=== PATIENT | female | born 1955 | race Caucasian/White ===

== ENCOUNTER → 2016-11-23 | Outpatient (CLI) | payer BC ==
[2016-11-23 11:47] LABS: EKG EKG PERFORMED
[2016-11-23 12:18] LABS: Basophils # (A) 0.1 k/uL (0-0.2); Basophils % (A) 1 %; CH 28.6; CHCM 30.8; Eosinophils # (A) 0.2 k/uL (0-0.7); Eosinophils % (A) 3 %; HCT 38.8 % (34.0-46.0); HDW 2.48; HGB 11.9 gm/dL (11.4-16.0); Hypochromasia Slight; Luc # (Auto) 0.11; Luc % (Auto) 1; Lymphocytes # (A) 1.6 k/uL (1.0-4.8); Lymphocytes % (A) 19 %; MCH 28.7 pg (25.0-35.0); MCHC 30.8 g/dL (31.0-37.0); MCV 93.4 fL (80.0-100.0); Mean Platelet Volume 6.9; Monocytes # (A) 0.3 k/uL (0-1.0); Monocytes % (A) 3 %; Neutrophils % (A) 72 %; RBC 4.15 m/uL (3.80-5.40); RDW 13.9 % (11.5-15.5); WBC 8.3 k/uL (3.8-10.6); WBC (Perox) 8.96
[2016-11-23 12:39] LABS: ALT 48 U/L (9-52); AST 38 U/L (14-36); Alkaline Phosphatase 156 U/L (38-126); Anion Gap 9 mmol/L; Blood Urea Nitrogen 10 mg/dL (7-17); Calcium 9.8 mg/dL (8.4-10.2); Carbon Dioxide 26 mmol/L (22-30); Chloride 110 mmol/L (98-107); Glucose 86 mg/dL (74-99); Non-African American GFR(MDRD) >60 (>60 ml/min/1.73 sqM); Potassium 4.1 mmol/L (3.5-5.1); Sodium 145 mmol/L (137-145); Total Bilirubin 0.4 mg/dL (0.2-1.3); Total Protein 6.4 g/dL (6.3-8.2)
[2016-11-23 13:02] LABS: Partial Thromboplastin Time 23.7 sec (22.0-30.0); Prothrombin Time 10.4 sec (9.0-12.0)
[2016-11-23 13:48] LABS: Appearance,Urine Clear (Clear); Bilirubin,Urine Negative (Negative); Glucose,Urine (UA) Negative (Negative); Ketones,Urine Negative (Negative); Leukocyte Esterase,Urine Large (Negative); Mucus,Urine Rare /hpf; Nitrite,Urine Negative (Negative); PH, Urine 5.5 (5.0-8.0); Particle Count 2846; Protein,Urine Negative (Negative); RBC,Urine 5 /hpf (0-5); Specific Gravity,Urine 1.018 (1.001-1.035); Squamous Epithelial Cell,Urine 3 /hpf (0-4); UA Billing (MACRO vs. MICRO) MICRO; Urobilinogen,Urine <2.0 mg/dL (<2.0); WBC,Urine 11 /hpf (0-5)
== END | disposition home or self-care (01) ==
LOC: LABPAT 11:38
PROVIDERS: ATTEND Orthopaedic Surgery
DX: Z01.810 Encounter for preprocedural cardiovascular examination (principal); Z01.812 Encounter for preprocedural laboratory examination
CPT/HCPCS: 80053; 81001; 85025; 85610; 85730; 87070; 93005

== ENCOUNTER 2016-12-06 12:09 | Inpatient (IN) | payer BC ==
[2016-11-25 14:54] VITALS: BMI 24.9
[~2016-12-06 12:09] MED LIST: ACETAMINOPHEN TAB 500 MG TAB PO ONE; DEXAMETHASONE SOD PHOSPHATE 10 MG/ML 1 ML VIAL IV ONE; HYDROmorphone 1 MG/ML 1 ML SYRINGE IVP PRN; LIDOCAINE 1% 20 ML VIAL (10MG/ML) FOR IV START INTRADERMA PRN; MELOXICAM 7.5 MG TAB PO ONE; MIDAZOLAM 2 MG/2 ML VIAL IV PRN; ONDANSETRON 4 MG/2 ML VIAL IVP ONE; SCOPOLAMINE 1.5MG/72HR PATCH TRANSDERM ONE; TRANEXAMIC ACID 1,000 MG in SODIUM CHLORIDE 0.9% 100 ML IVPB ONE; ceFAZolin 2 GM in SODIUM CHLORIDE 0.9% 100 ML IVPB ONE
[2016-12-06] MEDS: LACTATED RINGERS 1,000 ML IV SCH ×3 (13:05→23:39)
[2016-12-06] MEDS ORDERED: MIDAZOLAM 2 MG/2 ML VIAL IVP ONE (13:21)
[2016-12-06] MEDS ORDERED: fentaNYL (PF) 50 MCG/ML 2 ML AMP IV ONE (13:22)
[2016-12-06] MEDS ORDERED: ROPIVACAINE 1,100 MG, SODIUM CHLORIDE 0.9% 330 ML MISCELLANE PRN ×2 (14:01)
--- NOTE | 2016-12-06 14:03 | P.ONQ ---
Anesthesiology Proc Note - PNB - Peripheral Nerve Block Performed Right Adductor Canal Infusion Procedure Start Time: :30 Procedure Stop Time: :40 Indication: Acute Post-Operative Pain, Analgesia Sedation Type: Sedate with meaningful contact maintained Preparation: Sterile Prep Position: Supine Catheter: Indwelling Needle Types: On-Q Needle Size: 100mm (4") Needle Gauge: 18 Technique: Ultrasound Injectate: 0.5% Ropivacaine (see comment for volume) Blood Aspirated: No Pain Paresthesia on Injection Noted: No Resistance on Injection: Normal Events: Uneventful and Well Tolerated
[2016-12-06] MEDS ORDERED: GLYCOPYRROLATE 0.2 MG/ML 2 ML VIAL ONE (14:54)
[2016-12-06] MEDS ORDERED: PROPOFOL 10 MG/ML 20 ML VIAL IV ONE (14:54)
[2016-12-06] MEDS ORDERED: SODIUM CHLORIDE 0.9% 100 ML BAG ONE (14:54)
[2016-12-06] MEDS ORDERED: MIDAZOLAM 2 MG/2 ML VIAL ONE (14:54)
[2016-12-06] MEDS ORDERED: TRANEXAMIC ACID 1,000 MG/10 ML VIAL ONE (14:54)
[2016-12-06] MEDS ORDERED: fentaNYL (PF) 50 MCG/ML 2 ML AMP ONE (14:54)
[2016-12-06] MEDS: ROPIVACAINE 246.25 MG, EPINEPHrine 0.5 MG, KETOROLAC 30 MG, cloNIDine HCL/PF 80 MCG, WA... MISCELLANE ONE ×10 (15:26→15:56)
[2016-12-06] MEDS ORDERED: ceFAZolin 3,000 MG in SODIUM CHLORIDE 0.9% IRRIGATIO 3,000 ML IRRIGATION ONE (15:27)
[2016-12-06] MEDS ORDERED: LACTATED RINGERS 1,000 ML IV ONE (15:29)
--- NOTE | 2016-12-06 16:30 | P.OP ---
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 The articulation is ceramic on polyethylene. Anesthesia: spinal Surgeon: Miguel Rodriguez Food Service Aide #1: Karlene Reeder Estimated Blood Loss (ml): 50 Pathology: other (Bone and cartilage) Condition: stable Disposition: PACU Indications for Procedure: This is a 61-year-old female that had a right medial unicompartmental knee replacement for medial compartment osteoarthritis of her knee. After surgery she continued to have pain and swelling in her knee and subsequent x-rays demonstrated avascular necrosis of her lateral femoral condyle. Infection was ruled out as a cause. After lengthy discussion of the surgical and nonsurgical treatment options with her at length, she wishes to proceed with a revision of a unicompartmental knee replacement to a total knee replacement. 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 Description of Procedure: Patient was seen in the preoperative area consent was reviewed and operative site was marked with a skin marker. Patient was then brought to the operating room and given preoperative antibiotics intravenously. A spinal anesthetic was administered by the anesthesia department. A tourniquet was placed on the upper thigh and the lower extremity was prepped and draped in usual sterile fashion. A gram of transexamic acid was given. A universal timeout was then performed which confirmed the patient's name, surgical site, ALLERGIES, and consent. The lower extremity was then exsanguinated and tourniquet was inflated to 350 mmHg. A standard and anterior midline approach to the knee was performed. The skin and subcutaneous tissue was dissected down to the patellar tendon, with the prior scar being excised.. A medial parapatellar arthrotomy was then performed. The knee was then extended, the patellar was everted, and the knee was again flexed. The Anterior horn of the lateral menisus was excised, and a release was performed to the posterior medial aspect of the knee. On gross visual inspection, the prior unicompartmental medial knee replacement was in good position alignment, no evidence of any loosening. 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 The femoral canal was then opened with the appropriate drill, and the intramedullary femoral cutting guide was then placed and set for 4 of valgus. The distal femoral cutting block was then pinned in place, and the distal femur was then cut. A small saw was then used to disrupt the implant cement interface , and the distal femoral component was then removed. The cutting block was then removed and the cut was checked for flatness. Next, the sizing guide was then placed and set for 3 external rotation based off of the epicondylar axis and Whitesides line. After the femur was sized, the appropriate 4-in-1 cutting block was then pinned in place. The anterior condyles were cut without notching. The posterior and chamfer cuts were performed while protecting the collateral ligaments. The cutting block was then removed, and the femoral canal was plugged with autologous bone. Attention was then directed to the tibia. The remaining ACL was removed with a Ronguer, and the tibia was then gently subluxed forward with a large bent knee retractor. Any remaining menisci was excised. The posterior lateral corner was cauterized in order to cauterize the lateral geniculate artery. The extra medullary tibial cutting guide was then placed, set for the appropriate rotation , slope, and depth of resection. The proximal tibia cutting guide was then pinned in place. Proximal tibia was then cut. Next, also using a small saw, the proximal tibial component was removed after the implant and cement interface was disrupted. The tibia was then sized. Next trials were then placed with the appropriate-sized insert. The knee was able to fully extend and flex to 130 and was stable throughout all range of motion. The knee was then extended, patella everted. Patella was then measured, and then using an osteotomy guide, the patella was cut at the appropriate level. The patella was then measured and drilled and the patella trial was then placed. The knee was then taken through range of motion with the patella trial and the patella tracked normally. The knee was then extended patella trial was then removed and the patella was everted. Knee was then flexed and lug holes were drilled through the femoral trial and the femoral trial was then removed. The tibial was then exposed, and the tibial broach guide was then pinned in place after it was set for the appropriate rotation to allow for the most coverage without overhang. The tibia was then broached. The cut surfaces of bone were then irrigated with pulsatile lavage. The posterior structures were injected with the ropivacaine solution. The knee was also irrigated with Irrisept solution. The components were then opened, the cement was mixed, and the components were then cemented in place. The cement was allowed to harden with the knee in full extension. While the cement was hardening, the remaining soft tissues were injected with the ropivacaine solution. After the cemented hardened. The tourniquet was released, and hemostasis was obtained. A second gram of transexamic acid was given. The knee was again irrigated. The knee was again taken through range of motion and found to be stable throughout all range of motion of 0-130, and the patella tracked normally. The fascia was then closed with #2 strata fix suture. The subcutaneous tissue was closed with 3-0 Vicryl and 3-0 strata fix. Dermabond tape was used for the skin, and the patient was placed in a sterile dressing. Patient was then transferred to recovery room in stable condition. The research assistant member ALIA Shelton was required due the complexity surgery and the need for a skilled surgical coder. She assisted in positioning, draping , retraction, and closure of the wound.
[2016-12-06] MEDS ORDERED: ONDANSETRON 4 MG/2 ML VIAL IVP PRN (16:49)
[2016-12-06] MEDS ORDERED: hydrOXYzine PAMOATE 25 MG CAP PO PRN (16:49)
[2016-12-06] MEDS ORDERED: DIAZEPAM 5 MG TAB PO PRN ×2 (16:49)
[2016-12-06] MEDS ORDERED: NALOXONE 0.4 MG/ML 1 ML VIAL IV PRN (16:49)
[2016-12-06] MEDS ORDERED: HYDROcodone/APAP 7.5-325MG 1 EACH TAB PO PRN (16:49)
[2016-12-06] MEDS ORDERED: MAGNESIUM HYDROXIDE 2,400 MG/10 ML CUP PO PRN (16:49)
[2016-12-06] MEDS ORDERED: HYDROmorphone 1 MG/ML 1 ML SYRINGE IVP PRN ×3 (16:49)
[2016-12-06] MEDS ORDERED: BISACODYL 10 MG SUPP RECTAL PRN (16:49)
[2016-12-06 17:01] VITALS: RESP 16
--- NOTE | 2016-12-06 17:35 | XR ---
EXAMINATION TYPE: XR knee limited RT DATE OF EXAM: 12/06/2016 5:24 PM COMPARISON: 08/22/2016 HISTORY: Postop TECHNIQUE: 2 views FINDINGS: There is a right total knee prosthesis. Components appear in anatomic position. IMPRESSION: Revision of the knee prosthesis compared to old exam. No complicating process seen.
[2016-12-06] MEDS ORDERED: SENNOSIDES-DOCUSATE SODIUM 1 EACH TAB PO SCH (21:00)
[2016-12-06] MEDS: SODIUM CHLORIDE 0.9% 1,000 ML IV SCH ×2 (21:31→23:41)
[2016-12-06] MEDS: ASPIRIN 325 MG TAB PO SCH (21:31)
[2016-12-06] MEDS ORDERED: ZOLPIDEM 5 MG TAB PO PRN (21:38)
[2016-12-06] MEDS: ceFAZolin 2 GM in SODIUM CHLORIDE 0.9% 100 ML IVPB SCH (23:40)
[2016-12-07] MEDS: HYDROcodone/APAP 7.5-325MG 1 EACH TAB PO PRN ×2 (03:00→09:12)
[2016-12-07] MEDS: ASPIRIN 325 MG TAB PO SCH (07:26)
[2016-12-07] MEDS: ceFAZolin 2 GM in SODIUM CHLORIDE 0.9% 100 ML IVPB SCH (07:26)
[2016-12-07 07:30] LABS: Basophils % (A) 0 %; CH 29.2; CHCM 31.5; Eosinophils % (A) 0 %; HCT 36.6 % (34.0-46.0); HDW 2.38; HGB 11.2 gm/dL (11.4-16.0); Luc # (Auto) 0.07; Luc % (Auto) 0; Lymphocytes # (A) 1.1 k/uL (1.0-4.8); Lymphocytes % (A) 6 %; MCH 28.6 pg (25.0-35.0); MCHC 30.6 g/dL (31.0-37.0); MCV 93.2 fL (80.0-100.0); Mean Platelet Volume 7.7; Monocytes # (A) 0.7 k/uL (0-1.0); Monocytes % (A) 4 %; Neutrophils # (A) 15.1 k/uL (1.3-7.7); Neutrophils % (A) 89 %; RBC 3.93 m/uL (3.80-5.40); RDW 13.8 % (11.5-15.5); WBC (Perox) 17.93
[2016-12-07 07:34] VITALS: BP 111/63; PULSE 58; TEMP 97.5
[2016-12-07] MEDS ORDERED: FERROUS SULFATE 325 MG TAB PO SCH (09:00)
[2016-12-07] MEDS ORDERED: POTASSIUM CHLORIDE ER 20 MEQ TAB.ER PO SCH (09:00)
[2016-12-07] MEDS ORDERED: HYDROCHLOROTHIAZIDE 25 MG TAB PO SCH (09:00)
--- NOTE | 2016-12-07 09:32 | P.DS ---
Providers Date of admission: 12/06/16 12:09 Expected date of discharge: 12/07/16 Attending physician: Miguel Rodriguez Consults: 12/06/16 16:49 Consult Physician Routine Consulting Provider: Demond Swift Consult Reason/Comments: medical management Do you want consulting provider notified?: Yes 12/06/16 17:44 Consult Physician Routine Consulting Provider: Tone Thomas Consult Reason/Comments: medical managment Do you want consulting provider notified?: Already Contacted Primary care physician: Demond Swift - Discharge Diagnosis(es) (1) Primary osteoarthritis of right knee Current Visit: Yes Status: Acute (2) Status post revision of total replacement of right knee Current Visit: Yes Status: Acute Hospital Course: This is a 61-year-old female with history of right medial unicompartmental knee replacement for medial compartment osteoarthritis. Postoperatively the patient continued to have pain and swelling in her knee. 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 Infection was ruled out as a cause. After discussion and consideration the patient elected to proceed with revision of unicompartmental knee replacement to total knee replacement. Patient was seen preoperatively medically cleared for surgery by her primary care physician The patient was seen and evaluated at bedside this morning. She states her pain is controlled. She's been up with physical therapy. She has no other complaints this time. No lightheadedness or shortness of breath. She is alert and oriented 3. Vital signs are stable. Her dressing is clean dry and intact. Incision is fine with no erythema or active drainage. Calf is soft and nontender. She has good foot and ankle motion without difficulty. Sensation and circulatory status is intact. Patient wishes to be discharged home today. She is orthopedically stable for discharge if she does well with physical therapy this afternoon. Pertinent Studies: Laboratory Tests 12/07/16 07:00 WBC 17.0 H RBC 3.93 Hgb 11.2 L Hct 36.6 MCV 93.2 MCH 28.6 MCHC 30.6 L RDW 13.8 Plt Count 335 Neutrophils % 89 Lymphocytes % 6 Monocytes % 4 Eosinophils % 0 Basophils % 0 Neutrophils # 15.1 H Lymphocytes # 1.1 Monocytes # 0.7 Eosinophils # 0.0 Basophils # 0.0 Patient Condition at Discharge: Good Plan - Discharge Summary New Discharge Prescriptions: Aspirin 325 mg PO BID #60 tab HYDROcodone/APAP 10-325MG [Tippo 10] 1 - 2 each PO Q6H PRN #90 tab PRN Reason: Pain Sennosides-Docusate Sodium [Senokot-S] 2 tab PO DAILY #60 tablet hydrOXYzine PAMOATE [Vistaril] 25 mg PO QID PRN #40 cap PRN Reason: Pain Discharge Medication List Hydrochlorothiazide [Hydrodiuril] 25 mg PO DAILY 08/16/16 [History] Aspirin 325 mg PO DAILY 11/25/16 [History] Docusate [Colace] 100 mg PO DAILY 11/25/16 [History] Ferrous Sulfate [Feosol] 325 mg PO DAILY 11/25/16 [History] HYDROcodone/APAP 7.5-325MG [Tippo 7.5] 1 - 2 tab PO Q4H PRN 11/25/16 [History] Potassium Chloride [Klor-Con] 20 meq PO DAILY 11/25/16 [History] Aspirin 325 mg PO BID #60 tab 12/07/16 [Rx] HYDROcodone/APAP 10-325MG [Tippo 10] 1 - 2 each PO Q6H PRN #90 tab 12/07/16 [Rx] Sennosides-Docusate Sodium [Senokot-S] 2 tab PO DAILY #60 tablet 12/07/16 [Rx] hydrOXYzine PAMOATE [Vistaril] 25 mg PO QID PRN #40 cap 12/07/16 [Rx] Follow up Appointment(s)/Referral(s): Miguel Rodriguez DO [Doctor of Osteopathic Medicine] - 2 Weeks Ambulatory/Diagnostic Orders: Continuous Passive Motion (CPM) Machine [DME.AMB1] Location: Determined By Patient Activity/Diet/Wound Care/Special Instructions: Weightbearing as tolerated with a walker CPM daily Daily dressing changes, keep incision clean and dry [facility] with questions or concerns [phone] Discharge Disposition: HOME WITH HOME HEALTH SERVICES
--- NOTE | 2016-12-07 10:11 | P.PN ---
Progress Note - Text . Postoperative day # 2 status post total knee arthroplasty, under spinal anesthesia, and adductor canal catheter placed for postoperative analgesia, currently at ropivacaine 0.2% 8 mL per hour and continuous infusion, catheter site local. There is no erythema, and there is no tenderness, visual analogue scale is 4/10, patient using oral pain medication for breakthrough pain. Assessment and plan= Acute postoperative pain, adductor canal catheter for pain control, pain is well controlled we'll continue the same management.
--- NOTE | 2016-12-07 20:21 | CONS ---
DATE OF CONSULTATION: 12/06/2016. REASON FOR CONSULTATION: Medical management requested by Dr. Rodriguez. CONSULTATION: This is a pleasant 61 -year-old patient of Dr. Chan who has undergone revision of the right total knee arthroplasty. Post procedure sitting up, comfortable. No chest pain, shortness of breath, no nausea, vomiting, denies any cardiac history. The patient's chronic stable medical conditions include hypertension, varicose veins. REVIEW OF SYSTEMS: CONSTITUTIONAL: None. HEENT: None. RESPIRATORY: None. CARDIOVASCULAR: None. GASTROINTESTINAL: None. MUSCULOSKELETAL: Pain in the joints. Dermatological: None. HEMATOLOGIC: None. LYMPHATICS: None. PSYCHIATRY: None. NEUROLOGICAL: None. Past medical history of hypertension, osteoarthritis, varicose veins. PAST SURGICAL HISTORY: Back surgery, joint replacement, ( ) unicompartmental replacement, right knee and lower back surgery, right ankle hardware removal, right wrist fracture, right knee torn meniscus. SOCIAL HISTORY: The patient used to previously work at [employer]. Lives with her daughter. Alcohol rarely. Does not smoke. FAMILY HISTORY: Reviewed, noncontributory to the presentation. HOME MEDICATIONS: Reviewed, ( ) computer. ALLERGIES TO IBUPROFEN AND OXYCODONE. On examination, temperature 97.5, pulse 58, respirations 16, blood pressure 101/63, pulse ox 96% on room air. GENERAL APPEARANCE: Average build, sitting up in a chair, comfortable. EYES: Pupils equal. Conjunctivae normal. Oral cavity normal. NECK: JVD not raised. Mass not palpable. RESPIRATORY: Effort normal. Lungs are clear. CARDIOVASCULAR: First and second sounds normal. No edema. ABDOMEN: Soft, nontender. Liver and spleen not palpable. LYMPHATIC: No lymph nodes palpable in the neck and axilla. PSYCHIATRY: Alert and oriented times three. Mood and affect normal. NEUROLOGICAL: Pupils equal. Cranial nerves grossly intact. Power and sensation grossly intact. INVESTIGATIONS: White count 7, hemoglobin 11.2. ASSESSMENT: 1. Revision right total knee arthroplasty. 2. Leukocytosis with no evidence of infection, likely reactive. 3. Essential hypertension. 4. Varicose veins. PLAN: Home medications are resumed. Patient should follow with family doctor upon discharge. DVT prophylaxis per Dr. Rodriguez's team. Care was discussed with the patient. Daughter is at the bedside. Questions were answered.
== END 2016-12-07 13:19 | disposition home health service (06) | DRG 467 ==
LOC: 2ORMAIN 12:09 → 3SUR 16:48
PROVIDERS: ADMIT Orthopaedic Surgery; ATTEND Orthopaedic Surgery
PROC: 0SPC0JZ Removal of Synthetic Substitute from Right Knee Joint, Open Approach (ICD-10-PCS; principal; 2016-12-06 14:05)
PROC: 0SRC0J9 Replacement of Right Knee Joint with Synthetic Substitute, Cemented, Open Approach (ICD-10-PCS; principal; 2016-12-06 14:05)
DX: T84.89XA Other specified complication of internal orthopedic prosthetic devices, implants and grafts, initial encounter (principal); M87.351 Other secondary osteonecrosis, right femur; I10 Essential (primary) hypertension; D72.829 Elevated white blood cell count, unspecified; I83.90 Asymptomatic varicose veins of unspecified lower extremity; M17.11 Unilateral primary osteoarthritis, right knee; Z79.899 Other long term (current) drug therapy
CPT/HCPCS: 85025; 88305; 88311; 94760

== ENCOUNTER → 2017-03-21 | Outpatient (CLI) | payer BC ==
--- NOTE | 2017-03-21 14:26 | MM ---
Reason for exam: clinical finding. Baseline mammogram. History: Patient is postmenopausal. Family history of breast cancer in aunt. Indicated problem(s): pain in the left breast. Physical Findings: Nurse did not find any significant physical abnormalities on exam. MG Diagnostic Mammo w CAD ERNIE Bilateral CC and MLO view(s) were taken. Prior study comparison: November 27, 2006, CAD bilateral diagnostic mammogram. There are scattered fibroglandular densities. Finding: There are typically benign vascular calcifications in both breasts, greater in the left breast. There is no discrete abnormality. These results were verbally communicated with the patient and result sheet given to the patient on 03/21/17. ASSESSMENT: Benign, BI-RAD 2 RECOMMENDATION: Routine screening mammogram of both breasts in 1 year. Manage patient on a clinical basis for pain.
== END | disposition home or self-care (01) ==
LOC: RADMAMWWP 12:30
PROVIDERS: ATTEND Family Medicine
DX: N64.4 Mastodynia (principal); N63 Unspecified lump in breast

== ENCOUNTER → 2019-03-25 | Outpatient (CLI) | payer BC ==
--- NOTE | 2019-03-25 15:48 | US ---
EXAMINATION TYPE: US venous doppler duplex LE RT DATE OF EXAM: 03/25/2019 3:32 PM COMPARISON: CLINICAL HISTORY: I80.9 Phlebitis and thrombophlebitis of. Hx of right knee replacement x 2 years ago . Anterior lateral knee pain. No hx of blood thinners or blood clots. No redness. No swelling. SIDE PERFORMED: Right TECHNIQUE: The lower extremity deep venous system is examined utilizing real time linear array sonog deepika with graded compression, doppler sonography and color-flow sonography. VESSELS IMAGED: External Iliac Vein (EIV) Common Femoral Vein Deep Femoral Vein Greater Saphenous Vein * Femoral Vein Popliteal Vein Small Saphenous Vein * Proximal Calf Veins (* superficial vessels) Right Leg: Negative for DVT IMPRESSION: No evidence for DVT at this time.
== END | disposition home or self-care (01) ==
LOC: RADUSWWP 14:53
PROVIDERS: ATTEND Physical Medicine & Rehabilitation
DX: I80.9 Phlebitis and thrombophlebitis of unspecified site (principal)

== ENCOUNTER 2019-03-26 06:07 | Day surgery (SDC) | payer BC ==
[2019-03-22 12:27] VITALS: BMI 22.4
[~2019-03-26 06:07] MED LIST changes: -ACETAMINOPHEN TAB 500 MG TAB PO ONE; -DEXAMETHASONE SOD PHOSPHATE 10 MG/ML 1 ML VIAL IV ONE; -HYDROmorphone 1 MG/ML 1 ML SYRINGE IVP PRN; +LACTATED RINGERS 1,000 ML IV SCH; -LIDOCAINE 1% 20 ML VIAL (10MG/ML) FOR IV START INTRADERMA PRN; -MELOXICAM 7.5 MG TAB PO ONE; -MIDAZOLAM 2 MG/2 ML VIAL IV PRN; -ONDANSETRON 4 MG/2 ML VIAL IVP ONE; -SCOPOLAMINE 1.5MG/72HR PATCH TRANSDERM ONE; -TRANEXAMIC ACID 1,000 MG in SODIUM CHLORIDE 0.9% 100 ML IVPB ONE; -ceFAZolin 2 GM in SODIUM CHLORIDE 0.9% 100 ML IVPB ONE
[2019-03-26] MEDS ORDERED: LIDOCAINE 1% 20 ML VIAL (10MG/ML) FOR IV START INTRADERMA ONE (06:20)
[2019-03-26 06:40] VITALS: TEMP 98.3
[2019-03-26] MEDS ORDERED: PROPOFOL 10 MG/ML 20 ML VIAL IV ONE (07:07)
[2019-03-26 08:04] VITALS: BP 149/69; PULSE 58; RESP 16
[2019-03-26 08:49] LABS: Basophils % (A) 1 %; Eosinophils # (A) 0.2 k/uL (0-0.7); Eosinophils % (A) 2 %; HCT 36.1 % (34.0-46.0); HGB 11.5 gm/dL (11.4-16.0); Lymphocytes % (A) 31 %; MCH 29.9 pg (25.0-35.0); MCHC 31.8 g/dL (31.0-37.0); MCV 93.9 fL (80.0-100.0); Mean Platelet Volume 6.4; Monocytes # (A) 0.3 k/uL (0-1.0); Monocytes % (A) 4 %; Neutrophils # (A) 4.1 k/uL (1.3-7.7); Neutrophils % (A) 61 %; Platelet Count 394 k/uL (150-450); RBC 3.85 m/uL (3.80-5.40); RDW 15.6 % (11.5-15.5); WBC 6.7 k/uL (3.8-10.6)
--- NOTE | 2019-03-26 10:45 | PCN ---
PROCEDURE NOTE PROCEDURE: Bone marrow aspirate and biopsy. INDICATION: Unexplained anemia. After obtaining consent from the patient, the procedure was performed in the endoscopy suite under general anesthesia performed by Anesthesia Team. The patient was put in the left lateral decubitus position. The right posterior superior iliac crest was localized, skin was cleaned with ChloraPrep, all sterile procedures were followed. The 2 mL of 1% Xylocaine was used for local anesthetic. needle was inserted, about 5 mL aspirate and 1 cm core biopsy was obtained without any difficulties. Pressure applied afterwards. There was negligible blood loss. Patient tolerated the procedure very well without any immediate complications. MMODL / IJN: [id number] /
== END 2019-03-26 08:25 | disposition home or self-care (01) ==
LOC: OR 06:07
PROVIDERS: ATTEND Internal Medicine Hematology & Oncology
DX: D50.9 Iron deficiency anemia, unspecified (principal); I10 Essential (primary) hypertension; G90.50 Complex regional pain syndrome I, unspecified; J44.9 Chronic obstructive pulmonary disease, unspecified; Z88.6 Allergy status to analgesic agent; Z88.5 Allergy status to narcotic agent; Z79.891 Long term (current) use of opiate analgesic; Z79.899 Other long term (current) drug therapy; Z96.651 Presence of right artificial knee joint; Z80.8 Family history of malignant neoplasm of other organs or systems; Z90.710 Acquired absence of both cervix and uterus
CPT/HCPCS: 85025; 38222; J2704

== ENCOUNTER 2019-08-30 11:52 | Day surgery (SDC) | payer MEDICARE, BC ==
[~2019-08-30 11:52] MED LIST changes: +DEXAMETHASONE SOD PHOSPHATE 10 MG/ML 1 ML VIAL IV ONE; +HYDROmorphone 0.5 MG/0.5 ML SYRINGE IVP PRN; -LACTATED RINGERS 1,000 ML IV SCH; +LIDOCAINE 1% 20 ML VIAL (10MG/ML) FOR IV START INTRADERMA PRN; +MIDAZOLAM 2 MG/2 ML VIAL IV PRN; +ONDANSETRON 4 MG/2 ML VIAL IVP ONE; +SCOPOLAMINE 1.5MG/72HR PATCH TRANSDERM ONE
[2019-08-30] MEDS: LACTATED RINGERS 1,000 ML IV SCH (12:56)
[2019-08-30] MEDS ORDERED: POTASSIUM CHLORIDE 10 MEQ in WATER FOR INJECTION 1 100ML.BAG IVPB STA (13:53)
[2019-08-30] MEDS ORDERED: Potassium Replacement Protocol 1 EACH MISC MISCELLANE PRN (14:55)
[2019-08-30 15:08] VITALS: BMI 21.2
[2019-08-30] MEDS: POTASSIUM CHLORIDE 10 MEQ in WATER FOR INJECTION 1 100ML.BAG IVPB SCH ×6 (15:40→21:32)
[2019-08-30 18:01] LABS: Basophils % (A) 0 %; Eosinophils # (A) 0.1 k/uL (0-0.7); Eosinophils % (A) 1 %; HCT 34.7 % (34.0-46.0); HGB 11.1 gm/dL (11.4-16.0); Hypochromasia Slight; Lymphocytes # (A) 0.6 k/uL (1.0-4.8); Lymphocytes % (A) 9 %; MCH 27.3 pg (25.0-35.0); MCHC 32.1 g/dL (31.0-37.0); MCV 85.1 fL (80.0-100.0); Mean Platelet Volume 5.5; Monocytes % (A) 0 %; Neutrophils # (A) 5.8 k/uL (1.3-7.7); Neutrophils % (A) 88 %; Platelet Count 461 k/uL (150-450); RBC 4.07 m/uL (3.80-5.40); RDW 13.5 % (11.5-15.5); WBC 6.5 k/uL (3.8-10.6)
[2019-08-30 18:12] LABS: African American GFR (CKD) >90 (>60 ml/min/1.73 sqM); Anion Gap 9 mmol/L; Blood Urea Nitrogen 12 mg/dL (7-17); Calcium 9.1 mg/dL (8.4-10.2); Carbon Dioxide 24 mmol/L (22-30); Chloride 107 mmol/L (98-107); Glucose 166 mg/dL (74-99); Potassium 3.6 mmol/L (3.5-5.1); Sodium 140 mmol/L (137-145)
[2019-08-30] MEDS: POTASSIUM CHLORIDE ER 20 MEQ TAB.ER PO SCH (20:01)
[2019-08-30] MEDS ORDERED: ONDANSETRON 4 MG/2 ML VIAL IVP PRN (20:35)
[2019-08-30] MEDS ORDERED: SERTRALINE 25 MG TAB PO SCH (21:00)
[2019-08-30] MEDS: HYDROcodone/APAP 5-325MG 1 EACH TAB PO PRN (21:28)
[2019-08-30] MEDS: hydrOXYzine HCL 10 MG TAB PO PRN (21:31)
--- NOTE | 2019-08-30 22:57 | P.HPIM ---
History of Present Illness H&P Date: 08/30/19 Chief Complaint: Hypokalemia Patient is a 64-year-old female with a known history of COPD, hypertension, osteoarthritis and history of falls with recent right olecranon fracture was initially scheduled for outpatient surgery/ORIF by orthopedics. Preoperatively patient was found to have severely hypokalemic and patient was eventually admitted to the hospital for replacement and telemetry monitoring. Patient currently denied any complaints of chest pain or shortness of breath. No nausea vomiting or diarrhea. Patient is currently taking hydrochlorothiazide at home which she has stopped about a week back, by her primary care physician. Patient did take one dose yesterday due to her increased leg swelling. Patient's potassium was found to be 2.6 on admission. No complaints of palpitations. Patient is also on progression supplementation at home. Review of Systems Constitutional: Patient denies any fever or chills . No generalized weakness or weight loss. Abdomen: Patient denied nausea vomiting and diarrhea and abdominal pain. Cardiovascular: Patient denies any chest pain or short of breath no palpitations. Respiratory: patient denied any cough is from production. No shortness of breath Neurologic: Patient denied any numbness or tingling headache. Musculoskeletal: Patient denies any complaints of joint swelling or deformity. Skin: Negative Psychiatric: Negative Endocrine: No heat or cold intolerance. No recent weight gain. Genitourinary: No dysuria or hematuria. All other 14 point ROS negative except the above Past Medical History Past Medical History: Blood Disorder, COPD, Hypertension, Osteoarthritis (OA) Additional Past Medical History / Comment(s): HX HTN (NO CURRENT MEDS), IRON DEFICIENCY ANEMIA, OCCASIONAL SLOW HEART RATE.,VARICOSE VEINS., STATES HOSPITALIZED AT [facility] IN THE LAST MONTH FOR LOW POTASSIUM., STATES HX OF FALLS AND IS USING CANE., STATES FALL APPROX 2 WEEKS AGO AND INJURED HER RIGHT ELBOW WHICH IS IN A SPLINT. History of Any Multi-Drug Resistant Organisms: None Reported Past Surgical History: Back Surgery, Joint Replacement, Orthopedic Surgery Additional Past Surgical History / Comment(s): Right knee replacement, cervical neck x 3, lower back x 2, right ankle surgery, hardware later removed, right wrist fx with surgical repair, right knee torn meniscus repair., bone marrow bx. Past Anesthesia/Blood Transfusion Reactions: No Reported Reaction Past Psychological History: Anxiety, Depression Smoking Status: Never smoker Past Alcohol Use History: Occasional Past Drug Use History: None Reported - Past Family History Mother Additional Family Medical History / Comment(s): Mother 5 years after being struck by a vehicle of complications. Father Additional Family Medical History / Comment(s): Mother 5 yrs after being struck by a vehicle of complications. Medications and Allergies Home Medications Medication Instructions Recorded Confirmed Type Multivitamins, Thera [Multivitamin 1 tab PO DAILY 08/29/19 08/30/19 History (formulary)] Potassium Chloride [K-Tab ER] 20 meq PO BID 08/29/19 08/30/19 History Tramadol (Unknown Dose) 1 tab PO HS 08/29/19 08/30/19 History Hydrochlorothiazide 50 mg PO DAILY 08/30/19 08/30/19 History Sertraline [Zoloft] 25 mg PO HS 08/30/19 08/30/19 History hydrOXYzine HCL [Atarax] 10 mg PO Q8HR PRN 08/30/19 08/30/19 History traMADol HCl [Ultram] 50 mg PO Q6HR PRN 08/30/19 08/30/19 History Allergies Allergy/AdvReac Type Severity Reaction Status Date / Time ibuprofen [From Motrin] Allergy Rash/Hives Verified 08/29/19 09:29 oxycodone [From Percocet] Allergy Rash/Hives Verified 08/29/19 09:29 Physical Exam Vitals: Vital Signs Temp Pulse Resp BP Pulse Ox 08/30/19 15:58 70 18 08/30/19 15:02 98.1 F 70 18 144/71 97 08/30/19 12:41 98.7 F 72 16 150/73 100 Intake and Output 08/30/19 08/30/19 08/30/19 06:59 14:59 22:59 Intake Total 400 Balance 400 Intake: IV 400 Other: Voiding Method Toilet PHYSICAL EXAMINATION: Patient is lying in the bed comfortably, no acute distress, awake alert and oriented.. HEENT: Normocephalic. Neck is supple. Pupils reactive. Nostrils clear. Oral cavity is moist. Ears reveal no drainage. Neck reveals no JVD, carotid bruits, or thyromegaly. CHEST EXAMINATION: Trachea is central. Symmetrical expansion. Lung sampson clear to auscultation and percussion. CARDIAC: Normal S1, S2 with no gallops. No murmurs ABDOMEN: Soft. Bowel sounds normal. No organomegaly. No abdominal bruits. Extremities: reveal no edema. No clubbing or cyanosis Neurologically awake, alert, oriented x3 with well-coordinated movements. No focal deficits noted Skin: No rash or skin lesions. Psychiatric: Coperative. Nonsuicidal Musculoskeletal: No joint swelling or deformity. Right elbow cast and sling Results CBC & Chem 7: 08/30/19 17:36 08/30/19 17:36 Labs: Abnormal Lab Results - Last 24 Hours (Table) 08/30/19 Range/Units 12:50 Potassium 2.6 L* (3.5-5.1) mmol/L Thrombosis Risk Factor Assmnt - DVT/VTE Prophylaxis DVT/VTE Prophylaxis: Pharmacologic Prophylaxis ordered - Choose All That Apply Any of the Below Risk Factors Present?: Yes Each Factor Represents 1 point: Varicose veins Other Risk Factors: Yes Each Risk Factor Represents 2 Points: Age 61-74 years Other congenital or acquired thrombophilia - If yes, enter type in comment: No Thrombosis Risk Factor Assessment Total Risk Factor Score: 3 Thrombosis Risk Factor Assessment Level: Moderate Risk Assessment and Plan Assessment: Severe hypokalemia likely due to hydrochlorothiazide. Hypertension controlled COPD History of falls Recent right olecranon fracture. Scheduled for ORIF History of iron deficiency anemia Anxiety/depression History of multiple orthopedic surgeries DVT prophylaxis Plan: Patient be continued on potassium replacement and repeat potassium level. Hydrochlorothiazide is on hold. Continue with telemetry monitoring. Pain management and orthopedic surgery consulted. Further recommendations based on the clinical course. Time with Patient: Greater than 30
[2019-08-31] MEDS: HYDROmorphone 0.5 MG/0.5 ML SYRINGE IVP PRN ×2 (06:17→10:50)
[2019-08-31 06:37] LABS: African American GFR (CKD) >90 (>60 ml/min/1.73 sqM); Anion Gap 7 mmol/L; Blood Urea Nitrogen 12 mg/dL (7-17); Calcium 9.5 mg/dL (8.4-10.2); Carbon Dioxide 24 mmol/L (22-30); Chloride 110 mmol/L (98-107); Glucose 86 mg/dL (74-99); Potassium 4.1 mmol/L (3.5-5.1); Sodium 141 mmol/L (137-145)
[2019-08-31] MEDS: HYDROcodone/APAP 5-325MG 1 EACH TAB PO PRN (08:02)
[2019-08-31] MEDS ORDERED: MULTIVITAMINS, THERA 1 EACH TAB PO SCH (09:00)
[2019-08-31] MEDS: hydrOXYzine HCL 10 MG TAB PO PRN (10:40)
[2019-08-31] MEDS: POTASSIUM CHLORIDE ER 20 MEQ TAB.ER PO SCH (11:41)
[2019-08-31] MEDS: LACTATED RINGERS 1,000 ML IV SCH (11:44)
[2019-08-31 12:50] VITALS: BP 129/62; PULSE 72; RESP 18; TEMP 98.1
== END 2019-08-31 14:07 | disposition home or self-care (01) ==
LOC: OR 11:52 → 3SCARD 15:00 → OR 08-31 14:07
PROVIDERS: ATTEND Internal Medicine
DX: S52.031B Displaced fracture of olecranon process with intraarticular extension of right ulna, initial encounter for open fracture type I or II (principal); W17.89XA Other fall from one level to another, initial encounter; Z53.8 Procedure and treatment not carried out for other reasons; E87.6 Hypokalemia; I10 Essential (primary) hypertension; Z97.3 Presence of spectacles and contact lenses; Z96.651 Presence of right artificial knee joint; Z82.49 Family history of ischemic heart disease and other diseases of the circulatory system; Z79.891 Long term (current) use of opiate analgesic; Z79.899 Other long term (current) drug therapy; Z88.2 Allergy status to sulfonamides
CPT/HCPCS: 94760; 80048 ×2; 84132; 85025; J1100; J2405; J3480; J1170 ×2

== ENCOUNTER 2021-02-03 07:13 | Day surgery (SDC) | payer MEDICARE, BC ==
[2021-02-01 14:55] VITALS: BMI 21.7
[~2021-02-03 07:13] MED LIST changes: +ALPRAZolam 0.25 MG TAB PO PRN; +ASPIRIN 325 MG TAB PO PRN; -DEXAMETHASONE SOD PHOSPHATE 10 MG/ML 1 ML VIAL IV ONE; -HYDROmorphone 0.5 MG/0.5 ML SYRINGE IVP PRN; -LIDOCAINE 1% 20 ML VIAL (10MG/ML) FOR IV START INTRADERMA PRN; -MIDAZOLAM 2 MG/2 ML VIAL IV PRN; -ONDANSETRON 4 MG/2 ML VIAL IVP ONE; -SCOPOLAMINE 1.5MG/72HR PATCH TRANSDERM ONE; +SODIUM CHLORIDE 0.9% 1,000 ML in EMPTY BAG 1 BAG IV ONE
[2021-02-03 07:38] VITALS: RESP 18; TEMP 97.2
[2021-02-03] MEDS ORDERED: MIDAZOLAM 2 MG/2 ML VIAL IV ONE (09:26)
[2021-02-03] MEDS ORDERED: SODIUM CHLORIDE 0.9% 1,000 ML IV SCH ×2 (09:30→09:45)
[2021-02-03] MEDS ORDERED: IOPAMIDOL-250 100ML BTL INTRAARTER ONE (09:37)
[2021-02-03] MEDS ORDERED: fentaNYL (PF) 50 MCG/ML 2 ML AMP IV ONE (09:44)
--- NOTE | 2021-02-03 10:21 | IR ---
EXAMINATION TYPE: IR angio abdominal w runoff DATE OF EXAM: 02/03/2021 COMPARISON: NONE HISTORY: Fluoroscopy time. Fluoroscopy was provided to the referring clinician.
--- NOTE | 2021-02-03 10:44 | AN ---
ANGIOGRAPHY REPORT DATE OF SERVICE: 02/03/2021 PERFORMING PHYSICIAN: Ney Billy MD. PROCEDURE PERFORMED: 1. An abdominal aortogram. 2. Bilateral lower extremities runoff. INDICATION: This is a 65-year-old female patient who continues to have bilateral lower extremities intermittent claudication. On examination, she was found to have diminished pedal pulses. She would like a definitive diagnosis and because of that an aortogram with runoff was advised. APPROACH: Right common femoral artery. COMPLICATION: None. LEVEL OF SEDATION: Moderate with a sedation length of 10 minutes. PROCEDURE DESCRIPTION: After obtaining an informed consent, the patient was brought to the cardiac blood bank laboratory technician. The right common femoral artery was cannulated using micropuncture technique, the micropuncture wire passed easily then I placed a 5-Croatian sheath. After that I did an abdominal aortogram and bilateral lower extremities runoff using 5- Croatian pigtail catheter which was initially placed at the level of the renal arteries then it was pulled into above the bifurcation of the aorta to right and left common iliac arteries. The procedure was completed without any complication. SELECTIVE PERIPHERAL ANGIOGRAM: 1. The aorta appeared to be angiographically normal. 2. Common Iliac Arteries: Both are angiographically normal. 3. Internal Iliac Arteries: Both are angiographically normal. 4. External Iliac Arteries: Both are angiographically normal. 5. Common Femoral Arteries: Both are normal. 6. Profunda: Both are patent. 7. SFA: Both appear to have mild disease only. 8. Popliteal: Both are patent. 9. Below the knee: There are 3-vessel runoff below the knee bilaterally. CONCLUSION: 1. Normal aortogram. 2. Normal bilateral lower extremities runoff. POSTPROCEDURE MANAGEMENT: 1. Medical treatment. 2. Follow up with the patient. MMODL / IJN: [id number] /
[2021-02-03] MEDS ORDERED: LOSARTAN 25 MG TAB PO STA (10:47)
[2021-02-03] MEDS ORDERED: SPIRONOLACTONE 25 MG TAB PO STA (10:47)
[2021-02-03 16:14] VITALS: BP 118/72; PULSE 66
== END 2021-02-03 16:20 | disposition home or self-care (01) ==
LOC: CATHCVL 07:13
PROVIDERS: ATTEND Internal Medicine Interventional Cardiology
DX: I73.9 Peripheral vascular disease, unspecified (principal); I10 Essential (primary) hypertension; E78.5 Hyperlipidemia, unspecified; R07.89 Other chest pain; J44.9 Chronic obstructive pulmonary disease, unspecified; Z79.899 Other long term (current) drug therapy; Z82.49 Family history of ischemic heart disease and other diseases of the circulatory system
CPT/HCPCS: 36200; 75625; 75716; C1769 ×4; C1894; J2250; J3010; Q9966

== ENCOUNTER 2024-03-04 11:47 | Inpatient (IN) | payer MEDICARE, BC ==
[2024-03-04 12:10] LABS: Anisocytosis Slight; Basophils # (A) 0.1 k/uL (0-0.2); Basophils % (A) 0 %; Eosinophils # (A) 0.3 k/uL (0-0.7); Eosinophils % (A) 3 %; HCT 31.9 % (34.0-46.0); HGB 9.8 gm/dL (11.4-16.0); Hypochromasia Marked; Lymphocytes # (A) 1.2 k/uL (1.0-4.8); Lymphocytes % (A) 10 %; MCH 24.2 pg (25.0-35.0); MCHC 30.8 g/dL (31.0-37.0); MCV 78.8 fL (80.0-100.0); Mean Platelet Volume 8.5; Microcytosis Slight; Monocytes # (A) 0.6 k/uL (0-1.0); Monocytes % (A) 5 %; Neutrophils # (A) 9.9 k/uL (1.3-7.7); Neutrophils % (A) 81 %; Platelet Count 398 k/uL (150-450); RBC 4.05 m/uL (3.80-5.40); RDW 16.2 % (11.5-15.5); WBC 12.2 k/uL (3.8-10.6)
[2024-03-04 12:25] LABS: ALT 20 U/L (4-34); AST 32 U/L (14-36); African American GFR (CKD) 89 (>60 ml/min/1.73 sqM); Albumin 3.1 g/dL (3.5-5.0); Alkaline Phosphatase 155 U/L (38-126); Anion Gap 7 mmol/L; Blood Urea Nitrogen 15 mg/dL (7-17); Calcium 8.8 mg/dL (8.4-10.2); Carbon Dioxide 27 mmol/L (22-30); Chloride 102 mmol/L (98-107); Glucose 119 mg/dL (74-99); Non-African American GFR(CKD) 77 (>60 ml/min/1.73 sqM); Potassium 3.3 mmol/L (3.5-5.1); Sodium 136 mmol/L (137-145); Total Bilirubin 0.5 mg/dL (0.2-1.3); Total Protein 6.2 g/dL (6.3-8.2)
--- NOTE | 2024-03-04 13:26 | ED ---
General Adult HPI - General Chief complaint: Wound/Laceration Stated complaint: Infected Sores Time Seen by Provider: 03/04/24 12:00 Source: patient, family, RN notes reviewed, old records reviewed Mode of arrival: wheelchair Limitations: no limitations - History of Present Illness Initial comments: This is a 68-year-old female who presents to the emergency department because her bedsores been more malodorous and she supposed to see a infectious disease doctor but in the meantime the patient has gotten more drainage from the wound and has had episodes of altered mental status. She was told to come in by her primary to expedite her care. Patient states there is pain there but no worse than normal. Patient has not had any fever or chills. Patient has had MRSA in that area before as well as strep according to the daughter. - Related Data Home Medications Medication Instructions Recorded Confirmed traMADol HCl [Ultram] 100 mg PO TID PRN 08/30/19 03/04/24 Gabapentin 600 tab PO TID 06/29/20 03/04/24 Furosemide [Lasix] 20 mg PO BID PRN 02/01/21 03/04/24 Sertraline [Zoloft] 150 mg PO HS 02/01/21 03/04/24 Atorvastatin [Lipitor] 10 mg PO HS 02/03/21 03/04/24 amLODIPine [Norvasc] 2.5 mg PO DAILY 08/24/21 03/04/24 lamoTRIgine [LaMICtal] 25 mg PO DAILY 08/24/21 03/04/24 Cetirizine HCl [Zyrtec] 10 mg PO DAILY 03/04/24 03/04/24 Cyproheptadine HCl [Periactin] 4 mg PO TID 03/04/24 03/04/24 Ergocalciferol (Vitamin D2) 1,250 mcg PO FR 03/04/24 03/04/24 [Drisdol (50,000 Iu)] Meloxicam [Mobic] 15 mg PO DAILY 03/04/24 03/04/24 hydrOXYzine HCL [Atarax] 25 mg PO TID 03/04/24 03/04/24 Allergies Allergy/AdvReac Type Severity Reaction Status Date / Time ibuprofen [From Motrin] Allergy Rash/Hives Verified 03/04/24 14:04 oxycodone [From Percocet] Allergy Rash/Hives Verified 03/04/24 14:04 Penicillins Allergy Rash/Hives Verified 03/04/24 14:04 ferumoxytol [From Feraheme] AdvReac Intermediate Unknown Verified 03/04/24 14:04 Review of Systems ROS Statement: Those systems with pertinent positive or pertinent negative responses have been documented in the HPI. ROS Other: All systems not noted in ROS Statement are negative. Past Medical History Past Medical History: Blood Disorder, COPD, Hearing Disorder / Deafness, Hypertension, Osteoarthritis (OA) Additional Past Medical History / Comment(s): Hx HTN, Iron deficiency anemia, Occ slow heart rate, sl hearing loss Lt ear, hx low potassium, hx falls, Rt s houlder prob w/ upcoming surgery. Left foot turns dark purple, rt foot sl purple w/ occ edema. pressure sores, History of Any Multi-Drug Resistant Organisms: None Reported Past Surgical History: Back Surgery, Joint Replacement, Orthopedic Surgery Additional Past Surgical History / Comment(s): Right knee replacement, knee gave out after. Herniated discs cervical neck x 3, lower back x 2; right ankle surgery, hardware later removed; bilat wrist fx with surgical repair, removed hardware rt wrist; right knee torn meniscus repair. bone marrow bx. Total left shoulder - february 2021 Past Anesthesia/Blood Transfusion Reactions: No Reported Reaction Past Psychological History: Anxiety, Depression Smoking Status: Never smoker Past Alcohol Use History: Rare Past Drug Use History: None Reported - Past Family History Mother Additional Family Medical History / Comment(s): Mother 5 years after being struck by a vehicle of complications. Father Additional Family Medical History / Comment(s): Mother 5 yrs after being struck by a vehicle of complications. General Exam - General Exam Comments Initial Comments: GENERAL: Patient is well-developed and well-nourished. Patient is nontoxic and well- hydrated and is in mild distress. ENT: Neck is soft and supple. No significant lymphadenopathy is noted. Oropharynx is clear. Moist mucous membranes. Neck has full range of motion without eliciting any pain. EYES: The sclera were anicteric and conjunctiva were pink and moist. Extraocular movements were intact and pupils were equal round and reactive to light. Eyelids were unremarkable. PULMONARY: Unlabored respirations. Good breath sounds bilaterally. No audible rales rhonchi or wheezing was noted. CARDIOVASCULAR: There is a regular rate and rhythm without any murmurs gallops or rubs. ABDOMEN: Soft and nontender with normal bowel sounds. SKIN: Skin is clear with no lesions or rashes and otherwise unremarkable. NEUROLOGIC: Patient is alert and oriented x3. Cranial nerves II through XII are grossly intact. Motor and sensory are also intact. Normal speech, volume and content. Symmetrical smile. MUSCULOSKELETAL: Normal extremities with adequate strength and full range of motion. I examined the buttocks there is 2 wounds 1 in each buttocks. They are approximately a centimeter in size and currently are packed there is quite a bit of drainage on the bandage around the wound. LYMPHATICS: No significant lymphadenopathy is noted PSYCHIATRIC: Normal psychiatric evaluation. Limitations: no limitations Course Vital Signs 03/04/24 03/04/24 03/04/24 11:48 13:55 16:05 Temperature 98.2 F Pulse Rate 87 84 80 Respiratory 18 18 18 Rate Blood Pressure 139/80 113/74 115/63 O2 Sat by Pulse 96 96 95 Oximetry Medical Decision Making - Medical Decision Making Was pt. sent in by a medical professional or institution (, PA, RADIATION / CHEMISTRY TECHNICIAN, urgent care, hospital, or senior living...) When possible be specific @ -Patient was sent in by the primary medical care doctor Did you speak to anyone other than the patient for history (EMS, parent, family, police, friend...)? What history was obtained from this source @ -No Did you review nursing and triage notes (agree or disagree)? Why? @ -I reviewed and agree with nursing and triage notes Were old charts reviewed (outside hosp., previous admission, EMS record, old EKG, old radiological studies, urgent care reports/EKG's, senior living records)? Report findings @ -No old charts were reviewed Differential Diagnosis (chest pain, altered mental status, abdominal pain women, abdominal pain men, vaginal bleeding, weakness, fever, dyspnea, syncope, headache, dizziness, GI bleed, back pain, seizure, CVA, palpatations, mental health, musculoskeletal)? @ -Abscess, infected decubitus ulcer, cellulitis, this is not an all-inclusive list EKG interpreted by me (3pts min.). @ -As above X-rays interpreted by me (1pt min.). @ -None done CT interpreted by me (1pt min.). @ -None done U/S interpreted by me (1pt. min.). @ -None done What testing was considered but not performed or refused? (CT, X-rays, U/S, labs)? Why? @ -None What meds were considered but not given or refused? Why? @ -None Did you discuss the management of the patient with other professionals (professionals i.e. , PA, RADIATION / CHEMISTRY TECHNICIAN, lab, RT, psych nurse, school social worker, pastoral ministries professor, teacher, chief operations officer, disability case manager)? Give summary @ -I spoke with Dr. Sorenson he agreed admit the patient admit the patient wrote admitting orders Was smoking cessation discussed for >3mins.? @ -No Was critical care preformed (if so, how long)? @ -No Were there social determinants of health that impacted care today? How? (Homelessness, low income, unemployed, alcoholism, drug addiction, transportation, low edu. Level, literacy, decrease access to med. care, custodial, rehab)? @ -No Was there de-escalation of care discussed even if they declined (Discuss DNR or withdrawal of care, Hospice)? DNR status @ -No What co-morbidities impacted this encounter? (DM, HTN, Smoking, COPD, CAD, Cancer, CVA, ARF, Chemo, Hep., AIDS, mental health diagnosis, sleep apnea, morbid obesity)? @ -None Was patient admitted / discharged? Hospital course, mention meds given and route, prescriptions, significant lab abnormalities, going to OR and other pertinent info. @ -Patient received 2 g of Rocephin and was started on vancomycin. Patient will be admitted to Dr. Reyes I will consult infectious disease Undiagnosed new problem with uncertain prognosis? @ -No Drug Therapy requiring intensive monitoring for toxicity (Heparin, Nitro, Insulin, Cardizem)? @ -No Were any procedures done? @ -No Diagnosis/symptom? @ -Infected decubitus ulcer stage Acute, or Chronic, or Acute on Chronic? @ -Acute Uncomplicated (without systemic symptoms) or Complicated (systemic symptoms)? @ -Complicated Side effects of treatment? @ -No Exacerbation, Progression, or Severe Exacerbation? @ -No Poses a threat to life or bodily function? How? (Chest pain, [place], MA, pneumonia, PE, COPD, DKA, ARF, appy, cholecystitis, CVA, Diverticulitis, Homicidal, Suicidal, threat to staff... and all critical care pts) @ -Yes this can lead to sepsis and endorgan dysfunction - Lab Data Result diagrams: 03/04/24 12:04 03/04/24 12:04 Lab Results 03/04/24 03/04/24 03/04/24 Range/Units 12:04 12:04 12:04 WBC 12.2 H (3.8-10.6) k/uL RBC 4.05 (3.80-5.40) m/uL Hgb 9.8 L (11.4-16.0) gm/dL Hct 31.9 L (34.0-46.0) % MCV 78.8 L (80.0-100.0) fL MCH 24.2 L (25.0-35.0) pg MCHC 30.8 L (31.0-37.0) g/dL RDW 16.2 H (11.5-15.5) % Plt Count 398 (150-450) k/uL MPV 8.5 Neutrophils % 81 % Lymphocytes % 10 % Monocytes % 5 % Eosinophils % 3 % Basophils % 0 % Neutrophils # 9.9 H (1.3-7.7) k/uL Lymphocytes # 1.2 (1.0-4.8) k/uL Monocytes # 0.6 (0-1.0) k/uL Eosinophils # 0.3 (0-0.7) k/uL Basophils # 0.1 (0-0.2) k/uL Hypochromasia Marked Anisocytosis Slight Microcytosis Slight ESR (0-30) mm/Hr Sodium 136 L (137-145) mmol/L Potassium 3.3 L (3.5-5.1) mmol/L Chloride 102 (98-107) mmol/L Carbon Dioxide 27 (22-30) mmol/L Anion Gap 7 mmol/L BUN 15 (7-17) mg/dL Creatinine 0.79 (0.52-1.04) mg/dL Est GFR (CKD-EPI)AfAm 89 (>60 ml/min/1.73 sqM) Est GFR (CKD-EPI)NonAf 77 (>60 ml/min/1.73 sqM) Glucose 119 H (74-99) mg/dL Plasma Lactic Acid Bautista 1.2 (0.7-2.0) mmol/L Calcium 8.8 (8.4-10.2) mg/dL Total Bilirubin 0.5 (0.2-1.3) mg/dL AST 32 (14-36) U/L ALT 20 (4-34) U/L Alkaline Phosphatase 155 H (38-126) U/L C-Reactive Protein (<1.0) mg/dL Total Protein 6.2 L (6.3-8.2) g/dL Albumin 3.1 L (3.5-5.0) g/dL 03/04/24 03/04/24 Range/Units 12:04 12:04 WBC (3.8-10.6) k/uL RBC (3.80-5.40) m/uL Hgb (11.4-16.0) gm/dL Hct (34.0-46.0) % MCV (80.0-100.0) fL MCH (25.0-35.0) pg MCHC (31.0-37.0) g/dL RDW (11.5-15.5) % Plt Count (150-450) k/uL MPV Neutrophils % % Lymphocytes % % Monocytes % % Eosinophils % % Basophils % % Neutrophils # (1.3-7.7) k/uL Lymphocytes # (1.0-4.8) k/uL Monocytes # (0-1.0) k/uL Eosinophils # (0-0.7) k/uL Basophils # (0-0.2) k/uL Hypochromasia Anisocytosis Microcytosis ESR 100 H (0-30) mm/Hr Sodium (137-145) mmol/L Potassium (3.5-5.1) mmol/L Chloride (98-107) mmol/L Carbon Dioxide (22-30) mmol/L Anion Gap mmol/L BUN (7-17) mg/dL Creatinine (0.52-1.04) mg/dL Est GFR (CKD-EPI)AfAm (>60 ml/min/1.73 sqM) Est GFR (CKD-EPI)NonAf (>60 ml/min/1.73 sqM) Glucose (74-99) mg/dL Plasma Lactic Acid Bautista (0.7-2.0) mmol/L Calcium (8.4-10.2) mg/dL Total Bilirubin (0.2-1.3) mg/dL AST (14-36) U/L ALT (4-34) U/L Alkaline Phosphatase (38-126) U/L C-Reactive Protein 18.4 H (<1.0) mg/dL Total Protein (6.3-8.2) g/dL Albumin (3.5-5.0) g/dL Disposition Clinical Impression: Infected decubitus ulcer Disposition: ADMITTED IP TO THIS HOSP Referrals: Demond Swift DO [Primary Care Provider] - 1-2 days Time of Disposition: 16:54
[2024-03-04] MEDS ORDERED: VANCOMYCIN IV PER PHARMACY 1 EACH MISC MISCELLANE PRN (13:32)
[2024-03-04] MEDS: cefTRIAXone IN SWFI 1,000 MG/10 ML SYRINGE IVP STA ×2 (13:42)
[2024-03-04] MEDS: VANCOMYCIN 1,000 MG in SODIUM CHLORIDE 0.9% 250 ML IVPB ONE (14:05)
[2024-03-04] MEDS: SODIUM CHLORIDE 0.9% 1,000 ML IV ONE (17:31)
[2024-03-04 21:46] LABS: Appearance,Urine Clear (Clear); Bilirubin,Urine Negative (Negative); Blood,Urine Negative (Negative); Color,Urine Yellow; Glucose,Urine (UA) Negative (Negative); Ketones,Urine Negative (Negative); Leukocyte Esterase,Urine Trace (Negative); Mucus,Urine Rare /hpf; Nitrite,Urine Negative (Negative); PH, Urine 5.5 (5.0-8.0); Protein,Urine Trace (Negative); RBC,Urine 1 /hpf (0-5); Specific Gravity,Urine 1.024 (1.001-1.035); Squamous Epithelial Cell,Urine 4 /hpf (0-4); Urobilinogen,Urine <2.0 mg/dL (<2.0); WBC,Urine 6 /hpf (0-5)
[2024-03-05] MEDS: VANCOMYCIN 750 MG in SODIUM CHLORIDE 0.9% 250 ML IVPB SCH (05:11)
[2024-03-05 06:39] LABS: African American GFR (CKD) 89 (>60 ml/min/1.73 sqM); Non-African American GFR(CKD) 77 (>60 ml/min/1.73 sqM)
[2024-03-05] MEDS ORDERED: FUROSEMIDE 20 MG TAB PO PRN (09:23)
[2024-03-05] MEDS: amLODIPine 2.5 MG TAB PO SCH (10:28)
[2024-03-05] MEDS: MELOXICAM 7.5 MG TAB PO SCH (10:28)
[2024-03-05] MEDS: lamoTRIgine 25 MG TAB PO SCH (10:29)
[2024-03-05] MEDS: GABAPENTIN 300 MG CAP PO SCH (10:29)
[2024-03-05] MEDS: CYPROHEPTADINE 4 MG TABLET PO SCH (10:29)
[2024-03-05] MEDS: LORATADINE 10 MG TAB PO SCH (10:30)
[2024-03-05] MEDS: traMADol 50 MG TAB PO PRN (10:35)
[2024-03-05] MEDS ORDERED: IOPAMIDOL CONTRAST (ORAL USE) VIAL PO PRN (14:24)
[2024-03-05] MEDS: hydrOXYzine HCL 25 MG TAB PO SCH (15:06)
[2024-03-05] MEDS: THIAMINE 100 MG TAB PO SCH (17:11)
--- NOTE | 2024-03-05 19:07 | CT ---
EXAMINATION TYPE: CT pelvis w con DATE OF EXAM: 03/05/2024 COMPARISON: None HISTORY: Bilateral nonhealing gluteal wound rule out absces CT DLP: 784 mGycm Automated exposure control for dose reduction was used. Contrast: None Technique: Axial images 5 mm thick sections. Reconstructed images and sagittal planes. FINDINGS: Fecal debris is at the level of the rectum. There is an old left hip fracture. There is a fracture of the medial ischio ramus on the right is . This is age indeterminate and may be acute. Small pub ic ramus fracture on the right may also be present. There is a 3.8 cm hypodense collection with a thick wall in the left gluteal region at the level of t he sacroiliac joint. Findings are compatible with abscess. In the right gluteal region there is a 3.7 x 1.2 cm hypodense collection with thick wall. This contai ns a small amount of air which extends along the gluteal muscle region. Findings are compatible with abscess. Gas-forming organism should be considered. Correlate for prior instrumentation. Oral contrast within loops of bowel. Some fecal debris is within the colon. Uterus appears unremarkab le. Urinary bladder is unremarkable. IMPRESSION: 1. 3.8 CM LEFT GLUTEAL ABSCESS. 2. 3.8 X 1.2 CM RIGHT GLUTEAL ABSCESS CONTAINS AIR. 3. OLD LEFT HIP FRACTURE. 4. ACUTE RIGHT PELVIC FRACTURE NOT EXCLUDED
[2024-03-05] MEDS: ATORVASTATIN 10 MG TAB PO SCH (21:03)
[2024-03-05] MEDS: SERTRALINE 50 MG TAB PO SCH (21:04)
--- NOTE | 2024-03-05 23:19 | P.CONS ---
History of Present Illness - Reason for Consult Consult date: 03/05/24 - History of Present Illness Patient is a 68-year-old female with a past medical history significant for COPD hypertension osteoarthritis anxiety depression patient did have a history of bilateral gluteal area pressure ulcer the patient has for almost a year previously evaluated and treated at [facility] care [place] and was subsequently referred to Dr. Smiley will get some plastic surgery the patient daughter who provided most of the history mention patient seem to have persistent problems with infection and has been treated with multiple courses of oral antibiotic therapy patient now has been brought into the ER concerning for increasing foul-smelling drainage and increasing erythema to her bilateral gluteal wound area especially to the right side patient describing the pain into the wound area to be mostly dull aching and throbbing moderate intensity without any radiation swelling redness and documented and reported by the daughter and foul-smelling drainage no high-grade fever and no temperature was noticed on presentation to the hospital patient was not tachycardic hypotensive or hypoxic did have a white count of 12.2 creatinine 0.79 liver enzymes are normal CRP is elevated urine has been negative cultures obtained which are currently pending patient has been started on ceftriaxone and vancomycin infectious disease was consulted for further management of antibiotic therapy Past Medical History Past Medical History: Blood Disorder, COPD, Hearing Disorder / Deafness, Hypertension, Osteoarthritis (OA) Additional Past Medical History / Comment(s): Hx HTN, Iron deficiency anemia, Occ slow heart rate, sl hearing loss Lt ear, hx low potassium, hx falls, Rt shoulder prob w/ upcoming surgery. Left foot turns dark purple, rt foot sl purple w/ occ edema. pressure sores, History of Any Multi-Drug Resistant Organisms: None Reported Past Surgical History: Back Surgery, Joint Replacement, Orthopedic Surgery Additional Past Surgical History / Comment(s): Right knee replacement, knee gave out after. Herniated discs cervical neck x 3, lower back x 2; right ankle surgery, hardware later removed; bilat wrist fx with surgical repair, removed hardware rt wrist; right knee torn meniscus repair. bone marrow bx. Total left shoulder - february 2021 Past Anesthesia/Blood Transfusion Reactions: No Reported Reaction Past Psychological History: Anxiety, Depression Smoking Status: Never smoker Past Alcohol Use History: Rare Past Drug Use History: None Reported - Past Family History Mother Additional Family Medical History / Comment(s): Mother 5 years after being struck by a vehicle of complications. Father Additional Family Medical History / Comment(s): Mother 5 yrs after being struck by a vehicle of complications. Medications and Allergies Home Medications Medication Instructions Recorded Confirmed Type traMADol HCl [Ultram] 100 mg PO TID PRN 08/30/19 03/04/24 History Gabapentin 600 tab PO TID 06/29/20 03/04/24 History Furosemide [Lasix] 20 mg PO BID PRN 02/01/21 03/04/24 History Sertraline [Zoloft] 150 mg PO HS 02/01/21 03/04/24 History Atorvastatin [Lipitor] 10 mg PO HS 02/03/21 03/04/24 History amLODIPine [Norvasc] 2.5 mg PO DAILY 08/24/21 03/04/24 History lamoTRIgine [LaMICtal] 25 mg PO DAILY 08/24/21 03/04/24 History Cetirizine HCl [Zyrtec] 10 mg PO DAILY 03/04/24 03/04/24 History Cyproheptadine HCl [Periactin] 4 mg PO TID 03/04/24 03/04/24 History Ergocalciferol (Vitamin D2) 1,250 mcg PO FR 03/04/24 03/04/24 History [Drisdol (50,000 Iu)] Meloxicam [Mobic] 15 mg PO DAILY 03/04/24 03/04/24 History hydrOXYzine HCL [Atarax] 25 mg PO TID 03/04/24 03/04/24 History Allergies Allergy/AdvReac Type Severity Reaction Status Date / Time ibuprofen [From Motrin] Allergy Rash/Hives Verified 03/04/24 14:04 oxycodone [From Percocet] Allergy Rash/Hives Verified 03/04/24 14:04 Penicillins Allergy Rash/Hives Verified 03/04/24 14:04 ferumoxytol [From Feraheme] AdvReac Intermediate Unknown Verified 03/04/24 14:04 Physical Exam Vitals: Vital Signs Temp Pulse Resp BP Pulse Ox 03/05/24 08:21 70 18 137/75 96 03/05/24 05:38 74 16 101/78 96 03/05/24 04:15 79 16 122/86 96 03/05/24 00:16 98.4 F 81 16 107/56 96 03/04/24 19:44 88 16 108/64 97 03/04/24 17:31 83 16 112/88 97 03/04/24 16:05 80 18 115/63 95 03/04/24 13:55 84 18 113/74 96 03/04/24 11:48 98.2 F 87 18 139/80 96 Results CBC & Chem 7: 03/06/24 08:40 03/06/24 08:40 Labs: Abnormal Lab Results - Last 24 Hours (Table) 03/04/24 03/04/24 03/04/24 Range/Units 12:04 12:04 12:04 WBC 12.2 H (3.8-10.6) k/uL Hgb 9.8 L (11.4-16.0) gm/dL Hct 31.9 L (34.0-46.0) % MCV 78.8 L (80.0-100.0) fL MCH 24.2 L (25.0-35.0) pg MCHC 30.8 L (31.0-37.0) g/dL RDW 16.2 H (11.5-15.5) % Neutrophils # 9.9 H (1.3-7.7) k/uL ESR 100 H (0-30) mm/Hr Sodium 136 L (137-145) mmol/L Potassium 3.3 L (3.5-5.1) mmol/L Glucose 119 H (74-99) mg/dL Alkaline Phosphatase 155 H (38-126) U/L C-Reactive Protein (<1.0) mg/dL Total Protein 6.2 L (6.3-8.2) g/dL Albumin 3.1 L (3.5-5.0) g/dL Urine Protein (Negative) Ur Leukocyte Esterase (Negative) Urine WBC (0-5) /hpf Urine Mucus (None) /hpf 03/04/24 03/04/24 Range/Units 12:04 21:40 WBC (3.8-10.6) k/uL Hgb (11.4-16.0) gm/dL Hct (34.0-46.0) % MCV (80.0-100.0) fL MCH (25.0-35.0) pg MCHC (31.0-37.0) g/dL RDW (11.5-15.5) % Neutrophils # (1.3-7.7) k/uL ESR (0-30) mm/Hr Sodium (137-145) mmol/L Potassium (3.5-5.1) mmol/L Glucose (74-99) mg/dL Alkaline Phosphatase (38-126) U/L C-Reactive Protein 18.4 H (<1.0) mg/dL Total Protein (6.3-8.2) g/dL Albumin (3.5-5.0) g/dL Urine Protein Trace H (Negative) Ur Leukocyte Esterase Trace H (Negative) Urine WBC 6 H (0-5) /hpf Urine Mucus Rare H (None) /hpf Microbiology - Last 24 Hours (Table) 03/04/24 13:23 Gram Stain - Preliminary Buttock Assessment and Plan Plan: 1patient with chronic nonhealing wound to bilateral gluteal area pressure ulcer that has been treated with the local treatment as well as plastic surgery no present to the hospital with worsening redness and foul-smelling drainage concerning for wound infection and cellulitis likely from gram-positive skin ale however gram-negative rash not entirely excluded 2-patient with a penicillin allergy with elevated number of antibiotics safe to use 3-we will obtain CT of the pelvis area to make sure no evidence of any abscess that may need to be drained 4-continue the vancomycin pharmacy to dose however switch Rocephin to cefepime while waiting for the culture to finalize Daughter at the bedside multiple question concern answered We will follow on clinical condition and cultures to further adjust medication if needed Thank you for this consultation we will follow the patient along with you Dictation was produced using [employer] dictation software. please excuse any grammatical, word or spelling errors. Time with Patient: Greater than 30
[2024-03-06] MEDS: CEFEPIME 2 GM in SODIUM CHLORIDE 0.9% 100 ML IVPB SCH ×3 (00:16→21:20)
--- NOTE | 2024-03-06 00:21 | HP ---
HISTORY AND PHYSICAL CHIEF COMPLAINT: Infected decubitus. HISTORY OF PRESENT ILLNESS: This is a 68-year-old woman with a past medical history of multiple medical problems including COPD, history of back surgery, joint replacement, had a decubitus previously which was treated with reconstruction by Dr. Smiley. The patient followed by wound care, but now the family noticed some discharge and increased swelling of the back area, and the patient has some change in mental status and the patient was taken to [facility] and was admitted for further evaluation and treatment. The patient had previous MRSA history also. There is no history of any headache, loss of conscious, or seizures. PAST MEDICAL HISTORY: History of COPD, DJD, history of back surgery, and rest of the chart is also reviewed. HOME MEDICATIONS: Reviewed include Ultram. Doses and rest of medications noted. ALLERGIES: Motrin, rest of allergies noted. FAMILY HISTORY: No history of strokes or heart attack in the family. SOCIAL HISTORY: No history of smoking or alcohol. REVIEW OF SYSTEM: Fourteen-point review is negative except as mentioned earlier. PHYSICAL EXAMINATION: VITAL SIGNS: Pulse 71, blood pressure 126/90, and respirations 18. CHEST: Clear to auscultation. CARDIOVASCULAR: S1, S2 muffled. ABDOMEN: Soft. BACK: Significant swelling, tenderness, pain, and decubitus ulcer present. NERVOUS SYSTEM: Diffusely weak. SKIN: As mentioned earlier. JOINTS: No active deforming arthropathy. LABS: Wound culture showing gram-negative bacilli. ASSESSMENT: 1. Decubitus ulcer with failure of outpatient treatment. 2. Gram-negative bacilli from the wound culture. 3. Chronic obstructive pulmonary disease. 4. Hypertension. 5. History of degenerative joint disease. 6. History of iron-deficient anemia. 7. History of back surgery. 8. Anxiety, depression. RECOMMENDATIONS AND DISCUSSION: This 68-year-old woman, presented with multiple complex medical issues. We will monitor the patient closely. We will initiate broad-spectrum IV antibiotics. The patient was started on Rocephin and vancomycin. We will obtain Infectious Disease and Surgical evaluation. Guarded prognosis because of multiple complex medical issues. Resume home medications once they are confirmed. DVT prophylaxis and discussed at length with the daughter at the bedside and further recommendations to follow. MMODL / IJN: [id number] /
[2024-03-06] MEDS: PANTOPRAZOLE 40 MG TABLET PO SCH (11:02)
[2024-03-06] MEDS: NICOTINE 14MG/24HR PATCH TRANSDERM SCH (11:17)
[2024-03-06 11:21] LABS: Basophils # (A) 0.05 X 10*3/uL (0.00-0.10); Basophils % (A) 0.6 %; Eosinophils # (A) 0.52 X 10*3/uL (0.04-0.35); Eosinophils % (A) 5.9 %; HCT 31.5 % (37.2-46.3); HGB 9.3 g/dL (12.0-15.0); Lymphocytes % (A) 18.1 %; MCH 23.1 pg (27.0-32.0); MCHC 29.5 g/dL (32.0-37.0); MCV 78.2 FL (80.0-97.0); Mean Platelet Volume 9.1 FL (9.5-12.2); Monocytes # (A) 0.51 X 10*3/uL (0.20-1.00); Monocytes % (A) 5.8 %; NRBC Per 100 WBC 0 X 10*3/uL (0.00-0.01); Neutrophils # (A) 6.14 X 10*3/uL (1.80-7.70); Neutrophils % (A) 69.1 %; Platelet Count 422 X 10*3/uL (140-440); RBC 4.03 X 10*6/uL (4.10-5.20); RDW 17.7 % (11.5-14.5); WBC 8.86 X 10*3/uL (4.50-10.00)
[2024-03-06 11:44] LABS: BUN/Creat Ratio 12.25 Ratio (12.00-20.00); Blood Urea Nitrogen 9.8 mg/dL (9.0-27.0); Calcium 9.1 mg/dL (8.7-10.3); Carbon Dioxide 24.4 mmol/L (21.6-31.8); Chloride 105 mmol/L (96-109); Glucose 88 mg/dL (70-110); Potassium 3.9 mmol/L (3.5-5.5); Sodium 138 mmol/L (135-145)
--- NOTE | 2024-03-06 12:00 | P.GSCN ---
History of Present Illness Consult date: 03/06/24 History of present illness: CHIEF COMPLAINT: Buttock wounds HISTORY OF PRESENT ILLNESS: This is a 68-year-old female with wounds on both the right and left buttocks. History obtained from patient. She reports that she has had these wounds for 6 months. She follows at the wound care center. She reports 2 months ago she had a skin flap surgery on the right buttocks with Dr. Salcedo. Patient reports that she has been on multiple rounds of antibiotics. And every time she comes off the antibiotic she has increased in drainage and infection. Patient was noted by wound care service to have more drainage and odor from the wounds and came to the ER for further evaluation. Patient denies any history of diabetes. She does have a history of MRSA. Her pelvic CT scan reported a 3.8 cm left gluteal abscess and a 3.8 x 1.2 cm right gluteal abscess containing air. Patient does report mild pain. But mostly has numbness in the ulcer areas. Patient is mostly wheelchair bound. She reports she can stand minimally. PAST MEDICAL HISTORY: See below PAST SURGICAL HISTORY: See below MEDICATIONS: See below ALLERGIES: See below SOCIAL HISTORY: No illicit drug use. REVIEW OF SYSTEMS: CONSTITUTIONAL: Denies fever or chills. HEENT: Denies blurred vision, vision changes, or eye pain. Denies hemoptysis CARDIOVASCULAR: Denies chest pain or pressure. RESPIRATORY: No shortness of breath. GASTROINTESTINAL: See HPI for pertinent findings HEMATOLOGIC: Denies bleeding disorders. GENITOURINARY: Denies any blood in urine or increased urinary frequency. SKIN: Denies pruitis. Denies rash. PHYSICAL EXAM: VITAL SIGNS: Reviewed GENERAL: Well-developed in no acute distress. HEENT: No sclera icterus. Extraocular movements grossly intact. Moist buccal m ucosa. Head is atraumatic, normocephalic. No nasal drainage. ABDOMEN: Soft. Nondistended. Nontender NEUROLOGIC: Alert and oriented. Cranial nerves II through XII grossly intact. LABORATORY DATA: WBC 12.2 down to 8.86 Hgb 9.3 platelets 422 Sodium is 138 potassium 3.9 creatinine 0.8 IMAGING: CT scan pelvis reports 3.8 cm left gluteal abscess. 3.81 x 1.2 cm right gluteal abscess contains air. Old left hip fracture. Acute right pelvic fracture not excluded. ASSESSMENT: 1. Bilateral buttock abscesses PLAN: -Further recommendations forthcoming per surgeon regarding possible incision and drainage of bilateral buttock abscess -Continue antibiotics -Continue offloading -Continue supportive care Physician Food Service Tray Attendant note has been reviewed by physician. Signing provider agrees with the documented findings, assessment, and plan of care. Past Medical History Past Medical History: Blood Disorder, COPD, Hearing Disorder / Deafness, Hypertension, Osteoarthritis (OA) Additional Past Medical History / Comment(s): Hx HTN, Iron deficiency anemia, Occ slow heart rate, sl hearing loss Lt ear, hx low potassium, hx falls, Rt shoulder prob w/ upcoming surgery. Left foot turns dark purple, rt foot sl purple w/ occ edema. pressure sores, History of Any Multi-Drug Resistant Organisms: None Reported Past Surgical History: Back Surgery, Joint Replacement, Orthopedic Surgery Additional Past Surgical History / Comment(s): Right knee replacement, knee gave out after. Herniated discs cervical neck x 3, lower back x 2; right ankle surgery, hardware later removed; bilat wrist fx with surgical repair, removed hardware rt wrist; right knee torn meniscus repair. bone marrow bx. Total left shoulder - february 2021 Past Anesthesia/Blood Transfusion Reactions: No Reported Reaction Past Psychological History: Anxiety, Depression Smoking Status: Never smoker Past Alcohol Use History: Rare Past Drug Use History: None Reported - Past Family History Mother Additional Family Medical History / Comment(s): Mother 5 years after being struck by a vehicle of complications. Father Additional Family Medical History / Comment(s): Mother 5 yrs after being struck by a vehicle of complications. Medications and Allergies Home Medications Medication Instructions Recorded Confirmed Type traMADol HCl [Ultram] 100 mg PO TID PRN 08/30/19 03/04/24 History Gabapentin 600 tab PO TID 06/29/20 03/04/24 History Furosemide [Lasix] 20 mg PO BID PRN 02/01/21 03/04/24 History Sertraline [Zoloft] 150 mg PO HS 02/01/21 03/04/24 History Atorvastatin [Lipitor] 10 mg PO HS 02/03/21 03/04/24 History amLODIPine [Norvasc] 2.5 mg PO DAILY 08/24/21 03/04/24 History lamoTRIgine [LaMICtal] 25 mg PO DAILY 08/24/21 03/04/24 History Cetirizine HCl [Zyrtec] 10 mg PO DAILY 03/04/24 03/04/24 History Cyproheptadine HCl [Periactin] 4 mg PO TID 03/04/24 03/04/24 History Ergocalciferol (Vitamin D2) 1,250 mcg PO FR 03/04/24 03/04/24 History [Drisdol (50,000 Iu)] Meloxicam [Mobic] 15 mg PO DAILY 03/04/24 03/04/24 History hydrOXYzine HCL [Atarax] 25 mg PO TID 03/04/24 03/04/24 History Allergies Allergy/AdvReac Type Severity Reaction Status Date / Time ibuprofen [From Motrin] Allergy Rash/Hives Verified 03/04/24 14:04 oxycodone [From Percocet] Allergy Rash/Hives Verified 03/04/24 14:04 Penicillins Allergy Rash/Hives Verified 03/04/24 14:04 ferumoxytol [From Feraheme] AdvReac Intermediate Unknown Verified 03/04/24 14:04 Surgical - Exam Vital Signs Temp Pulse Resp BP Pulse Ox 98.2 F 87 18 139/80 96 03/04/24 11:48 03/04/24 11:48 03/04/24 11:48 03/04/24 11:48 03/04/24 11:48 Results - Labs 03/06/24 08:40 03/06/24 08:40 Microbiology - Last 24 Hours (Table) 03/04/24 13:05 Blood Culture - Preliminary Blood 03/04/24 13:23 Gram Stain - Preliminary Buttock Wound Culture - Preliminary Gram Neg Bacilli
[2024-03-06] MEDS: MULTIVITAMINS, THERA 1 EACH TAB PO SCH (12:47)
[2024-03-06] MEDS: FOLIC ACID 1 MG TAB PO SCH (12:47)
[2024-03-06 15:32] VITALS: BMI 19.8
--- NOTE | 2024-03-06 17:04 | P.PN ---
Subjective Progress Note Date: 03/06/24 Principal diagnosis: Bilateral gluteal abscess Patient is a 68-year-old female with a past medical history significant for COPD hypertension osteoarthritis anxiety depression patient did have a history of bilateral gluteal area pressure ulcer for the patient has been treated at [facility] and Dr. Smliey has been brought to the hospital concerning for worsening wound and drainage and possible wound infection. Patient did have a pelvic CT with evidence of bilateral gluteal abscess On today's visit that is 03/06/2024, Patient is afebrile patient is currently on room air and denies having any shortness of breath, the patient denies any chest pain or cough, the patient denies any nausea vomiting did not have any abdominal pain and denies any worsening pain to bilateral gluteal area or any worsening drainage. Patient white count is 8.86, creatinine 0.8 blood culture currently growing Serratia marcescens and presumptive Staph aureus Objective - Vital Signs Vital signs: Vital Signs Temp 98.0 F 03/06/24 12:45 Pulse 82 03/06/24 12:45 Resp 20 03/06/24 12:45 BP 120/71 03/06/24 12:45 Pulse Ox 97 03/06/24 12:45 FiO2 Intake & Output 03/05/24 03/06/24 03/06/24 18:59 06:59 18:59 Intake Total 590 0 Balance 590 0 Weight 47.627 kg 47.627 kg Intake: Oral 590 0 Other: Voiding Method Toilet Toilet # Voids 1 1 - Exam GENERAL DESCRIPTION: An elderly female lying in bed in no distress RESPIRATORY SYSTEM: Unlabored breathing , decreased breath sounds at bases HEART: S1 S2 regular rate and rhythm , ABDOMEN: Soft , no tenderness EXTREMITIES: No edema feet - Labs CBC & Chem 7: 03/06/24 08:40 03/06/24 08:40 Labs: Abnormal Lab Results - Last 24 Hours (Table) 03/06/24 Range/Units 08:40 RBC 4.03 L (4.10-5.20) X 10*6/uL Hgb 9.3 L (12.0-15.0) g/dL Hct 31.5 L (37.2-46.3) % MCV 78.2 L (80.0-97.0) FL MCH 23.1 L (27.0-32.0) pg MCHC 29.5 L (32.0-37.0) g/dL RDW 17.7 H (11.5-14.5) % MPV 9.1 L (9.5-12.2) FL Eosinophils # 0.52 H (0.04-0.35) X 10*3/uL Microbiology - Last 24 Hours (Table) 03/04/24 13:05 Blood Culture - Preliminary Blood 03/04/24 13:23 Gram Stain - Preliminary Buttock Wound Culture - Preliminary Serratia marcescens Presumptive Staph aureus Assessment and Plan (1) Abscess, gluteal, right Current Visit: Yes Status: Acute Code(s): L02.31 - CUTANEOUS ABSCESS OF BUTTOCK SNOMED Code(s): 00661518 (2) Abscess, gluteal, left Current Visit: Yes Status: Acute Code(s): L02.31 - CUTANEOUS ABSCESS OF BUTTOCK SNOMED Code(s): 83035870 (3) Penicillin allergy Current Visit: Yes Status: Acute Code(s): Z88.0 - ALLERGY STATUS TO PENICILLIN SNOMED Code(s): 73862124 (4) Infected decubitus ulcer Current Visit: Yes Status: Acute Code(s): L89.90 - PRESSURE ULCER OF UNSPECIFIED SITE, UNSPECIFIED STAGE; L08.9 - LOCAL INFECTION OF THE SKIN AND SUBCUTANEOUS TISSUE, UNSP SNOMED Code(s): 905294187 Plan: 1patient with chronic nonhealing wound to bilateral gluteal area pressure ulcer that has been treated with the local treatment as well as plastic surgery no present to the hospital with worsening redness and foul-smelling drainage concerning for wound infection and cellulitis likely from gram-positive skin ale however gram-negative rash not entirely excluded 2-patient with a penicillin allergy with elevated number of antibiotics safe to use 3-patient did have CT of the pelvis area which shows evidence of bilateral gluteal abscess General surgery is on the case await drainage and deep culture 4-patient is currently covered with the vancomycin cefepime does need to be adjusted to every 8 hours Dictation was produced using [employer] dictation software. please excuse any grammatical, word or spelling errors. Time with Patient: Less than 30
--- NOTE | 2024-03-07 05:31 | P.PN ---
Subjective Progress Note Date: 03/06/24 This is a 68-year-old female who was recently admitted infection of the decubitus ulcer and follows with the wound care center including Dr. Moe Boyer and was instructed to come here for further evaluation. Patient previously had reconstruction with Dr. Smiley out of [place]. Per family, daughter at the bedside she helps care for her and he has been taking her to appointments and following up with wound care although noted to have increased drainage and swelling with tenderness of the site gave here for further evaluation. General surgery consulted initially recommending transfer although it has been months and patient along with family did not really want to leave here although agre eable if necessary. Patient is scheduled for incision and drainage with general surgery here on 03/07/2024. Patient is continued on broad-spectrum antibiotics and will await cultures. Recommend wound care evaluation as well. Infectious diseases following. Patient is afebrile with no reports of chest pain or shortness of breath. Patient was n.p.o. in the event of the procedure and reports to feeling hungry. Will resume diet and patient will be n.p.o. at midnight. Review of systems: Constitutional: No reports of fatigue, fever, or chills Cardiovascular: No reports of chest pain or palpitations Respiratory: No reports of shortness of breath or cough GI: No reports of nausea, no reports of vomiting, no diarrhea : No reports of dysuria or retention Neurovascular: reports of generalized buttock discomfort All medications have been reviewed PHYSICAL EXAMINATION: GENERAL: The patient is alert and oriented x4, Well developed, well nourished. Elderly appearing, HEENT: Pupils are round and equally reacting to light. EOMI. no scleral icterus. No conjunctival pallor. Normocephalic, atraumatic. No pharyngeal erythema. No thyromegaly. CARDIOVASCULAR: S1 and S2 muffled PULMONARY: diminished breath sounds bilaterally with no wheezing or rhonchi noted. ABDOMEN: soft. Nontender on exam. obese. non-distended, normoactive bowel sounds. No palpable organomegaly. MUSCULOSKELETAL: No joint swelling or deformity. EXTREMITIES: No cyanosis, clubbing, or pedal edema. NEUROLOGICAL: Gross neurological examination did not reveal any focal deficits. Diffuse weakness SKIN: No rashes. Abscess noted with redness and inflammation with some drainage of the decubitus area Assessment: Infected decubitus ulcer with failure of outpatient treatment with preliminary culture showing gram-negative bacilli Chronic obstructive pulmonary disease, not in exacerbation Hypertension History of degenerative joint disease History of iron deficiency anemia History of back surgery Anxiety/depression history GI prophylaxis DVT prophylaxis Full code Plan: Recommend to continue with current medications and management with general surgery and infectious disease following. Patient is maintained on broad- spectrum antibiotics with preliminary culture showing gram-negative bacilli. General surgery consulted and initially discussing possible transfer to Dr. Smiley who has seen her in the past although has been months and family along with patient prefer to remain in this area. General surgery scheduling for incision and drainage on 03/07/2024 and patient will be n.p.o. at midnight Follow-up on repeat labs Await surgical report and finalized cultures to discuss appropriate antibiotics. Continue with wound care and offloading to the area The impression and plan of care has been dictated by April Cook, nurse practitioner as directed. Dr. Carmine MD I have performed a history and examination and MDM of this patient, discussed the same with the dictator, and agree with the dictator's assessment and plan as written ,documented as a scribe. Based on total visit time, I have performed more than 50% of the visit. Any additional findings or plans will be noted. Objective - Vital Signs Vital signs: Vital Signs Temp 98.0 F 03/06/24 12:45 Pulse 82 03/06/24 12:45 Resp 20 03/06/24 12:45 BP 120/71 03/06/24 12:45 Pulse Ox 97 03/06/24 12:45 FiO2 Intake & Output 03/05/24 03/06/24 03/06/24 18:59 06:59 18:59 Intake Total 590 0 Balance 590 0 Weight 47.627 kg 47.627 kg Intake: Oral 590 0 Other: Voiding Method Toilet Toilet # Voids 1 1 - Labs CBC & Chem 7: 03/06/24 08:40 03/06/24 08:40 Labs: Abnormal Lab Results - Last 24 Hours (Table) 03/06/24 Range/Units 08:40 RBC 4.03 L (4.10-5.20) X 10*6/uL Hgb 9.3 L (12.0-15.0) g/dL Hct 31.5 L (37.2-46.3) % MCV 78.2 L (80.0-97.0) FL MCH 23.1 L (27.0-32.0) pg MCHC 29.5 L (32.0-37.0) g/dL RDW 17.7 H (11.5-14.5) % MPV 9.1 L (9.5-12.2) FL Eosinophils # 0.52 H (0.04-0.35) X 10*3/uL Microbiology - Last 24 Hours (Table) 03/04/24 13:23 Gram Stain - Preliminary Buttock Wound Culture - Preliminary Serratia marcescens Presumptive Staph aureus 03/04/24 13:05 Blood Culture - Preliminary Blood
[2024-03-07] MEDS: VANCOMYCIN TROUGH DUE 1 EACH MISC MISCELLANE ONE (05:32)
[2024-03-07 06:03] LABS: African American GFR (CKD) >90 (>60 ml/min/1.73 sqM); Anion Gap 6 mmol/L; Blood Urea Nitrogen 12 mg/dL (7-17); Calcium 8.1 mg/dL (8.4-10.2); Carbon Dioxide 21 mmol/L (22-30); Chloride 114 mmol/L (98-107); Glucose 88 mg/dL (74-99); Non-African American GFR(CKD) 78 (>60 ml/min/1.73 sqM); Potassium 3.7 mmol/L (3.5-5.1); Sodium 141 mmol/L (137-145)
[2024-03-07] MEDS: IV FLUID CONTINUATION 1,000 ML IV ONE (12:51)
[2024-03-07] MEDS ORDERED: HYDROmorphone 0.5 MG/0.5 ML SYRINGE IVP PRN (12:52)
[2024-03-07] MEDS: ONDANSETRON 4 MG/2 ML VIAL IVP ONE (13:12)
[2024-03-07] MEDS: DEXAMETHASONE SOD PHOSPHATE 4 MG/ML 1 ML VIAL IV ONE (13:12)
--- NOTE | 2024-03-07 13:20 | P.PN ---
Subjective Progress Note Date: 03/07/24 Principal diagnosis: Bilateral gluteal abscess Patient is a 68-year-old female with a past medical history significant for COPD hypertension osteoarthritis anxiety depression patient did have a history of bilateral gluteal area pressure ulcer for the patient has been treated at [facility] wound care [place] and Dr. Smiley has been brought to the hospital concerning for worsening wound and drainage and possible wound infection. Patient did have a pelvic CT with evidence of bilateral gluteal abscess On today's visit that is 03/07/2024, patient has been afebrile, patient is breathing comfortably and is currently on room air, patient denies having any significant cough no chest pain shortness of breath, patient denies nausea vomiting or diarrhea and no abdominal pain however still complaining of pain to the gluteal area. No CBC was done today, creatinine 0.78 local culture with MSSA strep and Serratia Objective - Vital Signs Vital signs: Vital Signs Temp 98 F 03/07/24 12:50 Pulse 72 03/07/24 12:50 Resp 14 03/07/24 12:50 BP 128/66 03/07/24 12:50 Pulse Ox 98 03/07/24 12:50 FiO2 Intake & Output 03/06/24 03/07/24 03/07/24 18:59 06:59 18:59 Intake Total 440 Balance 440 Weight 47.627 kg Intake: Intake, IV Titration 200 Amount Cefepime 2 gm In Sodium 200 Chloride 0.9% 100 ml @ 25 mls/hr IVPB Q8H [facility] Rx#: [id number] Oral 240 Other: Voiding Method Toilet Toilet Toilet # Voids 3 3 1 # Bowel Movements 1 1 1 - Exam GENERAL DESCRIPTION: An elderly female lying in bed in no distress RESPIRATORY SYSTEM: Unlabored breathing , decreased breath sounds at bases HEART: S1 S2 regular rate and rhythm , ABDOMEN: Soft , no tenderness EXTREMITIES: No edema feet - Labs CBC & Chem 7: 03/06/24 08:40 03/07/24 05:20 Labs: Abnormal Lab Results - Last 24 Hours (Table) 03/07/24 Range/Units 05:20 Chloride 114 H (98-107) mmol/L Carbon Dioxide 21 L (22-30) mmol/L Calcium 8.1 L (8.4-10.2) mg/dL Microbiology - Last 24 Hours (Table) 03/04/24 13:23 Gram Stain - Final Buttock Wound Culture - Final Serratia marcescens Staphylococcus aureus Strep agalactiae - (group b) 03/04/24 13:05 Blood Culture - Preliminary Blood Assessment and Plan (1) Abscess, gluteal, right Current Visit: Yes Status: Acute Code(s): L02.31 - CUTANEOUS ABSCESS OF BUTTOCK SNOMED Code(s): 24044669 (2) Abscess, gluteal, left Current Visit: Yes Status: Acute Code(s): L02.31 - CUTANEOUS ABSCESS OF BUTTOCK SNOMED Code(s): 94344497 (3) Penicillin allergy Current Visit: Yes Status: Acute Code(s): Z88.0 - ALLERGY STATUS TO PENICILLIN SNOMED Code(s): 55476139 (4) Infected decubitus ulcer Current Visit: Yes Status: Acute Code(s): L89.90 - PRESSURE ULCER OF UNSPECIFIED SITE, UNSPECIFIED STAGE; L08.9 - LOCAL INFECTION OF THE SKIN AND SUBCUTANEOUS TISSUE, UNSP SNOMED Code(s): 784289271 Plan: 1patient with chronic nonhealing wound to bilateral gluteal area pressure ulcer that has been treated with the local treatment as well as plastic surgery no present to the hospital with worsening redness and foul-smelling drainage concerning for wound infection and cellulitis likely from gram-positive skin ale however gram-negative rash not entirely excluded 2-patient with a penicillin allergy with elevated number of antibiotics safe to use 3-patient did have CT of the pelvis area which shows evidence of bilateral gluteal abscess General surgery is on the case await drainage and deep culture 4-patient local culture now growing MSSA Serratia and strep patient to continue cefepime we will discontinue vancomycin Dictation was produced using [employer] dictation software. please excuse any gram matical, word or spelling errors. Time with Patient: Less than 30
[2024-03-07] MEDS ORDERED: PROPOFOL 10 MG/ML 20 ML VIAL IV ONE (13:54)
[2024-03-07] MEDS ORDERED: SUCCINYLCHOLINE CHLORIDE 200 MG/10 ML VIAL IV ONE (13:54)
[2024-03-07] MEDS ORDERED: fentaNYL (PF) 50 MCG/ML 2 ML AMP ONE (13:54)
[2024-03-07] MEDS ORDERED: GLYCOPYRROLATE 0.2 MG/ML 2 ML VIAL ONE (13:54)
[2024-03-07] MEDS ORDERED: PHENYLEPHRINE-0.9% NACL SYG 1,000 MCG/10 ML SYRINGE ONE (13:54)
[2024-03-07] MEDS ORDERED: LIDOCAINE 1% INJ 10MG/ML (20 ML MDV) ONE (13:54)
--- NOTE | 2024-03-07 14:59 | P.OP ---
Date of Procedure: 03/07/24 Procedure(s) Performed: PREOPERATIVE DIAGNOSIS: Left buttock decubitus ulcer, right buttock abscess POSTOPERATIVE DIAGNOSIS: Same PROCEDURE: Incision drainage and debridement decubitus ulcer and abscess SURGEON: Jenny EBL: 10 cc ANESTHESIA: General COMPLICATIONS: None OPERATIVE PROCEDURE: Patient placed in the prone jackknife position after anesthesia achieved. Left buttock first addressed. Patient had an area of necrotic skin that was excised using a circular incision with scalpel. Dissection subcutaneously took place using electrocautery until an abscess cavity was encountered. Dissection subcutaneously took place using electrocautery until an abscess cavity was encountered. Cultures were taken. Necrotic subcutaneous fat and muscle were noted and debrided in an excisional manner sharply with a curette and scalpel. Area of debridement 5 x 5 cm. No clinical osteomyelitis noted. Area was then irrigated with saline. This was later packed with saline moistened Christine roll. The right side was then addressed. The patient had a previous flap closure on the side. There were 2 open wounds medially and superiorly draining pus. This was coming from the actual previous scar site. The previous scar was opened between the 2 draining sites. I then removed a small piece of skin at that area. Entrance into a subcutaneous abscess cavity was performed. This measured 3 x 4 cm. Some necrotic subcutaneous fat was noted and debrided sharply using a curette. We then irrigated. Cultures were again taken. Wound was again packed with Christine roll. Sterile outer dressings applied. DISPOSITION: Stable to recovery room
[2024-03-07] MEDS: LACTATED RINGERS 1,000 ML IV SCH (16:28)
--- NOTE | 2024-03-08 03:41 | P.PN ---
Subjective Progress Note Date: 03/07/24 This is a 68-year-old female who was recently admitted infection of the decubitus ulcer and follows with the wound care center including Dr. Moe Boyer and was instructed to come here for further evaluation. Patient previously had reconstruction with Dr. Smiley out of [place]. Per family, daughter at the bedside she helps care for her and he has been taking her to appointments and following up with wound care although noted to have increased drainage and swelling with tenderness of the site gave here for further evaluation. General surgery consulted initially recommending transfer although it has been months and patient along with family did not really want to leave here although agre eable if necessary. Patient is scheduled for incision and drainage with general surgery here on 03/07/2024. Patient is continued on broad-spectrum antibiotics and will await cultures. Recommend wound care evaluation as well. Infectious diseases following. Patient is afebrile with no reports of chest pain or shortness of breath. Patient was n.p.o. in the event of the procedure and reports to feeling hungry. Will resume diet and patient will be n.p.o. at midnight. 03/07/2024 Patient is seen and evaluated in follow-up today continued on antibiotics with infectious disease and general surgery following. Patient is scheduled to undergo I&D with deep tissue wound cultures today with general surgery. Patient currently n.p.o. and will resume diet once cleared by surgery. Awaiting finalized cultures to determine discharge antibiotics. Will consult wound care as well as patient will need wound care and possibly IV versus oral antibiotics on discharge. Patient is currently afebrile with no reported chest pain or shortness of breath. White count within normal limits and will follow-up on repeat labs. No reported nausea or vomiting and patient has been tolerating diet. Review of systems: Constitutional: No reports of fatigue, fever, or chills Cardiovascular: No reports of chest pain or palpitations Respiratory: No reports of shortness of breath or cough GI: No reports of nausea, no reports of vomiting, no diarrhea : No reports of dysuria or retention Neurovascular: reports of generalized buttock discomfort All medications have been reviewed PHYSICAL EXAMINATION: GENERAL: The patient is alert and oriented x4, Well developed, well nourished. Elderly appearing, HEENT: Pupils are round and equally reacting to light. EOMI. no scleral icterus. No conjunctival pallor. Normocephalic, atraumatic. No pharyngeal erythema. No thyromegaly. CARDIOVASCULAR: S1 and S2 muffled PULMONARY: diminished breath sounds bilaterally with no wheezing or rhonchi noted. ABDOMEN: soft. Nontender on exam. obese. non-distended, normoactive bowel sounds. No palpable organomegaly. MUSCULOSKELETAL: No joint swelling or deformity. EXTREMITIES: No cyanosis, clubbing, or pedal edema. NEUROLOGICAL: Gross neurological examination did not reveal any focal deficits. Diffuse weakness SKIN: No rashes. Abscess noted with redness and inflammation with some drainage of the decubitus area, left buttock as well as right buttock abscess noted Assessment: Infected decubitus ulcers as well as left and right buttock abscesses with failure of outpatient treatment, present on admission with preliminary culture showing Serratia marcescens with Staph aureus and strep atelectatic group B status post incision and drainage on 03/07/2024 Chronic obstructive pulmonary disease, not in exacerbation Hypertension History of degenerative joint disease History of iron deficiency anemia History of back surgery Anxiety/depression history GI prophylaxis DVT prophylaxis Full code Plan: Recommend to continue with current medications and management with general surgery and infectious disease following. Patient is maintained on broad- spectrum antibiotics with preliminary Cultures also showing Serratia marcescens with Staph aureus and strep atelectatic group B General surgery following and is status post on 03/07/2024, deep tissue cultures obtained and pending at this time and will await finalized cultures and discussed with infectious disease regarding discharge planning Consult to wound care and continue with offloading and frequent position changes Follow-up on repeat labs The impression and plan of care has been dictated by April Cook, nurse practitioner as directed. Dr. Carmine MD I have performed a history and examination and MDM of this patient, discussed the same with the dictator, and agree with the dictator's assessment and plan as written ,documented as a scribe. Based on total visit time, I have performed more than 50% of the visit. Any additional findings or plans will be noted. Objective - Vital Signs Vital signs: Vital Signs Temp 98.4 F 03/08/24 02:00 Pulse 80 03/08/24 02:00 Resp 16 03/08/24 02:00 BP 120/69 03/08/24 02:00 Pulse Ox 92 L 03/08/24 02:00 FiO2 Intake & Output 03/07/24 03/07/24 03/08/24 06:59 18:59 06:59 Intake Total 400 Output Total 5 Balance 395 Weight 47.627 kg Intake: IV 400 Output: Estimated Blood Loss 5 Other: Voiding Method Toilet Toilet Toilet # Voids 3 2 # Bowel Movements 1 1 - Labs CBC & Chem 7: 03/06/24 08:40 03/07/24 05:20 Labs: Abnormal Lab Results - Last 24 Hours (Table) 03/07/24 Range/Units 05:20 Chloride 114 H (98-107) mmol/L Carbon Dioxide 21 L (22-30) mmol/L Calcium 8.1 L (8.4-10.2) mg/dL Microbiology - Last 24 Hours (Table) 03/04/24 13:05 Blood Culture - Preliminary Blood 03/04/24 13:23 Gram Stain - Final Buttock Wound Culture - Final Serratia marcescens Staphylococcus aureus Strep agalactiae - (group b)
[2024-03-08] MEDS: ERGOCALCIFEROL 1,250 MCG (50,000 IU) CAPSULE PO SCH (09:33)
[2024-03-08 12:14] LABS: Basophils # (A) 0.04 X 10*3/uL (0.00-0.10); Basophils % (A) 0.4 %; Eosinophils # (A) 0.46 X 10*3/uL (0.04-0.35); HCT 29.1 % (37.2-46.3); HGB 8.3 g/dL (12.0-15.0); Lymphocytes # (A) 1.65 X 10*3/uL (0.90-5.00); Lymphocytes % (A) 17.9 %; MCH 23.2 pg (27.0-32.0); MCHC 28.5 g/dL (32.0-37.0); MCV 81.3 FL (80.0-97.0); Mean Platelet Volume 9.4 FL (9.5-12.2); Monocytes # (A) 0.53 X 10*3/uL (0.20-1.00); Monocytes % (A) 5.7 %; NRBC Per 100 WBC 0 X 10*3/uL (0.00-0.01); Neutrophils # (A) 6.53 X 10*3/uL (1.80-7.70); Neutrophils % (A) 70.7 %; Platelet Count 402 X 10*3/uL (140-440); RBC 3.58 X 10*6/uL (4.10-5.20); WBC 9.24 X 10*3/uL (4.50-10.00)
[2024-03-08 12:25] LABS: BUN/Creat Ratio 15.12 Ratio (12.00-20.00); Blood Urea Nitrogen 12.1 mg/dL (9.0-27.0); Calcium 8.5 mg/dL (8.7-10.3); Carbon Dioxide 21.5 mmol/L (21.6-31.8); Chloride 114 mmol/L (96-109); Glucose 90 mg/dL (70-110); Magnesium 2.4 mg/dL (1.5-2.4); Potassium 4.2 mmol/L (3.5-5.5); Sodium 142 mmol/L (135-145)
[2024-03-08] MEDS: ACETAMINOPHEN TAB 500 MG TAB PO PRN (13:11)
--- NOTE | 2024-03-08 14:23 | P.PN ---
Subjective Progress Note Date: 03/08/24 CHIEF COMPLAINT:Left buttock decubitus ulcer, right buttock abscess HISTORY OF PRESENT ILLNESS: Postop day #1. Patient status post incision drainage and debridement of decubitus ulcer and abscess of the buttocks. Patient reports her pain is controlled. She is scheduled to have the wet-to-dry dressing changed today. Denies any nausea or vomiting. Afebrile. WBC 9.24 Hgb 8.3 platelets 402 PHYSICAL EXAM: VITAL SIGNS: Reviewed. GENERAL: Well-developed in no acute distress. ABDOMEN: Soft. Nondistended. Nontender. NEUROLOGIC: Alert and oriented. Cranial nerves II through XII grossly intact. ASSESSMENT: 1. Left buttock decubitus ulcer and right buttock abscess status post incision, drainage and debridement PLAN: -Continue local wound care. Plan to place wound VAC with bridge on 03/10/2024 -Patient can be discharged from surgical standpoint when medically cleared -Discharge antibiotics per infectious disease Physician [employer] note has been reviewed by physician. Signing provider agrees with the documented findings, assessment, and plan of care. Objective - Vital Signs Vital signs: Vital Signs Temp 97.9 F 03/08/24 12:35 Pulse 80 03/08/24 12:35 Resp 16 03/08/24 12:35 BP 118/75 03/08/24 12:35 Pulse Ox 95 03/08/24 12:35 FiO2 Intake & Output 03/07/24 03/08/24 03/08/24 18:59 06:59 18:59 Intake Total 400 540 Output Total 5 Balance 395 540 Weight 47.627 kg Intake: IV 400 Oral 540 Output: Estimated Blood Loss 5 Other: Voiding Method Toilet Toilet Toilet # Voids 2 # Bowel Movements 1 - Labs CBC & Chem 7: 03/08/24 06:41 03/08/24 06:41 Labs: Abnormal Lab Results - Last 24 Hours (Table) 03/08/24 03/08/24 Range/Units 06:41 06:41 RBC 3.58 L (4.10-5.20) X 10*6/uL Hgb 8.3 L (12.0-15.0) g/dL Hct 29.1 L (37.2-46.3) % MCH 23.2 L (27.0-32.0) pg MCHC 28.5 L (32.0-37.0) g/dL RDW 18.0 H (11.5-14.5) % MPV 9.4 L (9.5-12.2) FL Eosinophils # 0.46 H (0.04-0.35) X 10*3/uL Chloride 114 H (96-109) mmol/L Carbon Dioxide 21.5 L (21.6-31.8) mmol/L Calcium 8.5 L (8.7-10.3) mg/dL Microbiology - Last 24 Hours (Table) 03/04/24 13:05 Blood Culture - Preliminary Blood
--- NOTE | 2024-03-08 16:32 | P.PN ---
Subjective Progress Note Date: 03/08/24 Principal diagnosis: Bilateral gluteal abscess Patient is a 68-year-old female with a past medical history significant for COPD hypertension osteoarthritis anxiety depression patient did have a history of bilateral gluteal area pressure ulcer for the patient has been treated at [facility] care [place] and Dr. Smiley has been brought to the hospital concerning for worsening wound and drainage and possible wound infection. Patient did have a pelvic CT with evidence of bilateral gluteal abscess.Patient is status post drainage of bilateral gluteal pressure ulcer with an abscess operative report did not mention any involvement of the bones or osteomyelitis procedure completed on 03/07/2024 On today's evaluation that is 03/08/2024,the patient denies any fever or any chills, patient is breathing comfortably on room air, the patient denies chest pain shortness of breath and no significant cough, patient denies abdominal pain, no nausea vomiting or diarrhea. Pain to bilateral gluteal area has decreased in intensity Patient white count is down to 9.24, creatinine 0.8 OR cultures are currently pending Objective - Vital Signs Vital signs: Vital Signs Temp 98.5 F 03/08/24 07:01 Pulse 72 03/08/24 07:01 Resp 16 03/08/24 07:01 BP 157/60 03/08/24 07:01 Pulse Ox 91 L 03/08/24 07:01 FiO2 Intake & Output 03/07/24 03/08/24 03/08/24 18:59 06:59 18:59 Intake Total 400 540 Output Total 5 Balance 395 540 Weight 47.627 kg Intake: IV 400 Oral 540 Output: Estimated Blood Loss 5 Other: Voiding Method Toilet Toilet # Voids 2 # Bowel Movements 1 - Exam GENERAL DESCRIPTION: An elderly female lying in bed in no distress RESPIRATORY SYSTEM: Unlabored breathing , decreased breath sounds at bases HEART: S1 S2 regular rate and rhythm , ABDOMEN: Soft , no tenderness EXTREMITIES: No edema feet - Labs CBC & Chem 7: 03/08/24 06:41 03/08/24 06:41 Labs: Microbiology - Last 24 Hours (Table) 03/04/24 13:05 Blood Culture - Preliminary Blood 03/04/24 13:23 Gram Stain - Final Buttock Wound Culture - Final Serratia marcescens Staphylococcus aureus Strep agalactiae - (group b) Assessment and Plan (1) Abscess, gluteal, right Current Visit: Yes Status: Acute Code(s): L02.31 - CUTANEOUS ABSCESS OF BUTTOCK SNOMED Code(s): 21211709 (2) Abscess, gluteal, left Current Visit: Yes Status: Acute Code(s): L02.31 - CUTANEOUS ABSCESS OF BUTTOCK SNOMED Code(s): 67066863 (3) Penicillin allergy Current Visit: Yes Status: Acute Code(s): Z88.0 - ALLERGY STATUS TO PENICILLIN SNOMED Code(s): 45399798 (4) Infected decubitus ulcer Current Visit: Yes Status: Acute Code(s): L89.90 - PRESSURE ULCER OF UNS PECIFIED SITE, UNSPECIFIED STAGE; L08.9 - LOCAL INFECTION OF THE SKIN AND SUBCUTANEOUS TISSUE, UNSP SNOMED Code(s): 029892156 Plan: 1patient with chronic nonhealing wound to bilateral gluteal area pressure ulcer that has been treated with the local treatment as well as plastic surgery no present to the hospital with worsening redness and foul-smelling drainage concerning for wound infection and cellulitis likely from gram-positive skin f jaquan however gram-negative rash not entirely excluded 2-patient with a penicillin allergy with elevated number of antibiotics safe to use 3-patient did have CT of the pelvis area which shows evidence of bilateral gluteal abscess patient is s/p surgical drainage and deep culture operative report did not mention any extension of the wound or evidence of osteomyelitis 4-patient local culture now growing MSSA Serratia and strep patient to continue cefepime, we will wait for the OR culture to be finalized to determine discharge antibiotics more likely IV Daughter at the bedside questions answered Dictation was produced using silkfred dictation software. please excuse any grammatical, word or spelling errors. Time with Patient: Less than 30
--- NOTE | 2024-03-09 06:16 | P.PN ---
Subjective Progress Note Date: 03/08/24 This is a 68-year-old female who was recently admitted infection of the decubitus ulcer and follows with the wound care center including Dr. Moe Boyer and was instructed to come here for further evaluation. Patient previously had reconstruction with Dr. Smiley out of [place]. Per family, daughter at the bedside she helps care for her and he has been taking her to appointments and following up with wound care although noted to have increased drainage and swelling with tenderness of the site gave here for further evaluation. General surgery consulted initially recommending transfer although it has been months and patient along with family did not really want to leave here although agre eable if necessary. Patient is scheduled for incision and drainage with general surgery here on 03/07/2024. Patient is continued on broad-spectrum antibiotics and will await cultures. Recommend wound care evaluation as well. Infectious diseases following. Patient is afebrile with no reports of chest pain or shortness of breath. Patient was n.p.o. in the event of the procedure and reports to feeling hungry. Will resume diet and patient will be n.p.o. at midnight. 03/07/2024 Patient is seen and evaluated in follow-up today continued on antibiotics with infectious disease and general surgery following. Patient is scheduled to undergo I&D with deep tissue wound cultures today with general surgery. Patient currently n.p.o. and will resume diet once cleared by surgery. Awaiting finalized cultures to determine discharge antibiotics. Will consult wound care as well as patient will need wound care and possibly IV versus oral antibiotics on discharge. Patient is currently afebrile with no reported chest pain or shortness of breath. White count within normal limits and will follow-up on repeat labs. No reported nausea or vomiting and patient has been tolerating diet. 03/08/2024 Patient is seen and evaluated in follow-up today status post incision and drainage with general surgery. Patient with left buttocks decubitus ulcer as well as right buttock abscess with drainage and local wound care for now. Plan is for wound VAC with bridging and close outpatient follow-up. Patient continues on antibiotics while awaiting finalized cultures from deep tissue cultures from incision and drainage. Infectious disease following and will continue with current regimen until cultures are finalized to discuss discharge planning. Patient reports to feeling improved and would like to go home. Recommend to continue with frequent offloading of the area and will continue with wound care. Patient is afebrile denies chest pain or shortness of breath. Patient reports that tolerating diet with no reported nausea or vomiting. Replace electrolytes per protocol Review of systems: Constitutional: No reports of fatigue, fever, or chills Cardiovascular: No reports of chest pain or palpitations Respiratory: No reports of shortness of breath or cough GI: No reports of nausea, no reports of vomiting, no diarrhea : No reports of dysuria or retention Neurovascular: reports of generalized buttock discomfort but is improving All medications have been reviewed PHYSICAL EXAMINATION: GENERAL: The patient is alert and oriented x4, anxious, hard of hearing well developed, well nourished. Elderly appearing, HEENT: Pupils are round and equally reacting to light. EOMI. no scleral icterus. No conjunctival pallor. Normocephalic, atraumatic. No pharyngeal erythema. No thyromegaly. CARDIOVASCULAR: S1 and S2 muffled PULMONARY: diminished breath sounds bilaterally with no wheezing or rhonchi noted. ABDOMEN: soft. Nontender on exam. obese. non-distended, normoactive bowel sounds. No palpable organomegaly. MUSCULOSKELETAL: No joint swelling or deformity. EXTREMITIES: No cyanosis, clubbing, or pedal edema. NEUROLOGICAL: Gross neurological examination did not reveal any focal deficits. Diffuse weakness SKIN: No rashes. Abscess noted with redness and inflammation with some drainage of the decubitus area, left buttock decubitus as well as right buttock abscess noted Assessment: Infected decubitus ulcers as well as left and right buttock abscesses with failure of outpatient treatment, present on admission with preliminary culture showing Serratia marcescens with Staph aureus and strep atelectatic group B status post incision and drainage on 03/07/2024 Chronic obstructive pulmonary disease, not in exacerbation Hypertension History of degenerative joint disease History of iron deficiency anemia History of back surgery Anxiety/depression history GI prophylaxis DVT prophylaxis Full code Plan: Recommend to continue with current medications and management with general surgery and infectious disease following. Patient is maintained on broad- spectrum antibiotics with preliminary Cultures also showing Serratia marcescens with Staph aureus and strep atelectatic group B. Awaiting deep tissue cultures from incision and drainage to determine discharge antibiotics General surgery following and is status post on 03/07/2024, deep tissue cultures obtained and pending at this time and will await finalized cultures and discussed with infectious disease regarding discharge planning Continue wound care and continue with offloading and frequent position changes. Per surgery patient did receive a wound VAC with bridging prior to discharge Follow-up on repeat labs and replace electrolytes per protocol Due to multiple complex medical issues, prognosis is guarded The impression and plan of care has been dictated by April Cook, nurse practitioner as directed. Dr. Carmine MD I have performed a history and examination and MDM of this patient, discussed the same with the dictator, and agree with the dictator's assessment and plan as written ,documented as a scribe. Based on total visit time, I have performed more than 50% of the visit. Any additional findings or plans will be noted. Objective - Vital Signs Vital signs: Vital Signs Temp 97.5 F L 03/09/24 01:46 Pulse 86 03/09/24 01:46 Resp 17 03/09/24 01:46 BP 124/86 03/09/24 01:46 Pulse Ox 94 L 03/09/24 01:46 FiO2 Intake & Output 03/08/24 03/08/24 03/09/24 06:59 18:59 06:59 Intake Total 540 Balance 540 Intake: Oral 540 Other: Voiding Method Toilet Toilet Toilet - Labs CBC & Chem 7: 03/08/24 06:41 03/08/24 06:41 Labs: Abnormal Lab Results - Last 24 Hours (Table) 03/08/24 03/08/24 Range/Units 06:41 06:41 RBC 3.58 L (4.10-5.20) X 10*6/uL Hgb 8.3 L (12.0-15.0) g/dL Hct 29.1 L (37.2-46.3) % MCH 23.2 L (27.0-32.0) pg MCHC 28.5 L (32.0-37.0) g/dL RDW 18.0 H (11.5-14.5) % MPV 9.4 L (9.5-12.2) FL Eosinophils # 0.46 H (0.04-0.35) X 10*3/uL Chloride 114 H (96-109) mmol/L Carbon Dioxide 21.5 L (21.6-31.8) mmol/L Calcium 8.5 L (8.7-10.3) mg/dL Microbiology - Last 24 Hours (Table) 03/07/24 14:35 Gram Stain - Preliminary Buttock 03/07/24 14:28 Gram Stain - Preliminary Buttock
--- NOTE | 2024-03-09 07:28 | XR ---
EXAMINATION TYPE: XR chest 1V portable DATE OF EXAM: 03/09/2024 Comparison: 03/27/2023 Clinical History: 68-year-old female sob Findings: Bilateral patchy and confluent airspace opacities with low lung volumes. Vertebroplasty change lower thoracic and upper lumbar spine. ACDF hardware. Partially visualized reverse right shoulder tuberosit y. Large surgical staple at the left glenoid. Impression: Hypoventilatory changes along with the interval development of extensive bilateral patchy and conflue nt airspace disease.
[2024-03-09 09:39] LABS: Basophils # (A) 0.05 X 10*3/uL (0.00-0.10); Basophils % (A) 0.6 %; Eosinophils # (A) 0.55 X 10*3/uL (0.04-0.35); Eosinophils % (A) 6.2 %; HCT 29.3 % (37.2-46.3); HGB 8.5 g/dL (12.0-15.0); Lymphocytes # (A) 1.84 X 10*3/uL (0.90-5.00); Lymphocytes % (A) 20.6 %; MCH 23.6 pg (27.0-32.0); MCV 81.4 FL (80.0-97.0); Mean Platelet Volume 9.1 FL (9.5-12.2); Monocytes # (A) 0.57 X 10*3/uL (0.20-1.00); Monocytes % (A) 6.4 %; NRBC Per 100 WBC 0 X 10*3/uL (0.00-0.01); Neutrophils # (A) 5.89 X 10*3/uL (1.80-7.70); Neutrophils % (A) 65.8 %; Platelet Count 401 X 10*3/uL (140-440); RDW 18.2 % (11.5-14.5); WBC 8.94 X 10*3/uL (4.50-10.00)
[2024-03-09 10:46] LABS: BUN/Creat Ratio 19.56 Ratio (12.00-20.00); Blood Urea Nitrogen 17.6 mg/dL (9.0-27.0); Calcium 8.8 mg/dL (8.7-10.3); Carbon Dioxide 22.2 mmol/L (21.6-31.8); Chloride 114 mmol/L (96-109); Glucose 89 mg/dL (70-110); Sodium 144 mmol/L (135-145)
--- NOTE | 2024-03-09 21:42 | P.PN ---
Subjective Progress Note Date: 03/09/24 CHIEF COMPLAINT:Left buttock decubitus ulcer, right buttock abscess HISTORY OF PRESENT ILLNESS: Postop day #2 Patient status post incision drainage and debridement of decubitus ulcer and abscess of the buttocks. PHYSICAL EXAM: VITAL SIGNS: Reviewed. GENERAL: Well-developed in no acute distress. ABDOMEN: Soft. Nondistended. Nontender. NEUROLOGIC: Alert and oriented. Cranial nerves II through XII grossly intact. ASSESSMENT: 1. Left buttock decubitus ulcer and right buttock abscess status post incision, drainage and debridement PLAN: -Continue local wound care. Plan to place wound VAC with bridge on 03/10/2024 -Patient can be discharged from surgical standpoint when medically cleared -Discharge antibiotics per infectious disease Objective - Vital Signs Vital signs: Vital Signs Temp 98.3 F 03/09/24 19:04 Pulse 89 03/09/24 19:04 Resp 17 03/09/24 19:04 BP 144/81 03/09/24 19:04 Pulse Ox 93 L 03/09/24 19:04 FiO2 Intake & Output 03/09/24 03/09/24 03/10/24 06:59 18:59 06:59 Intake Total 340 Balance 340 Intake: Intake, IV Titration 340 Amount Cefepime 2 gm In Sodium 100 Chloride 0.9% 100 ml @ 25 mls/hr IVPB Q8H [facility] Rx#: [id number] IV Fluid Continuation 1, 240 000 ml @ 0 mls/hr IV .STK -[facility] Rx#:[id number] Other: Voiding Method Toilet # Voids 1 1 1 - Labs CBC & Chem 7: 03/09/24 05:04 03/09/24 05:04 Labs: Abnormal Lab Results - Last 24 Hours (Table) 03/09/24 03/09/24 Range/Units 05:04 05:04 RBC 3.60 L (4.10-5.20) X 10*6/uL Hgb 8.5 L (12.0-15.0) g/dL Hct 29.3 L (37.2-46.3) % MCH 23.6 L (27.0-32.0) pg MCHC 29.0 L (32.0-37.0) g/dL RDW 18.2 H (11.5-14.5) % MPV 9.1 L (9.5-12.2) FL Eosinophils # 0.55 H (0.04-0.35) X 10*3/uL Chloride 114 H (96-109) mmol/L Microbiology - Last 24 Hours (Table) 03/04/24 13:05 Blood Culture - Final Blood 03/07/24 14:28 Gram Stain - Preliminary Buttock Wound Culture - Preliminary Gram Neg Bacilli 03/07/24 14:35 Gram Stain - Preliminary Buttock Wound Culture - Preliminary Corynebacterium species
--- NOTE | 2024-03-09 23:10 | P.PN ---
Subjective Progress Note Date: 03/09/24 Principal diagnosis: Bilateral gluteal abscess Patient is a 68-year-old female with a past medical history significant for COPD hypertension osteoarthritis anxiety depression patient did have a history of bilateral gluteal area pressure ulcer for the patient has been treated at [facility] care [place] and Dr. Smiley has been brought to the hospital concerning for worsening wound and drainage and possible wound infection. Patient did have a pelvic CT with evidence of bilateral gluteal abscess.Patient is status post drainage of bilateral gluteal pressure ulcer with an abscess operative report did not mention any involvement of the bones or osteomyelitis procedure completed on 03/07/2024 On today's evaluation that is 03/09/2024,the patient remains to be afebrile, patient is on room air not requiring supplemental oxygen and denies any shortness of breath no chest pain or cough.Patient denies having any nausea or vomiting, no abdominal pain and no diarrhea has been reported pain to gluteal area has decreased in intensity. Patient white count is 8.94, creatinine 0.9 blood culture with gram-negative bacilli and Corynebacterium Objective - Vital Signs Vital signs: Vital Signs Temp 97.9 F 03/09/24 06:58 Pulse 97 03/09/24 06:58 Resp 16 03/09/24 06:58 BP 160/87 03/09/24 06:58 Pulse Ox 91 L 03/09/24 06:58 FiO2 Intake & Output 03/08/24 03/09/24 03/09/24 18:59 06:59 18:59 Intake Total 340 Balance 340 Intake: Intake, IV Titration 340 Amount Cefepime 2 gm In Sodium 100 Chloride 0.9% 100 ml @ 25 mls/hr IVPB Q8H [facility] Rx#: [id number] IV Fluid Continuation 1, 240 000 ml @ 0 mls/hr IV .STK -MED ONE Rx#:[id number] Other: Voiding Method Toilet Toilet # Voids 1 1 - Exam GENERAL DESCRIPTION: An elderly female lying in bed in no distress RESPIRATORY SYSTEM: Unlabored breathing , decreased breath sounds at bases HEART: S1 S2 regular rate and rhythm , ABDOMEN: Soft , no tenderness EXTREMITIES: No edema feet Exam completed with the help of [employer]ING [employer]ESS OPERATOR - Labs CBC & Chem 7: 03/09/24 05:04 03/09/24 05:04 Labs: Abnormal Lab Results - Last 24 Hours (Table) 03/08/24 03/09/24 03/09/24 Range/Units 06:41 05:04 05:04 RBC 3.60 L (4.10-5.20) X 10*6/uL Hgb 8.5 L (12.0-15.0) g/dL Hct 29.3 L (37.2-46.3) % MCH 23.6 L (27.0-32.0) pg MCHC 29.0 L (32.0-37.0) g/dL RDW 18.2 H (11.5-14.5) % MPV 9.1 L (9.5-12.2) FL Eosinophils # 0.55 H (0.04-0.35) X 10*3/uL Chloride 114 H 114 H (96-109) mmol/L Carbon Dioxide 21.5 L (21.6-31.8) mmol/L Calcium 8.5 L (8.7-10.3) mg/dL Microbiology - Last 24 Hours (Table) 03/07/24 14:28 Gram Stain - Preliminary Buttock Wound Culture - Preliminary Gram Neg Bacilli 03/07/24 14:35 Gram Stain - Preliminary Buttock Wound Culture - Preliminary Corynebacterium species Assessment and Plan (1) Abscess, gluteal, right Current Visit: Yes Status: Acute Code(s): L02.31 - CUTANEOUS ABSCESS OF BUTTOCK SNOMED Code(s): 54918424 (2) Abscess, gluteal, left Current Visit: Yes Status: Acute Code(s): L02.31 - CUTANEOUS ABSCESS OF BUTTOCK SNOMED Code(s): 26236630 (3) Penicillin allergy Current Visit: Yes Status: Acute Code(s): Z88.0 - ALLERGY STATUS TO PENICILLIN SNOMED Code(s): 95029045 (4) Infected decubitus ulcer Current Visit: Yes Status: Acute Code(s): L89.90 - PRESSURE ULCER OF UNSPECIFIED SITE, UNSPECIFIED STAGE; L08.9 - LOCAL INFECTION OF THE SKIN AND SUBCUTANEOUS TISSUE, UNSP SNOMED Code(s): 391030937 Plan: 1patient with chronic nonhealing wound to bilateral gluteal area pressure ulcer that has been treated with the local treatment as well as plastic surgery no present to the hospital with worsening redness and foul-smelling drainage concerning for wound infection and cellulitis likely from gram-positive skin ale however gram-negative rash not entirely excluded 2-patient with a penicillin allergy with elevated number of antibiotics safe to use 3-patient did have CT of the pelvis area which shows evidence of bilateral gluteal abscess patient is s/p surgical drainage and deep culture operative report did not mention any extension of the wound or evidence of osteomyelitis 4-patient local culture now growing MSSA Serratia and strep patient to continue cefepime, or cultures currently growing corynebacterium and gram-negative with ID sensitivities pending, discharge antibiotics on the basis of final culture Discussed with the patient Dictation was produced using [employer] dictation software. please excuse any grammatical, word or spelling errors. Time with Patient: Less than 30
--- NOTE | 2024-03-10 03:09 | P.PN ---
Subjective Progress Note Date: 03/09/24 This is a 68-year-old female who was recently admitted infection of the decubitus ulcer and follows with the wound care center including Dr. Moe Boyer and was instructed to come here for further evaluation. Patient previously had reconstruction with Dr. Smiley out of [place]. Per family, daughter at the bedside she helps care for her and he has been taking her to appointments and following up with wound care although noted to have increased drainage and swelling with tenderness of the site gave here for further evaluation. General surgery consulted initially recommending transfer although it has been months and patient along with family did not really want to leave here although agre eable if necessary. Patient is scheduled for incision and drainage with general surgery here on 03/07/2024. Patient is continued on broad-spectrum antibiotics and will await cultures. Recommend wound care evaluation as well. Infectious diseases following. Patient is afebrile with no reports of chest pain or shortness of breath. Patient was n.p.o. in the event of the procedure and reports to feeling hungry. Will resume diet and patient will be n.p.o. at midnight. 03/07/2024 Patient is seen and evaluated in follow-up today continued on antibiotics with infectious disease and general surgery following. Patient is scheduled to undergo I&D with deep tissue wound cultures today with general surgery. Patient currently n.p.o. and will resume diet once cleared by surgery. Awaiting finalized cultures to determine discharge antibiotics. Will consult wound care as well as patient will need wound care and possibly IV versus oral antibiotics on discharge. Patient is currently afebrile with no reported chest pain or shortness of breath. White count within normal limits and will follow-up on repeat labs. No reported nausea or vomiting and patient has been tolerating diet. 03/08/2024 Patient is seen and evaluated in follow-up today status post incision and drainage with general surgery. Patient with left buttocks decubitus ulcer as well as right buttock abscess with drainage and local wound care for now. Plan is for wound VAC with bridging and close outpatient follow-up. Patient continues on antibiotics while awaiting finalized cultures from deep tissue cultures from incision and drainage. Infectious disease following and will continue with current regimen until cultures are finalized to discuss discharge planning. Patient reports to feeling improved and would like to go home. Recommend to continue with frequent offloading of the area and will continue with wound care. Patient is afebrile denies chest pain or shortness of breath. Patient reports that tolerating diet with no reported nausea or vomiting. Replace electrolytes per protocol 03/09/2024 Patient is seen in follow-up today with general surgery and infectious disease following. Patient is status post incision and drainage of buttock abscess with ulcers and will be receiving a wound VAC and arranging for IV antibiotics outpatient. Patiently currently maintained on cefepime and awaiting cultures to finalize. Patient is afebrile with no reported chest pain or shortness of breath. Patient is extremely anxious to go home. Will discuss further with case management regarding discharge planning to arrange for wound VAC as well as IV antibiotic coverage. Review of systems: Constitutional: No reports of fatigue, fever, or chills Cardiovascular: No reports of chest pain or palpitations Respiratory: No reports of shortness of breath or cough GI: No reports of nausea, no reports of vomiting, no diarrhea : No reports of dysuria or retention Neurovascular: reports of generalized buttock discomfort but is improving All medications have been reviewed PHYSICAL EXAMINATION: GENERAL: The patient is alert and oriented x3, anxious, hard of hearing well developed, well nourished. Elderly appearing, HEENT: Pupils are round and equally reacting to light. EOMI. no scleral icterus. No conjunctival pallor. Normocephalic, atraumatic. No pharyngeal erythema. No thyromegaly. CARDIOVASCULAR: S1 and S2 muffled PULMONARY: diminished breath sounds bilaterally with no wheezing or rhonchi noted. ABDOMEN: soft. Nontender on exam. obese. non-distended, normoactive bowel sounds. No palpable organomegaly. MUSCULOSKELETAL: No joint swelling or deformity. EXTREMITIES: No cyanosis, clubbing, or pedal edema. NEUROLOGICAL: Gross neurological examination did not reveal any focal deficits. Diffuse weakness SKIN: No rashes. Status post incision and drainage of the right and left buttoc k ulcers with abscess, surgical dressing applied and currently intact Assessment: Infected decubitus ulcers as well as left and right buttock abscesses with failure of outpatient treatment, present on admission with preliminary culture showing Serratia marcescens with Staph aureus and strep atelectatic group B status post incision and drainage on 03/07/2024 Chronic obstructive pulmonary disease, not in exacerbation Hypertension History of degenerative joint disease History of iron deficiency anemia History of back surgery Anxiety/depression history GI prophylaxis DVT prophylaxis Full code Plan: Recommend to continue with current medications and management with general surgery and infectious disease following. Patient is maintained on cefepime with preliminary Cultures also showing Serratia marcescens with Staph aureus and strep atelectatic group B. Awaiting deep tissue cultures from incision and drainage to determine discharge antibiotics. Patient will likely require IV antibiotics in the form of a midline as well as wound VAC and arrangements for outpatient follow-up as well as home care. Social work following and will discuss further regarding discharge planning General surgery following and is status post on 03/07/2024, deep tissue cultures obtained and pending at this time and will await finalized cultures and discussed with infectious disease regarding discharge planning Continue wound care and continue with offloading and frequent position changes. Per surgery patient to receive a wound VAC with bridging prior to discharge Follow-up on repeat labs and replace electrolytes per protocol. Potassium mildly elevated at 5 recommend low potassium diet and will follow-up with repeat labs. Due to multiple complex medical issues, prognosis is guarded The impression and plan of care has been dictated by April Cook, nurse practitioner as directed. Dr. Carmine MD I have performed a history and examination and MDM of this patient, discussed the same with the dictator, and agree with the dictator's assessment and plan as written ,documented as a scribe. Based on total visit time, I have performed more than 50% of the visit. Any additional findings or plans will be noted. Objective - Vital Signs Vital signs: Vital Signs Temp 98.1 F 03/10/24 01:55 Pulse 94 03/10/24 01:55 Resp 18 03/10/24 01:55 BP 114/63 03/10/24 01:55 Pulse Ox 93 L 03/10/24 01:55 FiO2 Intake & Output 03/09/24 03/09/24 03/10/24 06:59 18:59 06:59 Intake Total 340 Balance 340 Intake: Intake, IV Titration 340 Amount Cefepime 2 gm In Sodium 100 Chloride 0.9% 100 ml @ 25 mls/hr IVPB Q8H [facility] Rx#: [id number] IV Fluid Continuation 1, 240 000 ml @ 0 mls/hr IV .STK -MED ONE Rx#:[id number] Other: Voiding Method Toilet Toilet # Voids 1 1 1 - Labs CBC & Chem 7: 03/09/24 05:04 03/09/24 05:04 Labs: Abnormal Lab Results - Last 24 Hours (Table) 03/09/24 03/09/24 Range/Units 05:04 05:04 RBC 3.60 L (4.10-5.20) X 10*6/uL Hgb 8.5 L (12.0-15.0) g/dL Hct 29.3 L (37.2-46.3) % MCH 23.6 L (27.0-32.0) pg MCHC 29.0 L (32.0-37.0) g/dL RDW 18.2 H (11.5-14.5) % MPV 9.1 L (9.5-12.2) FL Eosinophils # 0.55 H (0.04-0.35) X 10*3/uL Chloride 114 H (96-109) mmol/L Microbiology - Last 24 Hours (Table) 03/04/24 13:05 Blood Culture - Final Blood 03/07/24 14:28 Gram Stain - Preliminary Buttock Wound Culture - Preliminary Gram Neg Bacilli 03/07/24 14:35 Gram Stain - Preliminary Buttock Wound Culture - Preliminary Corynebacterium species
--- NOTE | 2024-03-10 09:40 | P.PN ---
Subjective Progress Note Date: 03/10/24 Patient remains stable. She is due for her wound VAC change today. Patient thought that this may be done in the operating room. Patient has some anxiety related to pain. I discussed patient that she'll be given some IV pain medication prior to her wound VAC dressing change. Objective - Vital Signs Vital signs: Vital Signs Temp 98.2 F 03/10/24 07:39 Pulse 88 03/10/24 07:39 Resp 18 03/10/24 07:39 BP 127/71 03/10/24 07:39 Pulse Ox 92 L 03/10/24 07:39 FiO2 Intake & Output 03/09/24 03/10/24 03/10/24 18:59 06:59 18:59 Intake Total 320 Balance 320 Intake: Intake, IV Titration 320 Amount Cefepime 2 gm In Sodium 100 Chloride 0.9% 100 ml @ 25 mls/hr IVPB Q8H [facility] Rx#: [id number] IV Fluid Continuation 1, 220 000 ml @ 0 mls/hr IV .STK -MED ONE Rx#:[id number] Other: Voiding Method Toilet # Voids 1 1 1 - Labs CBC & Chem 7: 03/09/24 05:04 03/09/24 05:04 Labs: Abnormal Lab Results - Last 24 Hours (Table) 03/09/24 03/09/24 Range/Units 05:04 05:04 RBC 3.60 L (4.10-5.20) X 10*6/uL Hgb 8.5 L (12.0-15.0) g/dL Hct 29.3 L (37.2-46.3) % MCH 23.6 L (27.0-32.0) pg MCHC 29.0 L (32.0-37.0) g/dL RDW 18.2 H (11.5-14.5) % MPV 9.1 L (9.5-12.2) FL Eosinophils # 0.55 H (0.04-0.35) X 10*3/uL Chloride 114 H (96-109) mmol/L Microbiology - Last 24 Hours (Table) 03/04/24 13:05 Blood Culture - Final Blood 03/07/24 14:28 Gram Stain - Preliminary Buttock Wound Culture - Preliminary Gram Neg Bacilli 03/07/24 14:35 Gram Stain - Preliminary Buttock Wound Culture - Preliminary Corynebacterium species
[2024-03-10 10:10] LABS: BUN/Creat Ratio 17.89 Ratio (12.00-20.00); Blood Urea Nitrogen 16.1 mg/dL (9.0-27.0); Carbon Dioxide 18.3 mmol/L (21.6-31.8); Chloride 111 mmol/L (96-109); Glucose 92 mg/dL (70-110); Potassium 4.3 mmol/L (3.5-5.5); Sodium 139 mmol/L (135-145)
--- NOTE | 2024-03-10 15:09 | P.PN ---
Subjective Progress Note Date: 03/10/24 This is a 68-year-old female who was recently admitted infection of the decubitus ulcer and follows with the wound care center including Dr. Moe Boyer and was instructed to come here for further evaluation. Patient previously had reconstruction with Dr. Smiley out of [place]. Per family, daughter at the bedside she helps care for her and he has been taking her to appointments and following up with wound care although noted to have increased drainage and swelling with tenderness of the site gave here for further evaluation. General surgery consulted initially recommending transfer although it has been months and patient along with family did not really want to leave here although agre eable if necessary. Patient is scheduled for incision and drainage with general surgery here on 03/07/2024. Patient is continued on broad-spectrum antibiotics and will await cultures. Recommend wound care evaluation as well. Infectious diseases following. Patient is afebrile with no reports of chest pain or shortness of breath. Patient was n.p.o. in the event of the procedure and reports to feeling hungry. Will resume diet and patient will be n.p.o. at midnight. 03/07/2024 Patient is seen and evaluated in follow-up today continued on antibiotics with infectious disease and general surgery following. Patient is scheduled to undergo I&D with deep tissue wound cultures today with general surgery. Patient currently n.p.o. and will resume diet once cleared by surgery. Awaiting finalized cultures to determine discharge antibiotics. Will consult wound care as well as patient will need wound care and possibly IV versus oral antibiotics on discharge. Patient is currently afebrile with no reported chest pain or shortness of breath. White count within normal limits and will follow-up on repeat labs. No reported nausea or vomiting and patient has been tolerating diet. 03/08/2024 Patient is seen and evaluated in follow-up today status post incision and drainage with general surgery. Patient with left buttocks decubitus ulcer as well as right buttock abscess with drainage and local wound care for now. Plan is for wound VAC with bridging and close outpatient follow-up. Patient continues on antibiotics while awaiting finalized cultures from deep tissue cultures from incision and drainage. Infectious disease following and will continue with current regimen until cultures are finalized to discuss discharge planning. Patient reports to feeling improved and would like to go home. Recommend to continue with frequent offloading of the area and will continue with wound care. Patient is afebrile denies chest pain or shortness of breath. Patient reports that tolerating diet with no reported nausea or vomiting. Replace electrolytes per protocol 03/09/2024 Patient is seen in follow-up today with general surgery and infectious disease following. Patient is status post incision and drainage of buttock abscess with ulcers and will be receiving a wound VAC and arranging for IV antibiotics outpatient. Patiently currently maintained on cefepime and awaiting cultures to finalize. Patient is afebrile with no reported chest pain or shortness of breath. Patient is extremely anxious to go home. Will discuss further with case management regarding discharge planning to arrange for wound VAC as well as IV antibiotic coverage. 03/10/2024 Patient is seen in follow-up today and being followed by general surgery is scheduled to undergo wound VAC placement today. Patient is quite anxious about this procedure as she has difficulty laying and is mostly wheelchair-bound. Patient will be given pain medications at bedside as needed. Patient will need a midline in the outpatient setting and IV antibiotics and will discuss further with social work regarding discharge planning. Family reports they will be taking her home and having home care and will be caring for her. Patient is afebrile with no reported chest pain or shortness of breath. Patient tolerating diet with no reported nausea or vomiting. Recommend to continue with low potassium diet. Potassium improved at 4 today. Review of systems: Constitutional: No reports of fatigue, fever, or chills Cardiovascular: No reports of chest pain or palpitations Respiratory: No reports of shortness of breath or cough GI: No reports of nausea, no reports of vomiting, no diarrhea : No reports of dysuria or retention Neurovascular: reports of generalized buttock discomfort but is improving All medications have been reviewed PHYSICAL EXAMINATION: GENERAL: The patient is alert and oriented x3, anxious, hard of hearing well developed, well nourished. Elderly appearing, HEENT: Pupils are round and equally reacting to light. EOMI. no scleral icterus. No conjunctival pallor. Normocephalic, atraumatic. No pharyngeal erythema. No thyromegaly. CARDIOVASCULAR: S1 and S2 muffled PULMONARY: diminished breath sounds bilaterally with no wheezing or rhonchi noted. ABDOMEN: soft. Nontender on exam. obese. non-distended, normoactive bowel sounds. No palpable organomegaly. MUSCULOSKELETAL: No joint swelling or deformity. EXTREMITIES: No cyanosis, clubbing, or pedal edema. NEUROLOGICAL: Gross neurological examination did not reveal any focal deficits. Diffuse weakness SKIN: No rashes. Status post incision and drainage of the right and left buttock ulcers with abscess, surgical dressing applied and currently intact Assessment: Infected decubitus ulcers as well as left and right buttock abscesses with failure of outpatient treatment, present on admission with preliminary culture showing Serratia marcescens with Staph aureus and strep atelectatic group B status post incision and drainage on 03/07/2024 Chronic obstructive pulmonary disease, not in exacerbation Hypertension History of degenerative joint disease History of iron deficiency anemia History of back surgery Anxiety/depression history GI prophylaxis DVT prophylaxis Full code Plan: Recommend to continue with current medications and management with general surgery and infectious disease following. Patient is maintained on cefepime with Cultures also showing Serratia marcescens with Staph aureus and strep atelectatic group B. MSSA, awaiting deep tissue cultures from incision and drainage to determine discharge antibiotics. Patient will likely require IV antibiotics in the form of a midline as well as wound VAC and arrangements for outpatient follow-up as well as home care. Discussed with daughter at bedside today and plans are to return home with home care. Social work following and will discuss further regarding discharge planning General surgery following and is status post on 03/07/2024, deep tissue cultures obtained and pending at this time and will await finalized cultures and discussed with infectious disease regarding discharge planning Continue wound care and continue with offloading and frequent position changes. Per surgery patient to receive a wound VAC with bridging today. Patient was anxious and nervous about inability to lay flat to have the wound VAC placed recommending going to the OR although will be done at bedside and will give pain medications as needed. Possible discharge planning in the next 24 to 48 hours. Patient is extremely anxious and wants to go home on Monday. Due to multiple complex medical issues, prognosis is guarded The impression and plan of care has been dictated by April Cook, nurse practitioner as directed. Dr. Carmine MD I have performed a history and examination and MDM of this patient, discussed the same with the dictator, and agree with the dictator's assessment and plan as written ,documented as a scribe. Based on total visit time, I have performed more than 50% of the visit. Any additional findings or plans will be noted. Objective - Vital Signs Vital signs: Vital Signs Temp 99.1 F 03/10/24 13:18 Pulse 84 03/10/24 13:18 Resp 17 03/10/24 13:18 BP 153/75 03/10/24 13:18 Pulse Ox 94 L 03/10/24 13:18 FiO2 Intake & Output 03/09/24 03/10/24 03/10/24 18:59 06:59 18:59 Intake Total 320 Balance 320 Intake: Intake, IV Titration 320 Amount Cefepime 2 gm In Sodium 100 Chloride 0.9% 100 ml @ 25 mls/hr IVPB Q8H [facility] Rx#: [id number] IV Fluid Continuation 1, 220 000 ml @ 0 mls/hr IV .STK -MED ONE Rx#:[id number] Other: Voiding Method Toilet Toilet # Voids 1 1 1 # Bowel Movements 1 - Labs CBC & Chem 7: 03/09/24 05:04 03/10/24 05:55 Labs: Abnormal Lab Results - Last 24 Hours (Table) 03/10/24 Range/Units 05:55 Chloride 111 H (96-109) mmol/L Carbon Dioxide 18.3 L (21.6-31.8) mmol/L Microbiology - Last 24 Hours (Table) 03/07/24 14:28 Gram Stain - Final Buttock Wound Culture - Final Serratia marcescens 03/07/24 14:35 Gram Stain - Final Buttock Wound Culture - Final Corynebacterium species 03/04/24 13:05 Blood Culture - Final Blood
[2024-03-10] MEDS: HYDROmorphone 1 MG/ML 1 ML SYRINGE IVP STA (16:12)
--- NOTE | 2024-03-11 12:26 | P.PN ---
Subjective Progress Note Date: 03/11/24 Principal diagnosis: Decubitus ulcers Patient doing well today. Wound VAC was placed yesterday. Patient had no significant pain with that. Cultures showing a variety of bacteria. Plan currently is for patient to be discharged home with home care today. Patient is excited about leaving. Objective - Vital Signs Vital signs: Vital Signs Temp 98.1 F 03/11/24 07:21 Pulse 88 03/11/24 07:21 Resp 17 03/11/24 07:21 BP 137/81 03/11/24 07:21 Pulse Ox 93 L 03/11/24 07:21 FiO2 Intake & Output 03/10/24 03/11/24 03/11/24 18:59 06:59 18:59 Other: Voiding Method Toilet Toilet Toilet # Voids 1 1 1 # Bowel Movements 1 1 - Exam Bilateral ischial decubitus ulcers with wound VAC dressing in place - Labs CBC & Chem 7: 03/09/24 05:04 03/10/24 05:55 Labs: Microbiology - Last 24 Hours (Table) 03/07/24 14:35 Anaerobic Culture - Preliminary Buttock 03/07/24 14:28 Gram Stain - Final Buttock Wound Culture - Final Serratia marcescens 03/07/24 14:35 Gram Stain - Final Buttock Wound Culture - Final Corynebacterium species Assessment and Plan (1) Infected decubitus ulcer Narrative/Plan: 68-year-old female doing well after recent incision and drainage and debridement bilateral ischial decubitus ulcer. Continue local wound care. Follow-up with the wound care center. Antibiotics per infectious disease. Continue offloading and optimization of nutrition. This was discussed with the family again today. Current Visit: Yes Status: Acute Code(s): L89.90 - PRESSURE ULCER OF UNSPECIFIED SITE, UNSPECIFIED STAGE; L08.9 - LOCAL INFECTION OF THE SKIN AND SUBCUTANEOUS TISSUE, UNSP SNOMED Code(s): 318692891
--- NOTE | 2024-03-11 13:01 | P.PN ---
Subjective Progress Note Date: 03/10/24 Principal diagnosis: Bilateral gluteal abscess Patient is a 68-year-old female with a past medical history significant for COPD hypertension osteoarthritis anxiety depression patient did have a history of bilateral gluteal area pressure ulcer for the patient has been treated at [facility] and Dr. Smiley has been brought to the hospital concerning for worsening wound and drainage and possible wound infection. Patient did have a pelvic CT with evidence of bilateral gluteal abscess.Patient is status post drainage of bilateral gluteal pressure ulcer with an abscess operative report did not mention any involvement of the bones or osteomyelitis procedure completed on 03/07/2024 On today's evaluation that is 03/10/2024, the patient continues to be afebrile, the patient is on room air and breathing comfortably, the Pt denies having any chest pain or cough, the patient denies having any abdominal pain no vomiting or any diarrhea has been reported by the nursing staff pain to bilateral gluteal area is currently controlled No CBC was done today creatinine 0.9 Objective - Vital Signs Vital signs: Vital Signs Temp 98.2 F 03/10/24 07:39 Pulse 88 03/10/24 07:39 Resp 18 03/10/24 07:39 BP 127/71 03/10/24 07:39 Pulse Ox 92 L 03/10/24 07:39 FiO2 Intake & Output 03/09/24 03/10/24 03/10/24 18:59 06:59 18:59 Intake Total 320 Balance 320 Intake: Intake, IV Titration 320 Amount Cefepime 2 gm In Sodium 100 Chloride 0.9% 100 ml @ 25 mls/hr IVPB Q8H [facility] Rx#: [id number] IV Fluid Continuation 1, 220 000 ml @ 0 mls/hr IV .STK -[facility] ONE Rx#:[id number] Other: Voiding Method Toilet # Voids 1 1 1 - Exam GENERAL DESCRIPTION: An elderly female lying in bed in no distress RESPIRATORY SYSTEM: Unlabored breathing , decreased breath sounds at bases HEART: S1 S2 regular rate and rhythm , ABDOMEN: Soft , no tenderness EXTREMITIES: No edema feet Exam completed with the help of REGULATORY AFFAIRS ASSISTANT - Labs CBC & Chem 7: 03/09/24 05:04 03/10/24 05:55 Labs: Abnormal Lab Results - Last 24 Hours (Table) 03/09/24 03/09/24 Range/Units 05:04 05:04 RBC 3.60 L (4.10-5.20) X 10*6/uL Hgb 8.5 L (12.0-15.0) g/dL Hct 29.3 L (37.2-46.3) % MCH 23.6 L (27.0-32.0) pg MCHC 29.0 L (32.0-37.0) g/dL RDW 18.2 H (11.5-14.5) % MPV 9.1 L (9.5-12.2) FL Eosinophils # 0.55 H (0.04-0.35) X 10*3/uL Chloride 114 H (96-109) mmol/L Microbiology - Last 24 Hours (Table) 03/04/24 13:05 Blood Culture - Final Blood 03/07/24 14:28 Gram Stain - Preliminary Buttock Wound Culture - Preliminary Gram Neg Bacilli 03/07/24 14:35 Gram Stain - Preliminary Buttock Wound Culture - Preliminary Corynebacterium species Assessment and Plan (1) Abscess, gluteal, right Current Visit: Yes Status: Acute Code(s): L02.31 - CUTANEOUS ABSCESS OF BUTTOCK SNOMED Code(s): 66758683 (2) Abscess, gluteal, left Current Visit: Yes Status: Acute Code(s): L02.31 - CUTANEOUS ABSCESS OF BUTTOCK SNOMED Code(s): 32120172 (3) Penicillin allergy Current Visit: Yes Status: Acute Code(s): Z88.0 - ALLERGY STATUS TO PENICILLIN SNOMED Code(s): 89657778 (4) Infected decubitus ulcer Current Visit: Yes Status: Acute Code(s): L89.90 - PRESSURE ULCER OF UNSPECIFIED SITE, UNSPECIFIED STAGE; L08.9 - LOCAL INFECTION OF THE SKIN AND SUBCUTANEOUS TISSUE, UNSP SNOMED Code(s): 710363598 Plan: 1patient with chronic nonhealing wound to bilateral gluteal area pressure ulcer that has been treated with the local treatment as well as plastic surgery no present to the hospital with worsening redness and foul-smelling drainage concerning for wound infection and cellulitis likely from gram-positive skin ale however gram-negative rash not entirely excluded 2-patient with a penicillin allergy with elevated number of antibiotics safe to use 3-patient did have CT of the pelvis area which shows evidence of bilateral gluteal abscess patient is s/p surgical drainage and deep culture operative report did not mention any extension of the wound or evidence of osteomyelitis 4-patient local culture grew MSSA Serratia and strep, OR cultures currently growing corynebacterium and gram-negative with ID sensitivities pending, patient is currently being treated with cefepime to continue and monitor clinical course closely Dictation was produced using [employer] dictation software. please excuse any grammatical, word or spelling errors. Time with Patient: Less than 30
--- NOTE | 2024-03-11 13:02 | P.PN ---
Subjective Progress Note Date: 03/11/24 Principal diagnosis: Bilateral gluteal abscess Patient is a 68-year-old female with a past medical history significant for COPD hypertension osteoarthritis anxiety depression patient did have a history of bilateral gluteal area pressure ulcer for the patient has been treated at [facility] and Dr. Smiley has been brought to the hospital concerning for worsening wound and drainage and possible wound infection. Patient did have a pelvic CT with evidence of bilateral gluteal abscess.Patient is status post drainage of bilateral gluteal pressure ulcer with an abscess operative report did not mention any involvement of the bones or osteomyelitis procedure completed on 03/07/2024 On today's evaluation that is 03/11/2024, Patient is afebrile patient is currently on room air and denies having any shortness of breath, the patient denies any chest pain or cough, the patient denies any nausea vomiting did not have any abdominal pain and no diarrhea, patient seen with tolerating her wound VAC and pain to bilateral gluteal wound has decreased in intensity. No lab draw today or culture finalized with Serratia and corynebacterium Objective - Vital Signs Vital signs: Vital Signs Temp 98.1 F 03/11/24 07:21 Pulse 88 03/11/24 07:21 Resp 17 03/11/24 07:21 BP 137/81 03/11/24 07:21 Pulse Ox 93 L 03/11/24 07:21 FiO2 Intake & Output 03/10/24 03/11/24 03/11/24 18:59 06:59 18:59 Other: Voiding Method Toilet Toilet Toilet # Voids 1 1 1 # Bowel Movements 1 1 - Exam GENERAL DESCRIPTION: An elderly female lying in bed in no distress RESPIRATORY SYSTEM: Unlabored breathing , decreased breath sounds at bases HEART: S1 S2 regular rate and rhythm , ABDOMEN: Soft , no tenderness Bilateral gluteal wounds currently covered with a wound VAC - Labs CBC & Chem 7: 03/09/24 05:04 03/10/24 05:55 Labs: Microbiology - Last 24 Hours (Table) 03/07/24 14:35 Anaerobic Culture - Preliminary Buttock 03/07/24 14:28 Gram Stain - Final Buttock Wound Culture - Final Serratia marcescens 03/07/24 14:35 Gram Stain - Final Buttock Wound Culture - Final Corynebacterium species Assessment and Plan (1) Abscess, gluteal, right Current Visit: Yes Status: Acute Code(s): L02.31 - CUTANEOUS ABSCESS OF BUTTOCK SNOMED Code(s): 19977518 (2) Abscess, gluteal, left Current Visit: Yes Status: Acute Code(s): L02.31 - CUTANEOUS ABSCESS OF BUTTOCK SNOMED Code(s): 82155623 (3) Penicillin allergy Current Visit: Yes Status: Acute Code(s): Z88.0 - ALLERGY STATUS TO PENICILL IN SNOMED Code(s): 47683556 (4) Infected decubitus ulcer Current Visit: Yes Status: Acute Code(s): L89.90 - PRESSURE ULCER OF UNSPECIFIED SITE, UNSPECIFIED STAGE; L08.9 - LOCAL INFECTION OF THE SKIN AND SUBCUTANEOUS TISSUE, UNSP SNOMED Code(s): 420718638 Plan: 1patient with chronic nonhealing wound to bilateral gluteal area pressure ulcer that has been treated with the local treatment as well as plastic surgery no present to the hospital with worsening redness and foul-smelling drainage concerning for wound infection and cellulitis likely from gram-positive skin ale however gram-negative rash not entirely excluded 2-patient with a penicillin allergy with elevated number of antibiotics safe to use 3-patient did have CT of the pelvis area which shows evidence of bilateral gluteal abscess patient is s/p surgical drainage and deep culture operative report did not mention any extension of the wound or evidence of osteomyelitis 4-patient local culture grew MSSA Serratia and strep, OR cultures currently gr owing corynebacterium and Serratia marcescens 5we will order PICC line for outpatient IV cefepime 2 to 3 weeks depends upon clinical response Daughter has multiple questions concerns were answered in layman terms Dictation was produced using [employer]ation software. please excuse any grammatical, word or spelling errors. Time with Patient: Less than 30
--- NOTE | 2024-03-11 20:45 | P.PN ---
Progress Note - Text Progress Note Date: 03/11/24 This is a 68-year-old female who was recently admitted infection of the decubitus ulcer and follows with the wound care center including Dr. Moe Boyer and was instructed to come here for further evaluation. Patient previously had reconstruction with Dr. Smiley out of [place]. Per family, daughter at the bedside she helps care for her and he has been taking her to appointments and following up with wound care although noted to have increased drainage and swelling with tenderness of the site gave here for further evaluation. General surgery consulted initially recommending transfer although it has been months and patient along with family did not really want to leave here although agreeable if necessary. Patient is scheduled for incision and drainage with general surgery here on 03/07/2024. Patient is continued on broad-spectrum antibiotics and will await cultures. Recommend wound care evaluation as well. Infectious diseases following. Patient is afebrile with no reports of chest pain or shortness of breath. Patient was n.p.o. in the event of the procedure and reports to feeling hungry. Will resume diet and patient will be n.p.o. at midnight. 03/07/2024 Patient is seen and evaluated in follow-up today continued on antibiotics with infectious disease and general surgery following. Patient is scheduled to undergo I&D with deep tissue wound cultures today with general surgery. Patient currently n.p.o. and will resume diet once cleared by surgery. Awaiting finalized cultures to determine discharge antibiotics. Will consult wound care as well as patient will need wound care and possibly IV versus oral antibiotics on discharge. Patient is currently afebrile with no reported chest pain or shortness of breath. White count within normal limits and will follow-up on repeat labs. No reported nausea or vomiting and patient has been tolerating diet. 03/08/2024 Patient is seen and evaluated in follow-up today status post incision and drainage with general surgery. Patient with left buttocks decubitus ulcer as well as right buttock abscess with drainage and local wound care for now. Plan is for wound VAC with bridging and close outpatient follow-up. Patient continues on antibiotics while awaiting finalized cultures from deep tissue cultures from incision and drainage. Infectious disease following and will continue with current regimen until cultures are finalized to discuss discharge planning. Patient reports to feeling improved and would like to go home. Recommend to continue with frequent offloading of the area and will continue with wound care. Patient is afebrile denies chest pain or shortness of breath. Patient reports that tolerating diet with no reported nausea or vomiting. Replace electrolytes per protocol 03/09/2024 Patient is seen in follow-up today with general surgery and infectious disease following. Patient is status post incision and drainage of buttock abscess with ulcers and will be receiving a wound VAC and arranging for IV antibiotics outpatient. Patiently currently maintained on cefepime and awaiting cultures to finalize. Patient is afebrile with no reported chest pain or shortness of breath. Patient is extremely anxious to go home. Will discuss further with case management regarding discharge planning to arrange for wound VAC as well as IV antibiotic coverage. 03/10/2024 Patient is seen in follow-up today and being followed by general surgery is scheduled to undergo wound VAC placement today. Patient is quite anxious about this procedure as she has difficulty laying and is mostly wheelchair-bound. Patient will be given pain medications at bedside as needed. Patient will need a midline in the outpatient setting and IV antibiotics and will discuss further with social work regarding discharge planning. Family reports they will be taking her home and having home care and will be caring for her. Patient is afebrile with no reported chest pain or shortness of breath. Patient tolerating diet with no reported nausea or vomiting. Recommend to continue with low potassium diet. Potassium improved at 4 today. March 11, 2024: I assumed care of the patient today. Up in a chair. Daughter at the bedside. Wound VAC in place. Pain controlled. Eating fair. Lengthy discussion with daughter at the bedside. PICC line cannot be placed until Monday. Hence patient cannot be discharged. Had a BM Active Medications Acetaminophen (Acetaminophen Tab 500 Mg Tab) 500 mg PO Q6HR PRN PRN Reason: Fever and/ or Pain Last Admin: 03/08/24 13:11 Dose: 500 mg Amlodipine Besylate (Amlodipine 2.5 Mg Tab) 2.5 mg PO DAILY [facility] Last Admin: 03/11/24 08:18 Dose: 2.5 mg Atorvastatin Calcium (Atorvastatin 10 Mg Tab) 10 mg PO HS [facility] Last Admin: 03/10/24 21:25 Dose: 10 mg Cyproheptadine HCl (Cyproheptadine 4 Mg Tablet) 4 mg PO TID [facility] Last Admin: 03/11/24 16:39 Dose: 4 mg Ergocalciferol (Ergocalciferol 1,250 Mcg (50,000 Iu) Capsule) 1,250 mcg PO FR [facility] Last Admin: 03/08/24 09:33 Dose: 1,250 mcg Folic Acid (Folic Acid 1 Mg Tab) 1 mg PO DAILY@1200 [facility] Last Admin: 03/11/24 12:44 Dose: 1 mg Furosemide (Furosemide 20 Mg Tab) 20 mg PO BID PRN PRN Reason: Edema Gabapentin (Gabapentin 300 Mg Cap) 600 mg PO TID [facility] Last Admin: 03/11/24 16:39 Dose: 600 mg Hydroxyzine HCl (Hydroxyzine Hcl 25 Mg Tab) 25 mg PO TID [facility] Last Admin: 03/11/24 16:39 Dose: 25 mg Cefepime HCl 2 gm/ Sodium (Chloride) 100 mls @ 25 mls/hr IVPB Q8H [facility]; Protocol Last Admin: 03/11/24 12:44 Dose: 25 mls/hr Lamotrigine (Lamotrigine 25 Mg Tab) 25 mg PO DAILY [facility] Last Admin: 03/11/24 08:17 Dose: 25 mg Loratadine (Loratadine 10 Mg Tab) 10 mg PO DAILY [facility] Last Admin: 03/11/24 08:17 Dose: 10 mg Meloxicam (Meloxicam 7.5 Mg Tab) 15 mg PO DAILY [facility] Last Admin: 03/11/24 08:17 Dose: 15 mg Multivitamins (Multivitamins, Thera 1 Each Tab) 1 each PO DAILY@1200 [facility] Last Admin: 03/11/24 12:44 Dose: 1 each Pantoprazole Sodium (Pantoprazole 40 Mg Tablet) 40 mg PO AC-[id number] [facility] Last Admin: 03/11/24 08:17 Dose: 40 mg Psyllium Hydrophilic Mucilloid (Psyllium Husk 100% 6 Gm Packet) 6 gm PO BID [facility] Sertraline HCl (Sertraline 50 Mg Tab) 150 mg PO HS [facility] Last Admin: 03/10/24 21:24 Dose: 150 mg Thiamine HCl (Thiamine 100 Mg Tab) 100 mg PO BID-W/MEALS [facility] Last Admin: 03/11/24 16:39 Dose: 100 mg Tramadol HCl (Tramadol 50 Mg Tab) 100 mg PO TID PRN PRN Reason: Pain Last Admin: 03/11/24 03:44 Dose: 100 mg On examination: VITAL SIGNS: [98.1, 79, 18, 130 x 77, 96% room air] GENERAL APPEARANCE: BMI 19.8, in a recliner. HEENT: Normal external appearance of nose and ear. Oral cavity normal EYES: Pupils equal. Conjunctiva normal. NECK: JVD not raised. Mass not palpable. RESPIRATORY: Respiratory effort normal. Lungs creased breath sounds n. CARDIOVASCULAR: First and second sounds normal. No edema. ABDOMEN: Soft. Liver and spleen not palpable. No tenderness. No mass palpable. PSYCHIATRY: Alert and oriented x3. Mood and affect normal. MUSCULOSKELETAL: OA. Wound VAC in the lower back. INVESTIGATIONS, reviewed in the clinical context: March 10: Sodium 139 potassium 4.3 creatinine 0.9 March 17: White count 8.9 hemoglobin 8.5 platelets 401 Assessment and plan: -Acute infected decubitus ulcers as well as left and right buttock abscesses with failure of outpatient treatment, present on admission with preliminary culture showing Serratia marcescens with Staph aureus and strep atelectatic group B status post incision and drainage on 03/07/2024 IV cefepime. -Chronic obstructive pulmonary disease, not in exacerbation -Essential hypertension Amlodipine 2.5 mg a day -Primary osteoarthritis, prior history of back surgery Pain medication as needed. Meloxicam -Hyperlipidemia Lipitor 10 mg -Anxiety/depression history Zoloft -Constipation Metamucil Discussed at length with the daughter and nurse at the bedside. And the patient. PICC line cannot be placed until Monday. Continue current treatment plan.
[2024-03-11] MEDS: PSYLLIUM HUSK 100% 6 GM PACKET PO SCH (20:57)
--- NOTE | 2024-03-12 13:01 | P.PN ---
Subjective Progress Note Date: 03/12/24 Principal diagnosis: Decubitus ulcers Patient doing well today. Wound VAC remains in place. She was post to be discharged yesterday however discharge was held as they wanted a PICC line placed. Denies pain. Objective - Vital Signs Vital signs: Vital Signs Temp 97.9 F 03/12/24 12:00 Pulse 67 03/12/24 12:00 Resp 16 03/12/24 12:00 BP 133/72 03/12/24 12:00 Pulse Ox 97 03/12/24 12:00 FiO2 Intake & Output 03/11/24 03/12/24 03/12/24 18:59 06:59 18:59 Intake Total 222 Balance 222 Weight 47.627 kg Intake: Oral 222 Other: Voiding Method Toilet Toilet # Voids 1 1 1 # Bowel Movements 1 1 - Exam Bilateral ischial decubitus ulcers with wound VAC dressing in place - Labs CBC & Chem 7: 03/09/24 05:04 03/10/24 05:55 Labs: Microbiology - Last 24 Hours (Table) 03/07/24 14:35 Anaerobic Culture - Final Buttock Assessment and Plan (1) Infected decubitus ulcer Narrative/Plan: Patient continues to do well from our point of view. Continue wound VAC until discharged tomorrow. Remove dressing at time of discharge. Wound VAC will be replaced by home care at that time. Current Visit: Yes Status: Acute Code(s): L89.90 - PRESSURE ULCER OF UNSPECIFIED SITE, UNSPECIFIED STAGE; L08.9 - LOCAL INFECTION OF THE SKIN AND SUBCUTANEOUS TISSUE, UNSP SNOMED Code(s): 564430170
--- NOTE | 2024-03-12 14:31 | XR ---
EXAMINATION TYPE: XR chest 2V DATE OF EXAM: 03/12/2024 2:19 PM CLINICAL INDICATION:Female, 68 years old with history of chest congestion, cough; [facility] COMPARISON: Chest radiographs from 03/09/2024. TECHNIQUE: XR chest 2V Frontal and lateral views of the chest. FINDINGS: Lungs/Pleura: Low lung volumes. Platelike atelectasis left midlung. Faint opacity right upper lobe Pulmonary vascularity: Unremarkable. Heart/mediastinum: Cardiomediastinal silhouette is unremarkable. Musculoskeletal: No acute osseous pathology. Total reverse right shoulder arthroplasty Other findings: None Lines/Tubes: None. IMPRESSION: Improving situation involving bilateral patchy and confluent airspace disease compared to March 09 024.
--- NOTE | 2024-03-12 19:22 | P.PN ---
Progress Note - Text Progress Note Date: 03/12/24 This is a 68-year-old female who was recently admitted infection of the decubitus ulcer and follows with the wound care center including Dr. Moe Boyer and was instructed to come here for further evaluation. Patient previously had reconstruction with Dr. Smiley out of [facility]. Per family, daughter at the bedside she helps care for her and he has been taking her to appointments and following up with wound care although noted to have increased drainage and swelling with tenderness of the site gave here for further evaluation. General surgery consulted initially recommending transfer although it has been months and patient along with family did not really want to leave here although agreeable if necessary. Patient is scheduled for incision and drainage with general surgery here on 03/07/2024. Patient is continued on broad-spectrum antibiotics and will await cultures. Recommend wound care evaluation as well. Infectious diseases following. Patient is afebrile with no reports of chest pain or shortness of breath. Patient was n.p.o. in the event of the procedure and reports to feeling hungry. Will resume diet and patient will be n.p.o. at midnight. 03/07/2024 Patient is seen and evaluated in follow-up today continued on antibiotics with infectious disease and general surgery following. Patient is scheduled to undergo I&D with deep tissue wound cultures today with general surgery. Patient currently n.p.o. and will resume diet once cleared by surgery. Awaiting finalized cultures to determine discharge antibiotics. Will consult wound care as well as patient will need wound care and possibly IV versus oral antibiotics on discharge. Patient is currently afebrile with no reported chest pain or shortness of breath. White count within normal limits and will follow-up on repeat labs. No reported nausea or vomiting and patient has been tolerating diet. 03/08/2024 Patient is seen and evaluated in follow-up today status post incision and drainage with general surgery. Patient with left buttocks decubitus ulcer as well as right buttock abscess with drainage and local wound care for now. Plan is for wound VAC with bridging and close outpatient follow-up. Patient continues on antibiotics while awaiting finalized cultures from deep tissue cultures from incision and drainage. Infectious disease following and will continue with current regimen until cultures are finalized to discuss discharge planning. Patient reports to feeling improved and would like to go home. Recommend to continue with frequent offloading of the area and will continue with wound care. Patient is afebrile denies chest pain or shortness of breath. Patient reports that tolerating diet with no reported nausea or vomiting. Replace electrolytes per protocol 03/09/2024 Patient is seen in follow-up today with general surgery and infectious disease following. Patient is status post incision and drainage of buttock abscess with ulcers and will be receiving a wound VAC and arranging for IV antibiotics outpatient. Patiently currently maintained on cefepime and awaiting cultures to finalize. Patient is afebrile with no reported chest pain or shortness of breath. Patient is extremely anxious to go home. Will discuss further with case management regarding discharge planning to arrange for wound VAC as well as IV antibiotic coverage. 03/10/2024 Patient is seen in follow-up today and being followed by general surgery is scheduled to undergo wound VAC placement today. Patient is quite anxious about this procedure as she has difficulty laying and is mostly wheelchair-bound. Patient will be given pain medications at bedside as needed. Patient will need a midline in the outpatient setting and IV antibiotics and will discuss further with social work regarding discharge planning. Family reports they will be taking her home and having home care and will be caring for her. Patient is afebrile with no reported chest pain or shortness of breath. Patient tolerating diet with no reported nausea or vomiting. Recommend to continue with low potassium diet. Potassium improved at 4 today. March 11, 2024: I assumed care of the patient today. Up in a chair. Daughter at the bedside. Wound VAC in place. Pain controlled. Eating fair. Lengthy discussion with daughter at the bedside. PICC line cannot be placed until Monday. Hence patient cannot be discharged. Had a BM March 12: Up in a chair. Tolerating diet. No pain. Pending PICC line placemen t. On IV cefepime. Tolerating diet. Active Medications Acetaminophen (Acetaminophen Tab 500 Mg Tab) 500 mg PO Q6HR PRN PRN Reason: Fever and/ or Pain Last Admin: 03/08/24 13:11 Dose: 500 mg Amlodipine Besylate (Amlodipine 2.5 Mg Tab) 2.5 mg PO DAILY [facility] Last Admin: 03/12/24 09:06 Dose: 2.5 mg Atorvastatin Calcium (Atorvastatin 10 Mg Tab) 10 mg PO HS [facility] Last Admin: 03/11/24 20:58 Dose: 10 mg Cyproheptadine HCl (Cyproheptadine 4 Mg Tablet) 4 mg PO TID [facility] Last Admin: 03/12/24 16:20 Dose: 4 mg Ergocalciferol (Ergocalciferol 1,250 Mcg (50,000 Iu) Capsule) 1,250 mcg PO FR [facility] Last Admin: 03/08/24 09:33 Dose: 1,250 mcg Folic Acid (Folic Acid 1 Mg Tab) 1 mg PO DAILY@1200 [facility] Last Admin: 03/12/24 12:50 Dose: 1 mg Furosemide (Furosemide 20 Mg Tab) 20 mg PO BID PRN PRN Reason: Edema Gabapentin (Gabapentin 300 Mg Cap) 600 mg PO TID [facility] Last Admin: 03/12/24 16:20 Dose: 600 mg Hydroxyzine HCl (Hydroxyzine Hcl 25 Mg Tab) 25 mg PO TID [facility] Last Admin: 03/12/24 16:20 Dose: 25 mg Cefepime HCl 2 gm/ Sodium (Chloride) 100 mls @ 25 mls/hr IVPB Q8H [facility]; Protocol Last Admin: 03/12/24 12:50 Dose: 25 mls/hr Lamotrigine (Lamotrigine 25 Mg Tab) 25 mg PO DAILY [facility] Last Admin: 03/12/24 09:06 Dose: 25 mg Loratadine (Loratadine 10 Mg Tab) 10 mg PO DAILY [facility] Last Admin: 03/12/24 09:06 Dose: 10 mg Meloxicam (Meloxicam 7.5 Mg Tab) 15 mg PO DAILY [facility] Last Admin: 03/12/24 09:05 Dose: 15 mg Multivitamins (Multivitamins, Thera 1 Each Tab) 1 each PO DAILY@1200 [facility] Last Admin: 03/12/24 12:50 Dose: 1 each Pantoprazole Sodium (Pantoprazole 40 Mg Tablet) 40 mg PO AC-BRKFST [facility] Last Admin: 03/12/24 09:05 Dose: 40 mg Psyllium Hydrophilic Mucilloid (Psyllium Husk 100% 6 Gm Packet) 6 gm PO BID [facility] Last Admin: 03/12/24 09:07 Dose: 6 gm Sertraline HCl (Sertraline 50 Mg Tab) 150 mg PO HS [facility] Last Admin: 03/11/24 20:58 Dose: 150 mg Thiamine HCl (Thiamine 100 Mg Tab) 100 mg PO BID-W/MEALS GEM Last Admin: 03/12/24 17:54 Dose: 100 mg Tramadol HCl (Tramadol 50 Mg Tab) 100 mg PO TID PRN PRN Reason: Pain Last Admin: 03/11/24 20:58 Dose: 100 mg On examination: VITAL SIGNS: 97.9, 67, 16, 133 x 72, 97% room air GENERAL APPEARANCE: BMI 19.8, in a recliner. HEENT: Normal external appearance of nose and ear. Oral cavity normal EYES: Pupils equal. Conjunctiva normal. NECK: JVD not raised. Mass not palpable. RESPIRATORY: Respiratory effort normal. Lungs creased breath sounds n. CARDIOVASCULAR: First and second sounds normal. No edema. ABDOMEN: Soft. Liver and spleen not palpable. No tenderness. No mass palpable. PSYCHIATRY: Alert and oriented x3. Mood and affect normal. MUSCULOSKELETAL: OA. Wound VAC in the lower back. INVESTIGATIONS, reviewed in the clinical context: March 10: Sodium 139 potassium 4.3 creatinine 0.9 March 17: White count 8.9 hemoglobin 8.5 platelets 401 Assessment and plan: -Acute infected decubitus ulcers as well as left and right buttock abscesses wi th failure of outpatient treatment, present on admission with preliminary culture showing Serratia marcescens with Staph aureus and strep atelectatic group B status post incision and drainage on 03/07/2024 IV cefepime. -Chronic obstructive pulmonary disease, not in exacerbation -Essential hypertension Amlodipine 2.5 mg a day -Primary osteoarthritis, prior history of back surgery Pain medication as needed. Meloxicam -Hyperlipidemia Lipitor 10 mg -Anxiety/depression history Zoloft -Constipation Metamucil Pending PICC line. Medications to continue. n.
[2024-03-12] MEDS: FUROSEMIDE 10 MG/ML 2 ML VIAL IV ONE (22:28)
[2024-03-12] MEDS: guaiFENesin 600 MG TABLET.ER PO SCH (22:28)
[2024-03-13 02:06] VITALS: RESP 17
[2024-03-13] MEDS: LIDOCAINE 1% INJ 10MG/ML (20 ML MDV) SQ ONE (07:56)
[2024-03-13 07:59] LABS: African American GFR (CKD) >90 (>60 ml/min/1.73 sqM); Anion Gap 9 mmol/L; Blood Urea Nitrogen 13 mg/dL (7-17); Calcium 9.2 mg/dL (8.4-10.2); Carbon Dioxide 19 mmol/L (22-30); Chloride 113 mmol/L (98-107); Glucose 85 mg/dL (74-99); Non-African American GFR(CKD) 89 (>60 ml/min/1.73 sqM); Potassium 3.7 mmol/L (3.5-5.1); Sodium 141 mmol/L (137-145)
--- NOTE | 2024-03-13 09:31 | P.OP ---
Date of Procedure: 03/13/24 Description of Procedure: Date of Procedure: Preoperative Diagnosis: Need for long-term IV antibiotic access. Postoperative Diagnosis: Same. Procedure(s) Performed: Ultrasound-guided cannulation left basilic vein. Insertion of peripherally inserted central catheter under fluoroscopic guidance. Anesthesia: local (1% Xylocaine.) Surgeon: Madiha Estimated Blood Loss (ml): 5 IV fluids (ml): 0 Urine output (ml): 0 Pathology: none sent Condition: stable Disposition: no change Indications for Procedure: Patient is a patient will require long-term IV antibiotics as an outpatient patient is offered a PICC line to allow for intravenous administration of antibiotics. Description of Procedure: Patient was brought to the special procedure suite. The left upper extremity sterilely prepped and draped in usual manner. Ultrasound was utilized to identify the basilic vein which was normally compressible free of visible thrombus. Permenant image was stored. 1% Xylocaine was utilized for local anesthesia tissues overlying the vein. Through this anesthetized area and with the aid of ultrasound a micropuncture needle was utilized to cannulate the vein. Once cannulated, Softip guidewire was advanced into the vein. The needle was withdrawn and a micropuncture sheath and dilator advanced over the guidewire. The guidewire was withdrawn and exchanged for the PICC guidewire and measured to the cavoatrial junction. The catheter was cut to size and advanced into the cavoatrial junction without resistance. The sheath was peeled away. Blood was easily withdrawn through the catheter and the catheter was then flushed with heparinized saline solution and secured to the skin. Patient tolerated procedure well and was returned to their room in satisfactory and stable condition.
--- NOTE | 2024-03-13 13:27 | IR ---
EXAMINATION TYPE: IR cvc insert >=5 years DATE OF EXAM: 03/13/2024 FLUOROSCOPY Abx, 0.5m/0.4524 Gycm2 DAP, 4F 38cm lt basilic PICC line. No images saved.
[2024-03-13 13:57] VITALS: BP 110/63; PULSE 66; TEMP 97.2
--- NOTE | 2024-03-13 14:01 | P.EN ---
Patient has sacral decubitus wound with a wound VAC which requires positioning of the body in ways not feasible with an ordinary bed. The head of the bed must be elevated at more than 30 degrees most of the time to alleviate pain and pressure.
--- NOTE | 2024-03-13 19:13 | P.DS ---
Providers Date of admission: 03/04/24 16:57 Expected date of discharge: 03/13/24 Attending physician: Tone Thomas Consults: 03/04/24 16:54 Consult Physician Urgent Consulting Provider: Jeffrey Rainey Consult Reason/Comments: Infected decubitus ulcer Do you want consulting provider notified?: Yes 03/05/24 15:28 Consult Physician Urgent Consulting Provider: Philippe Alvarado Consult Reason/Comments: infected decub ulcer, needs I and D Do you want consulting provider notified?: Yes Primary care physician: Demond Swift [facility] Course: This is a 68-year-old female who was recently admitted infection of the decubitus ulcer and follows with the wound care center including Dr. Moe Boyer and was instructed to come here for further evaluation. Patient previously had reconstruction with Dr. Smiley out of [facility]. Per family, daughter at the bedside she helps care for her and he has been taking her to appointments and following up with wound care although noted to have increased drainage and swelling with tenderness of the site gave here for further evaluation. General surgery consulted initially recommending transfer although it has been months and patient along with family did not really want to leave here although agreeable if necessary. Patient is scheduled for incision and drainage with general surgery here on 03/07/2024. Patient is continued on broad-spectrum antibiotics and will await cultures. Recommend wound care evaluation as well. Infectious diseases following. Patient is afebrile with no reports of chest pain or shortness of breath. Patient was n.p.o. in the event of the procedure and reports to feeling hungry. Will resume diet and patient will be n.p.o. at midnight. 03/07/2024 Patient is seen and evaluated in follow-up today continued on antibiotics with infectious disease and general surgery following. Patient is scheduled to undergo I&D with deep tissue wound cultures today with general surgery. Patient currently n.p.o. and will resume diet once cleared by surgery. Awaiting finalized cultures to determine discharge antibiotics. Will consult wound care as well as patient will need wound care and possibly IV versus oral antibiotics on discharge. Patient is currently afebrile with no reported chest pain or shortness of breath. White count within normal limits and will follow-up on repeat labs. No reported nausea or vomiting and patient has been tolerating diet. 03/08/2024 Patient is seen and evaluated in follow-up today status post incision and drainage with general surgery. Patient with left buttocks decubitus ulcer as well as right buttock abscess with drainage and local wound care for now. Plan is for wound VAC with bridging and close outpatient follow-up. Patient continues on antibiotics while awaiting finalized cultures from deep tissue cultures from incision and drainage. Infectious disease following and will continue with current regimen until cultures are finalized to discuss discharge planning. Patient reports to feeling improved and would like to go home. Recommend to continue with frequent offloading of the area and will continue with wound care. Patient is afebrile denies chest pain or shortness of breath. Patient reports that tolerating diet with no reported nausea or vomiting. Replace electrolytes per protocol 03/09/2024 Patient is seen in follow-up today with general surgery and infectious disease following. Patient is status post incision and drainage of buttock abscess with ulcers and will be receiving a wound VAC and arranging for IV antibiotics outpatient. Patiently currently maintained on cefepime and awaiting cultures to finalize. Patient is afebrile with no reported chest pain or shortness of breath. Patient is extremely anxious to go home. Will discuss further with case management regarding discharge planning to arrange for wound VAC as well as IV antibiotic coverage. 03/10/2024 Patient is seen in follow-up today and being followed by general surgery is scheduled to undergo wound VAC placement today. Patient is quite anxious about this procedure as she has difficulty laying and is mostly wheelchair-bound. Patient will be given pain medications at bedside as needed. Patient will need a midline in the outpatient setting and IV antibiotics and will discuss further with social work regarding discharge planning. Family reports they will be taking her home and having home care and will be caring for her. Patient is afebrile with no reported chest pain or shortness of breath. Patient tolerating diet with no reported nausea or vomiting. Recommend to continue with low potassium diet. Potassium improved at 4 today. March 11, 2024: I assumed care of the patient today. Up in a chair. Daughter at the bedside. Wound VAC in place. Pain controlled. Eating fair. Lengthy discussion with daughter at the bedside. PICC line cannot be placed until Monday. Hence patient cannot be discharged. Had a BM March 12: Up in a chair. Tolerating diet. No pain. Pending PICC line placement. On IV cefepime. Tolerating diet. March 13: Comfortable. Intermittent dry cough. Discussed with the patient and the daughter at the bedside. Questions answered. PICC line was placed by Dr. Cleary today. Outpatient IV cefepime for 2-3 weeks being arranged by Dr. Dodson from [facility]. Questions answered. Patient will follow-up with [facility] [place], Dr. Alvarado. Wound care orders. Discussion and discharge planning more than 35 minutes On examination: VITAL SIGNS: 97.2, 66, 17, 110 x 63, 98% room air GENERAL APPEARANCE: BMI 19.8, in a recliner. HEENT: Normal external appearance of nose and ear. Oral cavity normal EYES: Pupils equal. Conjunctiva normal. NECK: JVD not raised. Mass not palpable. RESPIRATORY: Respiratory effort normal. Lungs creased breath sounds n. CARDIOVASCULAR: First and second sounds normal. No edema. ABDOMEN: Soft. Liver and spleen not palpable. No tenderness. No mass palpable. PSYCHIATRY: Alert and oriented x3. Mood and affect normal. MUSCULOSKELETAL: OA. Wound VAC in the lower back. INVESTIGATIONS, reviewed in the clinical context: March 13: Potassium 3.7 creatinine 0.7 March 10: Sodium 139 potassium 4.3 creatinine 0.9 March 17: White count 8.9 hemoglobin 8.5 platelets 401 Assessment and plan: -Acute infected decubitus ulcers as well as left and right buttock abscesses with failure of outpatient treatment, present on admission with preliminary culture showing Serratia marcescens with Staph aureus and strep atelectatic group B status post incision and drainage on 03/07/2024 IV cefepime via PICC line outpatient for 2 to 3 weeks per [facility]. -Chronic obstructive pulmonary disease, not in exacerbation -Essential hypertension Amlodipine 2.5 mg a day -Primary osteoarthritis, prior history of back surgery Pain medication as needed. Meloxicam -Hyperlipidemia Lipitor 10 mg -Anxiety/depression history Zoloft -Constipation Metamucil Disposition: Home with daughter Plan - Discharge Summary Discharge Rx Participant: No New Discharge Prescriptions: New Folic Acid 1 mg PO DAILY@1200 #30 tab Pantoprazole [Protonix] 40 mg PO AC-BRKFST #30 tab Psyllium Husk 100% [Metamucil Packet] 6 gm PO BID #60 packet Multivitamins, Thera [Multivitamin (formulary)] 1 each PO DAILY@1200 #30 tab Acetaminophen Tab [Tylenol] 500 mg PO Q6HR PRN tab PRN Reason: Fever And/ Or Pain Thiamine [Vitamin B-1] 100 mg PO BID-W/MEALS #30 tab guaiFENesin [Mucinex] 600 mg PO BID #60 tab Continue traMADol HCl [Ultram] 100 mg PO TID PRN PRN Reason: Pain Gabapentin 600 tab PO TID Furosemide [Lasix] 20 mg PO BID PRN PRN Reason: Edema Sertraline [Zoloft] 150 mg PO HS Atorvastatin [Lipitor] 10 mg PO HS lamoTRIgine [LaMICtal] 25 mg PO DAILY hydrOXYzine HCL [Atarax] 25 mg PO TID Ergocalciferol (Vitamin D2) [Drisdol (50,000 Iu)] 1,250 mcg PO FR amLODIPine [Norvasc] 2.5 mg PO DAILY Cyproheptadine HCl [Periactin] 4 mg PO TID Meloxicam [Mobic] 15 mg PO DAILY Cetirizine HCl [Zyrtec] 10 mg PO DAILY Discharge Medication List traMADol HCl [Ultram] 100 mg PO TID PRN 08/30/19 [History] Gabapentin 600 tab PO TID 06/29/20 [History] Furosemide [Lasix] 20 mg PO BID PRN 02/01/21 [History] Sertraline [Zoloft] 150 mg PO HS 02/01/21 [History] Atorvastatin [Lipitor] 10 mg PO HS 02/03/21 [History] amLODIPine [Norvasc] 2.5 mg PO DAILY 08/24/21 [History] lamoTRIgine [LaMICtal] 25 mg PO DAILY 08/24/21 [History] Cetirizine HCl [Zyrtec] 10 mg PO DAILY 03/04/24 [History] Cyproheptadine HCl [Periactin] 4 mg PO TID 03/04/24 [History] Ergocalciferol (Vitamin D2) [Drisdol (50,000 Iu)] 1,250 mcg PO FR 03/04/24 [History] Meloxicam [Mobic] 15 mg PO DAILY 03/04/24 [History] hydrOXYzine HCL [Atarax] 25 mg PO TID 04/15/24 [History] Acetaminophen Tab [Tylenol] 500 mg PO Q6HR PRN tab 03/11/24 [Rx] Folic Acid 1 mg PO DAILY@1200 #30 tab 03/11/24 [Rx] Multivitamins, Thera [Multivitamin (formulary)] 1 each PO DAILY@1200 #30 tab 03/11/24 [Rx] Pantoprazole [Protonix] 40 mg PO AC-BRKFST #30 tab 03/11/24 [Rx] Thiamine [Vitamin B-1] 100 mg PO BID-W/MEALS #30 tab 03/11/24 [Rx] Psyllium Husk 100% [Metamucil Packet] 6 gm PO BID #60 packet 03/13/24 [Rx] guaiFENesin [Mucinex] 600 mg PO BID #60 tab 03/13/24 [Rx] Follow up Appointment(s)/Referral(s): Philippe Alvarado MD [Medical Doctor] - 03/27/24 1:40 pm [facility] [NON-STAFF] - As Needed Demond Swift DO [Primary Care Provider] - 03/18/24 2:15 pm [facility], [REFERRING] - 03/13/24 6:[address] [facility] [NON-STAFF] - As Needed (HOSPITAL BED) Jeffrey Rainey MD [STAFF PHYSICIAN] - 03/25/24 3:00 pm Ambulatory/Diagnostic Orders: Basic Metabolic Panel [LAB.AMB] Location: None Selected C Reactive Protein [LAB.AMB] Location: None Selected Complete Blood Count w/diff [LAB.AMB] Location: None Selected Erythrocyte Sedimentation Rate [LAB.AMB] Location: None Selected Activity/Diet/Wound Care/Special Instructions: PREFERRED CHOICE - P: [phone] [place] [id number] [facility] [address] [place] [id number] rainey Discharge Disposition: HOME SELF-CARE
--- NOTE | 2024-03-15 16:19 | P.PN ---
Subjective Progress Note Date: 03/12/24 Principal diagnosis: Bilateral gluteal abscess Patient is a 68-year-old female with a past medical history significant for COPD hypertension osteoarthritis anxiety depression patient did have a history of bilateral gluteal area pressure ulcer for the patient has been treated at [facility] care [place] and Dr. Smiley has been brought to the hospital concerning for worsening wound and drainage and possible wound infection. Patient did have a pelvic CT with evidence of bilateral gluteal abscess.Patient is status post drainage of bilateral gluteal pressure ulcer with an abscess operative report did not mention any involvement of the bones or osteomyelitis procedure completed on 03/07/2024 On today's evaluation that is 03/12/2024, patient has been afebrile, patient is breathing comfortably and is currently on room air, patient denies having any significant cough no chest pain shortness of breath, patient denies nausea vomiting or diarrhea and no abdominal pain, pain to bilateral gluteal area wound has decreased in intensity. No lab draw today Objective - Vital Signs Vital signs: Vital Signs Temp 97.9 F 03/12/24 12:00 Pulse 67 03/12/24 12:00 Resp 16 03/12/24 12:00 BP 133/72 03/12/24 12:00 Pulse Ox 97 03/12/24 12:00 FiO2 Intake & Output 03/11/24 03/12/24 03/12/24 18:59 06:59 18:59 Intake Total 222 Balance 222 Weight 47.627 kg Intake: Oral 222 Other: Voiding Method Toilet Toilet # Voids 1 1 1 # Bowel Movements 1 1 - Exam GENERAL DESCRIPTION: An elderly female lying in bed in no distress RESPIRATORY SYSTEM: Unlabored breathing , decreased breath sounds at bases HEART: S1 S2 regular rate and rhythm , ABDOMEN: Soft , no tenderness Bilateral gluteal wounds currently covered with a wound VAC - Labs CBC & Chem 7: 03/09/24 05:04 03/13/24 07:18 Labs: Microbiology - Last 24 Hours (Table) 03/07/24 14:28 Anaerobic Culture - Final Buttock Anaerobic Gram Positive Cocci 03/07/24 14:35 Anaerobic Culture - Final Buttock Assessment and Plan (1) Abscess, gluteal, right Status: Acute Code(s): L02.31 - CUTANEOUS ABSCESS OF BUTTOCK SNOMED Code(s): 55153356 (2) Abscess, gluteal, left Status: Acute Code(s): L02.31 - CUTANEOUS ABSCESS OF BUTTOCK SNOMED Code(s): 59093576 (3) Penicillin allergy Status: Acute Code(s): Z88.0 - ALLERGY STATUS TO PENICILLIN SNOMED Code(s): 28249068 (4) Infected decubitus ulcer Status: Acute Code(s): L89.90 - PRESSURE ULCER OF UNSPECIFIED SITE, UNSPECIFIED STAGE; L08.9 - LOCAL INFECTION OF THE SKIN AND SUBCUTANEOUS TISSUE, UNSP SNOMED Code(s): 207303849 Plan: 1patient with chronic nonhealing wound to bilateral gluteal area pressure ulcer that has been treated with the local treatment as well as plastic surgery no present to the hospital with worsening redness and foul-smelling drainage concerning for wound infection and cellulitis likely from gram-positive skin ale however gram-negative rash not entirely excluded 2-patient with a penicillin allergy with elevated number of antibiotics safe to use 3-patient did have CT of the pelvis area which shows evidence of bilateral gluteal abscess patient is s/p surgical drainage and deep culture operative report did not mention any extension of the wound or evidence of osteomyelitis 4-patient local culture grew MSSA Serratia and strep, OR cultures currently growing corynebacterium and Serratia marcescens 5patient is currently waiting for PICC line placement plan is for cefepime x 2- 3 weeks on discharge Dictation was produced using gumi dictation software. please excuse any grammatical, word or spelling errors. Time with Patient: Less than 30
--- NOTE | 2024-03-15 16:20 | P.PN ---
Subjective Progress Note Date: 03/13/24 Principal diagnosis: Bilateral gluteal abscess Patient is a 68-year-old female with a past medical history significant for COPD hypertension osteoarthritis anxiety depression patient did have a history of bilateral gluteal area pressure ulcer for the patient has been treated at [facility] care [place] and Dr. Smiley has been brought to the hospital concerning for worsening wound and drainage and possible wound infection. Patient did have a pelvic CT with evidence of bilateral gluteal abscess.Patient is status post drainage of bilateral gluteal pressure ulcer with an abscess operative report did not mention any involvement of the bones or osteomyelitis procedure completed on 03/07/2024 On today's evaluation that is 03/13/2024,the patient denies any fever or any chills, patient is breathing comfortably on room air, the patient denies chest pain shortness of breath and no significant cough, patient denies abdominal pain, no nausea vomiting or diarrhea. Patient has been tolerating her wound VAC and denies pain to bilateral gluteal wound area. Patient did have a creatinine 0.70 electrolytes were normal no CBC was done today cultures with Serratia Objective - Vital Signs Vital signs: Vital Signs Temp 97.9 F 03/13/24 07:05 Pulse 73 03/13/24 07:05 Resp 17 03/13/24 07:05 BP 142/67 03/13/24 07:05 Pulse Ox 93 L 03/13/24 07:05 FiO2 Intake & Output 03/12/24 03/13/24 03/13/24 18:59 06:59 18:59 Intake Total 340 Balance 340 Intake: Intake, IV Titration 340 Amount Cefepime 2 gm In Sodium 100 Chloride 0.9% 100 ml @ 25 mls/hr IVPB Q8H [facility] Rx#: [id number] IV Fluid Continuation 1, 240 000 ml @ 0 mls/hr IV .STK -MED ONE Rx#:[id number] Other: # Voids 0 1 1 # Bowel Movements 1 1 1 - Exam GENERAL DESCRIPTION: An elderly female lying in bed in no distress RESPIRATORY SYSTEM: Unlabored breathing , decreased breath sounds at bases HEART: S1 S2 regular rate and rhythm , ABDOMEN: Soft , no tenderness Bilateral gluteal wounds currently covered with a wound VAC - Labs CBC & Chem 7: 03/09/24 05:04 03/13/24 07:18 Labs: Abnormal Lab Results - Last 24 Hours (Table) 03/13/24 Range/Units 07:18 Chloride 113 H (98-107) mmol/L Carbon Dioxide 19 L (22-30) mmol/L Microbiology - Last 24 Hours (Table) 03/07/24 14:28 Anaerobic Culture - Final Buttock Anaerobic Gram Positive Cocci 03/07/24 14:35 Anaerobic Culture - Final Buttock Assessment and Plan (1) Abscess, gluteal, right Status: Acute Code(s): L02.31 - CUTANEOUS ABSCESS OF BUTTOCK SNOMED Code(s): 95242501 (2) Abscess, gluteal, left Status: Acute Code(s): L02.31 - CUTANEOUS ABSCESS OF BUTTOCK SNOMED Code(s): 54028061 (3) Penicillin allergy Status: Acute Code(s): Z88.0 - ALLERGY STATUS TO PENICILLIN SNOMED Code(s): 99289308 (4) Infected decubitus ulcer Status: Acute Code(s): L89.90 - PRESSURE ULCER OF UNSPECIFIED SITE, UNSPECIFIED STAGE; L08.9 - LOCAL INFECTION OF THE SKIN AND SUBCUTANEOUS TISSUE, UNSP SNOMED Code(s): 886975161 Plan: 1patient with chronic nonhealing wound to bilateral gluteal area pressure ulcer that has been treated with the local treatment as well as plastic surgery no present to the hospital with worsening redness and foul-smelling drainage concerning for wound infection and cellulitis likely from gram-positive skin ale however gram-negative rash not entirely excluded 2-patient with a penicillin allergy with elevated number of antibiotics safe to use 3-patient did have CT of the pelvis area which shows evidence of bilateral gluteal abscess patient is s/p surgical drainage and deep culture operative report did not mention any extension of the wound or evidence of osteomyelitis 4-patient local culture grew MSSA Serratia and strep, OR cultures currently growing corynebacterium and Serratia marcescens 5patient did have PICC line placement this morning plan is for cefepime x 2- 3 weeks on discharge, depending upon the clinical response Daughter was at the bedside multiple question concern answered Dictation was produced using [employer] software. please excuse any grammatical, word or spelling errors. Time with Patient: Less than 30
== END 2024-03-13 18:41 | disposition home or self-care (01) | DRG 570 ==
LOC: EC 11:47 → 5NMEDONC 16:57
PROVIDERS: ADMIT Hospitalist; ATTEND Hospitalist
PROC: 0KBP0ZZ Excision of Left Hip Muscle, Open Approach (ICD-10-PCS; 2024-03-07)
PROC: 0J990ZZ Drainage of Buttock Subcutaneous Tissue and Fascia, Open Approach (ICD-10-PCS; 2024-03-07)
PROC: 0J990ZZ Drainage of Buttock Subcutaneous Tissue and Fascia, Open Approach (ICD-10-PCS; 2024-03-07)
PROC: 0JBL0ZZ Excision of Right Upper Leg Subcutaneous Tissue and Fascia, Open Approach (ICD-10-PCS; principal; 2024-03-07 15:15)
PROC: 02HV33Z Insertion of Infusion Device into Superior Vena Cava, Percutaneous Approach (ICD-10-PCS; 2024-03-13)
DX: L02.31 Cutaneous abscess of buttock (principal); L89.313 Pressure ulcer of right buttock, stage 3; L89.324 Pressure ulcer of left buttock, stage 4; I96 Gangrene, not elsewhere classified; M50.20 Other cervical disc displacement, unspecified cervical region; J44.9 Chronic obstructive pulmonary disease, unspecified; I10 Essential (primary) hypertension; F32.A Depression, unspecified; D50.8 Other iron deficiency anemias; M19.90 Unspecified osteoarthritis, unspecified site; F41.9 Anxiety disorder, unspecified; B95.61 Methicillin susceptible Staphylococcus aureus infection as the cause of diseases classified elsewhere; B95.1 Streptococcus, group B, as the cause of diseases classified elsewhere; B96.89 Other specified bacterial agents as the cause of diseases classified elsewhere; M51.26 Other intervertebral disc displacement, lumbar region; M47.892 Other spondylosis, cervical region; E78.5 Hyperlipidemia, unspecified; K59.00 Constipation, unspecified; H91.92 Unspecified hearing loss, left ear; Z96.651 Presence of right artificial knee joint; Z96.612 Presence of left artificial shoulder joint; Z86.14 Personal history of Methicillin resistant Staphylococcus aureus infection; Z79.1 Long term (current) use of non-steroidal anti-inflammatories (NSAID); Z88.0 Allergy status to penicillin; Z79.899 Other long term (current) drug therapy; Z98.890 Other specified postprocedural states; Z88.5 Allergy status to narcotic agent; Z88.6 Allergy status to analgesic agent; Z99.3 Dependence on wheelchair
CPT/HCPCS: 36415; 36573; 71045; 71046; 72193; 80048; 80053; 80202; 81001; 82565; 83605; 83735; 85025; 85652; 86140; 87040; 87070; 87075; 87077; 87186; 87205; 88304; 96361; 96365; 96366; 96367; 96375; 99285

== ENCOUNTER 2024-04-02 14:22 | Inpatient (IN) | payer MEDICARE, BC ==
--- NOTE | 2024-04-02 14:44 | ED ---
Altered Mental Status HPI - General Source: patient, family, RN notes reviewed Mode of arrival: wheelchair Limitations: no limitations <Katheryn Hernandez - Last Filed: 04/02/24 14:41> - General Source: old records reviewed <Fuentes Pagan - Last Filed: 04/02/24 19:43> - General Chief Complaint: Altered Mental Status Stated Complaint: AMS, post op complications Time Seen by Provider: 04/02/24 14:41 - History of Present Illness Initial Comments: Quick Note: This is a 68-year-old female who presents to the emergency department for confusion. She has a longstanding history of sacral wounds and is currently being treated with IV cefepime via PICC line and oral Flagyl. Her daughter states that she had been improving, however this weekend she started to become very confused and forgetting who family members were. Also states that it seemed like both of her arms were not working right and she was dropping things. She followed up with wound care today, and was advised to come to the emergency department due to change in mentation. (Katheryn Hernandez) This is a 68-year-old female who presents to the emergency department with her daughter. Daughter gives most of the history since the patient is confused. Daughter states since Monday night she has become more more confused and weaker and weaker. Patient has a longstanding history of a sacral wound that is being treated outpatient with cefepime and Flagyl. Patient has become so weak she cannot even hold the phone sometimes. Daughter states it is both arms and legs it is not any focal weakness. Patient has not had any fevers or chills patient denies any new pain other than the pain in the sacrum. Patient has had a history of some TIAs according to the daughter. Patient was at the wound center today and wound cultures were done and Dr. Boyer recommended patient come to the emergency department to be admitted (Fuentes aPgan) - Related Data Home Medications Medication Instructions Recorded Confirmed Gabapentin 600 tab PO TID 06/29/20 04/02/24 Furosemide [Lasix] 20 mg PO BID PRN 02/01/21 04/02/24 Sertraline [Zoloft] 150 mg PO HS 02/01/21 04/02/24 Atorvastatin [Lipitor] 10 mg PO HS 02/03/21 04/02/24 amLODIPine [Norvasc] 2.5 mg PO DAILY 08/24/21 04/02/24 lamoTRIgine [LaMICtal] 25 mg PO DAILY 08/24/21 04/02/24 Cetirizine HCl [Zyrtec] 10 mg PO DAILY 03/04/24 04/02/24 Cyproheptadine HCl [Periactin] 4 mg PO TID 03/04/24 04/02/24 Ergocalciferol (Vitamin D2) 1,250 mcg PO FR 03/04/24 04/02/24 [Drisdol (50,000 Iu)] Meloxicam [Mobic] 15 mg PO DAILY 03/04/24 04/02/24 hydrOXYzine HCL [Atarax] 25 mg PO TID 03/04/24 04/02/24 Cefepime [Maxipime] 2 gm IV Q8H 04/02/24 04/02/24 HYDROcodone/APAP 5-325MG [[place] 1 tab PO Q6H PRN 04/02/24 04/02/24 5-325] Multivitamins, Thera [Multivitamin 1 tab PO DAILY@1200 04/02/24 04/02/24 (formulary)] Nystatin 100,000 Unit/gm Powd 1 applic TOPICAL QID 04/02/24 04/02/24 [Mycostatin Powder] Previous Rx's Medication Instructions Recorded Acetaminophen Tab [Tylenol] 500 mg PO Q6HR PRN tab 03/11/24 Folic Acid 1 mg PO DAILY@1200 #30 tab 03/11/24 Pantoprazole [Protonix] 40 mg PO AC-BRKFST #30 tab 03/11/24 Thiamine [Vitamin B-1] 100 mg PO BID-W/MEALS #30 tab 03/11/24 Psyllium Husk 100% [Metamucil 6 gm PO BID #60 packet 03/13/24 Packet] guaiFENesin [Mucinex] 600 mg PO BID #60 tab 03/13/24 metroNIDAZOLE [Flagyl] 500 mg PO TID #63 tab 03/15/24 Allergies Allergy/AdvReac Type Severity Reaction Status Date / Time ibuprofen [From Motrin] Allergy Rash/Hives Verified 04/02/24 17:03 oxycodone [From Percocet] Allergy Rash/Hives Verified 04/02/24 17:03 Penicillins Allergy Rash/Hives Verified 04/02/24 17:03 ferumoxytol [From Feraheme] AdvReac Intermediate Unknown Verified 04/02/24 17:03 Review of Systems ROS Other: All systems not noted in ROS Statement are negative. <Katheryn Hernandez - Last Filed: 04/02/24 14:41> ROS Other: All systems not noted in ROS Statement are negative. <Fuentes Pagan - Last Filed: 04/02/24 19:43> ROS Statement: Those systems with pertinent positive or pertinent negative responses have been documented in the HPI. Past Medical History Past Medical History: Blood Disorder, COPD, Hearing Disorder / Deafness, Hypertension, Osteoarthritis (OA) Additional Past Medical History / Comment(s): Hx HTN, Iron deficiency anemia, Occ slow heart rate, sl hearing loss Lt ear, hx low potassium, hx falls, Rt shoulder prob w/ upcoming surgery. Left foot turns dark purple, rt foot sl purple w/ occ edema. pressure sores, History of Any Multi-Drug Resistant Organisms: None Reported Past Surgical History: Back Surgery, Joint Replacement, Orthopedic Surgery Additional Past Surgical History / Comment(s): Right knee replacement, knee gave out after. Herniated discs cervical neck x 3, lower back x 2; right ankle surgery, hardware later removed; bilat wrist fx with surgical repair, removed hardware rt wrist; right knee torn meniscus repair. bone marrow bx. Total left shoulder - february 2021 Past Anesthesia/Blood Transfusion Reactions: No Reported Reaction Past Psychological History: Anxiety, Depression Smoking Status: Never smoker Past Alcohol Use History: Rare Past Drug Use History: None Reported - Past Family History Mother Additional Family Medical History / Comment(s): Mother 5 years after being struck by a vehicle of complications. Father Additional Family Medical History / Comment(s): Mother 5 yrs after being struck by a vehicle of complications. <Katheryn Hernandez - Last Filed: 04/02/24 14:41> General Exam Limitations: no limitations <Katheryn Hernandez - Last Filed: 04/02/24 14:41> <Fuentes Pagan - Last Filed: 04/02/24 19:43> - General Exam Comments Initial Comments: Visual Physical Exam Vital signs reviewed General: Well-appearing, nontoxic, no acute distress. Head: Normocephalic, atraumatic Eyes: PERRLA, EOMI ENT: Airway patent Chest: Nonlabored breathing Skin: No visual rash, normal skin tone Neuro: Alert and oriented 3 Musculoskeletal: No gross abnormalities (Katheryn Hernandez) GENERAL: Patient is well-developed and well-nourished. Patient is nontoxic and well- hydrated and is in no acute distress. ENT: Neck is soft and supple. No significant lymphadenopathy is noted. Oropharynx is clear. Moist mucous membranes. Neck has full range of motion without eliciting any pain. EYES: The sclera were anicteric and conjunctiva were pink and moist. Extraocular movements were intact and pupils were equal round and reactive to light. Eyelids were unremarkable. PULMONARY: Unlabored respirations. Good breath sounds bilaterally. No audible rales rhonchi or wheezing was noted. CARDIOVASCULAR: There is a regular rate and rhythm without any murmurs gallops or rubs. ABDOMEN: Soft and nontender with normal bowel sounds. SKIN: Skin is clear with no lesions or rashes and otherwise unremarkable. NEUROLOGIC: Patient is alert and oriented x 2. Cranial nerves II through XII are grossly intact. Motor and sensory are also intact. Normal speech, volume and content. Symmetrical smile. MUSCULOSKELETAL: Normal extremities with adequate strength and full range of motion. No lower extremity swelling or edema. No calf tenderness. LYMPHATICS: No significant lymphadenopathy is noted PSYCHIATRIC: Normal psychiatric evaluation. (Fuentes Pagan) Course Vital Signs 04/02/24 14:30 Temperature 98 F Pulse Rate 75 Respiratory 16 Rate Blood Pressure 157/82 O2 Sat by Pulse 98 Oximetry Medical Decision Making <Katheryn Hernandez - Last Filed: 04/02/24 14:41> - Lab Data Result diagrams: 04/02/24 14:35 04/02/24 14:35 <Fuentes Pagan - Last Filed: 04/02/24 19:43> - Medical Decision Making I performed the QuickNote portion of this chart. Signed Katheryn Hernandez PA-C. (Katheryn Hernandez) Was pt. sent in by a medical professional or institution ([facility], CIRCUIT TESTER, urgent care, hospital, or residential...) When possible be specific @ -No Did you speak to anyone other than the patient for history (EMS, parent, family, police, friend...)? What history was obtained from this source @ -Daughter gives most of the history since the patient is having altered mental status Did you review nursing and triage notes (agree or disagree)? Why? @ -I reviewed and agree with nursing and triage notes Were old charts reviewed (outside hosp., previous admission, EMS record, old EKG, old radiological studies, urgent care reports/EKG's, residential records)? Report findings @ -I reviewed patient's prior admission to the hospital. Patient was being treated for an infection and had a PICC line when she went home and continued antibiotics at home. Patient's lab work was also reviewed today's creatinine was much more elevated and patient's potassium was lower today than prior. Differential Diagnosis (chest pain, altered mental status, abdominal pain women, abdominal pain men, vaginal bleeding, weakness, fever, dyspnea, syncope, headache, dizziness, GI bleed, back pain, seizure, CVA, palpatations, mental health, musculoskeletal)? @ -Differential Altered Mental Status: Hypoglycemia, DKA, hypercapnia, ETOH, overdose, CO poisoning, trauma, myxedema coma, HTN encephalopathy, infection, encephalitis, psychosis, intercranial hemorrhage, hepatic encephalopathy, meningitis, CVA, this is not meant to be an all-inclusive list Differential Weakness: Hypoglycemia, shock, sepsis, hyponatremia, anemia, infection, ME, ETOH, adverse medicine reaction, overdose, stroke, this is not meant to be an all-inclusive list. EKG interpreted by me (3pts min.). @ -As above X-rays interpreted by me (1pt min.). @ -Chest x-ray shows no acute abnormality CT interpreted by me (1pt min.). @ -CT of the brain shows no acute abnormality U/S interpreted by me (1pt. min.). @ -None done What testing was considered but not performed or refused? (CT, X-rays, U/S, labs)? Why? @ -None What meds were considered but not given or refused? Why? @ -None Did you discuss the management of the patient with other professionals (professionals i.e. , PA, CIRCUIT TESTER, lab, RT, psych nurse, social worker masters, x ray equipment mechanic, teacher, staff nuclear weapons officer, case briefer)? Give summary @ -I spoke with Dr. Thomas agreed to admit the patient Was smoking cessation discussed for >3mins.? @ -No Was critical care preformed (if so, how long)? @ -No Were there social determinants of health that impacted care today? How? (Homelessness, low income, unemployed, alcoholism, drug addiction, transportation, low edu. Level, literacy, decrease access to med. care, assisted, rehab)? @ -No Was there de-escalation of care discussed even if they declined (Discuss DNR or withdrawal of care, Hospice)? DNR status @ -No What co-morbidities impacted this encounter? (DM, HTN, Smoking, COPD, CAD, Cancer, CVA, ARF, Chemo, Hep., AIDS, mental health diagnosis, sleep apnea, morbid obesity)? @ -None Was patient admitted / discharged? Hospital course, mention meds given and route, prescriptions, significant lab abnormalities, going to OR and other pertinent info. @ -Patient was given some IV fluids for hydration also given K-Dur for increasing her potassium. Patient will be admitted to Dr. Thomas I will consult Dr. Thomas for infectious disease Undiagnosed new problem with uncertain prognosis? @ -No Drug Therapy requiring intensive monitoring for toxicity (Heparin, Nitro, Insulin, Cardizem)? @ -No Were any procedures done? @ -No Diagnosis/symptom? @ -Sacral wound Acute, or Chronic, or Acute on Chronic? @ -Chronic Uncomplicated (without systemic symptoms) or Complicated (systemic symptoms)? @ -Default Side effects of treatment? @ -No Exacerbation, Progression, or Severe Exacerbation? @ -No Poses a threat to life or bodily function? How? (Chest pain, USA, ME, pneumonia, PE, COPD, DKA, ARF, appy, cholecystitis, CVA, Diverticulitis, Homicidal, Suicidal, threat to staff... and all critical care pts) @ -Yes this can lead to sepsis and endorgan dysfunction Diagnosis/symptom? @ -Hypokalemia Acute, or Chronic, or Acute on Chronic? @ -Acute Uncomplicated (without systemic symptoms) or Complicated (systemic symptoms)? @ -Uncomplicated Side effects of treatment? @ -None Exacerbation, Progression, or Severe Exacerbation] @ -No Poses a threat to life or bodily function? @ -No Diagnosis/symptom? @ -Acute renal failure Acute, or Chronic, or Acute on Chronic? @ -Acute Uncomplicated (without systemic symptoms) or Complicated (systemic symptoms)? @ -Complicated Side effects of treatment? @ -None Exacerbation, Progression, or Severe Exacerbation] @ -No Poses a threat to life or bodily function? @ -No Diagnosis/symptom? @ -Dehydration Acute, or Chronic, or Acute on Chronic? @ -Acute Uncomplicated (without systemic symptoms) or Complicated (systemic symptoms)? @ -Complicated Side effects of treatment? @ -None Exacerbation, Progression, or Severe Exacerbation] @ -No Poses a threat to life or bodily function? @ -No Diagnosis/symptom? @ -Generalized weakness Acute, or Chronic, or Acute on Chronic? @ -Acute Uncomplicated (without systemic symptoms) or Complicated (systemic symptoms)? @ -Uncomplicated Side effects of treatment? @ -None Exacerbation, Progression, or Severe Exacerbation] @ -No Poses a threat to life or bodily function? @ -No (Fuentes Pagan) - Lab Data Lab Results 04/02/24 04/02/24 04/02/24 Range/Units 14:35 14:35 14:35 WBC 9.2 (3.8-10.6) k/uL RBC 4.42 (3.80-5.40) m/uL Hgb 10.5 L (11.4-16.0) gm/dL Hct 35.2 (34.0-46.0) % MCV 79.7 L (80.0-100.0) fL MCH 23.8 L (25.0-35.0) pg MCHC 29.9 L (31.0-37.0) g/dL RDW 21.2 H (11.5-15.5) % Plt Count 302 (150-450) k/uL MPV 7.8 Neutrophils % 71 % Lymphocytes % 18 % Monocytes % 5 % Eosinophils % 5 % Basophils % 1 % Neutrophils # 6.5 (1.3-7.7) k/uL Lymphocytes # 1.6 (1.0-4.8) k/uL Monocytes # 0.4 (0-1.0) k/uL Eosinophils # 0.4 (0-0.7) k/uL Basophils # 0.1 (0-0.2) k/uL Hypochromasia Marked Poikilocytosis Slight Anisocytosis Moderate Microcytosis Moderate PT 12.8 H (10.0-12.5) sec INR 1.2 H (<1.2) APTT 27.2 (22.0-30.0) sec Sodium 143 (137-145) mmol/L Potassium 3.2 L (3.5-5.1) mmol/L Chloride 120 H (98-107) mmol/L Carbon Dioxide 15 L (22-30) mmol/L Anion Gap 8 mmol/L BUN 33 H (7-17) mg/dL Creatinine 1.51 H (0.52-1.04) mg/dL Est GFR (CKD-EPI)AfAm 41 (>60 ml/min/1.73 sqM) Est GFR (CKD-EPI)NonAf 35 (>60 ml/min/1.73 sqM) Glucose 102 H (74-99) mg/dL Plasma Lactic Acid Bautista (0.7-2.0) mmol/L Calcium 9.7 (8.4-10.2) mg/dL Total Bilirubin 0.5 (0.2-1.3) mg/dL AST 23 (14-36) U/L ALT 10 (4-34) U/L Alkaline Phosphatase 218 H (38-126) U/L Troponin I (0.000-0.034) ng/mL C-Reactive Protein <0.5 (<1.0) mg/dL Total Protein 6.3 (6.3-8.2) g/dL Albumin 3.3 L (3.5-5.0) g/dL 04/02/24 04/02/24 Range/Units 14:35 15:34 WBC (3.8-10.6) k/uL RBC (3.80-5.40) m/uL Hgb (11.4-16.0) gm/dL Hct (34.0-46.0) % MCV (80.0-100.0) fL MCH (25.0-35.0) pg MCHC (31.0-37.0) g/dL RDW (11.5-15.5) % Plt Count (150-450) k/uL MPV Neutrophils % % Lymphocytes % % Monocytes % % Eosinophils % % Basophils % % Neutrophils # (1.3-7.7) k/uL Lymphocytes # (1.0-4.8) k/uL Monocytes # (0-1.0) k/uL Eosinophils # (0-0.7) k/uL Basophils # (0-0.2) k/uL Hypochromasia Poikilocytosis Anisocytosis Microcytosis PT (10.0-12.5) sec INR (<1.2) APTT (22.0-30.0) sec Sodium (137-145) mmol/L Potassium (3.5-5.1) mmol/L Chloride (98-107) mmol/L Carbon Dioxide (22-30) mmol/L Anion Gap mmol/L BUN (7-17) mg/dL Creatinine (0.52-1.04) mg/dL Est GFR (CKD-EPI)AfAm (>60 ml/min/1.73 sqM) Est GFR (CKD-EPI)NonAf (>60 ml/min/1.73 sqM) Glucose (74-99) mg/dL Plasma Lactic Acid Bautista 0.6 L (0.7-2.0) mmol/L Calcium (8.4-10.2) mg/dL Total Bilirubin (0.2-1.3) mg/dL AST (14-36) U/L ALT (4-34) U/L Alkaline Phosphatase (38-126) U/L Troponin I <0.012 (0.000-0.034) ng/mL C-Reactive Protein (<1.0) mg/dL Total Protein (6.3-8.2) g/dL Albumin (3.5-5.0) g/dL Disposition <Katheryn Hernandez - Last Filed: 04/02/24 14:41> Time of Disposition: 19:38 <Fuentes Pagan - Last Filed: 04/02/24 19:43> Clinical Impression: Renal insufficiency, Hypokalemia, Generalized weakness, Dehydration, Decubitus ulcer, Altered mental status Disposition: ADMITTED IP TO THIS HOSP Referrals: Demond Swift DO [Primary Care Provider] - 1-2 days
[2024-04-02 16:20] LABS: Anisocytosis Moderate; Basophils # (A) 0.1 k/uL (0-0.2); Basophils % (A) 1 %; Eosinophils # (A) 0.4 k/uL (0-0.7); Eosinophils % (A) 5 %; HCT 35.2 % (34.0-46.0); HGB 10.5 gm/dL (11.4-16.0); Hypochromasia Marked; Lymphocytes # (A) 1.6 k/uL (1.0-4.8); Lymphocytes % (A) 18 %; MCH 23.8 pg (25.0-35.0); MCHC 29.9 g/dL (31.0-37.0); MCV 79.7 fL (80.0-100.0); Mean Platelet Volume 7.8; Microcytosis Moderate; Monocytes # (A) 0.4 k/uL (0-1.0); Monocytes % (A) 5 %; Neutrophils # (A) 6.5 k/uL (1.3-7.7); Neutrophils % (A) 71 %; Platelet Count 302 k/uL (150-450); Poikilocytosis Slight; RBC 4.42 m/uL (3.80-5.40); RDW 21.2 % (11.5-15.5); WBC 9.2 k/uL (3.8-10.6)
[2024-04-02 16:26] LABS: INR 1.2 (<1.2); Partial Thromboplastin Time 27.2 sec (22.0-30.0); Prothrombin Time 12.8 sec (10.0-12.5)
[2024-04-02 16:31] LABS: ALT 10 U/L (4-34); AST 23 U/L (14-36); African American GFR (CKD) 41 (>60 ml/min/1.73 sqM); Albumin 3.3 g/dL (3.5-5.0); Alkaline Phosphatase 218 U/L (38-126); Anion Gap 8 mmol/L; Blood Urea Nitrogen 33 mg/dL (7-17); Calcium 9.7 mg/dL (8.4-10.2); Carbon Dioxide 15 mmol/L (22-30); Chloride 120 mmol/L (98-107); Glucose 102 mg/dL (74-99); Non-African American GFR(CKD) 35 (>60 ml/min/1.73 sqM); Potassium 3.2 mmol/L (3.5-5.1); Sodium 143 mmol/L (137-145); Total Bilirubin 0.5 mg/dL (0.2-1.3); Total Protein 6.3 g/dL (6.3-8.2)
--- NOTE | 2024-04-02 17:05 | XR ---
EXAMINATION TYPE: XR chest 2V DATE OF EXAM: 04/02/2024 COMPARISON: 03/12/2024 HISTORY: 68-year-old female confusion, altered mental status TECHNIQUE: AP and lateral views FINDINGS: Reverse right shoulder arthroplasty. Surgical staple left glenoid with advanced degenerative change l eft humeral joint. ACDF hardware. Low lung volumes and crowded vascular markings. Interstitial and va scular prominence. Heart borderline enlarged. Old healed right-sided rib fracture deformities. Multip le vertebroplasty changes lower thoracic and upper lumbar spine. Left PICC tip cavoatrial junction. N o graham consolidation or pleural effusion. IMPRESSION: Hypoventilatory changes with possible mild pulmonary vascular congestion.
[2024-04-02 17:12] LABS: C Reactive Protein <0.5 mg/dL (<1.0)
--- NOTE | 2024-04-02 17:45 | CT ---
EXAMINATION TYPE: CT brain wo con DATE OF EXAM: 04/02/2024 COMPARISON: None HISTORY: 68-year-old female weakness, confusion, altered mental status TECHNIQUE: Examination was done in axial plane without intravenous contrast. Coronal and sagittal r econstructions performed. CT DLP: 1050.4 mGycm Automated exposure control for dose reduction was used. FINDINGS: There is no evidence of acute intracranial hemorrhage, acute ischemic changes, mass, mass-effect, or extra-axial fluid collection. There is no effacement of cerebral sulci or basal subarachnoid cister ns. There is no hydrocephalus. There is no midline shift. Sutton-white matter distinction is preserv ed. Slight leftward nasal septal deviation. Trace mucosal thickening ethmoid air cells. Mastoid air cells are well pneumatized. Orbits and globes appear intact. IMPRESSION: No acute intracranial abnormality seen.
[2024-04-02] MEDS: POTASSIUM CHLORIDE ER 20 MEQ TAB.ER PO STA (20:01)
[2024-04-02] MEDS: SODIUM CHLORIDE 0.9% 1,000 ML IV ONE (20:04)
[2024-04-02] MEDS: SERTRALINE 50 MG TAB PO SCH (21:24)
[2024-04-02] MEDS: ATORVASTATIN 10 MG TAB PO SCH (21:24)
[2024-04-02] MEDS: GABAPENTIN 300 MG CAP PO SCH (21:25)
[2024-04-02] MEDS: ACETAMINOPHEN TAB 500 MG TAB PO PRN (21:45)
[2024-04-02] MEDS ORDERED: VANCOMYCIN IV PER PHARMACY 1 EACH MISC MISCELLANE PRN (21:53)
--- NOTE | 2024-04-02 22:23 | P.CONS ---
History of Present Illness - Reason for Consult Consult date: 04/02/24 Sacral decubitus ulcer Requesting physician: Fuentes Pagan - Chief Complaint Mental status changes and worsening wound drainage x 1 day - History of Present Illness Patient is a 68-year-old female with a past medical history significant for hypertension COPD patient did have bilateral gluteal pressure ulcer with the patient was recently admitted at this facility patient did have a surgical debridement and culture positive for Serratia marcescens and MSSA S taphylococcus agalactiae along with anaerobes patient did get a PICC line and was advised 3-week course of IV cefepime and oral Flagyl with the patient was currently seen in the outpatient setting as scheduled to complete as of tomorrow that is 04/03/2024, patient was evaluated at the wound care center today and apparently noticed to have worsening of her wound with more drainage especially to the right gluteal wound and the daughter has been complaining the patient did have significant mental status changes over the last few days for the patient was brought into the hospital patient denies having any fever or any chills denies any headache no chest pain shortness of breath or cough some nausea no vomiting or intake has been poor no abdominal pain no diarrhea denies any worsening pain to bilateral gluteal wound however one of the wound is draining more as reported by the daughter. Patient on presentation the hospital was afebrile patient was not tachycardic hypotensive or hypoxic patient did have a white count of 9.2 creatinine is 1.51 liver isms are normal patient has been admitted to the hospital panel with a wound culture obtained at the wound care center as reported by the daughter infectious disease was consulted for further management of antibiotic therapy Review of Systems Positive point and negatives has been mentioned in the HPI, complete review of systems was performed and all other systems are negative Past Medical History Past Medical History: Blood Disorder, COPD, Hearing Disorder / Deafness, Hypertension, Osteoarthritis (OA) Additional Past Medical History / Comment(s): Hx HTN, Iron deficiency anemia, Occ slow heart rate, sl hearing loss Lt ear, hx low potassium, hx falls, Rt shoulder prob w/ upcoming surgery. Left foot turns dark purple, rt foot sl purple w/ occ edema. pressure sores, History of Any Multi-Drug Resistant Organisms: None Reported Past Surgical History: Back Surgery, Joint Replacement, Orthopedic Surgery Additional Past Surgical History / Comment(s): Right knee replacement, knee gave out after. Herniated discs cervical neck x 3, lower back x 2; right ankle surgery, hardware later removed; bilat wrist fx with surgical repair, removed hardware rt wrist; right knee torn meniscus repair. bone marrow bx. Total left shoulder - february 2021 Past Anesthesia/Blood Transfusion Reactions: No Reported Reaction Past Psychological History: Anxiety, Depression Smoking Status: Never smoker Past Alcohol Use History: Rare Past Drug Use History: None Reported - Past Family History Mother Additional Family Medical History / Comment(s): Mother 5 years after being struck by a vehicle of complications. Father Additional Family Medical History / Comment(s): Mother 5 yrs after being struck by a vehicle of complications. Medications and Allergies Home Medications Medication Instructions Recorded Confirmed Type Furosemide [Lasix] 20 mg PO BID PRN 02/01/21 04/02/24 History Sertraline [Zoloft] 150 mg PO HS 02/01/21 04/02/24 History amLODIPine [Norvasc] 2.5 mg PO DAILY 08/24/21 04/02/24 History lamoTRIgine [LaMICtal] 25 mg PO DAILY 08/24/21 04/02/24 History Cetirizine HCl [Zyrtec] 10 mg PO DAILY 03/04/24 04/02/24 History Cyproheptadine HCl [Periactin] 4 mg PO TID 03/04/24 04/02/24 History Ergocalciferol (Vitamin D2) 1,250 mcg PO FR 03/04/24 04/02/24 History [Drisdol (50,000 Iu)] Meloxicam [Mobic] 15 mg PO DAILY 03/04/24 04/02/24 History hydrOXYzine HCL [Atarax] 25 mg PO TID 03/04/24 04/02/24 History Acetaminophen Tab [Tylenol] 500 mg PO Q6HR PRN tab 03/11/24 04/02/24 Rx Folic Acid 1 mg PO DAILY@1200 #30 tab 03/11/24 04/02/24 Rx Pantoprazole [Protonix] 40 mg PO AC-BRKFST #30 tab 03/11/24 04/02/24 Rx Thiamine [Vitamin B-1] 100 mg PO BID-W/MEALS #30 tab 03/11/24 04/02/24 Rx Psyllium Husk 100% [Metamucil 6 gm PO BID #60 packet 03/13/24 04/02/24 Rx Packet] guaiFENesin [Mucinex] 600 mg PO BID #60 tab 03/13/24 04/02/24 Rx HYDROcodone/APAP 5-325MG [[place] 1 tab PO Q6H PRN 04/02/24 04/02/24 History 5-325] Multivitamins, Thera [Multivitamin 1 tab PO DAILY@1200 04/02/24 04/02/24 History (formulary)] Nystatin 100,000 Unit/gm Powd 1 applic TOPICAL QID 04/02/24 04/02/24 History [Mycostatin Powder] Atorvastatin [Lipitor] 10 mg PO HS #30 tab 04/09/24 Rx Ferrous Sulfate [Feosol] 325 mg PO DAILY #30 tab 04/09/24 Rx Fluconazole [Diflucan] 100 mg PO DAILY 10 Days #10 tab 04/09/24 Rx Gabapentin [Neurontin] 200 mg PO TID #6 cap 04/09/24 Rx Allergies Allergy/AdvReac Type Severity Reaction Status Date / Time ibuprofen [From Motrin] Allergy Rash/Hives Verified 04/02/24 17:03 oxycodone [From Percocet] Allergy Rash/Hives Verified 04/02/24 17:03 Penicillins Allergy Rash/Hives Verified 04/02/24 17:03 ferumoxytol [From Feraheme] AdvReac Intermediate Unknown Verified 04/02/24 17:03 Physical Exam Vitals: Vital Signs Temp Pulse Resp BP Pulse Ox 04/02/24 20:13 81 14 122/75 98 04/02/24 14:30 98 F 75 16 157/82 98 Intake and Output 04/02/24 04/02/24 04/02/24 06:59 14:59 22:59 Other: Weight 47.627 kg GENERAL DESCRIPTION: Elderly female lying in bed, no distress. No tachypnea or accessory muscle of respiration use. HEENT: Shows Pallor , no scleral icterus. Oral mucous membrane is dry. No pharyngeal erythema or thrush NECK: Trachea central, no thyromegaly. LUNGS: Unlabored breathing. Clear to auscultation anteriorly. No wheeze or crackle. HEART: S1, S2, regular rate and rhythm. No loud murmur ABDOMEN: Soft, no tenderness , guarding or rigidity, no organomegaly EXTREMITIES: No edema of feet. SKIN: Bilateral gluteal stage III pressure ulcer with some slough tissue no surrounding redness or foul-smelling drainage NEUROLOGICAL: The patient is awake, alert, oriented x3, mood and affect normal. Results CBC & Chem 7: 04/07/24 03:45 04/07/24 03:45 Labs: Abnormal Lab Results - Last 24 Hours (Table) 04/02/24 04/02/24 04/02/24 Range/Units 14:35 14:35 14:35 Hgb 10.5 L (11.4-16.0) gm/dL MCV 79.7 L (80.0-100.0) fL MCH 23.8 L (25.0-35.0) pg MCHC 29.9 L (31.0-37.0) g/dL RDW 21.2 H (11.5-15.5) % PT 12.8 H (10.0-12.5) sec INR 1.2 H (<1.2) Potassium 3.2 L (3.5-5.1) mmol/L Chloride 120 H (98-107) mmol/L Carbon Dioxide 15 L (22-30) mmol/L BUN 33 H (7-17) mg/dL Creatinine 1.51 H (0.52-1.04) mg/dL Glucose 102 H (74-99) mg/dL Plasma Lactic Acid Bautista (0.7-2.0) mmol/L Alkaline Phosphatase 218 H (38-126) U/L Albumin 3.3 L (3.5-5.0) g/dL 04/02/24 Range/Units 15:34 Hgb (11.4-16.0) gm/dL MCV (80.0-100.0) fL MCH (25.0-35.0) pg MCHC (31.0-37.0) g/dL RDW (11.5-15.5) % PT (10.0-12.5) sec INR (<1.2) Potassium (3.5-5.1) mmol/L Chloride (98-107) mmol/L Carbon Dioxide (22-30) mmol/L BUN (7-17) mg/dL Creatinine (0.52-1.04) mg/dL Glucose (74-99) mg/dL Plasma Lactic Acid Bautista 0.6 L (0.7-2.0) mmol/L Alkaline Phosphatase (38-126) U/L Albumin (3.5-5.0) g/dL Assessment and Plan (1) Altered mental status Current Visit: Yes Status: Acute Code(s): R41.82 - ALTERED MENTAL STATUS, UNSPECIFIED SNOMED Code(s): 014793224 (2) Decubitus ulcer Current Visit: Yes Status: Acute Code(s): L89.90 - PRESSURE ULCER OF UNSPECIFIED SITE, UNSPECIFIED STAGE SNOMED Code(s): 1168569956 Plan: 1patient with a chronic nonhealing wound to bilateral gluteal area stage III pressure ulcer in this patient who did have debridement last month and did not mention any extension down to the wound culture positive for strep and MSSA and Serratia along with anaerobes and the patient was getting cefepime and Flagyl not admitted to the hospital mental status changes which could be related to cefepime however worsening drainage is slightly concerning 2-we will wait for the culture those has been obtained and the wound care center today to finalize 3-will empirically cover the patient with a Fortaz vancomycin and Flagyl We will follow on clinical condition and cultures to further adjust medication if needed Thank you for this consultation we will follow the patient along with you Dictation was produced using [employer] dictation software. please excuse any grammatical, word or spelling errors. Time with Patient: Greater than 30
[2024-04-02] MEDS: VANCOMYCIN 750 MG in SODIUM CHLORIDE 0.9% 250 ML IVPB ONE (22:59)
[2024-04-03] MEDS: metroNIDAZOLE 500 MG TAB PO SCH (00:32)
[2024-04-03] MEDS: amLODIPine 2.5 MG TAB PO SCH (08:17)
[2024-04-03] MEDS: LORATADINE 10 MG TAB PO SCH (08:17)
[2024-04-03] MEDS: PANTOPRAZOLE 40 MG TABLET PO SCH (08:17)
[2024-04-03] MEDS: lamoTRIgine 25 MG TAB PO SCH (08:18)
[2024-04-03 09:54] LABS: African American GFR (CKD) 35 (>60 ml/min/1.73 sqM); Non-African American GFR(CKD) 30 (>60 ml/min/1.73 sqM)
[2024-04-03] MEDS: CYPROHEPTADINE 4 MG TABLET PO SCH (10:44)
[2024-04-03] MEDS: THIAMINE 100 MG TAB PO SCH (10:44)
[2024-04-03] MEDS: PSYLLIUM HUSK 100% 6 GM PACKET PO SCH (10:51)
[2024-04-03] MEDS: FOLIC ACID 1 MG TAB PO SCH (10:54)
[2024-04-03] MEDS: MULTIVITAMINS, THERA 1 EACH TAB PO SCH (10:54)
[2024-04-03] MEDS: SODIUM CHLORIDE 0.9% 1,000 ML IV SCH (12:54)
[2024-04-03] MEDS: NYSTATIN 100,000 UNIT/GM POWD 15 GM TOPICAL SCH (12:55)
[2024-04-03 13:26] LABS: Appearance,Urine Cloudy (Clear); Bacteria,Urine Rare /hpf; Bilirubin,Urine Negative (Negative); Blood,Urine Moderate (Negative); Budding Yeast,Urine Rare /hpf; Color,Urine Yellow; Glucose,Urine (UA) Negative (Negative); Ketones,Urine Negative (Negative); Leukocyte Esterase,Urine Large (Negative); Mucus,Urine Rare /hpf; Nitrite,Urine Positive (Negative); Protein,Urine 2+ (Negative); RBC,Urine 67 /hpf (0-5); Specific Gravity,Urine 1.021 (1.001-1.035); Squamous Epithelial Cell,Urine 40 /hpf (0-4); Urobilinogen,Urine <2.0 mg/dL (<2.0); WBC,Urine 25 /hpf (0-5)
[2024-04-03] MEDS: DAPTOmycin 200 MG in SODIUM CHLORIDE 0.9% 50 ML IVPB SCH (13:35)
[2024-04-03 13:51] LABS: Amphetamine Screen,Urine Not Detected (NotDetected); Barbiturate Screen,Urine Not Detected (NotDetected); Benzodiazepines Screen,Urine Not Detected (NotDetected); Cocaine Screen,Urine Not Detected (NotDetected); Methadone Screen, Urine Not Detected (NotDetected); Opiate Screen,Urine Detected (NotDetected); Oxycodone Screen, Urine Not Detected (NotDetected); Phencyclidine Screen,Urine Not Detected (NotDetected); Tricyclic Antidepressant,Urine Not Detected (NotDetected); Urn Cannabinoid Scrn Not Detected (NotDetected)
--- NOTE | 2024-04-03 14:14 | P.HPIM ---
History of Present Illness H&P Date: 04/03/24 Chief Complaint: Increased confusion This is a 68-year-old female, followed by Dr. Demond Chan. He recently in the hospital from March 04 through March 13.Acute infected decu bitus ulcers as well as left and right buttock abscesses with failure of outpatient treatment, present on admission with preliminary culture showing Serratia marcescens with Staph aureus and strep atelectatic group B status post incision and drainage on 03/07/2024. follows with the wound care center including Dr. Moe Boyer. With wound VAC. But because of increased drainage this was discontinued. Patient is been having increased drainage to the wounds. Rather significant. Was seen at the wound care center by Dr. Boyer yesterday. Sent down for further inpatient workup. Daughter also noticed that patient's become more lethargic. Weak in the limbs. Patient discovered to have increased creatinine. Last admission wound was debrided by Dr. Alvarado from general surgery. Patient's appetite has gone down. No obvious fever and chills reported. Patient is being seen by physical therapy. Needs assistance to go from the bed to the chair. Review of systems: GEN.: Tired decreased appetite EYES: None HEENT: None NECK: None RESPIRATORY: None CARDIOVASCULAR: None GASTROINTESTINAL: None GENITOURINARY: None MUSCULOSKELETAL: Joint pains LYMPHATICS: None HEMATOLOGICAL: None PSYCHIATRY: Some altered mentation as above NEUROLOGICAL: None Social history: Non-smoker. Alcohol rarely. Lives at home with daughter the latter which takes care of her. On examination: VITAL SIGNS: 97.9, 68, 18, 140/87, 96% room air GENERAL APPEARANCE: BMI 18.6, reclining in bed. HEENT: Normal external appearance of nose and ear. Oral cavity normal EYES: Pupils equal. Conjunctiva normal. NECK: JVD not raised. Mass not palpable. RESPIRATORY: Respiratory effort normal. Lungs creased breath sounds n. CARDIOVASCULAR: First and second sounds normal. No edema. ABDOMEN: Soft. Liver and spleen not palpable. No tenderness. No mass palpable. PSYCHIATRY: Patient able to answer simple questions. MUSCULOSKELETAL: OA. Bilateral gluteal pressure ulcers INVESTIGATIONS, reviewed in the clinical context: April 02, 2024: White count 9.2 hemoglobin 10.5 platelets 302 sodium 143 potassium 3.2 BUN 33 creatinine 1.51 EKG tracing personally reviewed by me-normal sinus rhythm. Nonspecific T wave changes. Poor R wave progression. Chest x-ray film personally reviewed by me-elevated right diaphragm. Expiratory film. CT scan brain without contrast: Nothing acute Previous labs March 13: Potassium 3.7 creatinine 0.7 Assessment and plan: -Acute on chronic left and right buttock abscesses with failure of outpatient treatment, cultures from last admission showing Serratia marcescens with Staph aureus and strep atelectatic group B status post incision and drainage on 03/07/2024. Normally follows at the wound care center with Dr. Moe Boyer.: Worsening Consult ID, Dr. Alvarado from general surgery -Acute kidney injury likely ATN, could be drug-induced Vancomycin IV fluids. Follow labs -Acute metabolic encephalopathy from renal failure and possibly worsening infection Also patient is on gabapentin. In view of acute kidney injury will cut back on the dose -Chronic obstructive pulmonary disease, not in exacerbation -Normocytic anemia of chronic disease -Metabolic acidosis from 6 acute kidney injury Add sodium bicarbonate -Essential hypertension Amlodipine 2.5 mg a day -Primary osteoarthritis, prior history of back surgery Pain medication as needed. Meloxicam -Hyperlipidemia Lipitor 10 mg -Anxiety/depression history Zoloft -Constipation Metamucil -Full code Care was discussed at length with daughter at bedside. Questions answered. Consult to ID, surgery. Follow labs closely. Past Medical History Past Medical History: Blood Disorder, COPD, Hearing Disorder / Deafness, Hypertension, Osteoarthritis (OA) Additional Past Medical History / Comment(s): Hx HTN, Iron deficiency anemia, Occ slow heart rate, sl hearing loss Lt ear, hx low potassium, hx falls, Rt shoulder prob w/ upcoming surgery. Left foot turns dark purple, rt foot sl purple w/ occ edema. pressure sores, History of Any Multi-Drug Resistant Organisms: None Reported Past Surgical History: Back Surgery, Joint Replacement, Orthopedic Surgery Additional Past Surgical History / Comment(s): Right knee replacement, knee gave out after. Herniated discs cervical neck x 3, lower back x 2; right ankle surgery, hardware later removed; bilat wrist fx with surgical repair, removed hardware rt wrist; right knee torn meniscus repair. bone marrow bx. Total left shoulder - february 2021 Past Anesthesia/Blood Transfusion Reactions: No Reported Reaction Past Psychological History: Anxiety, Depression Smoking Status: Never smoker Past Alcohol Use History: Rare Past Drug Use History: None Reported - Past Family History Mother Additional Family Medical History / Comment(s): Mother 5 years after being struck by a vehicle of complications. Father Additional Family Medical History / Comment(s): Mother 5 yrs after being struck by a vehicle of complications. Medications and Allergies Home Medications Medication Instructions Recorded Confirmed Type Gabapentin 600 tab PO TID 06/29/20 04/02/24 History Furosemide [Lasix] 20 mg PO BID PRN 02/01/21 04/02/24 History Sertraline [Zoloft] 150 mg PO HS 02/01/21 04/02/24 History Atorvastatin [Lipitor] 10 mg PO HS 02/03/21 04/02/24 History amLODIPine [Norvasc] 2.5 mg PO DAILY 08/24/21 04/02/24 History lamoTRIgine [LaMICtal] 25 mg PO DAILY 08/24/21 04/02/24 History Cetirizine HCl [Zyrtec] 10 mg PO DAILY 03/04/24 04/02/24 History Cyproheptadine HCl [Periactin] 4 mg PO TID 03/04/24 04/02/24 History Ergocalciferol (Vitamin D2) 1,250 mcg PO FR 03/04/24 04/02/24 History [Drisdol (50,000 Iu)] Meloxicam [Mobic] 15 mg PO DAILY 03/04/24 04/02/24 History hydrOXYzine HCL [Atarax] 25 mg PO TID 03/04/24 04/02/24 History Acetaminophen Tab [Tylenol] 500 mg PO Q6HR PRN tab 03/11/24 04/02/24 Rx Folic Acid 1 mg PO DAILY@1200 #30 tab 03/11/24 04/02/24 Rx Pantoprazole [Protonix] 40 mg PO AC-BRKFST #30 tab 03/11/24 04/02/24 Rx Thiamine [Vitamin B-1] 100 mg PO BID-W/MEALS #30 tab 03/11/24 04/02/24 Rx Psyllium Husk 100% [Metamucil 6 gm PO BID #60 packet 03/13/24 04/02/24 Rx Packet] guaiFENesin [Mucinex] 600 mg PO BID #60 tab 03/13/24 04/02/24 Rx metroNIDAZOLE [Flagyl] 500 mg PO TID #63 tab 03/15/24 04/02/24 Rx Cefepime [Maxipime] 2 gm IV Q8H 04/02/24 04/02/24 History HYDROcodone/APAP 5-325MG [[place] 1 tab PO Q6H PRN 04/02/24 04/02/24 History 5-325] Multivitamins, Thera [Multivitamin 1 tab PO DAILY@1200 04/02/24 04/02/24 History (formulary)] Nystatin 100,000 Unit/gm Powd 1 applic TOPICAL QID 04/02/24 04/02/24 History [Mycostatin Powder] Allergies Allergy/AdvReac Type Severity Reaction Status Date / Time ibuprofen [From Motrin] Allergy Rash/Hives Verified 04/02/24 17:03 oxycodone [From Percocet] Allergy Rash/Hives Verified 04/02/24 17:03 Penicillins Allergy Rash/Hives Verified 04/02/24 17:03 ferumoxytol [From Feraheme] AdvReac Intermediate Unknown Verified 04/02/24 17:03 Physical Exam Vitals: Vital Signs Temp Pulse Resp BP Pulse Ox 04/03/24 08:00 64 16 146/85 98 04/03/24 04:24 62 18 130/78 97 04/02/24 23:04 75 18 138/70 97 04/02/24 20:13 81 14 122/75 98 04/02/24 14:30 98 F 75 16 157/82 98 Results CBC & Chem 7: 04/02/24 14:35 04/03/24 08:59 Labs: Abnormal Lab Results - Last 24 Hours (Table) 04/02/24 04/02/24 04/02/24 Range/Units 14:35 14:35 14:35 Hgb 10.5 L (11.4-16.0) gm/dL MCV 79.7 L (80.0-100.0) fL MCH 23.8 L (25.0-35.0) pg MCHC 29.9 L (31.0-37.0) g/dL RDW 21.2 H (11.5-15.5) % PT 12.8 H (10.0-12.5) sec INR 1.2 H (<1.2) Potassium 3.2 L (3.5-5.1) mmol/L Chloride 120 H (98-107) mmol/L Carbon Dioxide 15 L (22-30) mmol/L BUN 33 H (7-17) mg/dL Creatinine 1.51 H (0.52-1.04) mg/dL Glucose 102 H (74-99) mg/dL Plasma Lactic Acid Bautista (0.7-2.0) mmol/L Alkaline Phosphatase 218 H (38-126) U/L Albumin 3.3 L (3.5-5.0) g/dL 04/02/24 04/03/24 Range/Units 15:34 08:59 Hgb (11.4-16.0) gm/dL MCV (80.0-100.0) fL MCH (25.0-35.0) pg MCHC (31.0-37.0) g/dL RDW (11.5-15.5) % PT (10.0-12.5) sec INR (<1.2) Potassium (3.5-5.1) mmol/L Chloride (98-107) mmol/L Carbon Dioxide (22-30) mmol/L BUN (7-17) mg/dL Creatinine 1.71 H (0.52-1.04) mg/dL Glucose (74-99) mg/dL Plasma Lactic Acid Bautista 0.6 L (0.7-2.0) mmol/L Alkaline Phosphatase (38-126) U/L Albumin (3.5-5.0) g/dL
[2024-04-03] MEDS ORDERED: ENOXAPARIN 40 MG/0.4 ML SYRINGE SQ SCH (14:15)
[2024-04-03] MEDS: ENOXAPARIN 30 MG/0.3 ML SYRINGE SQ SCH (14:28)
[2024-04-03 14:30] VITALS: BMI 18.6
[2024-04-03] MEDS ORDERED: VANCOMYCIN 750 MG in SODIUM CHLORIDE 0.9% 250 ML IVPB ONE (15:00)
[2024-04-03] MEDS: SODIUM BICARBONATE TAB 650 MG TAB PO SCH (16:20)
[2024-04-03] MEDS: GABAPENTIN 100 MG CAP PO SCH (16:20)
--- NOTE | 2024-04-03 16:40 | P.GSCN ---
History of Present Illness Consult date: 04/03/24 History of present illness: CHIEF COMPLAINT: Altered mental status HISTORY OF PRESENT ILLNESS: This is a 68-year-old female presented to the hospital with complaints of confusion, altered mental status and weakness. Patient has a wound on both her right and left buttocks. She follows at the wound care center. She just completed IV antibiotics from her recent admission in February. At that time she had a left buttock decubitus ulcer and a right buttock abscess she underwent incision and drainage and debridement of the decubitus ulcer and abscess. Patient had reported increased drainage from the wounds. However, wounds do appear to have healthy tissue. She is afebrile. White count normal at 9.2. Patient is also being seen by infectious disease. Patient denies any history of diabetes. PAST MEDICAL HISTORY: See below PAST SURGICAL HISTORY: See below MEDICATIONS: See below ALLERGIES: See below SOCIAL HISTORY: No illicit drug use. REVIEW OF SYSTEMS: CONSTITUTIONAL: Denies fever or chills. HEENT: Denies blurred vision, vision changes, or eye pain. Denies hemoptysis CARDIOVASCULAR: Denies chest pain or pressure. RESPIRATORY: No shortness of breath. GASTROINTESTINAL: See HPI for pertinent findings HEMATOLOGIC: Denies bleeding disorders. GENITOURINARY: Denies any blood in urine or increased urinary frequency. SKIN: Denies pruitis. Denies rash. PHYSICAL EXAM: VITAL SIGNS: Reviewed GENERAL: Well-developed in no acute distress. ABDOMEN: Soft. Nondistended. Nondistended NEUROLOGIC: Alert and oriented. Cranial nerves II through XII grossly intact. SKIN: Patient has wounds on both the right and left buttocks. There is some areas of sloughing. Otherwise the wounds are healthy and pink looking. Yellow drainage noted on dressing LABORATORY DATA: WBC 9.2 Hgb 10.5 platelets 302 INR 1.2 sodium 143 potassium 3.2 Creatinine 1.71 IMAGING: CT scan brain no acute intracranial abnormality seen ASSESSMENT: 1. Chronic nonhealing wounds to bilateral gluteal area status post incision, drainage and debridement in February PLAN: -No surgical intervention planned -Continue local wound care -Continue offloading -Antibiotic management per infectious disease -As noted per infectious disease the cefepime can contribute to mentation changes -Continue to monitor Physician Metal Furnace Operator note has been reviewed by physician. Signing provider agrees with the documented findings, assessment, and plan of care. Past Medical History Past Medical History: Blood Disorder, COPD, Hearing Disorder / Deafness, Hypertension, Osteoarthritis (OA) Additional Past Medical History / Comment(s): Hx HTN, Iron deficiency anemia, Occ slow heart rate, sl hearing loss Lt ear, hx low potassium, hx falls, Rt shoulder prob w/ upcoming surgery. Left foot turns dark purple, rt foot sl p urple w/ occ edema. pressure sores, History of Any Multi-Drug Resistant Organisms: None Reported Past Surgical History: Back Surgery, Joint Replacement, Orthopedic Surgery Additional Past Surgical History / Comment(s): Right knee replacement, knee gave out after. Herniated discs cervical neck x 3, lower back x 2; right ankle surgery, hardware later removed; bilat wrist fx with surgical repair, removed hardware rt wrist; right knee torn meniscus repair. bone marrow bx. Total left shoulder - february 2021 Past Anesthesia/Blood Transfusion Reactions: No Reported Reaction Past Psychological History: Anxiety, Depression Smoking Status: Never smoker Past Alcohol Use History: Rare Past Drug Use History: None Reported - Past Family History Mother Additional Family Medical History / Comment(s): Mother 5 years after being struck by a vehicle of complications. Father Additional Family Medical History / Comment(s): Mother 5 yrs after being struck by a vehicle of complications. Medications and Allergies Home Medications Medication Instructions Recorded Confirmed Type Gabapentin 600 tab PO TID 06/29/20 04/02/24 History Furosemide [Lasix] 20 mg PO BID PRN 02/01/21 04/02/24 History Sertraline [Zoloft] 150 mg PO HS 02/01/21 04/02/24 History Atorvastatin [Lipitor] 10 mg PO HS 02/03/21 04/02/24 History amLODIPine [Norvasc] 2.5 mg PO DAILY 08/24/21 04/02/24 History lamoTRIgine [LaMICtal] 25 mg PO DAILY 08/24/21 04/02/24 History Cetirizine HCl [Zyrtec] 10 mg PO DAILY 03/04/24 04/02/24 History Cyproheptadine HCl [Periactin] 4 mg PO TID 03/04/24 04/02/24 History Ergocalciferol (Vitamin D2) 1,250 mcg PO FR 03/04/24 04/02/24 History [Drisdol (50,000 Iu)] Meloxicam [Mobic] 15 mg PO DAILY 03/04/24 04/02/24 History hydrOXYzine HCL [Atarax] 25 mg PO TID 03/04/24 04/02/24 History Acetaminophen Tab [Tylenol] 500 mg PO Q6HR PRN tab 03/11/24 04/02/24 Rx Folic Acid 1 mg PO DAILY@1200 #30 tab 03/11/24 04/02/24 Rx Pantoprazole [Protonix] 40 mg PO AC-BRKFST #30 tab 03/11/24 04/02/24 Rx Thiamine [Vitamin B-1] 100 mg PO BID-W/MEALS #30 tab 03/11/24 04/02/24 Rx Psyllium Husk 100% [Metamucil 6 gm PO BID #60 packet 03/13/24 04/02/24 Rx Packet] guaiFENesin [Mucinex] 600 mg PO BID #60 tab 03/13/24 04/02/24 Rx metroNIDAZOLE [Flagyl] 500 mg PO TID #63 tab 03/15/24 04/02/24 Rx Cefepime [Maxipime] 2 gm IV Q8H 04/02/24 04/02/24 History HYDROcodone/APAP 5-325MG [[place] 1 tab PO Q6H PRN 04/02/24 04/02/24 History 5-325] Multivitamins, Thera [Multivitamin 1 tab PO DAILY@1200 04/02/24 04/02/24 History (formulary)] Nystatin 100,000 Unit/gm Powd 1 applic TOPICAL QID 04/02/24 04/02/24 History [Mycostatin Powder] Allergies Allergy/AdvReac Type Severity Reaction Status Date / Time ibuprofen [From Motrin] Allergy Rash/Hives Verified 04/02/24 17:03 oxycodone [From Percocet] Allergy Rash/Hives Verified 04/02/24 17:03 Penicillins Allergy Rash/Hives Verified 04/02/24 17:03 ferumoxytol [From Feraheme] AdvReac Intermediate Unknown Verified 04/02/24 17:03 Surgical - Exam Vital Signs Temp Pulse Resp BP Pulse Ox 98 F 75 16 157/82 98 04/02/24 14:30 04/02/24 14:30 04/02/24 14:30 04/02/24 14:30 04/02/24 14:30 Results - Labs 04/02/24 14:35 04/03/24 08:59 Abnormal Lab Results - Last 24 Hours (Table) 04/02/24 04/02/24 04/03/24 Range/Units 14:35 14:35 08:59 Potassium 3.2 L (3.5-5.1) mmol/L Chloride 120 H (98-107) mmol/L Carbon Dioxide 15 L (22-30) mmol/L BUN 33 H (7-17) mg/dL Creatinine 1.51 H 1.71 H (0.52-1.04) mg/dL Glucose 102 H (74-99) mg/dL Alkaline Phosphatase 218 H (38-126) U/L Albumin 3.3 L (3.5-5.0) g/dL Urine Appearance Cloudy H (Clear) Urine Protein 2+ H (Negative) Urine Blood Moderate H (Negative) Urine Nitrite Positive H (Negative) Ur Leukocyte Esterase Large H (Negative) Urine RBC 67 H (0-5) /hpf Urine WBC 25 H (0-5) /hpf Ur Squamous Epith Cells 40 H (0-4) /hpf Urine Bacteria Rare H (None) /hpf Urine Mucus Rare H (None) /hpf Urine Yeast (Budding) Rare H (None) /hpf Urine Opiates Screen Detected H (NotDetected) Diabetes panel 04/02/24 04/03/24 Range/Units 14:35 08:59 Sodium 143 (137-145) mmol/L Potassium 3.2 L (3.5-5.1) mmol/L Chloride 120 H (98-107) mmol/L Carbon Dioxide 15 L (22-30) mmol/L BUN 33 H (7-17) mg/dL Creatinine 1.51 H 1.71 H (0.52-1.04) mg/dL Glucose 102 H (74-99) mg/dL Calcium 9.7 (8.4-10.2) mg/dL AST 23 (14-36) U/L ALT 10 (4-34) U/L Alkaline Phosphatase 218 H (38-126) U/L Total Protein 6.3 (6.3-8.2) g/dL Albumin 3.3 L (3.5-5.0) g/dL Calcium panel 04/02/24 Range/Units 14:35 Calcium 9.7 (8.4-10.2) mg/dL Albumin 3.3 L (3.5-5.0) g/dL Pituitary panel 04/02/24 04/03/24 Range/Units 14:35 08:59 Sodium 143 (137-145) mmol/L Potassium 3.2 L (3.5-5.1) mmol/L Chloride 120 H (98-107) mmol/L Carbon Dioxide 15 L (22-30) mmol/L BUN 33 H (7-17) mg/dL Creatinine 1.51 H 1.71 H (0.52-1.04) mg/dL Glucose 102 H (74-99) mg/dL Calcium 9.7 (8.4-10.2) mg/dL Adrenal panel 04/02/24 04/03/24 Range/Units 14:35 08:59 Sodium 143 (137-145) mmol/L Potassium 3.2 L (3.5-5.1) mmol/L Chloride 120 H (98-107) mmol/L Carbon Dioxide 15 L (22-30) mmol/L BUN 33 H (7-17) mg/dL Creatinine 1.51 H 1.71 H (0.52-1.04) mg/dL Glucose 102 H (74-99) mg/dL Calcium 9.7 (8.4-10.2) mg/dL Total Bilirubin 0.5 (0.2-1.3) mg/dL AST 23 (14-36) U/L ALT 10 (4-34) U/L Alkaline Phosphatase 218 H (38-126) U/L Total Protein 6.3 (6.3-8.2) g/dL Albumin 3.3 L (3.5-5.0) g/dL
[2024-04-04 08:21] LABS: African American GFR (CKD) 43 (>60 ml/min/1.73 sqM); Anion Gap 9 mmol/L; Blood Urea Nitrogen 29 mg/dL (7-17); C Reactive Protein <0.5 mg/dL (<1.0); Calcium 9.1 mg/dL (8.4-10.2); Carbon Dioxide 12 mmol/L (22-30); Chloride 125 mmol/L (98-107); Glucose 80 mg/dL (74-99); Non-African American GFR(CKD) 37 (>60 ml/min/1.73 sqM); Potassium 3.2 mmol/L (3.5-5.1); Sodium 146 mmol/L (137-145)
[2024-04-04 10:14] LABS: HCT 30.4 % (37.2-46.3); HGB 9.2 g/dL (12.0-15.0); MCH 23.5 pg (27.0-32.0); MCHC 30.3 g/dL (32.0-37.0); MCV 77.7 FL (80.0-97.0); Mean Platelet Volume 9.9 FL (9.5-12.2); NRBC Per 100 WBC 0 X 10*3/uL (0.00-0.01); Platelet Count 285 X 10*3/uL (140-440); RBC 3.91 X 10*6/uL (4.10-5.20); RDW 24.5 % (11.5-14.5); WBC 8.71 X 10*3/uL (4.50-10.00)
[2024-04-04 11:09] LABS: Basophils % (A) 1.1 %; Eosinophils # (A) 0.51 X 10*3/uL (0.04-0.35); Eosinophils % (A) 5.9 %; Lymphocytes # (A) 1.83 X 10*3/uL (0.90-5.00); Monocytes # (A) 0.53 X 10*3/uL (0.20-1.00); Monocytes % (A) 6.1 %; Neutrophils # (A) 5.69 X 10*3/uL (1.80-7.70); Neutrophils % (A) 65.3 %
[2024-04-04] MEDS: POTASSIUM CHLORIDE ER 20 MEQ TAB.ER PO STA (11:55)
[2024-04-04] MEDS: LACTATED RINGERS 1,000 ML IV SCH (12:52)
--- NOTE | 2024-04-04 12:53 | P.PN ---
Subjective Progress Note Date: 04/03/24 Principal diagnosis: Reason for follow-up is bilateral gluteal infected pressure ulcer Patient is a 68-year-old female with a past medical history significant for hypertension COPD patient did have bilateral gluteal pressure ulcer with the patient was recently admitted at this facility patient did have a surgical debridement and culture positive for Serratia marcescens and MSSA Staphylococcus agalactiae along with anaerobes patient did get a PICC line and was advised 3-week course of IV cefepime and oral Flagyl, presenting back to the hospital with mental status changes worsening drainage. On today's evaluation that is 04/03/2024,the patient remains to be afebrile, patient is on room air not requiring supplemental oxygen and denies any shortness of breath no chest pain or cough.Patient denies having any nausea or vomiting, no abdominal pain and no diarrhea or any worsening pain to the bilateral gluteal wound area. Patient did have a sed rate of 28 creatinine is up to 1.71 Objective - Vital Signs Vital signs: Vital Signs Temp 97.9 F 04/03/24 10:29 Pulse 61 04/03/24 13:35 Resp 18 04/03/24 13:35 BP 151/109 04/03/24 13:35 Pulse Ox 100 04/03/24 13:35 FiO2 Intake & Output 04/02/24 04/03/24 04/03/24 18:59 06:59 18:59 Weight 47.627 kg 47.627 kg - Exam GENERAL DESCRIPTION: An elderly female lying in bed in no distress RESPIRATORY SYSTEM: Unlabored breathing , decreased breath sounds at bases HEART: S1 S2 regular rate and rhythm , ABDOMEN: Soft , no tenderness EXTREMITIES: No edema feet - Labs CBC & Chem 7: 04/04/24 07:15 04/04/24 07:15 Labs: Abnormal Lab Results - Last 24 Hours (Table) 04/02/24 04/03/24 Range/Units 14:35 08:59 Creatinine 1.71 H (0.52-1.04) mg/dL Urine Appearance Cloudy H (Clear) Urine Protein 2+ H (Negative) Urine Blood Moderate H (Negative) Urine Nitrite Positive H (Negative) Ur Leukocyte Esterase Large H (Negative) Urine RBC 67 H (0-5) /hpf Urine WBC 25 H (0-5) /hpf Ur Squamous Epith Cells 40 H (0-4) /hpf Urine Bacteria Rare H (None) /hpf Urine Mucus Rare H (None) /hpf Urine Yeast (Budding) Rare H (None) /hpf Urine Opiates Screen Detected H (NotDetected) Assessment and Plan (1) Decubitus ulcer Current Visit: Yes Status: Acute Code(s): L89.90 - PRESSURE ULCER OF UNSPECIFIED SITE, UNSPECIFIED STAGE SNOMED Code(s): 0127773023 (2) Infected decubitus ulcer Current Visit: No Status: Acute Code(s): L89.90 - PRESSURE ULCER OF UNSPECIFIED SITE, UNSPECIFIED STAGE; L08.9 - LOCAL INFECTION OF THE SKIN AND SUBCUTANEOUS TISSUE, UNSP SNOMED Code(s): 144906113 (3) Penicillin allergy Current Visit: No Status: Acute Code(s): Z88.0 - ALLERGY STATUS TO PENICILLIN SNOMED Code(s): 95029448 Plan: 1patient with a chronic nonhealing wound to bilateral gluteal area stage III pressure ulcer in this patient who did have debridement last month and did not mention any extension down to the wound culture positive for strep and MSSA and Serratia along with anaerobes and the patient was getting cefepime and Flagyl not admitted to the hospital mental status changes which could be related to cefepime however worsening drainage was consulted which has been cultured at the wound care center on 04/02/2024 and results are currently pending 2-patient noted to have slight worsening of her kidney function we will d iscontinue vancomycin and daptomycin for gram-positive coverage continue with the Fortaz and Flagyl Daughter at the bedside he has multiple questions were answered in layman terms Dictation was produced using [employer] dictation software. please excuse any grammatical, word or spelling errors. Time with Patient: Less than 30
--- NOTE | 2024-04-04 12:55 | P.PN ---
Subjective Progress Note Date: 04/04/24 Principal diagnosis: Reason for follow-up is bilateral gluteal infected pressure ulcer Patient is a 68-year-old female with a past medical history significant for hypertension COPD patient did have bilateral gluteal pressure ulcer with the patient was recently admitted at this facility patient did have a surgical debridement and culture positive for Serratia marcescens and MSSA Staphylococcus agalactiae along with anaerobes patient did get a PICC line and was advised 3-week course of IV cefepime and oral Flagyl, presenting back to the hospital with mental status changes worsening drainage. On today's evaluation that is 04/04/2024, the patient continues to be afebrile, the patient is on room air and breathing comfortably, the Pt denies having any chest pain or cough, the patient denies having any abdominal pain no vomiting or any diarrhea, the patient denies pain to bilateral gluteal wound area daughter still concerned about the mental status changes the patient mention she is feeling fine. Patient creatinine is down to 1.43 CRP is less than 0.5 cultures done in the wound care on 514 is growing Hanh albicans Objective - Vital Signs Vital signs: Vital Signs Temp 98.3 F 04/04/24 07:35 Pulse 73 04/04/24 07:35 Resp 16 04/04/24 07:35 BP 157/83 04/04/24 07:35 Pulse Ox 97 04/04/24 07:35 FiO2 Intake & Output 04/03/24 04/04/24 04/04/24 18:59 06:59 18:59 Intake Total 370 590 Balance 370 590 Weight 47.627 kg Intake: Intake, IV Titration 130 Amount Sodium Chloride 0.9% 1, 130 000 ml @ 130 mls/hr IV . Q7H42M [facility] Rx#:[id number] Oral 240 590 Other: Voiding Method Toilet Toilet # Voids 1 1 - Exam GENERAL DESCRIPTION: An elderly female lying in bed in no distress RESPIRATORY SYSTEM: Unlabored breathing , decreased breath sounds at bases HEART: S1 S2 regular rate and rhythm , ABDOMEN: Soft , no tenderness Bilateral gluteal stage III pressure ulcer wound is nonpalpable minimal slough tissue no surrounding redness or any foul-smelling drainage - Labs CBC & Chem 7: 04/04/24 07:15 04/04/24 07:15 Labs: Abnormal Lab Results - Last 24 Hours (Table) 04/02/24 04/04/24 04/04/24 Range/Units 14:35 07:15 07:15 RBC 3.91 L (4.10-5.20) X 10*6/uL Hgb 9.2 L (12.0-15.0) g/dL Hct 30.4 L (37.2-46.3) % MCV 77.7 L (80.0-97.0) FL MCH 23.5 L (27.0-32.0) pg MCHC 30.3 L (32.0-37.0) g/dL RDW 24.5 H (11.5-14.5) % Immature Gran # 0.05 H (0.00-0.04) X 10*3/uL Eosinophils # 0.51 H (0.04-0.35) X 10*3/uL Sodium 146 H (137-145) mmol/L Potassium 3.2 L (3.5-5.1) mmol/L Chloride 125 H (98-107) mmol/L Carbon Dioxide 12 L (22-30) mmol/L BUN 29 H (7-17) mg/dL Creatinine 1.43 H (0.52-1.04) mg/dL Urine Appearance Cloudy H (Clear) Urine Protein 2+ H (Negative) Urine Blood Moderate H (Negative) Urine Nitrite Positive H (Negative) Ur Leukocyte Esterase Large H (Negative) Urine RBC 67 H (0-5) /hpf Urine WBC 25 H (0-5) /hpf Ur Squamous Epith Cells 40 H (0-4) /hpf Urine Bacteria Rare H (None) /hpf Urine Mucus Rare H (None) /hpf Urine Yeast (Budding) Rare H (None) /hpf Urine Opiates Screen Detected H (NotDetected) Microbiology - Last 24 Hours (Table) 04/02/24 20:50 Blood Culture - Preliminary Blood 04/02/24 20:35 Blood Culture - Preliminary Blood Assessment and Plan (1) Decubitus ulcer Current Visit: Yes Status: Acute Code(s): L89.90 - PRESSURE ULCER OF UNSPECIFIED SITE, UNSPECIFIED STAGE SNOMED Code(s): 5045803782 (2) Infected decubitus ulcer Current Visit: No Status: Acute Code(s): L89.90 - PRESSURE ULCER OF UNSPECIFIED SITE, UNSPECIFIED STAGE; L08.9 - LOCAL INFECTION OF THE SKIN AND SUBCUTANEOUS TISSUE, UNSP SNOMED Code(s): 340333979 (3) Penicillin allergy Current Visit: No Status: Acute Code(s): Z88.0 - ALLERGY STATUS TO PENICILLIN SNOMED Code(s): 54278638 Plan: 1patient with a chronic nonhealing wound to bilateral gluteal area stage III pressure ulcer in this patient who did have debridement last month and did not mention any extension down to the wound culture positive for strep and MSSA and Serratia along with anaerobes and the patient was getting cefepime and Flagyl not admitted to the hospital mental status changes which could be related to cefepime however worsening drainage was consulted which has been cultured at the wound care center on 04/02/2024 and results are currently growing Hanh albicans 2-patient remains to be afebrile white count has been normal with a culture negative for any resistant pathogen we will discontinue daptomycin Fortaz and Flagyl, add Diflucan that will help with the bilateral groin area cutaneous candidiasis as well Daughter at the bedside multiple question concern has been answered in layman term Dictation was produced using [employer] dictation software. please excuse any grammatical, word or spelling errors. Time with Patient: Less than 30
[2024-04-04] MEDS: DEXTROSE 5% IN WATER 1,000 ML with SODIUM BICARB (1 MEQ/ML) 100 ML IV SCH (13:25)
[2024-04-04] MEDS: HYDROcodone/APAP 5-325MG 1 EACH TAB PO PRN (14:40)
[2024-04-04] MEDS: FLUCONAZOLE 100 MG TAB PO SCH (15:42)
--- NOTE | 2024-04-04 16:48 | P.PN ---
Subjective Progress Note Date: 04/04/24 Principal diagnosis: Bilateral decubitus ulcers Since patient did fairly well overnight. Still intermittently confused. Mild discomfort. No change from baseline she says. She is afebrile. Workup regarding the patient's confusion still pending. Patient is afebrile. White b lood cell count remains normal. Objective - Vital Signs Vital signs: Vital Signs Temp 98.3 F 04/04/24 12:13 Pulse 69 04/04/24 12:13 Resp 16 04/04/24 12:13 BP 147/82 04/04/24 12:13 Pulse Ox 98 04/04/24 12:13 FiO2 Intake & Output 04/03/24 04/04/24 04/04/24 18:59 06:59 18:59 Intake Total 370 590 Balance 370 590 Weight 47.627 kg Intake: Intake, IV Titration 130 Amount Sodium Chloride 0.9% 1, 130 000 ml @ 130 mls/hr IV . Q7H42M [facility] Rx#:[id number] Oral 240 590 Other: Voiding Method Toilet Toilet # Voids 1 1 - Exam Bilateral ischial decubitus ulcers smaller in size even from our recent office visit., No erythema, minimal tenderness, minimal serous drainage, no fluctuance or purulence - Labs CBC & Chem 7: 04/04/24 07:15 04/04/24 07:15 Labs: Abnormal Lab Results - Last 24 Hours (Table) 04/04/24 04/04/24 Range/Units 07:15 07:15 RBC 3.91 L (4.10-5.20) X 10*6/uL Hgb 9.2 L (12.0-15.0) g/dL Hct 30.4 L (37.2-46.3) % MCV 77.7 L (80.0-97.0) FL MCH 23.5 L (27.0-32.0) pg MCHC 30.3 L (32.0-37.0) g/dL RDW 24.5 H (11.5-14.5) % Immature Gran # 0.05 H (0.00-0.04) X 10*3/uL Eosinophils # 0.51 H (0.04-0.35) X 10*3/uL Sodium 146 H (137-145) mmol/L Potassium 3.2 L (3.5-5.1) mmol/L Chloride 125 H (98-107) mmol/L Carbon Dioxide 12 L (22-30) mmol/L BUN 29 H (7-17) mg/dL Creatinine 1.43 H (0.52-1.04) mg/dL Microbiology - Last 24 Hours (Table) 04/02/24 20:50 Blood Culture - Preliminary Blood 04/02/24 20:35 Blood Culture - Preliminary Blood Assessment and Plan (1) Decubitus ulcer Narrative/Plan: 68-year-old female with bilateral ischial decubitus ulcers. Continue local wound care. Do not believe the decubitus ulcers themselves are contributing to the patient's confusion. Continue offloading and nutritional optimization. W ill sign off. Please reconsult if debridement required. Follow-up with wound care center. Current Visit: Yes Status: Acute Code(s): L89.90 - PRESSURE ULCER OF UNSPECIFIED SITE, UNSPECIFIED STAGE SNOMED Code(s): 2952964537
--- NOTE | 2024-04-04 16:49 | P.PN ---
Progress Note - Text Progress Note Date: 04/04/24 Chief Complaint: Increased confusion This is a 68-year-old female, followed by Dr. Demond Chan. He recently in the hospital from March 04 through March 13.Acute infected decubitus ulcers as well as left and right buttock abscesses with failure of outpatient treatment, present on admission with preliminary culture showing Serratia marcescens with Staph aureus and strep atelectatic group B status post incision and drainage on 03/07/2024. follows with the wound care center including Dr. Moe Boyer. With wound VAC. But because of increased drainage this was discontinued. Patient is been having increased drainage to the wounds. Rather significant. Was seen at the wound care center by Dr. Boyer yesterday. Sent down for further inpatient workup. Daughter also noticed that patient's become more lethargic. Weak in the limbs. Patient discovered to have increased creatinine. Last admission wound was debrided by Dr. Alvarado from general surgery. Patient's appetite has gone down. No obvious fever and chills reported. Patient is being seen by physical the rapy. Needs assistance to go from the bed to the chair. April 04, 2024: Patient more perky today. Delirium improved. Decrease in creatinine point 1.7 down to 1.43. Had about 50% of her lunch. Seen by surgery. Not for any surgical intervention. Being started on bicarbonate drip for acidosis. Given that patient has no white count no fever. ID has discontinued patient's Fortaz daptomycin and Flagyl. Diflucan was added. Denies any pain Active Medications Acetaminophen (Acetaminophen Tab 500 Mg Tab) 500 mg PO Q6HR PRN PRN Reason: Fever and/ or Pain Last Admin: 04/02/24 21:45 Dose: 500 mg Hydrocodone Bitart/Acetaminophen (Hydrocodone/Apap 5-325mg 1 Each Tab) 1 each PO Q6H PRN PRN Reason: Pain Last Admin: 04/04/24 14:40 Dose: 1 each Amlodipine Besylate (Amlodipine 2.5 Mg Tab) 2.5 mg PO DAILY [facility] Last Admin: 04/04/24 09:16 Dose: 2.5 mg Cyproheptadine HCl (Cyproheptadine 4 Mg Tablet) 4 mg PO TID [facility] Last Admin: 04/04/24 09:15 Dose: 4 mg Enoxaparin Sodium (Enoxaparin 30 Mg/0.3 Ml Syringe) 30 mg SQ DAILY [facility] Last Admin: 04/04/24 09:14 Dose: 30 mg Ergocalciferol (Ergocalciferol 1,250 Mcg (50,000 Iu) Capsule) 1,250 mcg PO FR [facility] Fluconazole (Fluconazole 100 Mg Tab) 100 mg PO DAILY [facility]; Protocol Last Admin: 04/04/24 15:42 Dose: 100 mg Folic Acid (Folic Acid 1 Mg Tab) 1 mg PO DAILY@1200 [facility] Last Admin: 04/04/24 11:55 Dose: 1 mg Gabapentin (Gabapentin 100 Mg Cap) 200 mg PO TID [facility] Last Admin: 04/04/24 09:15 Dose: 200 mg Sodium Bicarbonate 100 ml/ (Dextrose/Water) 1,100 mls @ 100 mls/hr IV .Q11H [facility] Last Admin: 04/04/24 13:25 Dose: 100 mls/hr Lamotrigine (Lamotrigine 25 Mg Tab) 25 mg PO DAILY [facility] Last Admin: 04/04/24 09:17 Dose: 25 mg Multivitamins (Multivitamins, Thera 1 Each Tab) 1 each PO DAILY@1200 [facility] Last Admin: 04/04/24 11:55 Dose: 1 each Nystatin (Nystatin 100,000 Unit/Gm Powd 15 Gm) 1 applic TOPICAL QID [facility]; Protocol Last Admin: 04/04/24 11:56 Dose: 1 applic Pantoprazole Sodium (Pantoprazole 40 Mg Tablet) 40 mg PO AC-BRKFST [facility] Last Admin: 04/04/24 09:16 Dose: 40 mg Psyllium Hydrophilic Mucilloid (Psyllium Husk 100% 6 Gm Packet) 6 gm PO BID [facility] Last Admin: 04/04/24 09:15 Dose: Not Given Sertraline HCl (Sertraline 50 Mg Tab) 150 mg PO HS [facility] Last Admin: 04/03/24 21:11 Dose: 150 mg Sodium Bicarbonate (Sodium Bicarbonate Tab 650 Mg Tab) 650 mg PO TID [facility] Last Admin: 04/04/24 09:16 Dose: 650 mg Thiamine HCl (Thiamine 100 Mg Tab) 100 mg PO BID-W/MEALS [facility] Last Admin: 04/04/24 09:17 Dose: 100 mg Social history: Non-smoker. Alcohol rarely. Lives at home with daughter the latter which takes care of her. On examination: VITAL SIGNS: 147/82, 98% room air GENERAL APPEARANCE: Talking better today. Comfortable. HEENT: Normal external appearance of nose and ear. Oral cavity normal EYES: Pupils equal. Conjunctiva normal. NECK: JVD not raised. Mass not palpable. RESPIRATORY: Respiratory effort normal. Lungs creased breath sounds n. CARDIOVASCULAR: First and second sounds normal. No edema. ABDOMEN: Soft. Liver and spleen not palpable. No tenderness. No mass palpable. PSYCHIATRY: Questions better. MUSCULOSKELETAL: OA. Bilateral gluteal pressure ulcers INVESTIGATIONS, reviewed in the clinical context: April 02, 2024: White count 9.2 hemoglobin 10.5 platelets 302 sodium 143 potassium 3.2 BUN 33 creatinine 1.51 EKG tracing personally reviewed by me-normal sinus rhythm. Nonspecific T wave changes. Poor R wave progression. Chest x-ray film personally reviewed by me-elevated right diaphragm. Expiratory film. CT scan brain without contrast: Nothing acute Previous labs March 13: Potassium 3.7 creatinine 0.7 Assessment and plan: -Acute on chronic left and right buttock abscesses with failure of outpatient treatment, cultures from last admission showing Serratia marcescens with Staph aureus and strep atelectatic group B status post incision and drainage on 03/07/2024. Normally follows at the wound care center with Dr. Moe Boyer.: Patient seen by ID. Since no fever no white count. Antibiotics discontinued. Seen by, Dr. Alvarado from general surgery-not for any surgical intervention -Acute kidney injury likely ATN, could be drug-induced: Slow improvement Vancomycin IV fluids. Follow labs -Acute metabolic encephalopathy from renal failure and possibly worsening infection: Better Also patient is on gabapentin. In view of acute kidney injury will cut back on the dose -Chronic obstructive pulmonary disease, not in exacerbation -Normocytic anemia of chronic disease -Metabolic acidosis from 6 acute kidney injury Add sodium bicarbonate -Essential hypertension Amlodipine 2.5 mg a day -Primary osteoarthritis, prior history of back surgery Pain medication as needed. Meloxicam -Hyperlipidemia Lipitor 10 mg -Anxiety/depression history Zoloft -Constipation Metamucil -Full code Continue with IV fluids. Antibiotics per ID. Not for any surgical intervention per Dr. Alvarado. Repeat labs. Past Medical History Past Medical History: Blood Disorder, COPD, Hearing Disorder / Deafness, Hypertension, Osteoarthritis (OA) Additional Past Medical History / Comment(s): Hx HTN, Iron deficiency anemia, Occ slow heart rate, sl hearing loss Lt ear, hx low potassium, hx falls, Rt shoulder prob w/ upcoming surgery. Left foot turns dark purple, rt foot sl purple w/ occ edema. pressure sores, History of Any Multi-Drug Resistant Organisms: None Reported Past Surgical History: Back Surgery, Joint Replacement, Orthopedic Surgery Additional Past Surgical History / Comment(s): Right knee replacement, knee gave out after. Herniated discs cervical neck x 3, lower back x 2; right ankle surgery, hardware later removed; bilat wrist fx with surgical repair, removed hardware rt wrist; right knee torn meniscus repair. bone marrow bx. Total left shoulder - february 2021 Past Anesthesia/Blood Transfusion Reactions: No Reported Reaction Past Psychological History: Anxiety, Depression Smoking Status: Never smoker Past Alcohol Use History: Rare Past Drug Use History: None Reported
[2024-04-05 05:24] LABS: African American GFR (CKD) 54 (>60 ml/min/1.73 sqM); Anion Gap 6 mmol/L; Blood Urea Nitrogen 30 mg/dL (7-17); Carbon Dioxide 20 mmol/L (22-30); Chloride 117 mmol/L (98-107); Glucose 112 mg/dL (74-99); Non-African American GFR(CKD) 47 (>60 ml/min/1.73 sqM); Potassium 2.8 mmol/L (3.5-5.1); Sodium 143 mmol/L (137-145)
[2024-04-05] MEDS: ERGOCALCIFEROL 1,250 MCG (50,000 IU) CAPSULE PO SCH (08:34)
[2024-04-05] MEDS: POTASSIUM CHLORIDE ER 20 MEQ TAB.ER PO SCH (10:38)
--- NOTE | 2024-04-05 14:34 | XR ---
EXAMINATION TYPE: XR chest 2V DATE OF EXAM: 04/05/2024 2:14 PM CLINICAL INDICATION:Female, 68 years old with history of congested cough; COMPARISON: Chest radiographs from 04/02/2024 TECHNIQUE: XR chest 2V Frontal and lateral views of the chest. FINDINGS: Lungs/Pleura: There is flattening of the diaphragm with increased lucency of the lungs. No evidence o f pneumothorax, pleural effusion or focal consolidation. Pulmonary vascularity: Unremarkable. Heart/mediastinum: Cardiomediastinal silhouette is enlarged and stable. Musculoskeletal: No acute osseous pathology. Right shoulder arthroplasty changes. Post surgical byrnes es of the cervical spine with hardware in place. Surgical changes left shoulder. Kyphoplasty cement n oted. Left PICC in appropriate position with tip terminating at the superior vena cava. IMPRESSION: 1. Cardiomegaly without evidence of heart failure. 2. COPD changes. 3. Left PICC in appropriate position.
[2024-04-05] MEDS: FUROSEMIDE 10 MG/ML 2 ML VIAL IV ONE (15:25)
--- NOTE | 2024-04-05 16:35 | P.PN ---
Subjective Progress Note Date: 04/05/24 Principal diagnosis: Reason for follow-up is bilateral gluteal infected pressure ulcer Patient is a 68-year-old female with a past medical history significant for hypertension COPD patient did have bilateral gluteal pressure ulcer with the patient was recently admitted at this facility patient did have a surgical debridement and culture positive for Serratia marcescens and MSSA Staphylococcus agalactiae along with anaerobes patient did get a PICC line and was advised 3-week course of IV cefepime and oral Flagyl, presenting back to the hospital with mental status changes worsening drainage. On today's evaluation that is 04/05/2024, Patient is afebrile patient is currently on room air and denies having any shortness of breath, the patient denies any chest pain or cough, the patient denies any nausea vomiting did not have any abdominal pain and no diarrhea, daughter still complaining of patient weakness and confusion. Patient creatinine is down to 1.19 blood culture has been negative wound culture with Hanh Objective - Vital Signs Vital signs: Vital Signs Temp 98.4 F 04/05/24 07:12 Pulse 66 04/05/24 07:12 Resp 18 04/05/24 07:12 BP 138/81 04/05/24 07:12 Pulse Ox 94 L 04/05/24 07:12 FiO2 Intake & Output 04/04/24 04/05/24 04/05/24 18:59 06:59 18:59 Intake Total 590 Balance 590 Intake: Oral 590 Other: Voiding Method Toilet Toilet Toilet Bedside Commode # Voids 2 # Bowel Movements 1 - Exam GENERAL DESCRIPTION: An elderly female lying in bed in no distress RESPIRATORY SYSTEM: Unlabored breathing , decreased breath sounds at bases HEART: S1 S2 regular rate and rhythm , ABDOMEN: Soft , no tenderness Bilateral gluteal stage III pressure ulcer wound is nonpalpable minimal slough tissue no surrounding redness or any foul-smelling drainage - Labs CBC & Chem 7: 04/04/24 07:15 04/05/24 04:39 Labs: Abnormal Lab Results - Last 24 Hours (Table) 04/05/24 Range/Units 04:39 Potassium 2.8 L (3.5-5.1) mmol/L Chloride 117 H (98-107) mmol/L Carbon Dioxide 20 L (22-30) mmol/L BUN 30 H (7-17) mg/dL Creatinine 1.19 H (0.52-1.04) mg/dL Glucose 112 H (74-99) mg/dL Microbiology - Last 24 Hours (Table) 04/02/24 20:50 Blood Culture - Preliminary Blood 04/02/24 20:35 Blood Culture - Preliminary Blood Assessment and Plan (1) Decubitus ulcer Current Visit: Yes Status: Acute Code(s): L89.90 - PRESSURE ULCER OF UNSP ECIFIED SITE, UNSPECIFIED STAGE SNOMED Code(s): 0744939125 (2) Infected decubitus ulcer Current Visit: No Status: Acute Code(s): L89.90 - PRESSURE ULCER OF UNSPECIFIED SITE, UNSPECIFIED STAGE; L08.9 - LOCAL INFECTION OF THE SKIN AND SUBCUTANEOUS TISSUE, UNSP SNOMED Code(s): 409623799 (3) Penicillin allergy Current Visit: No Status: Acute Code(s): Z88.0 - ALLERGY STATUS TO PENICILLIN SNOMED Code(s): 84501228 Plan: 1patient with a chronic nonhealing wound to bilateral gluteal area stage III pressure ulcer in this patient who did have debridement last month and did not mention any extension down to the wound culture positive for strep and MSSA and Serratia along with anaerobes and the patient was getting cefepime and Flagyl not admitted to the hospital mental status changes which could be related to cefepime however worsening drainage was consulted which has been cultured at the wound care center on 04/02/2024 and results are currently growing Hanh tropicalis 2-patient remains to be afebrile white count has been normal with a culture negative for any resistant pathogen patient to continue with the Diflucan no need for IV antibiotics on discharge Daughter has multiple question concern has been answered Dictation was produced using [employer] software. please excuse any grammatical, word or spelling errors. Time with Patient: Less than 30
--- NOTE | 2024-04-05 22:26 | P.PN ---
Progress Note - Text Progress Note Date: 04/05/24 Chief Complaint: Increased confusion This is a 68-year-old female, followed by Dr. Demond Chan. He recently in the hospital from March 04 through March 13.Acute infected decubitus ulcers as well as left and right buttock abscesses with failure of outpatient treatment, present on admission with preliminary culture showing Serratia marcescens with Staph aureus and strep atelectatic group B status post incision and drainage on 03/07/2024. follows with the wound care center including Dr. Moe Boyer. With wound VAC. But because of increased drainage this was discontinued. Patient is been having increased drainage to the wounds. Rather significant. Was seen at the wound care center by Dr. Boyer yesterday. Sent down for further inpatient workup. Daughter also noticed that patient's become more lethargic. Weak in the limbs. Patient discovered to have increased creatinine. Last admission wound was debrided by Dr. Alvarado from general surgery. Patient's appetite has gone down. No obvious fever and chills reported. Patient is being seen by physical the rapy. Needs assistance to go from the bed to the chair. April 04, 2024: Patient more perky today. Delirium improved. Decrease in creatinine point 1.7 down to 1.43. Had about 50% of her lunch. Seen by surgery. Not for any surgical intervention. Being started on bicarbonate drip for acidosis. Given that patient has no white count no fever. ID has discontinued patient's Fortaz daptomycin and Flagyl. Diflucan was added. Denies any pain April 05, 2024: Sitting up in the recliner. Per family delirium not much improved they want to have a neurology opinion. Patient been on a bicarbonate drip. Cut back the rate to 50 cc an hour. Chest x-ray showed some cardiomegaly. No fluid. Patient does have a slight congestion. Probably viral bronchitis. Active Medications Acetaminophen (Acetaminophen Tab 500 Mg Tab) 500 mg PO Q6HR PRN PRN Reason: Fever and/ or Pain Last Admin: 04/02/24 21:45 Dose: 500 mg Hydrocodone Bitart/Acetaminophen (Hydrocodone/Apap 5-325mg 1 Each Tab) 1 each PO Q6H PRN PRN Reason: Pain Last Admin: 04/05/24 08:30 Dose: 1 each Amlodipine Besylate (Amlodipine 2.5 Mg Tab) 2.5 mg PO DAILY [facility] Last Admin: 04/05/24 08:34 Dose: 2.5 mg Cyproheptadine HCl (Cyproheptadine 4 Mg Tablet) 4 mg PO TID [facility] Last Admin: 04/05/24 21:28 Dose: 4 mg Enoxaparin Sodium (Enoxaparin 30 Mg/0.3 Ml Syringe) 30 mg SQ DAILY [facility] Last Admin: 04/05/24 08:31 Dose: 30 mg Ergocalciferol (Ergocalciferol 1,250 Mcg (50,000 Iu) Capsule) 1,250 mcg PO FR [facility] Last Admin: 04/05/24 08:34 Dose: 1,250 mcg Fluconazole (Fluconazole 100 Mg Tab) 100 mg PO DAILY [facility]; Protocol Last Admin: 04/05/24 08:34 Dose: 100 mg Folic Acid (Folic Acid 1 Mg Tab) 1 mg PO DAILY@1200 [facility] Last Admin: 04/05/24 08:31 Dose: 1 mg Gabapentin (Gabapentin 100 Mg Cap) 200 mg PO TID [facility] Last Admin: 04/05/24 21:28 Dose: 200 mg Sodium Bicarbonate 100 ml/ (Dextrose/Water) 1,100 mls @ 50 mls/hr IV .Q22H [facility] Last Admin: 04/05/24 12:04 Dose: 100 mls/hr Lamotrigine (Lamotrigine 25 Mg Tab) 25 mg PO DAILY [facility] Last Admin: 04/05/24 08:30 Dose: 25 mg Multivitamins (Multivitamins, Thera 1 Each Tab) 1 each PO DAILY@1200 [facility] Last Admin: 04/05/24 08:31 Dose: 1 each Nystatin (Nystatin 100,000 Unit/Gm Powd 15 Gm) 1 applic TOPICAL QID [facility]; Protocol Last Admin: 04/05/24 21:28 Dose: 1 applic Pantoprazole Sodium (Pantoprazole 40 Mg Tablet) 40 mg PO AC-BRKFST [facility] Last Admin: 04/05/24 08:30 Dose: 40 mg Psyllium Hydrophilic Mucilloid (Psyllium Husk 100% 6 Gm Packet) 6 gm PO BID [facility] Last Admin: 04/05/24 21:28 Dose: 6 gm Sertraline HCl (Sertraline 50 Mg Tab) 150 mg PO HS [facility] Last Admin: 04/05/24 21:28 Dose: 150 mg Sodium Bicarbonate (Sodium Bicarbonate Tab 650 Mg Tab) 650 mg PO TID [facility] Last Admin: 04/05/24 21:35 Dose: 650 mg Thiamine HCl (Thiamine 100 Mg Tab) 100 mg PO BID-W/MEALS [facility] Last Admin: 04/05/24 17:05 Dose: 100 mg Social history: Non-smoker. Alcohol rarely. Lives at home with daughter the latter which takes care of her. On examination: VITAL SIGNS: 98.2, 61, 17, 123 x 79, 96% room air GENERAL APPEARANCE: Up in a recliner, HEENT: Normal external appearance of nose and ear. Oral cavity normal EYES: Pupils equal. Conjunctiva normal. NECK: JVD not raised. Mass not palpable. RESPIRATORY: Respiratory effort normal. Lungs occasional crackles n. CARDIOVASCULAR: First and second sounds normal. No edema. ABDOMEN: Soft. Liver and spleen not palpable. No tenderness. No mass palpable. PSYCHIATRY: Answering simple questions MUSCULOSKELETAL: OA. Bilateral gluteal pressure ulcers INVESTIGATIONS, reviewed in the clinical context: April 05, 2024: Sodium 143 potassium 2.8 bicarb 20 BUN 30 creatinine 1.19 April 02, 2024: White count 9.2 hemoglobin 10.5 platelets 302 sodium 143 potassium 3.2 BUN 33 creatinine 1.51 EKG tracing personally reviewed by me-normal sinus rhythm. Nonspecific T wave changes. Poor R wave progression. Chest x-ray film personally reviewed by me-elevated right diaphragm. Expiratory film. CT scan brain without contrast: Nothing acute Previous labs March 13: Potassium 3.7 creatinine 0.7 Assessment and plan: -Acute on chronic left and right buttock abscesses with failure of outpatient treatment, cultures from last admission showing Serratia marcescens with Staph aureus and strep atelectatic group B status post incision and drainage on 03/07/2024. Normally follows at the wound care center with Dr. Moe Boyer.: Patient seen by ID. Since no fever no white count. Antibiotics discontinued. Seen by, Dr. Alvarado from general surgery-not for any surgical intervention -Acute kidney injury likely ATN, could be drug-induced: Some improvement Creatinine had peaked to 1.71. Now down to 1.19 IV fluids. Follow labs -Acute metabolic encephalopathy from renal failure and possibly worsening infection: Some improvement Also patient is on gabapentin. In view of acute kidney injury will cut back on the dose -Chronic obstructive pulmonary disease, not in exacerbation -Normocytic anemia of chronic disease -Moderate metabolic acidosis from 6 acute kidney injury Sodium bicarbonate drip -Essential hypertension Amlodipine 2.5 mg a day -Primary osteoarthritis, prior history of back surgery Pain medication as needed. Meloxicam -Hyperlipidemia Lipitor 10 mg -Anxiety/depression history Zoloft -Constipation Metamucil -Full code Cut back IV fluids. 1 dose of IV Lasix. Family would like a neurology consultation. Neurology consulted. Past Medical History Past Medical History: Blood Disorder, COPD, Hearing Disorder / Deafness, Hypertension, Osteoarthritis (OA) Additional Past Medical History / Comment(s): Hx HTN, Iron deficiency anemia, Occ slow heart rate, sl hearing loss Lt ear, hx low potassium, hx falls, Rt shoulder prob w/ upcoming surgery. Left foot turns dark purple, rt foot sl purple w/ occ edema. pressure sores, History of Any Multi-Drug Resistant Organisms: None Reported Past Surgical History: Back Surgery, Joint Replacement, Orthopedic Surgery Additional Past Surgical History / Comment(s): Right knee replacement, knee gave out after. Herniated discs cervical neck x 3, lower back x 2; right ankle surgery, hardware later removed; bilat wrist fx with surgical repair, removed hardware rt wrist; right knee torn meniscus repair. bone marrow bx. Total left shoulder - february 2021 Past Anesthesia/Blood Transfusion Reactions: No Reported Reaction Past Psychological History: Anxiety, Depression Smoking Status: Never smoker Past Alcohol Use History: Rare Past Drug Use History: None Reported
[2024-04-06 07:22] LABS: African American GFR (CKD) 66 (>60 ml/min/1.73 sqM); Anion Gap 3 mmol/L; Blood Urea Nitrogen 25 mg/dL (7-17); Calcium 8.6 mg/dL (8.4-10.2); Carbon Dioxide 28 mmol/L (22-30); Chloride 111 mmol/L (98-107); Glucose 87 mg/dL (74-99); Non-African American GFR(CKD) 57 (>60 ml/min/1.73 sqM); Potassium 3.3 mmol/L (3.5-5.1); Sodium 142 mmol/L (137-145)
[2024-04-06] MEDS: POTASSIUM CHLORIDE ER 20 MEQ TAB.ER PO SCH (11:08)
[2024-04-06] MEDS: SODIUM CHLORIDE 0.45% 1,000 ML IV SCH (11:12)
--- NOTE | 2024-04-06 21:10 | US ---
EXAMINATION TYPE: US carotid duplex BILAT DATE OF EXAM: 04/06/2024 COMPARISON: NONE CLINICAL INDICATION: Female, 68 years old with history of Speech difficulty, r/o TIA; Unable to recog nize immediate family, and weakness 1 week ago. TECHNIQUE: Carotid duplex ultrasound examination. Indirect Doppler criteria was utilized. FINDINGS: EXAM MEASUREMENTS: RIGHT: Peak Systolic Velocity (PSV) cm/sec ----- Right CCA: 75 ----- Right ICA: 80 ----- Right ECA: 138 ICA/CCA ratio: 1.1 RIGHT: End Diastole cm/sec ----- Right CCA: 26 ----- Right ICA: 22 ----- Right ECA: 18 LEFT: Peak Systolic Velocity (PSV) cm/sec ----- Left CCA: 82 ----- Left ICA: 82 ----- Left ECA: 125 ICA/CCA ratio: 1.0 LEFT: End Diastole cm/sec ----- Left CCA: 18 ----- Left ICA: 23 ----- Left ECA: 10 VERTEBRALS (direction of flow): Right Vertebral: Antegrade Left Vertebral: Antegrade Rhythm: Normal [employer] NOTES: Calcified plaque seen bilateral CCA bulbs extending into right ECA and Left ICA. N o intimal thickening noted. Slightly elevated velocities within the right ECA. IMPRESSION: Less than 50% stenosis of the bilateral carotid bifurcations. Criteria for Assigning % of Stenosis / Diameter reduction (Estimation based on the indirect measurements of the internal carotid artery velocities (ICA PSV). 1. Normal (no stenosis)=ICA PSV < 125 cm/s: ratio < 2.0: ICA EDV<40 cm/s. 2. Less than 50% stenosis=ICA PSV < 125 cm/s: ratio < 2.0: ICA EDV<40 cm/s. 3. 50 to 69% stenosis=ICA PSV of 125 to 230 cm/s: ration 2.0 ? 4.0: ICA EDV 40-100 cm/s. 4. Greater than 70% stenosis to near occlusion= ICA PSV > 230 cm/s: ratio > 4.0: ICA EDV > 100 cm/s. 5. Near occlusion= ICA PSV velocities may be low or undetectable: variable ratio and ICA EDV. 6. Total occlusion=unable to detect flow.
[2024-04-07] MEDS: ENOXAPARIN 40 MG/0.4 ML SYRINGE SQ SCH (08:05)
[2024-04-07 09:27] LABS: Basophils # (A) 0.08 X 10*3/uL (0.00-0.10); Basophils % (A) 1.1 %; Eosinophils % (A) 6.9 %; HCT 28.3 % (37.2-46.3); HGB 8.5 g/dL (12.0-15.0); Lymphocytes # (A) 2.74 X 10*3/uL (0.90-5.00); Lymphocytes % (A) 37.7 %; MCH 23.4 pg (27.0-32.0); Mean Platelet Volume 10.1 FL (9.5-12.2); Monocytes % (A) 8.3 %; NRBC Per 100 WBC 0 X 10*3/uL (0.00-0.01); Neutrophils # (A) 3.33 X 10*3/uL (1.80-7.70); Neutrophils % (A) 45.7 %; Platelet Count 254 X 10*3/uL (140-440); RBC 3.63 X 10*6/uL (4.10-5.20); RDW 23.9 % (11.5-14.5); WBC 7.27 X 10*3/uL (4.50-10.00)
[2024-04-07 09:57] LABS: % Iron Saturation 31.45 (12.00-45.00); Blood Urea Nitrogen 20.9 mg/dL (9.0-27.0); Calcium 8.7 mg/dL (8.7-10.3); Carbon Dioxide 25.4 mmol/L (21.6-31.8); Chloride 112 mmol/L (96-109); Chol/HDL Ratio 3.51 Ratio; Glucose 87 mg/dL (70-110); Iron 39 UG/DL (50-170); LDL Cholesterol,Calculated 59.5 mg/dL (0.0-131.0); Potassium 4.1 mmol/L (3.5-5.5); Sodium 146 mmol/L (135-145); Total Iron Binding Capacity 124 UG/DL (228-460); VLDL Calculation 15.62 mg/dL (5.00-40.00)
--- NOTE | 2024-04-07 10:27 | P.CNNES ---
History of Present Illness Consult date: 04/06/24 Requesting physician: Tone Thomas Reason for Consult: Altered mental status History of Present Illness: Patient is a 68-year-old female who is wheelchair-bound for 2 years due to "20 back surgeries", came to the hospital on 04/02/2024 at 2:22 PM for altered mental status. Patient was found to have renal insufficiency, hypokalemia, generalized weakness, dehydration, decubitus ulcer along with altered mental status. Patient's daughter was also present, who provided with a history. Patient has history of about 20 back surgeries, also has history of hip issues, knees. Therefore she is wheelchair-bound for last 2 years. In November 2023 she had undergone skin graft for decubitus ulcer outpatient. In February 2024 she was admitted to the hospital with cellulitis over the pressure sores with bacterial infection for which she was hospitalized for 9 days. She was discharged home for about 21 days on IV antibiotics. Patient's daughter admits that she was slightly confused when she was discharged, but was able to help transfer out of bed to the wheelchair and bathroom was not a problem. She was undergoing physical therapy with home health care and using a walker. However on 03/30/2024 she has acute changes in the mental status, became extremely weak, mental awareness decreased, she was dropping things with her hands. She was very confused, could not remember who lives upstairs. When standing, the legs were giving out and the arms were giving out. She could not sweet pickled fruit maker a cup wi thout shaking. He did not bring her to the hospital because the next day was the Mother's Day and they wanted to celebrate at home. They took patient to her primary physician on Monday, who recommended to follow-up with Dr. Boyer (wound care) on Monday, who recommended for the patient to go to ER for further evaluation. They arrived to the hospital on 04/02/2024. CT head showed no acute intracranial process. I personally reviewed CT head, agree with the findings. Chest x-ray showed cardiomegaly without evidence of heart failure. COPD changes. Blood test shows normal WBC hemoglobin 9.2, platelets 285. Sodium 142 potassium 3.3. Renal functions have much improved. BUN 25 creatinine 1.01. Patient's UA on admission showed large amount of leukocyte esterase, positive nitrite and 25 WBCs. Patient's home medications include gabapentin 600 mg 3 times daily, Lasix 20 mg twice daily as needed, sertraline 150 mg, Lipitor, Lamictal 25 mg daily, amlodipine, hydroxyzine, cyproheptadine 4 mg 3 times daily, meloxicam, Zyrtec, folic acid, Protonix, thiamine, metronidazole 500 mg 3 times daily, Bartley, cefepime. Patient does not take any antiplatelet medication at home. Patient has history of hypertension but no diabetes. She has osteoporosis. Patient has never smoked, drinks alcohol socially, never a heavy drinker. Patient has history of both hip fracture, has bilateral knee replacements. Review of Systems Constitutional: Denies chills, Denies fever Eyes: bilateral blurred vision (When sick before coming and now cleareed up), denies diplopia, denies pain Ears: bilateral: decreased hearing, deny: ear discharge Ears, nose, mouth and throat: Denies headache (Once in a while), Denies sore throat Cardiovascular: Reports lightheadedness, Reports shortness of breath (occasionally), Denies chest pain Respiratory: Reports cough, Denies excessive sputum Gastrointestinal: Denies abdominal pain, Denies diarrhea, Denies nausea, Denies vomiting Genitourinary: Denies urge incontinence, Denies urgency Musculoskeletal: Reports low back pain, Reports neck pain Integumentary: Denies pruritus, Denies rash Neurological: Reports as per HPI Psychiatric: Reports anxiety, Reports depression Past Medical History Past Medical History: Blood Disorder, COPD, Hearing Disorder / Deafness, Hypertension, Osteoarthritis (OA) Additional Past Medical History / Comment(s): Hx HTN, Iron deficiency anemia, Occ slow heart rate, sl hearing loss Lt ear, hx low potassium, hx falls, Rt shoulder prob w/ upcoming surgery. Left foot turns dark purple, rt foot sl p urple w/ occ edema. pressure sores, History of Any Multi-Drug Resistant Organisms: None Reported Past Surgical History: Back Surgery, Joint Replacement, Orthopedic Surgery Additional Past Surgical History / Comment(s): Right knee replacement, knee gave out after. Herniated discs cervical neck x 3, lower back x 2; right ankle surgery, hardware later removed; bilat wrist fx with surgical repair, removed hardware rt wrist; right knee torn meniscus repair. bone marrow bx. Total left shoulder - february 2021 Past Anesthesia/Blood Transfusion Reactions: No Reported Reaction Past Psychological History: Anxiety, Depression Smoking Status: Never smoker Past Alcohol Use History: Rare Past Drug Use History: None Reported - Past Family History Mother Additional Family Medical History / Comment(s): Mother 5 years after being struck by a vehicle of complications. Father Additional Family Medical History / Comment(s): Mother 5 yrs after being struck by a vehicle of complications. Medications and Allergies Home Medications Medication Instructions Recorded Confirmed Type Gabapentin 600 tab PO TID 06/29/20 04/02/24 History Furosemide [Lasix] 20 mg PO BID PRN 02/01/21 04/02/24 History Sertraline [Zoloft] 150 mg PO HS 02/01/21 04/02/24 History Atorvastatin [Lipitor] 10 mg PO HS 02/03/21 04/02/24 History amLODIPine [Norvasc] 2.5 mg PO DAILY 08/24/21 04/02/24 History lamoTRIgine [LaMICtal] 25 mg PO DAILY 08/24/21 04/02/24 History Cetirizine HCl [Zyrtec] 10 mg PO DAILY 03/04/24 04/02/24 History Cyproheptadine HCl [Periactin] 4 mg PO TID 03/04/24 04/02/24 History Ergocalciferol (Vitamin D2) 1,250 mcg PO FR 03/04/24 04/02/24 History [Drisdol (50,000 Iu)] Meloxicam [Mobic] 15 mg PO DAILY 03/04/24 04/02/24 History hydrOXYzine HCL [Atarax] 25 mg PO TID 03/04/24 04/02/24 History Acetaminophen Tab [Tylenol] 500 mg PO Q6HR PRN tab 03/11/24 04/02/24 Rx Folic Acid 1 mg PO DAILY@1200 #30 tab 03/11/24 04/02/24 Rx Pantoprazole [Protonix] 40 mg PO AC-BRKFST #30 tab 03/11/24 04/02/24 Rx Thiamine [Vitamin B-1] 100 mg PO BID-W/MEALS #30 tab 03/11/24 04/02/24 Rx Psyllium Husk 100% [Metamucil 6 gm PO BID #60 packet 03/13/24 04/02/24 Rx Packet] guaiFENesin [Mucinex] 600 mg PO BID #60 tab 03/13/24 04/02/24 Rx metroNIDAZOLE [Flagyl] 500 mg PO TID #63 tab 03/15/24 04/02/24 Rx Cefepime [Maxipime] 2 gm IV Q8H 04/02/24 04/02/24 History HYDROcodone/APAP 5-325MG [Bartley 1 tab PO Q6H PRN 04/02/24 04/02/24 History 5-325] Multivitamins, Thera [Multivitamin 1 tab PO DAILY@1200 04/02/24 04/02/24 History (formulary)] Nystatin 100,000 Unit/gm Powd 1 applic TOPICAL QID 04/02/24 04/02/24 History [Mycostatin Powder] Allergies Allergy/AdvReac Type Severity Reaction Status Date / Time ibuprofen [From Motrin] Allergy Rash/Hives Verified 04/02/24 17:03 oxycodone [From Percocet] Allergy Rash/Hives Verified 04/02/24 17:03 Penicillins Allergy Rash/Hives Verified 04/02/24 17:03 ferumoxytol [From Feraheme] AdvReac Intermediate Unknown Verified 04/02/24 17:03 Physical Examination - Vital Signs Vital Signs: Vital Signs Temp Pulse Resp BP Pulse Ox 04/06/24 16:58 74 16 135/79 97 04/06/24 12:37 98.3 F 65 16 141/83 97 04/06/24 08:16 97.5 F L 70 16 144/78 95 04/06/24 02:00 98.0 F 80 16 124/82 94 L 04/05/24 20:00 98.2 F 80 16 125/79 97 Intake and Output 04/06/24 04/06/24 04/06/24 06:59 14:59 22:59 Intake Total 590 Balance 590 Intake: Oral 590 Other: Voiding Method Toilet Bedside Commode # Voids 1 1 # Bowel Movements 1 Patient is an elderly female, very pleasant, in no acute distress. Patient is sitting in the recliner, with legs propped up on another chair. Patient is alert awake fairly well oriented to time place and person. Patient believes it is April (actually March) and knows the year is 2023 and that she has not put [facility] in [place] and knows name of the current president. She knows it is the season between spring and summer. Speech and language functions are normal. Patient can name and repeat very well. Her voice is slightly hoarse. No aphasia or dysarthria. Attention, concentration and fund of knowledge is adequate. Detailed cognitive function testing deferred. On cranial nerve examination, pupils are equal, round and reacting to light, visual sampson are full on confrontation, with no neglect on double simultaneous stimulation. Extraocular muscles are intact with no nystagmus. Face is symmetric, tongue protrudes to the midline. Palatal elevation and sensation normal, hearing and shoulder shrug normal, facial sensation normal. On muscle strength testing, there is no pronator drift and the strength is normal in arms and legs distally and proximally. Hip flexion did not give effort because of previous hip issues. Deep tendon reflexes are symmetric 1 at the biceps, 1 brachioradialis, 1 at the knees and plantars downgoing bilaterally. Sensory to touch is equal with no neglect on double simultaneous stimulation. Cerebellar function showed no ataxia for [id number] testing. No dysdiadoc hokinesia. No ataxia for [id number] testing on either side. Tone and bulk of muscles normal. No obvious myoclonic jerks noted. Gait deferred.. On general examination, there is no carotid bruit or murmur, S1-S2 audible. Chest is clear on consultation. Abdomen is soft nontender. No organomegaly, bowel sounds present. Peripheral pulses are present. Mild to moderate peripheral edema. Results - Laboratory Findings CBC and BMP: 04/07/24 03:45 04/07/24 03:45 Abnormal Lab Findings: Abnormal Labs 04/02/24 04/02/24 04/02/24 14:35 14:35 14:35 RBC Hgb 10.5 L Hct MCV 79.7 L MCH 23.8 L MCHC 29.9 L RDW 21.2 H Immature Gran # Eosinophils # PT 12.8 H INR 1.2 H Sodium Potassium Chloride Carbon Dioxide BUN Creatinine Glucose Plasma Lactic Acid Bautista Alkaline Phosphatase Albumin Urine Appearance Cloudy H Urine Protein 2+ H Urine Blood Moderate H Urine Nitrite Positive H Ur Leukocyte Esterase Large H Urine RBC 67 H Urine WBC 25 H Ur Squamous Epith Cells 40 H Urine Bacteria Rare H Urine Mucus Rare H Urine Yeast (Budding) Rare H Urine Opiates Screen Detected H 04/02/24 04/02/24 04/03/24 14:35 15:34 08:59 RBC Hgb Hct MCV MCH MCHC RDW Immature Gran # Eosinophils # PT INR Sodium Potassium 3.2 L Chloride 120 H Carbon Dioxide 15 L BUN 33 H Creatinine 1.51 H 1.71 H Glucose 102 H Plasma Lactic Acid Bautista 0.6 L Alkaline Phosphatase 218 H Albumin 3.3 L Urine Appearance Urine Protein Urine Blood Urine Nitrite Ur Leukocyte Esterase Urine RBC Urine WBC Ur Squamous Epith Cells Urine Bacteria Urine Mucus Urine Yeast (Budding) Urine Opiates Screen 04/04/24 04/04/24 04/05/24 07:15 07:15 04:39 RBC 3.91 L Hgb 9.2 L Hct 30.4 L MCV 77.7 L MCH 23.5 L MCHC 30.3 L RDW 24.5 H Immature Gran # 0.05 H Eosinophils # 0.51 H PT INR Sodium 146 H Potassium 3.2 L 2.8 L Chloride 125 H 117 H Carbon Dioxide 12 L 20 L BUN 29 H 30 H Creatinine 1.43 H 1.19 H Glucose 112 H Plasma Lactic Acid Bautista Alkaline Phosphatase Albumin Urine Appearance Urine Protein Urine Blood Urine Nitrite Ur Leukocyte Esterase Urine RBC Urine WBC Ur Squamous Epith Cells Urine Bacteria Urine Mucus Urine Yeast (Budding) Urine Opiates Screen 04/06/24 06:33 RBC Hgb Hct MCV MCH MCHC RDW Immature Gran # Eosinophils # PT INR Sodium Potassium 3.3 L Chloride 111 H Carbon Dioxide BUN 25 H Creatinine Glucose Plasma Lactic Acid Bautista Alkaline Phosphatase Albumin Urine Appearance Urine Protein Urine Blood Urine Nitrite Ur Leukocyte Esterase Urine RBC Urine WBC Ur Squamous Epith Cells Urine Bacteria Urine Mucus Urine Yeast (Budding) Urine Opiates Screen Assessment and Plan Assessment: * Altered mental status, likely due to metabolic encephalopathy. Reasons multifactorial as mentioned below. * Dehydration, with acute kidney injury. Patient was on high-dose gabapentin 600 mg 3 times daily, which probably produce neurotoxicity with worsening renal functions and myoclonic jerks. * Chronic nonhealing wound to bilateral gluteal area, stage III pressure ulcer. * COPD * Hypertension * Osteoarthritis * History of multiple neck and lower back surgeries * Mostly wheelchair-bound * Anxiety, depression Plan: * Patient probably has presented with metabolic encephalopathy. Patient's dose of gabapentin has been decreased to 200 mg 3 times daily, and her myoclonic jerks have resolved. Her renal functions also has normalized. * Patient's family concerned about multiple neurological symptoms, with some confusion, weakness, slurred speech. We will perform TIA workup. CT head revealed no acute process. Current NIH stroke scale is 0. * Carotid Doppler * 2D echo, rule out embolic source * Fasting lipid panel * Hemoglobin A1c * B12, folate, TSH * Discussed about starting aspirin 81 mg, but patient and her daughter wanted to hold off until above testing completed. * Dr. Stu Christie to resume neurology service from Monday morning. * Thank you for the consultation. Addendum: Carotid Doppler: Revealed less than 50% stenosis of bilateral carotid bifurcation. Antegrade flow in both vertebral arteries. B12 472 Folate 28.9 TSH 2.38 Hemoglobin A1c 5.3 lipid panel with cholesterol 105, LDL 59, HDL 29, triglycerides 78 2D echo pending. Time with Patient: Greater than 30
--- NOTE | 2024-04-07 17:06 | P.PN ---
Subjective Progress Note Date: 04/06/24 Principal diagnosis: Reason for follow-up is bilateral gluteal infected pressure ulcer Patient is a 68-year-old female with a past medical history significant for hypertension COPD patient did have bilateral gluteal pressure ulcer with the patient was recently admitted at this facility patient did have a surgical debridement and culture positive for Serratia marcescens and MSSA Staphylococcus agalactiae along with anaerobes patient did get a PICC line and was advised 3-week course of IV cefepime and oral Flagyl, presenting back to the hospital with mental status changes worsening drainage. On today's evaluation that is 04/06/2024, patient has been afebrile, patient is breathing comfortably and is currently on room air, patient denies having any significant cough no chest pain shortness of breath, patient denies nausea vomiting or diarrhea and no abdominal pain, patient is feeling better wants to go home. No CBC was done today creatinine normalized to 1.01 Objective - Vital Signs Vital signs: Vital Signs Temp 98.3 F 04/06/24 12:37 Pulse 65 04/06/24 12:37 Resp 16 04/06/24 12:37 BP 141/83 04/06/24 12:37 Pulse Ox 97 04/06/24 12:37 FiO2 Intake & Output 04/05/24 04/06/24 04/06/24 18:59 06:59 18:59 Intake Total 590 Balance 590 Weight 47.627 kg Intake: Oral 590 Other: Voiding Method Toilet Toilet Toilet Bedside Commode Bedside Commode Bedside Commode # Voids 1 1 1 # Bowel Movements 1 1 - Exam GENERAL DESCRIPTION: An elderly female lying in bed in no distress RESPIRATORY SYSTEM: Unlabored breathing , decreased breath sounds at bases HEART: S1 S2 regular rate and rhythm , ABDOMEN: Soft , no tenderness Bilateral gluteal stage III pressure ulcer wound is nonpalpable minimal slough tissue no surrounding redness or any foul-smelling drainage - Labs CBC & Chem 7: 04/07/24 03:45 04/07/24 03:45 Labs: Abnormal Lab Results - Last 24 Hours (Table) 04/06/24 Range/Units 06:33 Potassium 3.3 L (3.5-5.1) mmol/L Chloride 111 H (98-107) mmol/L BUN 25 H (7-17) mg/dL Microbiology - Last 24 Hours (Table) 04/02/24 20:50 Blood Culture - Preliminary Blood 04/02/24 20:35 Blood Culture - Preliminary Blood Assessment and Plan (1) Decubitus ulcer Current Visit: Yes Status: Acute Code(s): L89.90 - PRESSURE ULCER OF UNSPECIFIED SITE, UNSPECIFIED STAGE SNOMED Code(s): 5929860455 (2) Infected decubitus ulcer Current Visit: No Status: Acute Code(s): L89.90 - PRESSURE ULCER OF UNSPECIFIED SITE, UNSPECIFIED STAGE; L08.9 - LOCAL INFECTION OF THE SKIN AND SUBCUTANEOUS TISSUE, UNSP SNOMED Code(s): 673177883 (3) Penicillin allergy Current Visit: No Status: Acute Code(s): Z88.0 - ALLERGY STATUS TO PENICILLIN SNOMED Code(s): 50653596 Plan: 1patient with a chronic nonhealing wound to bilateral gluteal area stage III pressure ulcer in this patient who did have debridement last month and did not mention any extension down to the wound culture positive for strep and MSSA and Serratia along with anaerobes and the patient was getting cefepime and Flagyl not admitted to the hospital mental status changes which could be related to cefepime however worsening drainage was consulted which has been cultured at the wound care center on 04/02/2024 and results are currently growing Hanh tropicalis 2-patient remains to be afebrile white count has been normal with a culture negative for any resistant pathogen patient currently covered with oral Diflucan to continue Daughter has multiple question concerns and asking for neurology consultation which has been ordered by admitting team Dictation was produced using [employer] dictation software. please excuse any grammatical, word or spelling errors. Time with Patient: Less than 30
--- NOTE | 2024-04-07 17:07 | P.PN ---
Subjective Progress Note Date: 04/07/24 Principal diagnosis: Reason for follow-up is bilateral gluteal infected pressure ulcer Patient is a 68-year-old female with a past medical history significant for hypertension COPD patient did have bilateral gluteal pressure ulcer with the patient was recently admitted at this facility patient did have a surgical debridement and culture positive for Serratia marcescens and MSSA Staphylococcus agalactiae along with anaerobes patient did get a PICC line and was advised 3-week course of IV cefepime and oral Flagyl, presenting back to the hospital with mental status changes worsening drainage. On today's evaluation that is 04/07/2024,the patient denies any fever or any chills, patient is breathing comfortably on room air, the patient denies chest pain shortness of breath and no significant cough, patient denies abdominal pain, no nausea vomiting or diarrhea. Patient reported feeling better has been insistent on going home denies pain to bilateral gluteal wound area. Patient white count is 7.27, creatinine 1.0 Objective - Vital Signs Vital signs: Vital Signs Temp 98.5 F 04/07/24 12:15 Pulse 71 04/07/24 12:15 Resp 16 04/07/24 12:15 BP 130/65 04/07/24 12:15 Pulse Ox 97 04/07/24 12:15 FiO2 Intake & Output 04/06/24 04/07/24 04/07/24 18:59 06:59 18:59 Intake Total 590 590 Balance 590 590 Intake: Oral 590 590 Other: Voiding Method Toilet Toilet Toilet Bedside Commode Bedside Commode Bedside Commode # Voids 1 1 1 # Bowel Movements 1 1 - Exam GENERAL DESCRIPTION: An elderly female lying in bed in no distress RESPIRATORY SYSTEM: Unlabored breathing , decreased breath sounds at bases HEART: S1 S2 regular rate and rhythm , ABDOMEN: Soft , no tenderness Bilateral gluteal stage III pressure ulcer wound is nonpalpable minimal slough tissue no surrounding redness or any foul-smelling drainage - Labs CBC & Chem 7: 04/07/24 03:45 04/07/24 03:45 Labs: Abnormal Lab Results - Last 24 Hours (Table) 04/07/24 04/07/24 Range/Units 03:45 03:45 RBC 3.63 L (4.10-5.20) X 10*6/uL Hgb 8.5 L (12.0-15.0) g/dL Hct 28.3 L (37.2-46.3) % MCV 78.0 L (80.0-97.0) FL MCH 23.4 L (27.0-32.0) pg MCHC 30.0 L (32.0-37.0) g/dL RDW 23.9 H (11.5-14.5) % Eosinophils # 0.50 H (0.04-0.35) X 10*3/uL Sodium 146 H (135-145) mmol/L Chloride 112 H (96-109) mmol/L BUN/Creatinine Ratio 20.90 H (12.00-20.00) Ratio Iron 39 L (50-170) UG/DL TIBC 124 L (228-460) UG/DL Transferrin 88.3 L (204.0-354.0) mg/dL HDL Cholesterol 29.90 L (40.00-60.00) mg/dL Assessment and Plan (1) Decubitus ulcer Current Visit: Yes Status: Acute Code(s): L89.90 - PRESSURE ULCER OF UNSPECIFIED SITE, UNSPECIFIED STAGE SNOMED Code(s): 7099899981 (2) Infected decubitus ulcer Current Visit: No Status: Acute Code(s): L89.90 - PRESSURE ULCER OF UNSPECIFIED SITE, UNSPECIFIED STAGE; L08.9 - LOCAL INFECTION OF THE SKIN AND SUBCUTANEOUS TISSUE, UNSP SNOMED Code(s): 992522134 (3) Penicillin allergy Current Visit: No Status: Acute Code(s): Z88.0 - ALLERGY STATUS TO PENICILLIN SNOMED Code(s): 16760941 Plan: 1patient with a chronic nonhealing wound to bilateral gluteal area stage III pressure ulcer in this patient who did have debridement last month and did not mention any extension down to the wound culture positive for strep and MSSA and Serratia along with anaerobes and the patient was getting cefepime and Flagyl not admitted to the hospital mental status changes which could be related to cefepime however worsening drainage was consulted which has been cultured at the wound care center on 04/02/2024 and results are currently growing Hanh tropicalis 2-patient remains to be afebrile white count has been normal with a culture negative for any resistant pathogen patient currently covered with oral Diflucan, plan is for 7 to 10 days on discharge and midline should be discontinued on discharge Family the bedside multiple question concern regarding her condition has been answered in layman terms Dictation was produced using [employer] dictation software. please excuse any grammatical, word or spelling errors. Time with Patient: Less than 30
--- NOTE | 2024-04-08 13:30 | CA ---
Transthoracic Echo Report Name: Inez Gong Age: 68 Gender: F : 1955 Exam Date: 04/08/2024 11:30 Exam Location: [facility] Ht (in): 63 Wt (lb): 105 Ordering Physician: Alfonzo Mulligan MD Attending/Referring Phys: Dopeman Niurka Crooks RDCS Procedure CPT: Indications: Speech difficulty, r/o TIA Cardiac Hx: Technical Quality: Fair Contrast 1: Total Dose (mL): Contrast 2: Total Dose (mL): MEASUREMENTS (Male / Female) Normal Values 2D ECHO LV Diastolic Diameter PLAX 4.4 cm 4.2 - 5.9 / 3.9 - 5.3 cm LV Systolic Diameter PLAX 2.8 cm IVS Diastolic Thickness 1.2 cm 0.6 - 1.0 / 0.6 - 0.9 cm LVPW Diastolic Thickness 1.1 cm 0.6 - 1.0 / 0.6 - 0.9 cm LV Relative Wall Thickness 0.5 RV Internal Dim ED PLAX 3.0 cm LA Systolic Diameter LX 4.1 cm 3.0 - 4.0 / 2.7 - 3.8 cm LA Volume 55.6 cm??? 18 - 58 / 22 - 52 cm??? LA Volume Index 38.4 cm???/m??? 16 - 28 cm???/m??? M-MODE Aortic Root Diameter MM 2.4 cm LA Systolic Diameter MM 3.9 cm LA Ao Ratio MM 1.6 AV Cusp Separation MM 1.9 cm DOPPLER AV Peak Velocity 113.2 cm/s AV Peak Gradient 5.1 mmHg AV Mean Velocity 67.7 cm/s AV Mean Gradient 2.1 mmHg AV Velocity Time Integral 19.1 cm LVOT Peak Velocity 69.4 cm/s LVOT Peak Gradient 1.9 mmHg LVOT Velocity Time Integral 15.1 cm MV Area PHT 3.2 cm??? Mitral E Point Velocity 91.8 cm/s Mitral A Point Velocity 102.1 cm/s Mitral E to A Ratio 0.9 MV Deceleration Time 236.0 ms MV E' Velocity 5.2 cm/s Mitral E to MV E' Ratio 17.7 FINDINGS Left Ventricle Mildly increased left ventricular wall thickness. Left ventricular cavity size normal. Normal left ventricular systolic function with no obvious regional wall motion abnormalities. Left ventricular ejection fraction is estimated at 55-60 %. Grade 1 diastolic dysfunction. Right Ventricle Right ventricular dilatation. Right ventricular systolic pressure within normal limits. Right Atrium Normal right atrial size. Left Atrium Mildly increased left atrial diameter. Mildly increased left atrial volume. Mitral Valve Structurally normal mitral valve. Mild mitral regurgitation. Posteriorly directed mitral regurgitation jet. Aortic Valve Trileaflet aortic valve. No aortic valve stenosis or regurgitation. Tricuspid Valve Structurally normal tricuspid valve. Mild tricuspid regurgitation. Pulmonic Valve Structurally normal pulmonic valve. Pericardium No pericardial effusion. Aorta Normal size aortic root and proximal ascending aorta. CONCLUSIONS Left ventricular ejection fraction 55-60% Mild increased left ventricular wall thickness Mildly dilated left atrium Mild mitral regurgitation Mild tricuspid regurgitation No pericardial effusion Previewed by: Dr. Vipul Jackman DO (Electronically Signed) Final Date: 08 Apr 2024 13:29
--- NOTE | 2024-04-08 23:34 | P.PN ---
Subjective Progress Note Date: 04/06/24 This is a 68-year-old female, followed by Dr. Demond Chan. He recently in the hospital from March 04 through March 13.Acute infected decubitus ulcers as well as left and right buttock abscesses with failure of outpatient treatment, present on admission with preliminary culture showing Serratia marcescens with Staph aureus and strep atelectatic group B status post incision and drainage on 03/07/2024. follows with the wound care center including Dr. Moe Boyer. With wound VAC. But because of increased drainage this was discontinued. Patient is been having increased drainage to the wounds. Rather significant. Was seen at the wound care center by Dr. Boyer yesterday. Sent down for further inpatient workup. Daughter also noticed that patient's become more lethargic. Weak in the limbs. Patient discovered to have increased creatinine. Last admission wound was debrided by Dr. Alvarado from general surgery. Patient's appetite has gone down. No obvious fever and chills reported. Patient is being seen by physical therapy. Needs assistance to go from the bed to the chair. April 04, 2024: Patient more perky today. Delirium improved. Decrease in creatinine point 1.7 down to 1.43. Had about 50% of her lunch. Seen by surgery. Not for any surgical intervention. Being started on bicarbonate drip for acidosis. Given that patient has no white count no fever. ID has discontinued patient's Fortaz daptomycin and Flagyl. Diflucan was added. Denies any pain April 05, 2024: Sitting up in the recliner. Per family delirium not much improved they want to have a neurology opinion. Patient been on a bicarbonate drip. Cut back the rate to 50 cc an hour. Chest x-ray showed some cardiomegaly. No fluid. Patient does have a slight congestion. Probably viral bronchitis. Respiratory lungs are visible on "limits 04/06/2024 Patient is sitting in the chair. Awake alert and oriented x 3. No complaints of chest pain or shortness of breath. No complaints of back pain. No nausea vomiting or abdominal pain. Patient is on Diflucan for wound infection. Laboratory data showed sodium 142 potassium 3.3 chloride 111 bicarb is 28 BUN 25 and creatinine 1.[address] head and created duplex was done. 2D echocardiogram is pending. Neurology and ID is on board. Current medications reviewed.. Social history: Non-smoker. Alcohol rarely. Lives at home with daughter the latter which takes care of her. On examination: VITAL SIGNS: 98.2, 61, 17, 123 x 79, 96% room air GENERAL APPEARANCE: Up in a recliner, HEENT: Normal external appearance of nose and ear. Oral cavity normal EYES: Pupils equal. Conjunctiva normal. NECK: JVD not raised. Mass not palpable. RESPIRATORY: Respiratory effort normal. Lungs occasional crackles n. CARDIOVASCULAR: First and second sounds normal. No edema. ABDOMEN: Soft. Liver and spleen not palpable. No tenderness. No mass palpable. PSYCHIATRY: Answering simple questions MUSCULOSKELETAL: OA. Bilateral gluteal pressure ulcers INVESTIGATIONS, reviewed in the clinical context: April 05, 2024: Sodium 143 potassium 2.8 bicarb 20 BUN 30 creatinine 1.19 April 02, 2024: White count 9.2 hemoglobin 10.5 platelets 302 sodium 143 potassium 3.2 BUN 33 creatinine 1.51 EKG tracing personally reviewed by me-normal sinus rhythm. Nonspecific T wave changes. Poor R wave progression. Chest x-ray film personally reviewed by me-elevated right diaphragm. Expiratory film. CT scan brain without contrast: Nothing acute Previous labs March 13: Potassium 3.7 creatinine 0.7 Mild metabolic disease with chronic hemoglobin 7 Either lower Hematochezia Assessment and plan: -Acute on chronic left and right buttock abscesses with failure of outpatient treatment, cultures from last admission showing Serratia marcescens with Staph aureus and strep atelectatic group B status post incision and drainage on 03/07/2024. Patient follows at the wound care center with Dr. Moe Boyer.: Patient seen by ID. Since no fever no white count. Antibiotics discontinued. Seen by, Dr. Alvarado from general surgery-not for any surgical intervention Patient is being continued on Diflucan as per ID, with recent wound culture wound care center showed Hanh. -Acute kidney injury likely ATN, could be drug-induced: Some improvement Creatinine had peaked to 1.71. Now down to 1.19 IV fluids. Encourage oral intake. -Acute metabolic and toxic encephalopathy from renal failure and possibly worsening infection: Also patient is on gabapentin. In view of acute kidney injury will cut back on the dose Gabapentin dose decreased. Neurologic workup including CT head and carotid duplex was done. 2D echocardiogram is pending. TSH and B12 within normal limits. Myoclonic jerks improved after reducing gabapentin dose. -Chronic obstructive pulmonary disease, not in exacerbation -Normocytic anemia of chronic disease -Moderate metabolic acidosis from acute kidney injury. Improved now. Sodium bicarbonate drip has been discontinued. -Essential hypertension Amlodipine 2.5 mg a day -Primary osteoarthritis, prior history of back surgery Pain medication as needed. Meloxicam -Hyperlipidemia Lipitor 10 mg -Anxiety/depression history Zoloft -Constipation Metamucil -Full code Objective - Vital Signs Vital signs: Vital Signs Temp 97.5 F L 04/06/24 08:16 Pulse 70 04/06/24 08:16 Resp 16 04/06/24 08:16 BP 144/78 04/06/24 08:16 Pulse Ox 95 04/06/24 08:16 FiO2 Intake & Output 04/05/24 04/06/24 04/06/24 18:59 06:59 18:59 Intake Total 590 Balance 590 Weight 47.627 kg Intake: Oral 590 Other: Voiding Method Toilet Toilet Toilet Bedside Commode Bedside Commode Bedside Commode # Voids 1 1 1 # Bowel Movements 1 1 - Labs CBC & Chem 7: 04/07/24 03:45 04/07/24 03:45 Labs: Abnormal Lab Results - Last 24 Hours (Table) 04/06/24 Range/Units 06:33 Potassium 3.3 L (3.5-5.1) mmol/L Chloride 111 H (98-107) mmol/L BUN 25 H (7-17) mg/dL Microbiology - Last 24 Hours (Table) 04/02/24 20:50 Blood Culture - Preliminary Blood 04/02/24 20:35 Blood Culture - Preliminary Blood Assessment and Plan Time with Patient: Greater than 30
--- NOTE | 2024-04-08 23:36 | P.PN ---
Subjective Progress Note Date: 04/07/24 This is a 68-year-old female, followed by Dr. Demond Chan. He recently in the hospital from March 04 through March 13.Acute infected decubitus ulcers as well as left and right buttock abscesses with failure of outpatient treatment, present on admission with preliminary culture showing Serratia marcescens with Staph aureus and strep atelectatic group B status post incision and drainage on 03/07/2024. follows with the wound care center including Dr. Moe Boyer. With wound VAC. But because of increased drainage this was discontinued. Patient is been having increased drainage to the wounds. Rather significant. Was seen at the wound care center by Dr. Boyer yesterday. Sent down for further inpatient workup. Daughter also noticed that patient's become more lethargic. Weak in the limbs. Patient discovered to have increased creatinine. Last admission wound was debrided by Dr. Alvarado from general surgery. Patient's appetite has gone down. No obvious fever and chills reported. Patient is being seen by physical therapy. Needs assistance to go from the bed to the chair. April 04, 2024: Patient more perky today. Delirium improved. Decrease in creatinine point 1.7 down to 1.43. Had about 50% of her lunch. Seen by surgery. Not for any surgical intervention. Being started on bicarbonate drip for acidosis. Given that patient has no white count no fever. ID has discontinued patient's Fortaz daptomycin and Flagyl. Diflucan was added. Denies any pain April 05, 2024: Sitting up in the recliner. Per family delirium not much improved they want to have a neurology opinion. Patient been on a bicarbonate drip. Cut back the rate to 50 cc an hour. Chest x-ray showed some cardiomegaly. No fluid. Patient does have a slight congestion. Probably viral bronchitis. Respiratory lungs are visible on "limits 04/06/2024 Patient is sitting in the chair. Awake alert and oriented x 3. No complaints of chest pain or shortness of breath. No complaints of back pain. No nausea vomiting or abdominal pain. Patient is on Diflucan for wound infection. Laboratory data showed sodium 142 potassium 3.3 chloride 111 bicarb is 28 BUN 25 and creatinine 1.[address] head and created duplex was done. 2D echocardiogram is pending. Neurology and ID is on board. 04/07/2024 Patient is sitting in the chair. Awake alert and oriented. Mentation is much improved. No complaints of chest pain or shortness of breath. No nausea vomiting abdominal pain or diarrhea. Tolerating oral diet. Patient is also on IV hydration with half-normal saline at 75 cc/h. Laboratory data showed sodium 146 potassium 4.1 chloride 112 bicarb is 25.4 BUN 20.9 and creatinine 1.0 WBC 7.2 hemoglobin 8.5 and platelets 254. Patient is on Diflucan for decub ulcers infection of the bilateral buttocks. Current medications reviewed.. Social history: Non-smoker. Alcohol rarely. Lives at home with daughter the latter which takes care of her. On examination: VITAL SIGNS: 98.2, 61, 17, 123 x 79, 96% room air GENERAL APPEARANCE: Up in a recliner, HEENT: Normal external appearance of nose and ear. Oral cavity normal EYES: Pupils equal. Conjunctiva normal. NECK: JVD not raised. Mass not palpable. RESPIRATORY: Respiratory effort normal. Lungs occasional crackles n. CARDIOVASCULAR: First and second sounds normal. No edema. ABDOMEN: Soft. Liver and spleen not palpable. No tenderness. No mass palpable. PSYCHIATRY: Answering simple questions MUSCULOSKELETAL: OA. Bilateral gluteal pressure ulcers INVESTIGATIONS, reviewed in the clinical context: April 05, 2024: Sodium 143 potassium 2.8 bicarb 20 BUN 30 creatinine 1.19 April 02, 2024: White count 9.2 hemoglobin 10.5 platelets 302 sodium 143 potassium 3.2 BUN 33 creatinine 1.51 EKG tracing personally reviewed by me-normal sinus rhythm. Nonspecific T wave changes. Poor R wave progression. Chest x-ray film personally reviewed by me-elevated right diaphragm. Expiratory film. CT scan brain without contrast: Nothing acute Previous labs March 13: Potassium 3.7 creatinine 0.7 Mild metabolic disease with chronic hemoglobin 7 Either lower Hematochezia Assessment and plan: -Acute on chronic left and right buttock abscesses with failure of outpatient treatment, cultures from last admission showing Serratia marcescens with Staph aureus and strep atelectatic group B status post incision and drainage on 03/07/2024. Patient follows at the wound care center with Dr. Moe Boyer.: Patient seen by ID. Since no fever no white count. Antibiotics discontinued. Seen by, Dr. Alvarado from general surgery-not for any surgical intervention Patient is being continued on Diflucan as per ID, with recent wound culture wound care center showed Hanh. -Acute kidney injury likely ATN, could be drug-induced: Some improvement Creatinine had peaked to 1.71. Now down to 1.19 IV fluids. Encourage oral intake. -Acute metabolic and toxic encephalopathy from renal failure and possibly worsening infection: Also patient is on gabapentin. In view of acute kidney injury will cut back on the dose Gabapentin dose decreased. Neurologic workup including CT head and carotid duplex was done. 2D echocardiogram is pending. TSH and B12 within normal limits. Myoclonic jerks improved after reducing gabapentin dose. -Chronic obstructive pulmonary disease, not in exacerbation -Normocytic anemia of chronic disease -Moderate metabolic acidosis from acute kidney injury. Improved now. Sodium bicarbonate drip has been discontinued. -Essential hypertension Amlodipine 2.5 mg a day -Primary osteoarthritis, prior history of back surgery Pain medication as needed. Meloxicam -Hyperlipidemia Lipitor 10 mg -Anxiety/depression history Zoloft -Constipation Metamucil -Full code Objective - Vital Signs Vital signs: Vital Signs Temp 97.8 F 04/07/24 18:32 Pulse 77 04/07/24 18:32 Resp 16 04/07/24 18:32 BP 141/91 04/07/24 18:32 Pulse Ox 95 04/07/24 18:32 FiO2 Intake & Output 04/07/24 04/07/24 04/08/24 06:59 18:59 06:59 Intake Total 590 900 Balance 590 900 Intake: Intake, IV Titration 900 Amount Sodium Chloride 0.45% 1, 900 000 ml @ 75 mls/hr IV . [id number] [facility] Rx#:[id number] Oral 590 Other: Voiding Method Toilet Toilet Bedside Commode Bedside Commode # Voids 1 1 # Bowel Movements 1 - Labs CBC & Chem 7: 04/07/24 03:45 04/07/24 03:45 Labs: Abnormal Lab Results - Last 24 Hours (Table) 04/07/24 04/07/24 Range/Units 03:45 03:45 RBC 3.63 L (4.10-5.20) X 10*6/uL Hgb 8.5 L (12.0-15.0) g/dL Hct 28.3 L (37.2-46.3) % MCV 78.0 L (80.0-97.0) FL MCH 23.4 L (27.0-32.0) pg MCHC 30.0 L (32.0-37.0) g/dL RDW 23.9 H (11.5-14.5) % Eosinophils # 0.50 H (0.04-0.35) X 10*3/uL Sodium 146 H (135-145) mmol/L Chloride 112 H (96-109) mmol/L BUN/Creatinine Ratio 20.90 H (12.00-20.00) Ratio Iron 39 L (50-170) UG/DL TIBC 124 L (228-460) UG/DL Transferrin 88.3 L (204.0-354.0) mg/dL HDL Cholesterol 29.90 L (40.00-60.00) mg/dL
--- NOTE | 2024-04-08 23:43 | P.PN ---
Subjective Progress Note Date: 04/08/24 This is a 68-year-old female, followed by Dr. Demond Chan. He recently in the hospital from March 04 through March 13.Acute infected decubitus ulcers as well as left and right buttock abscesses with failure of outpatient treatment, present on admission with preliminary culture showing Serratia marcescens with Staph aureus and strep atelectatic group B status post incision and drainage on 03/07/2024. follows with the wound care center including Dr. Moe Boyer. With wound VAC. But because of increased drainage this was discontinued. Patient is been having increased drainage to the wounds. Rather significant. Was seen at the wound care center by Dr. Boyer yesterday. Sent down for further inpatient workup. Daughter also noticed that patient's become more lethargic. Weak in the limbs. Patient discovered to have increased creatinine. Last admission wound was debrided by Dr. Alvarado from general surgery. Patient's appetite has gone down. No obvious fever and chills reported. Patient is being seen by physical therapy. Needs assistance to go from the bed to the chair. April 04, 2024: Patient more perky today. Delirium improved. Decrease in creatinine point 1.7 down to 1.43. Had about 50% of her lunch. Seen by surgery. Not for any surgical intervention. Being started on bicarbonate drip for acidosis. Given that patient has no white count no fever. ID has discontinued patient's Fortaz daptomycin and Flagyl. Diflucan was added. Denies any pain April 05, 2024: Sitting up in the recliner. Per family delirium not much improved they want to have a neurology opinion. Patient been on a bicarbonate drip. Cut back the rate to 50 cc an hour. Chest x-ray showed some cardiomegaly. No fluid. Patient does have a slight congestion. Probably viral bronchitis. Respiratory lungs are visible on "limits 04/06/2024 Patient is sitting in the chair. Awake alert and oriented x 3. No complaints of chest pain or shortness of breath. No complaints of back pain. No nausea vomiting or abdominal pain. Patient is on Diflucan for wound infection. Laboratory data showed sodium 142 potassium 3.3 chloride 111 bicarb is 28 BUN 25 and creatinine 1.[address] including CT head and created duplex was done. 2D echocardiogram is pending. Neurology and ID is on board. 04/07/2024 Patient is sitting in the chair. Awake alert and oriented. Mentation is much improved. No complaints of chest pain or shortness of breath. No nausea vomiting abdominal pain or diarrhea. Tolerating oral diet. Patient is also on IV hydration with half-normal saline at 75 cc/h. Laboratory data showed sodium 146 potassium 4.1 chloride 112 bicarb is 25.4 BUN 20.9 and creatinine 1.0 WBC 7.2 hemoglobin 8.5 and platelets 254. Patient is on Diflucan for decub ulcers infection of the bilateral buttocks. 04/08/2024 Patient is resting in bed. Awake alert and oriented x 3. No complaints of víctor st pain or shortness of breath. No nausea vomiting. Patient will be continued on Diflucan for a total of 5 to 7 days as per ID recommendations. Continued on wound care. Laboratory data is not available at this time. 2D echocardiogram showed normal ejection fraction. No significant valvular abno rmalities noted. Other neurologic workup is negative. Anticipate discharge in the next 24 hours. Current medications reviewed.. Social history: Non-smoker. Alcohol rarely. Lives at home with daughter the latter which takes care of her. On examination: VITAL SIGNS: 98.2, 61, 17, 123 x 79, 96% room air GENERAL APPEARANCE: Up in a recliner, HEENT: Normal external appearance of nose and ear. Oral cavity normal EYES: Pupils equal. Conjunctiva normal. NECK: JVD not raised. Mass not palpable. RESPIRATORY: Respiratory effort normal. Lungs occasional crackles n. CARDIOVASCULAR: First and second sounds normal. No edema. ABDOMEN: Soft. Liver and spleen not palpable. No tenderness. No mass palpable. PSYCHIATRY: Answering simple questions MUSCULOSKELETAL: OA. Bilateral gluteal pressure ulcers INVESTIGATIONS, reviewed in the clinical context: April 05, 2024: Sodium 143 potassium 2.8 bicarb 20 BUN 30 creatinine 1.19 April 02, 2024: White count 9.2 hemoglobin 10.5 platelets 302 sodium 143 potassium 3.2 BUN 33 creatinine 1.51 EKG tracing personally reviewed by me-normal sinus rhythm. Nonspecific T wave changes. Poor R wave progression. Chest x-ray film personally reviewed by me-elevated right diaphragm. Expiratory film. CT scan brain without contrast: Nothing acute Previous labs March 13: Potassium 3.7 creatinine 0.7 Mild metabolic disease with chronic hemoglobin 7 Either lower Hematochezia Assessment and plan: -Acute on chronic left and right buttock abscesses with failure of outpatient treatment, cultures from last admission showing Serratia marcescens with Staph aureus and strep atelectatic group B status post incision and drainage on 03/07/2024. Patient follows at the wound care center with Dr. Moe Boyer.: Patient seen by ID. Since no fever no white count. Antibiotics discontinued. Seen by, Dr. Alvarado from general surgery-not for any surgical intervention Patient is being continued on Diflucan as per ID, with recent wound culture wound care center showed Hanh. -Acute kidney injury likely ATN, could be drug-induced: Some improvement Creatinine had peaked to 1.71. Now down to 1.19 IV fluids. Encourage oral intake. -Acute metabolic and toxic encephalopathy from renal failure and possibly worsening infection: Also patient is on gabapentin. In view of acute kidney injury will cut back on the dose Gabapentin dose decreased. Neurologic workup including CT head and carotid duplex was done. 2D echocardiogram is pending. TSH and B12 within normal limits. Myoclonic jerks improved after reducing gabapentin dose. -Chronic obstructive pulmonary disease, not in exacerbation -Normocytic anemia of chronic disease -Moderate metabolic acidosis from acute kidney injury. Improved now. Sodium bicarbonate drip has been discontinued. -Essential hypertension Amlodipine 2.5 mg a day -Primary osteoarthritis, prior history of back surgery Pain medication as needed. Meloxicam -Hyperlipidemia Lipitor 10 mg -Anxiety/depression history Zoloft -Constipation Metamucil -Full code Objective - Vital Signs Vital signs: Vital Signs Temp 97.9 F 04/08/24 19:04 Pulse 65 04/08/24 19:04 Resp 16 04/08/24 19:04 BP 143/72 04/08/24 19:04 Pulse Ox 98 04/08/24 19:04 FiO2 Intake & Output 04/08/24 04/08/24 04/09/24 06:59 18:59 06:59 Intake Total 1500 Balance 1500 Intake: Intake, IV Titration 900 Amount Sodium Chloride 0.45% 1, 900 000 ml @ 75 mls/hr IV . [id number] [facility] Rx#:[id number] Oral 600 Other: Voiding Method Toilet Toilet Bedside Commode Bedside Commode # Voids 3 1 - Labs CBC & Chem 7: 04/07/24 03:45 04/07/24 03:45 Labs: Microbiology - Last 24 Hours (Table) 04/02/24 20:50 Blood Culture - Final Blood 04/02/24 20:35 Blood Culture - Final Blood
--- NOTE | 2024-04-09 15:15 | P.PN ---
Subjective Progress Note Date: 04/08/24 Principal diagnosis: Reason for follow-up is bilateral gluteal infected pressure ulcer Patient is a 68-year-old female with a past medical history significant for hypertension COPD patient did have bilateral gluteal pressure ulcer with the patient was recently admitted at this facility patient did have a surgical debridement and culture positive for Serratia marcescens and MSSA Staphylococcus agalactiae along with anaerobes patient did get a PICC line and was advised 3-week course of IV cefepime and oral Flagyl, presenting back to the hospital with mental status changes worsening drainage. On today's evaluation that is 04/08/2024,the patient remains to be afebrile, patient is on room air not requiring supplemental oxygen and denies any shortness of breath no chest pain or cough.Patient denies having any nausea or vomiting, no abdominal pain and no diarrhea has been reported denies any worsening pain to bilateral gluteal wound area No new labs has been repeated today Objective - Vital Signs Vital signs: Vital Signs Temp 98.0 F 04/08/24 07:02 Pulse 69 04/08/24 07:02 Resp 17 04/08/24 07:02 BP 153/82 04/08/24 07:02 Pulse Ox 96 04/08/24 07:02 FiO2 Intake & Output 04/07/24 04/08/24 04/08/24 18:59 06:59 18:59 Intake Total 900 1500 Balance 900 1500 Intake: Intake, IV Titration 900 900 Amount Sodium Chloride 0.45% 1, 900 900 000 ml @ 75 mls/hr IV . [id number] [facility] Rx#:[id number] Oral 600 Other: Voiding Method Toilet Toilet Toilet Bedside Commode Bedside Commode Bedside Commode # Voids 1 3 1 # Bowel Movements 1 - Exam GENERAL DESCRIPTION: An elderly female lying in bed in no distress RESPIRATORY SYSTEM: Unlabored breathing , decreased breath sounds at bases HEART: S1 S2 regular rate and rhythm , ABDOMEN: Soft , no tenderness Bilateral gluteal stage III pressure ulcer wound is nonpalpable minimal slough tissue no surrounding redness or any foul-smelling drainage - Labs CBC & Chem 7: 04/07/24 03:45 04/07/24 03:45 Labs: Microbiology - Last 24 Hours (Table) 04/02/24 20:50 Blood Culture - Final Blood 04/02/24 20:35 Blood Culture - Final Blood Assessment and Plan (1) Decubitus ulcer Current Visit: Yes Status: Acute Code(s): L89.90 - PRESSURE ULCER OF UNSPECIFIED SITE, UNSPECIFIED STAGE SNOMED Code(s): 9300380901 (2) Infected decubitus ulcer Current Visit: No Status: Acute Code(s): L89.90 - PRESSURE ULCER OF UNSPECI FIED SITE, UNSPECIFIED STAGE; L08.9 - LOCAL INFECTION OF THE SKIN AND SUBCUTANEOUS TISSUE, UNSP SNOMED Code(s): 056758007 (3) Penicillin allergy Current Visit: No Status: Acute Code(s): Z88.0 - ALLERGY STATUS TO PENICILLIN SNOMED Code(s): 92837429 Plan: 1patient with a chronic nonhealing wound to bilateral gluteal area stage III pressure ulcer in this patient who did have debridement last month and did not mention any extension down to the wound culture positive for strep and MSSA and Serratia along with anaerobes and the patient was getting cefepime and Flagyl not admitted to the hospital mental status changes which could be related to cefepime however worsening drainage was consulted which has been cultured at the wound care center on 04/02/2024 and results are currently growing Hanh tropicalis 2-patient remains to be afebrile white count has been normal with a culture negative for any resistant pathogen patient currently covered with oral Diflucan to continue local wound care with [facility] followed by moist dressing change daily Family the bedside multiple question concern regarding her condition has been answered in layman terms Dictation was produced using [employer] dictation software. please excuse any grammatical, word or spelling errors. Time with Patient: Less than 30
--- NOTE | 2024-04-09 15:16 | P.PN ---
Subjective Progress Note Date: 04/09/24 Principal diagnosis: Reason for follow-up is bilateral gluteal infected pressure ulcer Patient is a 68-year-old female with a past medical history significant for hypertension COPD patient did have bilateral gluteal pressure ulcer with the patient was recently admitted at this facility patient did have a surgical debridement and culture positive for Serratia marcescens and MSSA Staphylococcus agalactiae along with anaerobes patient did get a PICC line and was advised 3-week course of IV cefepime and oral Flagyl, presenting back to the hospital with mental status changes worsening drainage. On today's evaluation that is 04/09/2024, the patient continues to be afebrile, the patient is on room air and breathing comfortably, the Pt denies having any chest pain or cough, the patient denies having any abdominal pain no vomiting or any diarrhea has been reported by the nursing staff and the patient denies having any worsening pain to bilateral gluteal area feeling better wants to go home No new labs has been repeated today blood culture negative local culture done at the wound care did grew Hanh Objective - Vital Signs Vital signs: Vital Signs Temp 98.1 F 04/09/24 12:50 Pulse 79 04/09/24 12:50 Resp 16 04/09/24 12:50 BP 134/97 04/09/24 12:50 Pulse Ox 98 04/09/24 12:50 FiO2 Intake & Output 04/08/24 04/09/24 04/09/24 18:59 06:59 18:59 Intake Total 1100 Balance 1100 Intake: Intake, IV Titration 500 Amount Sodium Chloride 0.45% 1, 500 000 ml @ 75 mls/hr IV . [id number] [facility] Rx#:[id number] Oral 600 Other: Voiding Method Toilet Toilet Toilet Bedside Commode Bedside Commode Bedside Commode # Voids 1 3 - Exam GENERAL DESCRIPTION: An elderly female lying in bed in no distress RESPIRATORY SYSTEM: Unlabored breathing , decreased breath sounds at bases HEART: S1 S2 regular rate and rhythm , ABDOMEN: Soft , no tenderness Bilateral gluteal stage III pressure ulcer wound with no surrounding swelling redness minimal drainage on the dressing - Labs CBC & Chem 7: 04/07/24 03:45 04/07/24 03:45 Assessment and Plan (1) Decubitus ulcer Current Visit: Yes Status: Acute Code(s): L89.90 - PRESSURE ULCER OF UNSPECIFIED SITE, UNSPECIFIED STAGE SNOMED Code(s): 6905312612 (2) Infected decubitus ulcer Current Visit: No Status: Acute Code(s): L89.90 - PRESSURE ULCER OF UNSPECIFIED SITE, UNSPECIFIED STAGE; L08.9 - LOCAL INFECTION OF THE SKIN AND SUBCUTANEOUS TISSUE, UNSP SNOMED Code(s): 998694123 (3) Penicillin allergy Current Visit: No Status: Acute Code(s): Z88.0 - ALLERGY STATUS TO PENICILLIN SNOMED Code(s): 20150124 Plan: 1patient with a chronic nonhealing wound to bilateral gluteal area stage III pressure ulcer in this patient who did have debridement last month and did not mention any extension down to the wound culture positive for strep and MSSA and Serratia along with anaerobes and the patient was getting cefepime and Flagyl not admitted to the hospital mental status changes which could be related to cefepime however worsening drainage was consulted which has been cultured at the wound care center on 04/02/2024 and results are currently growing Hanh tropicalis 2-patient remains to be afebrile white count has been normal with a culture negative for any resistant pathogen patient currently covered with oral Diflucan x 10 days on discharge to continue local wound care with Medihoney followed by moist dressing change daily and advised to follow-up with the wound care center for good local wound care if any worsening drainage redness fever or concern for infection patient can follow-up in the office Daughter at the bedside multiple question concern regarding her condition has been answered in layman terms Dictation was produced using [employer] dictation software. please excuse any grammatical, word or spelling errors. Time with Patient: Less than 30
[2024-04-09 15:22] LABS: Anisocytosis Slight; Basophils # (A) 0.1 k/uL (0-0.2); Basophils % (A) 1 %; Eosinophils # (A) 0.4 k/uL (0-0.7); Eosinophils % (A) 5 %; HCT 32.8 % (34.0-46.0); HGB 9.8 gm/dL (11.4-16.0); Hypochromasia Marked; Lymphocytes # (A) 1.4 k/uL (1.0-4.8); Lymphocytes % (A) 16 %; MCH 23.8 pg (25.0-35.0); MCHC 29.8 g/dL (31.0-37.0); MCV 79.9 fL (80.0-100.0); Microcytosis Slight; Monocytes # (A) 0.4 k/uL (0-1.0); Monocytes % (A) 5 %; Neutrophils # (A) 6.4 k/uL (1.3-7.7); Neutrophils % (A) 73 %; Platelet Count 331 k/uL (150-450); RBC 4.11 m/uL (3.80-5.40); WBC 8.8 k/uL (3.8-10.6)
--- NOTE | 2024-04-09 15:23 | P.PN ---
Subjective Progress Note Date: 04/09/24 I am seeing the patient for the first time during this admission. Please refer to Dr. Mulligan's note for further details. It seems the patient had altered mental status and was felt she has metabolic encephalopathy. It seems that the family is concerned about multiple neurological symptoms with some confusion weakness slurred speech and she had a stroke workup. Her NIH stroke scale was 0. Patient feels she is doing well and she denies of any slurred speech and overall doing great. Objective - Vital Signs Vital signs: Vital Signs Temp 98.1 F 04/09/24 12:50 Pulse 79 04/09/24 12:50 Resp 16 04/09/24 12:50 BP 134/97 04/09/24 12:50 Pulse Ox 98 04/09/24 12:50 FiO2 Intake & Output 04/08/24 04/09/24 04/09/24 18:59 06:59 18:59 Intake Total 1100 Output Total 500 Balance 1100 -500 Weight 47.627 kg Intake: Intake, IV Titration 500 Amount Sodium Chloride 0.45% 1, 500 000 ml @ 75 mls/hr IV . [id number] [facility] Rx#:[id number] Oral 600 Output: Urine 500 Other: Voiding Method Toilet Toilet Toilet Bedside Commode Bedside Commode Bedside Commode # Voids 1 3 - Exam General: Sitting up in a chair and is not in acute distress. Neuro: Patient is awake alert oriented to self place and time. Following simple commands. No aphasia. The pupils are round equal reactive to light. Visual sampson are full to confrontation. Extraocular movement is intact no nystagmus. The pupils are round equal reactive to light. Visual sampson are full to confrontation. Extraocular movement is intact no nystagmus. No facial weakness. No dysarthria Motor is just lifting upper extremity above gravity without any difficulty and wiggling her bilateral ankles - Labs CBC & Chem 7: 04/07/24 03:45 04/07/24 03:45 Assessment and Plan Assessment: * Altered mental status, likely due to metabolic encephalopathy. Reasons mu ltifactorial as mentioned below. * Patient's family concerned about multiple neurological symptoms, with some confusion, weakness, slurred speech. CT head revealed no acute process. Current NIH stroke scale is 0. Possible metabolic encephalopathy. Per daughter they think patient has prior TIA's in past. * Dehydration, with acute kidney injury. Patient was on high-dose gabapentin 600 mg 3 times daily, which probably produce neurotoxicity with worsening renal functions and myoclonic jerks. * Chronic nonhealing wound to bilateral gluteal area, stage III pressure ulcer. * COPD * Hypertension * Osteoarthritis * History of multiple neck and lower back surgeries * Mostly wheelchair-bound * Anxiety, depression Plan: Carotid Doppler: Revealed less than 50% stenosis of bilateral carotid bifurcation. Antegrade flow in both vertebral arteries. 2D echo is reported as left ventricular ejection fraction of 55 to 60%. Mild increased left ventricular wall thickness. Mild dilated left atrium. B12 472 Folate 28.9 TSH 2.38 Hemoglobin A1c 5.3 lipid pane: cholesterol 105, LDL 59, HDL 29, triglycerides 78 With the patient and her daughter via phone The daughter states patient has probably TIAs in the past. Therefore, I notified them about starting consideration of aspirin 81 mg daily but the daughter wants to hold off and they will address this as an outpatient with her PCP. We feel the patient has few episodes of severe anemia more than baseline in the past and that is why they want addressed as an outpatient with their PCP. Recommend the patient to follow-up with a neurologist as an outpatient for further evaluation. Consider neuropsych evaluation as well an MRI of the brain. Will defer the rest of the medical management to primary and other specialist Plan discussed with the patient and her daughter via phone. No further neurological workup. Sign off. Please reconsult if needed Time with Patient: Less than 30
[2024-04-09 15:24] LABS: African American GFR (CKD) >90 (>60 ml/min/1.73 sqM); Anion Gap 5 mmol/L; Blood Urea Nitrogen 11 mg/dL (7-17); Calcium 8.5 mg/dL (8.4-10.2); Carbon Dioxide 28 mmol/L (22-30); Chloride 110 mmol/L (98-107); Glucose 108 mg/dL (74-99); Non-African American GFR(CKD) 82 (>60 ml/min/1.73 sqM); Potassium 3.3 mmol/L (3.5-5.1); Sodium 143 mmol/L (137-145)
[2024-04-09 15:37] LABS: Basophils # (A) 0.08 X 10*3/uL (0.00-0.10); Basophils % (A) 0.9 %; Eosinophils # (A) 0.38 X 10*3/uL (0.04-0.35); Eosinophils % (A) 4.2 %; HCT 31.3 % (37.2-46.3); HGB 9.6 g/dL (12.0-15.0); Lymphocytes # (A) 1.76 X 10*3/uL (0.90-5.00); Lymphocytes % (A) 19.6 %; MCH 24.2 pg (27.0-32.0); MCHC 30.7 g/dL (32.0-37.0); MCV 78.8 FL (80.0-97.0); Mean Platelet Volume 10.3 FL (9.5-12.2); Monocytes # (A) 0.58 X 10*3/uL (0.20-1.00); Monocytes % (A) 6.4 %; NRBC Per 100 WBC 0 X 10*3/uL (0.00-0.01); Neutrophils # (A) 6.17 X 10*3/uL (1.80-7.70); Neutrophils % (A) 68.6 %; Platelet Count 344 X 10*3/uL (140-440); RBC 3.97 X 10*6/uL (4.10-5.20); RDW 22.8 % (11.5-14.5)
[2024-04-09 16:05] LABS: BUN/Creat Ratio 11.56 Ratio (12.00-20.00); Blood Urea Nitrogen 10.4 mg/dL (9.0-27.0); Calcium 8.9 mg/dL (8.7-10.3); Carbon Dioxide 24.9 mmol/L (21.6-31.8); Chloride 108 mmol/L (96-109); Glucose 94 mg/dL (70-110); Potassium 3.5 mmol/L (3.5-5.5); Sodium 145 mmol/L (135-145)
[2024-04-09 17:02] VITALS: BP 134/97; PULSE 79; RESP 16; TEMP 98.1
== END 2024-04-09 16:36 | disposition home health service (06) | DRG 592 ==
LOC: EC 14:22 → 5NMEDONC 19:42
PROVIDERS: ADMIT Hospitalist; ATTEND Hospitalist
DX: L89.313 Pressure ulcer of right buttock, stage 3 (principal); G92.8 Other toxic encephalopathy; N17.0 Acute kidney failure with tubular necrosis; L89.323 Pressure ulcer of left buttock, stage 3; J44.9 Chronic obstructive pulmonary disease, unspecified; E87.20 Acidosis, unspecified; L02.31 Cutaneous abscess of buttock; G25.3 Myoclonus; D63.8 Anemia in other chronic diseases classified elsewhere; I11.9 Hypertensive heart disease without heart failure; F32.A Depression, unspecified; I65.23 Occlusion and stenosis of bilateral carotid arteries; N14.2 Nephropathy induced by unspecified drug, medicament or biological substance; T42.6X5A Adverse effect of other antiepileptic and sedative-hypnotic drugs, initial encounter; M19.91 Primary osteoarthritis, unspecified site; E78.5 Hyperlipidemia, unspecified; F41.9 Anxiety disorder, unspecified; K59.00 Constipation, unspecified; H91.92 Unspecified hearing loss, left ear; E86.0 Dehydration; E87.6 Hypokalemia; M81.0 Age-related osteoporosis without current pathological fracture; R47.81 Slurred speech; R53.1 Weakness; Z96.653 Presence of artificial knee joint, bilateral; Z96.612 Presence of left artificial shoulder joint; Z99.3 Dependence on wheelchair; Z79.1 Long term (current) use of non-steroidal anti-inflammatories (NSAID); Z79.899 Other long term (current) drug therapy; Z88.0 Allergy status to penicillin; Z88.6 Allergy status to analgesic agent; Z88.5 Allergy status to narcotic agent; Z88.8 Allergy status to other drugs, medicaments and biological substances; Z97.8 Presence of other specified devices; Z86.73 Personal history of transient ischemic attack (TIA), and cerebral infarction without residual deficits; Z98.890 Other specified postprocedural states; Z86.19 Personal history of other infectious and parasitic diseases
CPT/HCPCS: 36415; 70450; 71046; 80048; 80053; 80061; 80306; 81001; 82565; 82607; 82746; 83036; 83540; 83550; 83605; 84443; 84484; 85025; 85610; 85652; 85730; 86140; 87040; 93005; 93306; 93880; 96361; 96365; 96366; 96367; 96368; 99285

== ENCOUNTER 2024-04-25 13:03 | Inpatient (IN) | payer MEDICARE, BC ==
[2024-04-25 15:20] LABS: Anisocytosis Slight; Basophils % (A) 0 %; Eosinophils # (A) 0.4 k/uL (0-0.7); Eosinophils % (A) 4 %; HCT 33.9 % (34.0-46.0); HGB 10.5 gm/dL (11.4-16.0); Hypochromasia Moderate; Lymphocytes % (A) 22 %; MCH 24.3 pg (25.0-35.0); MCHC 30.9 g/dL (31.0-37.0); MCV 78.7 fL (80.0-100.0); Mean Platelet Volume 7.4; Microcytosis Slight; Monocytes # (A) 0.3 k/uL (0-1.0); Monocytes % (A) 3 %; Neutrophils # (A) 6.6 k/uL (1.3-7.7); Neutrophils % (A) 69 %; Platelet Count 347 k/uL (150-450); RBC 4.31 m/uL (3.80-5.40); RDW 17.1 % (11.5-15.5); WBC 9.5 k/uL (3.8-10.6)
[2024-04-25 15:21] LABS: Partial Thromboplastin Time 27.8 sec (22.0-30.0)
[2024-04-25 15:23] LABS: ALT 10 U/L (4-34); AST 16 U/L (14-36); African American GFR (CKD) 74 (>60 ml/min/1.73 sqM); Albumin 3.2 g/dL (3.5-5.0); Alkaline Phosphatase 177 U/L (38-126); Amylase 39 U/L (30-110); Anion Gap 5 mmol/L; Blood Urea Nitrogen 21 mg/dL (7-17); Calcium 9.4 mg/dL (8.4-10.2); Carbon Dioxide 26 mmol/L (22-30); Chloride 111 mmol/L (98-107); Glucose 92 mg/dL (74-99); Lipase 36 U/L (23-300); Non-African American GFR(CKD) 64 (>60 ml/min/1.73 sqM); Sodium 142 mmol/L (137-145); Total Bilirubin 0.6 mg/dL (0.2-1.3); Total Protein 5.9 g/dL (6.3-8.2)
--- NOTE | 2024-04-25 15:42 | XR ---
EXAMINATION TYPE: XR KUB DATE OF EXAM: 04/25/2024 COMPARISON: NONE CLINICAL INDICATION: Female, 68 years old with history of abdominal pain; Technique: Single upright view the abdomen was obtained. FINDINGS: There is mild atelectasis or interstitial scarring in the lung bases. There is no free intraperitonea l air. There are multiple areas fluid-filled loops of nondilated bowel consistent with early or partial steffany l obstruction. Short-term follow-up is recommended. The osseous structures are diffusely osteopenic. There is vertebral plasty of 2 dorsal vertebral segments in the thoracolumbar junction. There is a chronic displaced nonhealed left cervical neck fracture. There is marked osteoarthritis of the right hip. The osseous structures are diffusely osteopenic. There are moderate compression fractures in the mid lumbar spine IMPRESSION: 1. Possible early or partial small bowel obstruction. Short-term follow-up is recommended. 2. Multiple osseous abnormalities as described above. 3. No free intraperitoneal air.
--- NOTE | 2024-04-25 16:31 | ED ---
Abdominal Pain HPI - General Source: patient, family, RN notes reviewed Mode of arrival: wheelchair Limitations: no limitations <Mikayla Sanchez - Last Filed: 04/25/24 19:37> <David Yap - Last Filed: 04/28/24 12:29> - General Chief Complaint: Abdominal Pain Stated Complaint: Bowel issue Time Seen by Provider: 04/25/24 16:29 - History of Present Illness Initial Comments: 68-year-old female companied by her daughter presented to the ER with a chief complaint of diarrhea. Daughter providing most of HPI. She states since last Monday patient has been experiencing constant diarrhea. She reports it is foul-smelling and patient has been unable to make it to the bathroom numerous times due to the urge. Daughter describes bowel movements as coffee-ground in appearance. Denies any hematochezia or melena. Patient denies any abdominal pain. Daughter reports patient has had a decreased appetite stating normal foods do not taste well. She denies any nausea or vomiting. Patient has been recently hospitalized for sacral wounds and kidney injury. She is following up with Dr. Thomas and wound care regularly. Patient was seen by Dr. Chan prior to arrival and sent to the ER for evaluation. (Mikayla Sanchez) - Related Data Home Medications Medication Instructions Recorded Confirmed Sertraline [Zoloft] 150 mg PO HS 02/01/21 04/25/24 amLODIPine [Norvasc] 2.5 mg PO DAILY 08/24/21 04/25/24 lamoTRIgine [LaMICtal] 25 mg PO DAILY 08/24/21 04/25/24 Cetirizine HCl [Zyrtec] 10 mg PO DAILY 03/04/24 04/25/24 Ergocalciferol (Vitamin D2) 1,250 mcg PO FR 03/04/24 04/25/24 [Drisdol (50,000 Iu)] Meloxicam [Mobic] 15 mg PO DAILY 03/04/24 04/25/24 hydrOXYzine HCL [Atarax] 25 mg PO TID 03/04/24 04/25/24 Nystatin 100,000 Unit/gm Powd 1 applic TOPICAL QID 04/02/24 04/25/24 [Mycostatin Powder] Cholestyramine (with Sugar) 4 gm PO AC-TID 04/25/24 04/25/24 [Questran] HYDROcodone/APAP 7.5-325MG [[place] 1 tab PO TID PRN 04/25/24 04/25/24 7.5-325] Hydrocortisone Cream 1 applic TOPICAL QID PRN 04/25/24 04/25/24 [Hydrocortisone 2.5% Cream] Nystatin/Triamcin 1 applic TOPICAL BID PRN 04/25/24 04/25/24 [Nystatin-Triamcinolone Cream] Potassium Chloride ER [K-Dur 10] 10 meq PO DAILY 04/25/24 04/25/24 Spironolactone [Aldactone] 25 mg PO DIRECTED 04/25/24 04/25/24 Previous Rx's Medication Instructions Recorded Acetaminophen Tab [Tylenol] 500 mg PO Q6HR PRN tab 03/11/24 Folic Acid 1 mg PO DAILY@1200 #30 tab 03/11/24 Ferrous Sulfate [Feosol] 325 mg PO DAILY #30 tab 04/09/24 Gabapentin [Neurontin] 200 mg PO TID #6 cap 04/09/24 Allergies Allergy/AdvReac Type Severity Reaction Status Date / Time ibuprofen [From Motrin] Allergy Rash/Hives Verified 04/25/24 17:32 oxycodone [From Percocet] Allergy Rash/Hives Verified 04/25/24 17:32 Penicillins Allergy Rash/Hives Verified 04/25/24 17:32 ferumoxytol [From Feraheme] AdvReac Intermediate Unknown Verified 04/25/24 17:32 Review of Systems ROS Other: All systems not noted in ROS Statement are negative. <Mikayla Sanchez - Last Filed: 04/25/24 19:37> ROS Other: All systems not noted in ROS Statement are negative. <David Yap - Last Filed: 04/28/24 12:29> ROS Statement: Those systems with pertinent positive or pertinent negative responses have been documented in the HPI. Past Medical History Past Medical History: Blood Disorder, COPD, Hearing Disorder / Deafness, Hypertension, Osteoarthritis (OA) Additional Past Medical History / Comment(s): Hx HTN, Iron deficiency anemia, Occ slow heart rate, sl hearing loss Lt ear, hx low potassium, hx falls, Rt shoulder prob w/ upcoming surgery. Left foot turns dark purple, rt foot sl purple w/ occ edema. pressure sores, History of Any Multi-Drug Resistant Organisms: None Reported Past Surgical History: Back Surgery, Joint Replacement, Orthopedic Surgery Additional Past Surgical History / Comment(s): Right knee replacement, knee gave out after. Herniated discs cervical neck x 3, lower back x 2; right ankle surgery, hardware later removed; bilat wrist fx with surgical repair, removed hardware rt wrist; right knee torn meniscus repair. bone marrow bx. Total left shoulder - february 2021 Past Anesthesia/Blood Transfusion Reactions: No Reported Reaction Past Psychological History: Anxiety, Depression Smoking Status: Never smoker Past Alcohol Use History: Rare Past Drug Use History: None Reported - Past Family History Mother Additional Family Medical History / Comment(s): Mother 5 years after being struck by a vehicle of complications. Father Additional Family Medical History / Comment(s): Mother 5 yrs after being struck by a vehicle of complications. <Mikayla Sanchez - Last Filed: 04/25/24 19:37> General Exam Limitations: no limitations General appearance: alert, in no apparent distress Respiratory exam: Present: normal lung sounds bilaterally. Absent: respiratory distress, wheezes, rales, rhonchi, stridor Cardiovascular Exam: Present: regular rate, normal rhythm, normal heart sounds. Absent: systolic murmur, diastolic murmur, rubs, gallop, clicks GI/Abdominal exam: Present: soft, tenderness, hyperactive bowel sounds Rectal exam: Present: other (Grade 4 sacral wounds. ) Neurological exam: Present: alert, oriented X3, CN II-XII intact Skin exam: Present: warm, dry, intact, normal color. Absent: rash <Mikayla Sanchez - Last Filed: 04/25/24 19:37> Course Vital Signs 04/25/24 04/25/24 04/25/24 13:29 16:55 19:02 Temperature 98.1 F 98.3 F 98.1 F Pulse Rate 89 73 89 Pulse Rate [ Pulse Oximetery ] Respiratory 16 16 20 Rate Blood Pressure 108/72 118/72 157/104 Blood Pressure [Left Arm] O2 Sat by Pulse 98 98 97 Oximetry 04/26/24 04/26/24 04/26/24 00:25 02:00 07:00 Temperature 97.6 F 97.6 F Pulse Rate 77 Pulse Rate [ 74 82 Pulse Oximetery ] Respiratory 16 16 16 Rate Blood Pressure 107/58 Blood Pressure 118/77 129/79 [Left Arm] O2 Sat by Pulse 98 99 97 Oximetry Medical Decision Making - Lab Data Result diagrams: 04/25/24 13:59 04/25/24 13:59 - EKG Data -: EKG Interpreted by Me <LauraMikayla - Last Filed: 04/25/24 19:37> - Lab Data Result diagrams: 04/28/24 06:01 04/28/24 06:01 <GiulianoginiDavid - Last Filed: 04/28/24 12:29> - Medical Decision Making Was pt. sent in by a medical professional or institution (, PA, DECORATING KILN OPERATOR, urgent care, hospital, or correction...) When possible be specific @ -Patient sent by Dr. Chan for evaluation of diarrhea. Did you speak to anyone other than the patient for history (EMS, parent, family, police, friend...)? What history was obtained from this source @ -Daughter aiding in HPI and past medical history. Did you review nursing and triage notes (agree or disagree)? Why? @ -I reviewed and agree with nursing and triage notes Were old charts reviewed (outside hosp., previous admission, EMS record, old EKG, old radiological studies, urgent care reports/EKG's, correction records)? Report findings @ -No old charts were reviewed Differential Diagnosis (chest pain, altered mental status, abdominal pain women, abdominal pain men, vaginal bleeding, weakness, fever, dyspnea, syncope, headache, dizziness, GI bleed, back pain, seizure, CVA, palpatations, mental health, musculoskeletal)? @ -Differential Weakness: Hypoglycemia, shock, sepsis, hyponatremia, anemia, infection, MS, ETOH, adverse medicine reaction, overdose, stroke, this is not meant to be an all-inclusive list. EKG interpreted by me (3pts min.). @ -As above X-rays interpreted by me (1pt min.). @ -None done CT interpreted by me (1pt min.). @ -CT abdomen pelvis significant for moderate pancolitis through more severe wall thickening at the distal sigmoid and rectum. No abscess or free air. Correlate with infectious or inflammatory causes. Small hiatal hernia. U/S interpreted by me (1pt. min.). @ -None done What testing was considered but not performed or refused? (CT, X-rays, U/S, labs)? Why? @ -None What meds were considered but not given or refused? Why? @ -None Did you discuss the management of the patient with other professionals (professionals i.e. , PA, DECORATING KILN OPERATOR, lab, RT, psych nurse, web content & social media manager, staff counselor, teacher, v/stol landing signal officer, egg caser)? Give summary @ -Yes, case discussed with Dr. Thomas who accepts medical admission. Was smoking cessation discussed for >3mins.? @ -No Was critical care preformed (if so, how long)? @ -No Were there social determinants of health that impacted care today? How? (Homele ssness, low income, unemployed, alcoholism, drug addiction, transportation, low edu. Level, literacy, decrease access to med. care, fpc, rehab)? @ -No Was there de-escalation of care discussed even if they declined (Discuss DNR or withdrawal of care, Hospice)? DNR status @ -No What co-morbidities impacted this encounter? (DM, HTN, Smoking, COPD, CAD, Cancer, CVA, ARF, Chemo, Hep., AIDS, mental health diagnosis, sleep apnea, morbid obesity)? @ -None Was patient admitted / discharged? Hospital course, mention meds given and route, prescriptions, significant lab abnormalities, going to OR and other pertinent info. @ -Admitted. 68-year-old female presented to the ER with chief complaint of diarrhea. History and physical exam completed. Vitals upon arrival significant for a temperature of 98.1, heart rate 89, respiratory rate 16, blood pressure 108/72, oxygen saturation 98% on room air. Patient no signs of acute distress and nontoxic-appearing. No focal abdominal tenderness. Examination of sacral wounds remarkable for bilateral grade 4 wounds. Laboratory studies obtained significant for white blood cell count 9.5, microcytic hypochromic anemia with a hemoglobin of 10.5 which appears to be at patient's baseline. Prerenal azotemia (BUN 21, creatinine 0.92). CT abdomen pelvis performed significant for moderate pancolitis. Patient received IV fluids and imodium in ER. C.dif pending. Recent C.dif per daughter negative. Admission considered due to pancolitis and dehydration. Case discussed with Dr. Thomas who accepts medical admission. Patient on clear liquid diet. GI on consult. Patient agreeable for admission. Patient admitted in stable condition. Case discussed with ED attending, Dr. Yap. Undiagnosed new problem with uncertain prognosis? @ -No Drug Therapy requiring intensive monitoring for toxicity (Heparin, Nitro, Insulin, Cardizem)? @ -No Were any procedures done? @ -No Diagnosis/symptom? @ -Pancolitis Acute, or Chronic, or Acute on Chronic? @ -Acute Uncomplicated (without systemic symptoms) or Complicated (systemic symptoms)? @ -Complicated Side effects of treatment? @ -No Exacerbation, Progression, or Severe Exacerbation? @ -No Poses a threat to life or bodily function? How? (Chest pain, USA, MS, pneumonia, PE, COPD, DKA, ARF, appy, cholecystitis, CVA, Diverticulitis, Homicidal, Suicidal, threat to staff... and all critical care pts) @ -Low likelihood (Mikayla Sanchez) - Lab Data Lab Results 04/25/24 04/25/24 04/25/24 Range/Units 13:59 13:59 13:59 WBC 9.5 (3.8-10.6) k/uL RBC 4.31 (3.80-5.40) m/uL Hgb 10.5 L (11.4-16.0) gm/dL Hct 33.9 L (34.0-46.0) % MCV 78.7 L (80.0-100.0) fL MCH 24.3 L (25.0-35.0) pg MCHC 30.9 L (31.0-37.0) g/dL RDW 17.1 H (11.5-15.5) % Plt Count 347 (150-450) k/uL MPV 7.4 Neutrophils % 69 % Lymphocytes % 22 % Monocytes % 3 % Eosinophils % 4 % Basophils % 0 % Neutrophils # 6.6 (1.3-7.7) k/uL Lymphocytes # 2.0 (1.0-4.8) k/uL Monocytes # 0.3 (0-1.0) k/uL Eosinophils # 0.4 (0-0.7) k/uL Basophils # 0.0 (0-0.2) k/uL Hypochromasia Moderate Anisocytosis Slight Microcytosis Slight PT 11.0 (10.0-12.5) sec INR 1.0 (<1.2) APTT 27.8 (22.0-30.0) sec Sodium (137-145) mmol/L Potassium (3.5-5.1) mmol/L Chloride (98-107) mmol/L Carbon Dioxide (22-30) mmol/L Anion Gap mmol/L BUN (7-17) mg/dL Creatinine (0.52-1.04) mg/dL Est GFR (CKD-EPI)AfAm (>60 ml/min/1.73 sqM) Est GFR (CKD-EPI)NonAf (>60 ml/min/1.73 sqM) Glucose (74-99) mg/dL Calcium (8.4-10.2) mg/dL Total Bilirubin (0.2-1.3) mg/dL AST (14-36) U/L ALT (4-34) U/L Alkaline Phosphatase (38-126) U/L Troponin I (0.000-0.034) ng/mL Total Protein (6.3-8.2) g/dL Albumin (3.5-5.0) g/dL Amylase (30-110) U/L Lipase (23-300) U/L Urine Color Light Yellow Urine Appearance Clear (Clear) Urine pH 6.0 (5.0-8.0) Ur Specific [place] 1.035 (1.001-1.035) Urine Protein Trace H (Negative) Urine Glucose (UA) Negative (Negative) Urine Ketones 1+ H (Negative) Urine Blood Negative (Negative) Urine Nitrite Negative (Negative) Urine Bilirubin Negative (Negative) Urine Urobilinogen <2.0 (<2.0) mg/dL Ur Leukocyte Esterase Negative (Negative) C. difficile (EIA) Intrp (Negative) 04/25/24 04/25/24 04/25/24 Range/Units 13:59 13:59 19:00 WBC (3.8-10.6) k/uL RBC (3.80-5.40) m/uL Hgb (11.4-16.0) gm/dL Hct (34.0-46.0) % MCV (80.0-100.0) fL MCH (25.0-35.0) pg MCHC (31.0-37.0) g/dL RDW (11.5-15.5) % Plt Count (150-450) k/uL MPV Neutrophils % % Lymphocytes % % Monocytes % % Eosinophils % % Basophils % % Neutrophils # (1.3-7.7) k/uL Lymphocytes # (1.0-4.8) k/uL Monocytes # (0-1.0) k/uL Eosinophils # (0-0.7) k/uL Basophils # (0-0.2) k/uL Hypochromasia Anisocytosis Microcytosis PT (10.0-12.5) sec INR (<1.2) APTT (22.0-30.0) sec Sodium 142 (137-145) mmol/L Potassium 4.0 (3.5-5.1) mmol/L Chloride 111 H (98-107) mmol/L Carbon Dioxide 26 (22-30) mmol/L Anion Gap 5 mmol/L BUN 21 H (7-17) mg/dL Creatinine 0.92 (0.52-1.04) mg/dL Est GFR (CKD-EPI)AfAm 74 (>60 ml/min/1.73 sqM) Est GFR (CKD-EPI)NonAf 64 (>60 ml/min/1.73 sqM) Glucose 92 (74-99) mg/dL Calcium 9.4 (8.4-10.2) mg/dL Total Bilirubin 0.6 (0.2-1.3) mg/dL AST 16 (14-36) U/L ALT 10 (4-34) U/L Alkaline Phosphatase 177 H (38-126) U/L Troponin I <0.012 (0.000-0.034) ng/mL Total Protein 5.9 L (6.3-8.2) g/dL Albumin 3.2 L (3.5-5.0) g/dL Amylase 39 (30-110) U/L Lipase 36 (23-300) U/L Urine Color Urine Appearance (Clear) Urine pH (5.0-8.0) Ur Specific [place] (1.001-1.035) Urine Protein (Negative) Urine Glucose (UA) (Negative) Urine Ketones (Negative) Urine Blood (Negative) Urine Nitrite (Negative) Urine Bilirubin (Negative) Urine Urobilinogen (<2.0) mg/dL Ur Leukocyte Esterase (Negative) C. difficile (EIA) Intrp Negative (Negative) - EKG Data EKG Comments: EKG taken at 16: 47 showing a sinus rhythm with no acute ST segment or T wave abnormalities. Ventricular rate 76, IN interval 191, QRS duration 96, QT/QTc 389/419. (Mikayla Sanchez) Disposition Time of Disposition: 19:14 <Mikayla Sanchez - Last Filed: 04/25/24 19:37> <David Yap - Last Filed: 04/28/24 12:29> Clinical Impression: Pancolitis, Decubitus ulcer Disposition: ADMITTED IP TO THIS HOSP Condition: Good
[2024-04-25] MEDS: SODIUM CHLORIDE 0.9% 500 ML 500 ML IV STA (17:13)
--- NOTE | 2024-04-25 18:38 | CT ---
EXAMINATION TYPE: CT abdomen pelvis w con DATE OF EXAM: 04/25/2024 COMPARISON: CT pelvis 03/05/2024 HISTORY: 68-year-old female with diarrhea, DARK STOOL/LOSS OF APPETITE TECHNIQUE: Contiguous axial scanning of the abdomen and pelvis following administration of 100 ml Iso adan 300 IV contrast. Delayed images through the kidneys and coronal/sagittal reconstructions perform ed. CT DLP: 502.2 mGycm Automated exposure control for dose reduction was used. FINDINGS: There is generalized anasarca unchanged. Heart borderline in size without pericardial effusion. Patch y bibasilar densities probably areas of atelectasis. There is a small hiatal hernia present. No focal liver lesion or biliary ductal dilatation. Portal venous system is patent. Gallbladder, adrenal glands, left kidney, and pancreas within normal limits. Rounded calcifications spleen and at the splenic hilum probably vascular calcifications. Tiny 6 mm renal cortical cyst lower pole right kidney. No dilated small bowel, free fluid, or free air. No mesenteric or retroperitoneal lymphadenopathy. Scattered liquid stool throughout the colon along with scattered mild to moderate circumferential col onic wall thickening. There is somewhat ahaustral appearance to the sigmoid colon with more moderate to severe circumferential wall thickening distal sigmoid and rectum. Bladder is collapsed. Uterus is anteverted. Ovaries not well delineated from adjacent bowel loops. No abnormal fluid collection in the pelvis or pelvic lymphadenopathy. Severe degenerative change right hip. Ununited fractures right pubic bones. Chronic ununited fracture left femoral neck. Old healed fractures left pubic bone. New sclerosis and irregularity right sacroi liac probably healing change. Bilateral sacral decubitus ulcers at the posterior iliac bones without osseous destruction seen. Previous vertebroplasty change scattered throughout and endplate deformities throughout the visualize d spine, likely chronic. IMPRESSION: 1. MODERATE PANCOLITIS THOUGH MORE SEVERE WALL THICKENING AT THE DISTAL SIGMOID AND RECTUM. NO ABSCES S OR FREE AIR. CORRELATE FOR INFECTIOUS OR INFLAMMATORY CAUSES. 2. Incompletely healed fractures right pubic bone. Bilateral, deep decubitus ulcers overlying the pos terior iliac bones with partial healing change present compared to 03/05/2024. Chronic ununited fractu re left femoral neck. New sclerosis right sacral ala likely healing from interval insufficiency fract ure. 3. Small hiatal hernia.
[2024-04-25] MEDS ORDERED: ONDANSETRON 4 MG/2 ML VIAL IVP PRN (19:02)
[2024-04-25] MEDS ORDERED: ACETAMINOPHEN TAB 325 MG TAB PO PRN (19:02)
[2024-04-25] MEDS ORDERED: NALOXONE 0.4 MG/ML 1 ML VIAL IV PRN (19:02)
[2024-04-25] MEDS: LOPERAMIDE 2 MG CAP PO STA (19:50)
[2024-04-25] MEDS: SODIUM CHLORIDE 0.9% 1,000 ML IV SCH (19:51)
--- NOTE | 2024-04-26 10:37 | P.CONS ---
History of Present Illness - Reason for Consult Consult date: 04/26/24 Pancolitis Requesting physician: Mikayla Sanchez - Chief Complaint Diarrhea - History of Present Illness This is a pleasant 68-year-old female with multiple comorbidities and quite debilitated for her age. She had presented to the emergency department with complaints of diarrhea and abdominal pain for the last week. Past medical history includes chronic infected sacral wounds, iron deficiency anemia, COPD, hypertension and osteoarthritis.. Her daughter is at the bedside and gives most of the history. Patient has been in and out of the hospital 3 times within the last month and a half. She has chronic sacral wounds that have been infected according to the daughter multiple times. Patient's daughter states last Monday through Monday she did have some dark black stools however then that resolved. She continues to have multiple loose stools daily. Reports 8-10 a day and at night she was going about every 2 hours[address] She had seen Dr[address] Thomas to follow-up for her infected sacral wound and he prescribed Questran and also check stool for C. difficile colitis which was negative. She continued to have diarrhea and did not take the Questran as prescribed. Daughter was concerned that she was becoming dehydrated and was directed to come to the hospital by her PCP Dr. Chan. She has been on recent IV antibiotics cefepime for 21 days, then that was stopped and she was recently on oral Flagyl and Diflucan both which have been completed. Repeat stool for C. difficile was collected here at the hospital that was negative. Patient was given Imodium in the emergency department yesterday which she states helped with the diarrhea but she had return diarrhea this morning. It is nonbloody. Currently denying any abdominal pain, nausea or vomiting. She has been afebrile. Last colonoscopy they believe was 10 to 15 years ago. Admitting labs: WBC 9.5 hemoglobin 10.5 platelet count 347,000 INR 1.0 sodium 142 potassium 4.0 BUN 21 creatinine 0.9 total bilirubin 0.6 AST 16 ALT 10 alkaline phosphatase 177 amylase 39 [address] abdomen pelvis with contrast reports moderate pancolitis though more severe wall thickening at the distal sigmoid and rectum. No abscess or free air. Correlate for infectious or inflammatory causes. Incompletely healed fractures right pubic bone. Bilateral deep decubitus ulcers overlying the posterior iliac bones with partial healing change present compared to 03/05/2024. Chronic ununited fracture left femoral neck. New sclerosis right sacral likely healing from interval insufficiency fracture. Small hiatal hernia. Review of Systems REVIEW OF SYSTEMS: CARDIOPULMONARY: No chest pain or shortness of breath. Gastrointestinal: Abdominal pain. No nausea or vomiting. No hematemesis, coffee-ground emesis. No rectal bleeding, or melena. Diarrhea for 1 week, multiple episodes a day. GENITOURINARY: No dysuria or hematuria. MUSCULOSKELETAL: Reports normal range of motion., Joint pain. SKIN: No rashes. No jaundice. ENDOCRINE: No chills, fevers. No excessive weight gain or loss. No polydipsia or polyuria. PSYCHIATRIC: Unremarkable. NEUROLOGY: No change in mental status. Denies dizziness, headache. ENT: Vision unremarkable. CONSTITUTIONAL: No recent weight loss. No fever, chills, night sweats. Past Medical History Past Medical History: Blood Disorder, COPD, Hearing Disorder / Deafness, Hypertension, Osteoarthritis (OA) Additional Past Medical History / Comment(s): Hx HTN, Iron deficiency anemia, Occ slow heart rate, sl hearing loss Lt ear, hx low potassium, hx falls, Rt shoulder prob w/ upcoming surgery. Left foot turns dark purple, rt foot sl purple w/ occ edema. pressure sores, History of Any Multi-Drug Resistant Organisms: None Reported Past Surgical History: Back Surgery, Joint Replacement, Orthopedic Surgery Additional Past Surgical History / Comment(s): Right knee replacement, knee gave out after. Herniated discs cervical neck x 3, lower back x 2; right ankle surgery, hardware later removed; bilat wrist fx with surgical repair, removed hardware rt wrist; right knee torn meniscus repair. bone marrow bx. Total left shoulder - february 2021 Past Anesthesia/Blood Transfusion Reactions: No Reported Reaction Past Psychological History: Anxiety, Depression Smoking Status: Never smoker Past Alcohol Use History: Rare Past Drug Use History: None Reported - Past Family History Mother Additional Family Medical History / Comment(s): Mother 5 years after being struck by a vehicle of complications. Father Additional Family Medical History / Comment(s): Mother 5 yrs after being struck by a vehicle of complications. Medications and Allergies Home Medications Medication Instructions Recorded Confirmed Type Sertraline [Zoloft] 150 mg PO HS 02/01/21 04/25/24 History amLODIPine [Norvasc] 2.5 mg PO DAILY 08/24/21 04/25/24 History lamoTRIgine [LaMICtal] 25 mg PO DAILY 08/24/21 04/25/24 History Cetirizine HCl [Zyrtec] 10 mg PO DAILY 03/04/24 04/25/24 History Ergocalciferol (Vitamin D2) 1,250 mcg PO FR 03/04/24 04/25/24 History [Drisdol (50,000 Iu)] Meloxicam [Mobic] 15 mg PO DAILY 03/04/24 04/25/24 History hydrOXYzine HCL [Atarax] 25 mg PO TID 03/04/24 04/25/24 History Acetaminophen Tab [Tylenol] 500 mg PO Q6HR PRN tab 03/11/24 04/25/24 Rx Folic Acid 1 mg PO DAILY@1200 #30 tab 03/11/24 04/25/24 Rx Nystatin 100,000 Unit/gm Powd 1 applic TOPICAL QID 04/02/24 04/25/24 History [Mycostatin Powder] Ferrous Sulfate [Feosol] 325 mg PO DAILY #30 tab 04/09/24 04/25/24 Rx Gabapentin [Neurontin] 200 mg PO TID #6 cap 04/09/24 04/25/24 Rx Cholestyramine (with Sugar) 4 gm PO AC-TID 04/25/24 04/25/24 History [Questran] HYDROcodone/APAP 7.5-325MG [[place] 1 tab PO TID PRN 04/25/24 04/25/24 History 7.5-325] Hydrocortisone Cream 1 applic TOPICAL QID PRN 04/25/24 04/25/24 History [Hydrocortisone 2.5% Cream] Nystatin/Triamcin 1 applic TOPICAL BID PRN 04/25/24 04/25/24 History [Nystatin-Triamcinolone Cream] Potassium Chloride ER [K-Dur 10] 10 meq PO DAILY 04/25/24 04/25/24 History Spironolactone [Aldactone] 25 mg PO DIRECTED 04/25/24 04/25/24 History Allergies Allergy/AdvReac Type Severity Reaction Status Date / Time ibuprofen [From Motrin] Allergy Rash/Hives Verified 04/25/24 17:32 oxycodone [From Percocet] Allergy Rash/Hives Verified 04/25/24 17:32 Penicillins Allergy Rash/Hives Verified 04/25/24 17:32 ferumoxytol [From Feraheme] AdvReac Intermediate Unknown Verified 04/25/24 17:32 Physical Exam Vitals: Vital Signs Temp Pulse Pulse Resp BP BP Pulse Ox 04/26/24 02:00 97.6 F 74 16 118/77 99 04/26/24 00:25 77 16 107/58 98 04/25/24 19:02 98.1 F 89 20 157/104 97 04/25/24 16:55 98.3 F 73 16 118/72 98 04/25/24 13:29 98.1 F 89 16 108/72 98 Intake and Output 04/25/24 04/25/24 04/26/24 14:59 22:59 06:59 Other: Weight 47.627 kg Results CBC & Chem 7: 04/25/24 13:59 04/25/24 13:59 Labs: Abnormal Lab Results - Last 24 Hours (Table) 04/25/24 04/25/24 Range/Units 13:59 13:59 Hgb 10.5 L (11.4-16.0) gm/dL Hct 33.9 L (34.0-46.0) % MCV 78.7 L (80.0-100.0) fL MCH 24.3 L (25.0-35.0) pg MCHC 30.9 L (31.0-37.0) g/dL RDW 17.1 H (11.5-15.5) % Chloride 111 H (98-107) mmol/L BUN 21 H (7-17) mg/dL Alkaline Phosphatase 177 H (38-126) U/L Total Protein 5.9 L (6.3-8.2) g/dL Albumin 3.2 L (3.5-5.0) g/dL Comments: CT abdomen pelvis with contrast reports moderate pancolitis though more severe wall thickening at the distal sigmoid and rectum. No abscess or free air. Correlate for infectious or inflammatory causes. Incompletely healed fractures right pubic bone. Bilateral deep decubitus ulcers overlying the posterior iliac bones with partial healing change present compared to 03/05/2024. Chronic ununited fracture left femoral neck. New sclerosis right sacral likely healing from interval insufficiency fracture. Small hiatal hernia. KUB x-ray reports possible early or partial small bowel obstruction. Short-term follow-up is recommended. Multiple osseous abnormalities as described above. No free intraperitoneal air. Assessment and Plan (1) Pancolitis Narrative/Plan: 68-year-old female presenting to the hospital with multiple episodes of diarrhea over the last 1 week duration with some lower abdominal cramping. CT abdomen pelvis reporting pancolitis. Patient has been on multiple antibiotics recently for infected decubitus sacral wounds. Bowel movements are nonbloody, they are 8-10 a day and up to every couple hours during the night. Stool was checked for C. difficile toxin which was negative. Will check stool cultures. Consider adding Questran or Imodium once stool cultures have been collected. Likely secondary to long-term antibiotic use. No plans on endoscopic evaluation at this time. Continue to treat symptomatically. May need colonoscopy if symptoms do not improve. Current Visit: Yes Status: Acute Code(s): K51.00 - ULCERATIVE (CHRONIC) PANCOLITIS WITHOUT COMPLICATIONS SNOMED Code(s): 394603605 (2) Chronic iron deficiency anemia Current Visit: Yes Status: Acute Code(s): D50.9 - IRON DEFICIENCY ANEMIA, UNSPECIFIED SNOMED Code(s): 15217245 (3) Decubitus ulcer Current Visit: Yes Status: Acute Code(s): L89.90 - PRESSURE ULCER OF UNSPECIFIED SITE, UNSPECIFIED STAGE SNOMED Code(s): 7424037688 Plan: 1. Continue symptomatic and supportive care 2. Diet as tolerated 3. Stool cultures ordered 4. Once stool cultures are collected May consider Questran and or Imodium 5. Iron studies and ferritin ordered, patient has history of iron deficiency anemia 6. Continue iron 7. No plans at this time for colonoscopy. If symptoms continue may need to consider. Thank you for this consultation, we will sign off at this time. Patient may follow-up as an outpatient if diarrhea does not improve. Thank you for allowing us to participate in the care of the patient, the GI service will sign off, gastroenterology will not be available at the hospital this weekend and through next week. If further evaluation by gastroenterology is required the patient will need transfer as per the primary team's discretion. Dr. Capri Redding I agree with the dictator's note, documented as a scribe by Vikki Rogers.
[2024-04-26 11:44] LABS: Appearance,Urine Clear (Clear); Bilirubin,Urine Negative (Negative); Blood,Urine Negative (Negative); Color,Urine Light Yellow; Glucose,Urine (UA) Negative (Negative); Ketones,Urine 1+ (Negative); Leukocyte Esterase,Urine Negative (Negative); Nitrite,Urine Negative (Negative); Protein,Urine Trace (Negative); Specific Gravity,Urine 1.035 (1.001-1.035); Urobilinogen,Urine <2.0 mg/dL (<2.0)
[2024-04-26] MEDS: GABAPENTIN 100 MG CAP PO SCH (13:14)
[2024-04-26] MEDS: FOLIC ACID 1 MG TAB PO SCH (13:15)
[2024-04-26] MEDS: ENOXAPARIN 40 MG/0.4 ML SYRINGE SQ SCH (13:16)
[2024-04-26] MEDS: ERGOCALCIFEROL 1,250 MCG (50,000 IU) CAPSULE PO SCH (13:16)
[2024-04-26] MEDS: lamoTRIgine 25 MG TAB PO SCH (13:16)
[2024-04-26] MEDS: hydrOXYzine HCL 25 MG TAB PO SCH (13:16)
[2024-04-26] MEDS: NYSTATIN 100,000 UNIT/GM POWD 15 GM TOPICAL SCH (13:16)
[2024-04-26] MEDS: CHOLESTYRAMINE (WITH SUGAR) 4 GM PACKET PO SCH (13:17)
[2024-04-26] MEDS: LACTOBACILLUS ACIDOPHILUS/PECT 1 EACH CAPSULE PO SCH (13:22)
[2024-04-26] MEDS: HYDROcodone/APAP 7.5-325MG 1 EACH TAB PO PRN (13:28)
[2024-04-26] MEDS: metroNIDAZOLE-NS PMX 500 MG in SALINE 1 100ML.BAG IVPB SCH (15:20)
[2024-04-26] MEDS: LORATADINE 10 MG TAB PO SCH (16:11)
[2024-04-26] MEDS: TRIAMCINOLONE 0.1% CREAM 80 GM TUBE TOPICAL SCH (16:54)
[2024-04-26] MEDS: NYSTATIN 100,000UNIT/GM CREAM 30 GM TUBE TOPICAL SCH (16:55)
[2024-04-26] MEDS ORDERED: NYSTAT-TRIAMCIN 100,000-0.1 UNIT/GM-% CREAM 30 GM TUBE TOPICAL SCH (17:00)
[2024-04-26] MEDS: TRIAMCINOLONE 0.1% CREAM 80 GM TUBE TOPICAL ONE (17:21)
[2024-04-26] MEDS: NYSTATIN 100,000UNIT/GM CREAM 30 GM TUBE TOPICAL ONE (17:21)
--- NOTE | 2024-04-26 19:37 | P.CONS ---
History of Present Illness - Reason for Consult Consult date: 04/26/24 - History of Present Illness Patient is a 68-year-old female with a past medical history significant for hypertension osteoarthritis COPD patient also have a history of bilateral gluteal with secondary cellulitis and wound infection for the patient has nonhealing wound received multiple antibiotic therapy last discharge patient was advised no antibiotics and to continue with local wound care however the patient was brought to the office by the daughter on Monday concerning for more erythema around the wound patient did have some slough tissue to the left gluteal wound culture obtained and the patient was advised Mycolog cream to the erythematous area patient also have diarrhea for stools positive was checked which was negative patient not been presenting back to the hospital for evaluation of diarrhea that has been getting worse for the last few days patient did have multiple episodes of zoster denies having any blood or mucus in the stool has been complaining of some cramping lower abdominal pain mild to moderate intensity patient also complaining of drainage from the right gluteal wound more than the left and discomfort associated with there is moderate to mild without any radiation patient presented to the hospital have white count 9.5 creatinine was 0.92 liver enzymes are normal amylase lipase was normal urine was negative patient did have stool for CT which came back negative CT abdominal pelvis did shows evidence of pancolitis infectious he was consulted for further management Past Medical History Past Medical History: Blood Disorder, COPD, Hearing Disorder / Deafness, Hypertension, Osteoarthritis (OA) Additional Past Medical History / Comment(s): Hx HTN, Iron deficiency anemia, Occ slow heart rate, sl hearing loss Lt ear, hx low potassium, hx falls, Rt shoulder prob w/ upcoming surgery. Left foot turns dark purple, rt foot sl purple w/ occ edema. pressure sores, History of Any Multi-Drug Resistant Organisms: None Reported Past Surgical History: Back Surgery, Joint Replacement, Orthopedic Surgery Additional Past Surgical History / Comment(s): Right knee replacement, knee gave out after. Herniated discs cervical neck x 3, lower back x 2; right ankle surgery, hardware later removed; bilat wrist fx with surgical repair, removed hardware rt wrist; right knee torn meniscus repair. bone marrow bx. Total left shoulder - february 2021 Past Anesthesia/Blood Transfusion Reactions: No Reported Reaction Past Psychological History: Anxiety, Depression Smoking Status: Never smoker Past Alcohol Use History: Rare Past Drug Use History: None Reported - Past Family History Mother Additional Family Medical History / Comment(s): Mother 5 years after being struck by a vehicle of complications. Father Additional Family Medical History / Comment(s): Mother 5 yrs after being struck by a vehicle of complications. Medications and Allergies Home Medications Medication Instructions Recorded Confirmed Type Sertraline [Zoloft] 150 mg PO HS 02/01/21 04/25/24 History amLODIPine [Norvasc] 2.5 mg PO DAILY 08/24/21 04/25/24 History lamoTRIgine [LaMICtal] 25 mg PO DAILY 08/24/21 04/25/24 History Cetirizine HCl [Zyrtec] 10 mg PO DAILY 03/04/24 04/25/24 History Ergocalciferol (Vitamin D2) 1,250 mcg PO FR 03/04/24 04/25/24 History [Drisdol (50,000 Iu)] Meloxicam [Mobic] 15 mg PO DAILY 03/04/24 04/25/24 History hydrOXYzine HCL [Atarax] 25 mg PO TID 03/04/24 04/25/24 History Acetaminophen Tab [Tylenol] 500 mg PO Q6HR PRN tab 03/11/24 04/25/24 Rx Folic Acid 1 mg PO DAILY@1200 #30 tab 03/11/24 04/25/24 Rx Nystatin 100,000 Unit/gm Powd 1 applic TOPICAL QID 04/02/24 04/25/24 History [Mycostatin Powder] Ferrous Sulfate [Feosol] 325 mg PO DAILY #30 tab 04/09/24 04/25/24 Rx Gabapentin [Neurontin] 200 mg PO TID #6 cap 04/09/24 04/25/24 Rx Cholestyramine (with Sugar) 4 gm PO AC-TID 04/25/24 04/25/24 History [Questran] HYDROcodone/APAP 7.5-325MG [[place] 1 tab PO TID PRN 04/25/24 04/25/24 History 7.5-325] Hydrocortisone Cream 1 applic TOPICAL QID PRN 04/25/24 04/25/24 History [Hydrocortisone 2.5% Cream] Nystatin/Triamcin 1 applic TOPICAL BID PRN 04/25/24 04/25/24 History [Nystatin-Triamcinolone Cream] Potassium Chloride ER [K-Dur 10] 10 meq PO DAILY 04/25/24 04/25/24 History Spironolactone [Aldactone] 25 mg PO DIRECTED 04/25/24 04/25/24 History Allergies Allergy/AdvReac Type Severity Reaction Status Date / Time ibuprofen [From Motrin] Allergy Rash/Hives Verified 04/25/24 17:32 oxycodone [From Percocet] Allergy Rash/Hives Verified 04/25/24 17:32 Penicillins Allergy Rash/Hives Verified 04/25/24 17:32 ferumoxytol [From Feraheme] AdvReac Intermediate Unknown Verified 04/25/24 17:32 Physical Exam Vitals: Vital Signs Temp Pulse Pulse Resp BP BP Pulse Ox 04/26/24 07:00 97.6 F 82 16 129/79 97 04/26/24 02:00 97.6 F 74 16 118/77 99 04/26/24 00:25 77 16 107/58 98 04/25/24 19:02 98.1 F 89 20 157/104 97 04/25/24 16:55 98.3 F 73 16 118/72 98 Intake and Output 04/25/24 04/26/24 04/26/24 22:59 06:59 14:59 Intake Total 118 Balance 118 Intake: Oral 118 Other: Voiding Method Toilet # Voids 1 Results CBC & Chem 7: 04/25/24 13:59 04/25/24 13:59 Labs: Abnormal Lab Results - Last 24 Hours (Table) 04/25/24 04/25/24 04/25/24 Range/Units 13:59 13:59 13:59 Hgb 10.5 L (11.4-16.0) gm/dL Hct 33.9 L (34.0-46.0) % MCV 78.7 L (80.0-100.0) fL MCH 24.3 L (25.0-35.0) pg MCHC 30.9 L (31.0-37.0) g/dL RDW 17.1 H (11.5-15.5) % Chloride 111 H (98-107) mmol/L BUN 21 H (7-17) mg/dL Alkaline Phosphatase 177 H (38-126) U/L Total Protein 5.9 L (6.3-8.2) g/dL Albumin 3.2 L (3.5-5.0) g/dL Urine Protein Trace H (Negative) Urine Ketones 1+ H (Negative) Assessment and Plan Plan: 1patient with the significant diarrhea and this patient has been exposed to antibiotic therapy with a CT showing evidence of pancolitis highly suspicious for C. difficile colitis stool for C. difficile EIA came back negative however keeping in mind high clinical suspicion for C. difficile we will check a PCR and treat if positive. 2patient also has bilateral gluteal wound noticed to have a drainage from the right gluteal wound with recent culture positive for MSSA and Bacteroides species 3we will start IV Flagyl that should help with diarrhea as well as a bacteroids to the right gluteal wound 4if the stool for C. difficile PCR came back negative will add Rocephin 2 g daily 5local wound care the diagnosis of the dressing change daily Multiple question concern has been answered We will follow on clinical condition and cultures to further adjust medication if needed Thank you for this consultation we will follow the patient along with you Dictation was produced using [email or web address] dictation software. please excuse any grammatical, word or spelling errors.
[2024-04-26] MEDS: SERTRALINE 50 MG TAB PO SCH (20:41)
--- NOTE | 2024-04-26 22:01 | P.HPIM ---
History of Present Illness H&P Date: 04/26/24 Chief Complaint: Diarrhea This is a 68-year-old female, followed by Dr. Demond Chan. in the hospital from March 04 through March 13.Acute infected decubitus ulcers as well as left and right buttock abscesses with failure of outpatient treatment, present on admission with preliminary culture showing Serratia marcescens with Staph aureus and strep atelectatic group B status post incision and drainage on 03/07/2024. Also was in the hospital from April 03 through April 09. follows with the wound care center including Dr. Moe Boyer. With wound VAC. She has had a few debridements. And course of antibiotics. When patient left the hospital she was doing well. Eating fine. For about a week now patient is having anywhere from 6-10 mucousy mushy very malodorous bowel movements. C. difficile tested twice was negative. She also went to see Dr. William OLEARY in the office. We did some cultures of the wound. Appetite has been low. Chills have been present. Most of the history is obtained by the daughter at the bedside. As patient is very hard of hearing. CT scan did show colitis. For which GI was consulted. Patient denied any abdominal pain. No blood in the stool. Review of systems: GEN.: Tired decreased appetite EYES: None HEENT: Hard of hearing NECK: None RESPIRATORY: None CARDIOVASCULAR: None GASTROINTESTINAL: As above GENITOURINARY: None MUSCULOSKELETAL: Joint pains LYMPHATICS: None HEMATOLOGICAL: None PSYCHIATRY: Bit anxious NEUROLOGICAL: None Social history: Non-smoker. Alcohol rarely. Lives at home with daughter the latter which takes care of her. On examination: VITAL SIGNS: 98.1, 89, 16, 108 x 72, 98% room air GENERAL APPEARANCE: Lying in bed, a bit tired HEENT: Normal external appearance of nose and ear. Oral cavity normal EYES: Pupils equal. Conjunctiva normal. NECK: JVD not raised. Mass not palpable. RESPIRATORY: Respiratory effort normal. Lungs occasional crackles n. CARDIOVASCULAR: First and second sounds normal. No edema. ABDOMEN: Soft. Liver and spleen not palpable. Mild tenderness. No mass palpable. PSYCHIATRY: Answering simple questions MUSCULOSKELETAL: OA. Bilateral gluteal pressure ulcers INVESTIGATIONS, reviewed in the clinical context: April 25, 2024: White count 9.5 hemoglobin 10.5 platelets 347 sodium 142 potassium 4 creatinine 0.[address] abdomen pelvis: Moderate pancolitis through more severe wall thickening at the distal sigmoid and rectum. No abscess or free air. Previous labs March 13: Potassium 3.7 creatinine 0.7 Assessment and plan: -Acute on chronic left and right buttock abscesses with failure of outpatient treatment, cultures from last admission showing Serratia marcescens with Staph aureus and strep atelectatic group B status post incision and drainage on 03/07/2024. Normally follows at the wound care center with Dr. Moe Boyer.: Patient with previous debridement. And antibiotic courses. This was discussed with Dr. Dodson. He will decide about if antibiotics are nee ded and for how long -Acute pancolitis secondary to recurrent prolonged antibiotics. C. difficile has been ruled out x 2 Dr. Capri Redding consulted. IV Flagyl. Clear liquid diet -Chronic obstructive pulmonary disease, not in exacerbation -Very hard of hearing -Normocytic anemia of chronic disease -Moderate metabolic acidosis from 6 acute kidney injury Sodium bicarbonate drip -Essential hypertension Amlodipine 2.5 mg a day -Primary osteoarthritis, prior history of back surgery Pain medication as needed. Meloxicam -Hyperlipidemia Lipitor 10 mg -Anxiety/depression history Zoloft -Constipation Metamucil -Full code Extremely lengthy discussion was held with the patient's 2 daughters at the bedside. Overall guarded prognosis explained. Several questions answered. Present time on Flagyl. Clear liquids. Antibiotics will be decided by Dr. Dodson from ID. Given the complexity and severity of patient's condition expect the patient to be in the hospital at least for 2 overnights Past Medical History Past Medical History: Blood Disorder, COPD, Hearing Disorder / Deafness, Hypertension, Osteoarthritis (OA) Additional Past Medical History / Comment(s): Hx HTN, Iron deficiency anemia, Occ slow heart rate, sl hearing loss Lt ear, hx low potassium, hx falls, Rt shoulder prob w/ upcoming surgery. Left foot turns dark purple, rt foot sl purple w/ occ edema. pressure sores, History of Any Multi-Drug Resistant Organisms: None Reported Past Surgical History: Back Surgery, Joint Replacement, Orthopedic Surgery Additional Past Surgical History / Comment(s): Right knee replacement, knee gave out after. Herniated discs cervical neck x 3, lower back x 2; right ankle surgery, hardware later removed; bilat wrist fx with surgical repair, removed hardware rt wrist; right knee torn meniscus repair. bone marrow bx. Total left shoulder - february 2021 Past Anesthesia/Blood Transfusion Reactions: No Reported Reaction Past Psychological History: Anxiety, Depression Smoking Status: Never smoker Past Alcohol Use History: Rare Past Drug Use History: None Reported - Past Family History Mother Additional Family Medical History / Comment(s): Mother 5 years after being struck by a vehicle of complications. Father Additional Family Medical History / Comment(s): Mother 5 yrs after being struck by a vehicle of complications. Medications and Allergies Home Medications Medication Instructions Recorded Confirmed Type Sertraline [Zoloft] 150 mg PO HS 02/01/21 04/25/24 History amLODIPine [Norvasc] 2.5 mg PO DAILY 08/24/21 04/25/24 History lamoTRIgine [LaMICtal] 25 mg PO DAILY 08/24/21 04/25/24 History Cetirizine HCl [Zyrtec] 10 mg PO DAILY 03/04/24 04/25/24 History Ergocalciferol (Vitamin D2) 1,250 mcg PO FR 03/04/24 04/25/24 History [Drisdol (50,000 Iu)] Meloxicam [Mobic] 15 mg PO DAILY 03/04/24 04/25/24 History hydrOXYzine HCL [Atarax] 25 mg PO TID 03/04/24 04/25/24 History Acetaminophen Tab [Tylenol] 500 mg PO Q6HR PRN tab 03/11/24 04/25/24 Rx Folic Acid 1 mg PO DAILY@1200 #30 tab 03/11/24 04/25/24 Rx Nystatin 100,000 Unit/gm Powd 1 applic TOPICAL QID 04/02/24 04/25/24 History [Mycostatin Powder] Ferrous Sulfate [Feosol] 325 mg PO DAILY #30 tab 04/09/24 04/25/24 Rx Gabapentin [Neurontin] 200 mg PO TID #6 cap 04/09/24 04/25/24 Rx Cholestyramine (with Sugar) 4 gm PO AC-TID 04/25/24 04/25/24 History [Questran] HYDROcodone/APAP 7.5-325MG [[place] 1 tab PO TID PRN 04/25/24 04/25/24 History 7.5-325] Hydrocortisone Cream 1 applic TOPICAL QID PRN 04/25/24 04/25/24 History [Hydrocortisone 2.5% Cream] Nystatin/Triamcin 1 applic TOPICAL BID PRN 04/25/24 04/25/24 History [Nystatin-Triamcinolone Cream] Potassium Chloride ER [K-Dur 10] 10 meq PO DAILY 04/25/24 04/25/24 History Spironolactone [Aldactone] 25 mg PO DIRECTED 04/25/24 04/25/24 History Allergies Allergy/AdvReac Type Severity Reaction Status Date / Time ibuprofen [From Motrin] Allergy Rash/Hives Verified 04/25/24 17:32 oxycodone [From Percocet] Allergy Rash/Hives Verified 04/25/24 17:32 Penicillins Allergy Rash/Hives Verified 04/25/24 17:32 ferumoxytol [From Feraheme] AdvReac Intermediate Unknown Verified 04/25/24 17:32 Physical Exam Vitals: Vital Signs Temp Pulse Pulse Resp BP BP Pulse Ox 04/26/24 07:00 97.6 F 82 16 129/79 97 04/26/24 02:00 97.6 F 74 16 118/77 99 04/26/24 00:25 77 16 107/58 98 04/25/24 19:02 98.1 F 89 20 157/104 97 04/25/24 16:55 98.3 F 73 16 118/72 98 04/25/24 13:29 98.1 F 89 16 108/72 98 Intake and Output 04/25/24 04/26/24 04/26/24 22:59 06:59 14:59 Intake Total 118 Balance 118 Intake: Oral 118 Other: # Voids 1 Results CBC & Chem 7: 04/25/24 13:59 04/25/24 13:59 Labs: Abnormal Lab Results - Last 24 Hours (Table) 04/25/24 04/25/24 04/25/24 Range/Units 13:59 13:59 13:59 Hgb 10.5 L (11.4-16.0) gm/dL Hct 33.9 L (34.0-46.0) % MCV 78.7 L (80.0-100.0) fL MCH 24.3 L (25.0-35.0) pg MCHC 30.9 L (31.0-37.0) g/dL RDW 17.1 H (11.5-15.5) % Chloride 111 H (98-107) mmol/L BUN 21 H (7-17) mg/dL Alkaline Phosphatase 177 H (38-126) U/L Total Protein 5.9 L (6.3-8.2) g/dL Albumin 3.2 L (3.5-5.0) g/dL Urine Protein Trace H (Negative) Urine Ketones 1+ H (Negative)
[2024-04-27] MEDS: VANCOMYCIN ORAL SOLUTION 250 MG/5 ML BOTTLE PO SCH (10:08)
--- NOTE | 2024-04-27 13:31 | XR ---
EXAMINATION TYPE: XR chest 2V DATE OF EXAM: 04/27/2024 1:08 PM CLINICAL INDICATION:Female, 68 years old with history of congestion; COMPARISON: Chest radiographs from 04/05/2024 TECHNIQUE: XR chest 2V Frontal and lateral views of the chest. FINDINGS: Lungs/Pleura: Bilateral midlung streaky atelectasis. Elevated right diaphragm. Prominent interstitial lung markings are seen scattered throughout the lungs. No evidence of focal consolidation, pneumotho rax or pleural effusion. Pulmonary vascularity: Unremarkable. Heart/mediastinum: Cardiomediastinal silhouette is unremarkable. Musculoskeletal: No acute osseous pathology. Other findings: right shoulder arthroplasty appears intact. Fixation changes in the spine appear inta ct. Vertebroplasty changes noted. Left rotator cuff repair changes. IMPRESSION: Chronic changes without acute pulmonary process. No significant change from prior.
[2024-04-27 16:11] VITALS: BMI 19.8
--- NOTE | 2024-04-27 20:12 | P.PN ---
Progress Note - Text Progress Note Date: 04/27/24 Chief Complaint: Diarrhea This is a 68-year-old female, followed by Dr. Demond Chan. in the hospital from March 04 through March 13.Acute infected decubitus ulcers as well as left and right buttock abscesses with failure of outpatient treatment, present on admission with preliminary culture showing Serratia marcescens with Staph aureus and strep atelectatic group B status post incision and drainage on 03/07/2024. Also was in the hospital from April 03 through April 09. follows with the wound care center including Dr. Moe Boyer. With wound VAC. She has had a few debridements. And course of antibiotics. When patient left the hospital she was doing well. Eating fine. For about a week now patient is having anywhere from 6-10 mucousy mushy very malodorous bowel movements. C. difficile tested twice was negative. She also went to see Dr. William OLEARY in the office. We did some cultures of the wound. Appetite has been low. Chills have been present. Most of the history is obtained by the daughter at the bedside. As patient is very hard of hearing. CT scan did show colitis. For which GI was consulted. Patient denied any abdominal pain. No blood in the stool. April 27: Patient C. difficile toxin PCR came back positive. Started on oral vancomycin in addition to Flagyl. Patient remains on clear liquids. Will DC Questran. Clear liquid diet /That Active Medications Acetaminophen (Acetaminophen Tab 325 Mg Tab) 650 mg PO Q6HR PRN PRN Reason: Mild Pain or Fever > 100.5 Hydrocodone Bitart/Acetaminophen (Hydrocodone/Apap 7.5-325mg 1 Each Tab) 1 each PO TID PRN PRN Reason: Pain Last Admin: 04/26/24 13:28 Dose: 1 each Enoxaparin Sodium (Enoxaparin 40 Mg/0.4 Ml Syringe) 40 mg SQ DAILY [facility] Last Admin: 04/27/24 09:02 Dose: 40 mg Ergocalciferol (Ergocalciferol 1,250 Mcg (50,000 Iu) Capsule) 1,250 mcg PO Fr@0900 [facility] Last Admin: 04/26/24 13:16 Dose: 1,250 mcg Folic Acid (Folic Acid 1 Mg Tab) 1 mg PO DAILY@1200 [facility] Last Admin: 04/27/24 12:33 Dose: 1 mg Gabapentin (Gabapentin 100 Mg Cap) 200 mg PO TID [facility] Last Admin: 04/27/24 17:23 Dose: 200 mg Hydroxyzine HCl (Hydroxyzine Hcl 25 Mg Tab) 25 mg PO TID [facility] Last Admin: 04/27/24 17:23 Dose: 25 mg Sodium Chloride (Saline 0.9%) 1,000 mls @ 75 mls/hr IV .[id number] [facility] Last Admin: 04/27/24 17:24 Dose: 75 mls/hr Metronidazole 500 mg/ IV (Solution) 100 mls @ 100 mls/hr IVPB Q8HR [facility]; Protocol Last Admin: 04/27/24 17:23 Dose: 100 mls/hr Lactobacillus Acidophilus (Lactobacillus Acidophilus/Pect 1 Each Capsule) 1 each PO BID [facility] Last Admin: 04/27/24 09:02 Dose: 1 each Lamotrigine (Lamotrigine 25 Mg Tab) 25 mg PO DAILY [facility] Last Admin: 04/27/24 09:03 Dose: 25 mg Naloxone HCl (Naloxone 0.4 Mg/Ml 1 Ml Vial) 0.2 mg IV Q2M PRN PRN Reason: Opioid Reversal Nystatin (Nystatin 100,000 Unit/Gm Powd 15 Gm) 1 applic TOPICAL QID [facility]; Protocol Last Admin: 04/27/24 17:28 Dose: Not Given Nystatin (Nystatin 100,000unit/Gm Cream 30 Gm Tube) 1 applic TOPICAL DAILY [facility] Last Admin: 04/27/24 09:04 Dose: 1 applic Ondansetron HCl (Ondansetron 4 Mg/2 Ml Vial) 4 mg IVP Q8HR PRN PRN Reason: Nausea And Vomiting Sertraline HCl (Sertraline 50 Mg Tab) 150 mg PO HS [facility] Last Admin: 04/26/24 20:41 Dose: 150 mg Triamcinolone Acetonide (Triamcinolone 0.1% Cream 80 Gm Tube) 1 applic TOPICAL DAILY [facility] Last Admin: 04/27/24 09:03 Dose: 1 applic Vancomycin HCl (Vancomycin Oral Solution 250 Mg/5 Ml Bottle) 500 mg PO QID [facility]; Protocol Last Admin: 04/27/24 17:29 Dose: 500 mg Social history: Non-smoker. Alcohol rarely. Lives at home with daughter the latter which takes care of her. On examination: VITAL SIGNS: 98.6, 94, 16, 154 x 68, 92% room air GENERAL APPEARANCE: Lying in bed, a bit tired HEENT: Normal external appearance of nose and ear. Oral cavity normal EYES: Pupils equal. Conjunctiva normal. NECK: JVD not raised. Mass not palpable. RESPIRATORY: Respiratory effort normal. Lungs occasional crackles n. CARDIOVASCULAR: First and second sounds normal. No edema. ABDOMEN: Soft. Liver and spleen not palpable. Mild tenderness. No mass palpable. PSYCHIATRY: Answering simple questions MUSCULOSKELETAL: OA. Bilateral gluteal pressure ulcers INVESTIGATIONS, reviewed in the clinical context: C. difficile PCR: Positive April 25, 2024: White count 9.5 hemoglobin 10.5 platelets 347 sodium 142 potassium 4 creatinine 0.[address] abdomen pelvis: Moderate pancolitis through more severe wall thickening at the distal sigmoid and rectum. No abscess or free air. Previous labs March 13: Potassium 3.7 creatinine 0.7 Assessment and plan: -Acute on chronic left and right buttock abscesses with failure of outpatient treatment, cultures from last admission showing Serratia marcescens with Staph aureus and strep atelectatic group B status post incision and drainage on 03/07/2024. Normally follows at the wound care center with Dr. Moe Boyer.: Patient with previous debridement. And antibiotic courses. This was discussed with Dr. Dodson. He will decide about if antibiotics are needed and for how long -Acute pancolitis secondary to recurrent prolonged antibiotics/acute C. difficile colitis.: Slow to respond C. difficile PCR positive Dr. Capri Redding consulted. IV Flagyl. Oral vancomycin added Clear liquid diet -Chronic obstructive pulmonary disease, not in exacerbation -Very hard of hearing -Normocytic anemia of chronic disease -Moderate metabolic acidosis from 6 acute kidney injury Sodium bicarbonate drip -Essential hypertension Amlodipine 2.5 mg a day -Primary osteoarthritis, prior history of back surgery Pain medication as needed. Meloxicam -Hyperlipidemia Lipitor 10 mg -Anxiety/depression history Zoloft -Constipation Metamucil -Full code Oral vancomycin added. Continue other medications. Discussed. Past Medical History Past Medical History: Blood Disorder, COPD, Hearing Disorder / Deafness, Hypertension, Osteoarthritis (OA) Additional Past Medical History / Comment(s): Hx HTN, Iron deficiency anemia, Occ slow heart rate, sl hearing loss Lt ear, hx low potassium, hx falls, Rt shoulder prob w/ upcoming surgery. Left foot turns dark purple, rt foot sl purple w/ occ edema. pressure sores, History of Any Multi-Drug Resistant Organisms: None Reported Past Surgical History: Back Surgery, Joint Replacement, Orthopedic Surgery Additional Past Surgical History / Comment(s): Right knee replacement, knee gave out after. Herniated discs cervical neck x 3, lower back x 2; right ankle surgery, hardware later removed; bilat wrist fx with surgical repair, removed hardware rt wrist; right knee torn meniscus repair. bone marrow bx. Total left shoulder - february 2021 Past Anesthesia/Blood Transfusion Reactions: No Reported Reaction Past Psychological History: Anxiety, Depression Smoking Status: Never smoker Past Alcohol Use History: Rare Past Drug Use History: None Reported
[2024-04-28 06:47] LABS: African American GFR (CKD) >90 (>60 ml/min/1.73 sqM); Anion Gap 9 mmol/L; Blood Urea Nitrogen 8 mg/dL (7-17); Calcium 8.8 mg/dL (8.4-10.2); Carbon Dioxide 20 mmol/L (22-30); Chloride 113 mmol/L (98-107); Glucose 86 mg/dL (74-99); Non-African American GFR(CKD) >90 (>60 ml/min/1.73 sqM); Potassium 3.4 mmol/L (3.5-5.1); Sodium 142 mmol/L (137-145)
[2024-04-28 09:00] LABS: Anisocytosis Slight; Basophils # (A) 0.1 k/uL (0-0.2); Basophils % (A) 0 %; Eosinophils # (A) 0.2 k/uL (0-0.7); Eosinophils % (A) 1 %; HGB 10.7 gm/dL (11.4-16.0); Hypochromasia Moderate; Lymphocytes # (A) 3.2 k/uL (1.0-4.8); Lymphocytes % (A) 18 %; MCH 24.3 pg (25.0-35.0); MCHC 30.5 g/dL (31.0-37.0); MCV 79.5 fL (80.0-100.0); Mean Platelet Volume 8.1; Microcytosis Slight; Monocytes # (A) 0.6 k/uL (0-1.0); Monocytes % (A) 4 %; Neutrophils # (A) 13.2 k/uL (1.3-7.7); Neutrophils % (A) 76 %; Platelet Count 392 k/uL (150-450); RDW 17.4 % (11.5-15.5); WBC 17.4 k/uL (3.8-10.6)
[2024-04-28] MEDS: POTASSIUM CHLORIDE ER 20 MEQ TAB.ER PO STA (14:25)
--- NOTE | 2024-04-28 21:20 | P.PN ---
Progress Note - Text Progress Note Date: 04/28/24 Chief Complaint: Diarrhea This is a 68-year-old female, followed by Dr. Demond Chan. in the hospital from March 04 through March 13.Acute infected decubitus ulcers as well as left and right buttock abscesses with failure of outpatient treatment, present on admission with preliminary culture showing Serratia marcescens with Staph aureus and strep atelectatic group B status post incision and drainage on 03/07/2024. Also was in the hospital from April 03 through April 09. follows with the wound care center including Dr. Moe Boyer. With wound VAC. She has had a few debridements. And course of antibiotics. When patient left the hospital she was doing well. Eating fine. For about a week now patient is having anywhere from 6-10 mucousy mushy very malodorous bowel movements. C. difficile tested twice was negative. She also went to see Dr. William OLEARY in the office. We did some cultures of the wound. Appetite has been low. Chills have been present. Most of the history is obtained by the daughter at the bedside. As patient is very hard of hearing. CT scan did show colitis. For which GI was consulted. Patient denied any abdominal pain. No blood in the stool. April 27: Patient C. difficile toxin PCR came back positive. Started on oral vancomycin in addition to Flagyl. Patient remains on clear liquids. Will DC Questran. Clear liquid diet April 28: Some improvement in diarrhea. On oral vancomycin and Flagyl. Will keep on clear liquids today. Changed to full liquids tomorrow morning. Otherwise patient appears comfortable. Status stool chart at the bedside. Active Medications Acetaminophen (Acetaminophen Tab 325 Mg Tab) 650 mg PO Q6HR PRN PRN Reason: Mild Pain or Fever > 100.5 Hydrocodone Bitart/Acetaminophen (Hydrocodone/Apap 7.5-325mg 1 Each Tab) 1 each PO TID PRN PRN Reason: Pain Last Admin: 04/28/24 09:49 Dose: 1 each Enoxaparin Sodium (Enoxaparin 40 Mg/0.4 Ml Syringe) 40 mg SQ DAILY [facility] Last Admin: 04/28/24 09:25 Dose: 40 mg Ergocalciferol (Ergocalciferol 1,250 Mcg (50,000 Iu) Capsule) 1,250 mcg PO Fr@0900 [facility] Last Admin: 04/26/24 13:16 Dose: 1,250 mcg Folic Acid (Folic Acid 1 Mg Tab) 1 mg PO DAILY@1200 [facility] Last Admin: 04/28/24 12:45 Dose: 1 mg Gabapentin (Gabapentin 100 Mg Cap) 200 mg PO TID [facility] Last Admin: 04/28/24 21:09 Dose: 200 mg Hydroxyzine HCl (Hydroxyzine Hcl 25 Mg Tab) 25 mg PO TID [facility] Last Admin: 04/28/24 21:09 Dose: 25 mg Sodium Chloride (Saline 0.9%) 1,000 mls @ 75 mls/hr IV .[id number] [facility] Last Admin: 04/28/24 17:42 Dose: 75 mls/hr Metronidazole 500 mg/ IV (Solution) 100 mls @ 100 mls/hr IVPB Q8HR [facility]; Protocol Last Admin: 04/28/24 15:27 Dose: 100 mls/hr Lactobacillus Acidophilus (Lactobacillus Acidophilus/Pect 1 Each Capsule) 1 each PO BID [facility] Last Admin: 04/28/24 21:10 Dose: 1 each Lamotrigine (Lamotrigine 25 Mg Tab) 25 mg PO DAILY [facility] Last Admin: 04/28/24 09:26 Dose: 25 mg Naloxone HCl (Naloxone 0.4 Mg/Ml 1 Ml Vial) 0.2 mg IV Q2M PRN PRN Reason: Opioid Reversal Nystatin (Nystatin 100,000 Unit/Gm Powd 15 Gm) 1 applic TOPICAL QID [facility]; Protocol Last Admin: 04/28/24 21:10 Dose: 1 applic Nystatin (Nystatin 100,000unit/Gm Cream 30 Gm Tube) 1 applic TOPICAL DAILY [facility] Last Admin: 04/28/24 09:26 Dose: 1 applic Ondansetron HCl (Ondansetron 4 Mg/2 Ml Vial) 4 mg IVP Q8HR PRN PRN Reason: Nausea And Vomiting Sertraline HCl (Sertraline 50 Mg Tab) 150 mg PO HS [facility] Last Admin: 04/28/24 21:09 Dose: 150 mg Triamcinolone Acetonide (Triamcinolone 0.1% Cream 80 Gm Tube) 1 applic TOPICAL DAILY [facility] Last Admin: 04/28/24 09:26 Dose: 1 applic Vancomycin HCl (Vancomycin Oral Solution 250 Mg/5 Ml Bottle) 500 mg PO QID [facility]; Protocol Last Admin: 04/28/24 21:10 Dose: 500 mg Social history: Non-smoker. Alcohol rarely. Lives at home with daughter the latter which takes care of her. On examination: VITAL SIGNS: 97.8, 72, 18, 1 5083, 95% room air GENERAL APPEARANCE: Reclining in bed, comfortable HEENT: Normal external appearance of nose and ear. Oral cavity normal EYES: Pupils equal. Conjunctiva normal. NECK: JVD not raised. Mass not palpable. RESPIRATORY: Respiratory effort normal. Lungs occasional crackles n. CARDIOVASCULAR: First and second sounds normal. No edema. ABDOMEN: Soft. Liver and spleen not palpable. Mild tenderness. No mass palpable. PSYCHIATRY: Answering simple questions MUSCULOSKELETAL: OA. Bilateral gluteal pressure ulcers INVESTIGATIONS, reviewed in the clinical context: April 28: White count 7.4 hemoglobin 10.7 platelets 392 potassium 3.4 creatinine 0.59 C. difficile PCR: Positive April 25, 2024: White count 9.5 hemoglobin 10.5 platelets 347 sodium 142 potassium 4 creatinine 0.[address] abdomen pelvis: Moderate pancolitis through more severe wall thickening at the distal sigmoid and rectum. No abscess or free air. Previous labs March 13: Potassium 3.7 creatinine 0.7 Assessment and plan: -Acute on chronic left and right buttock abscesses with failure of outpatient treatment, cultures from last admission showing Serratia marcescens with Staph aureus and strep atelectatic group B status post incision and drainage on 03/07/2024. Normally follows at the wound care center with Dr. Moe Boyer.: Patient with previous debridement. And antibiotic courses. This was discussed with Dr. Dodson. Local wound care -Acute pancolitis secondary to recurrent prolonged antibiotics/acute C. difficile colitis.: Slow to respond C. difficile PCR positive Dr. Capri Redding consulted. IV Flagyl. Oral vancomycin Clear liquid diet tolerated -Chronic obstructive pulmonary disease, not in exacerbation -Very hard of hearing -Normocytic anemia of chronic disease -Essential hypertension Amlodipine 2.5 mg a day -Primary osteoarthritis, prior history of back surgery Pain medication as needed. Meloxicam -Hyperlipidemia Lipitor 10 mg -Anxiety/depression history Zoloft -Constipation Metamucil -Full code Continue current antibiotics. Changed to full liquid diet in the morning. Repeat labs. Past Medical History Past Medical History: Blood Disorder, COPD, Hearing Disorder / Deafness, Hypertension, Osteoarthritis (OA) Additional Past Medical History / Comment(s): Hx HTN, Iron deficiency anemia, Occ slow heart rate, sl hearing loss Lt ear, hx low potassium, hx falls, Rt shoulder prob w/ upcoming surgery. Left foot turns dark purple, rt foot sl purple w/ occ edema. pressure sores, History of Any Multi-Drug Resistant Organisms: None Reported Past Surgical History: Back Surgery, Joint Replacement, Orthopedic Surgery Additional Past Surgical History / Comment(s): Right knee replacement, knee gave out after. Herniated discs cervical neck x 3, lower back x 2; right ankle surgery, hardware later removed; bilat wrist fx with surgical repair, removed hardware rt wrist; right knee torn meniscus repair. bone marrow bx. Total left shoulder - february 2021 Past Anesthesia/Blood Transfusion Reactions: No Reported Reaction Past Psychological History: Anxiety, Depression Smoking Status: Never smoker Past Alcohol Use History: Rare Past Drug Use History: None Reported
--- NOTE | 2024-04-29 00:06 | P.PN ---
Subjective Progress Note Date: 04/27/24 Principal diagnosis: Reason for follow-up is bilateral gluteal pressure ulcer and C. difficile colitis Patient is a 68-year female with multiple comorbidities including chronic nonhealing wound to bilateral area presented to hospital with significant diarrhea and drainage from the wound. On today's evaluation that is 04/27/2024, Patient is afebrile this morning, marleny ent denies any chills, patient mention breathing comfortably and is currently on room air, patient denies any chest pain occasional cough patient denies any abdominal pain mention that diarrhea has slowed down still complaining of some discomfort to the bilateral gluteal wound Patient stool for C. difficile PCR came back positive Objective - Vital Signs Vital signs: Vital Signs Temp 98.2 F 04/27/24 08:00 Pulse 91 04/27/24 08:00 Resp 16 04/27/24 08:00 BP 133/76 04/27/24 08:00 Pulse Ox 96 04/27/24 08:00 FiO2 Intake & Output 04/26/24 04/27/24 04/27/24 18:59 06:59 18:59 Intake Total 118 100 Output Total 0 Balance 118 100 Weight 47.627 kg Intake: Oral 118 100 Output: Emesis 0 Other: Voiding Method Toilet Toilet # Voids 2 1 # Bowel Movements 0 1 - Exam Elderly female lying in bed in no distress Unlabored breathing Patient is awake and alert - Labs CBC & Chem 7: 04/28/24 06:01 04/28/24 06:01 Labs: Abnormal Lab Results - Last 24 Hours (Table) 04/25/24 04/26/24 Range/Units 13:59 10:40 Urine Protein Trace H (Negative) Urine Ketones 1+ H (Negative) C. difficile Tox (PCR) Positive A (Negative) Assessment and Plan (1) C. difficile colitis Current Visit: Yes Status: Acute Code(s): A04.72 - ENTEROCOLITIS D/T CLOSTRIDIUM DIFFICILE, NOT SPCF RECUR SNOMED Code(s): 352098814 (2) Infected decubitus ulcer Current Visit: No Status: Acute Code(s): L89.90 - PRESSURE ULCER OF UNSPECIFIED SITE, UNSPECIFIED STAGE; L08.9 - LOCAL INFECTION OF THE SKIN AND SUBCUTANEOUS TISSUE, UNSP SNOMED Code(s): 772560946 Plan: This is a telehealth visit 1patient with the significant diarrhea and this patient has been exposed to antibiotic therapy with a CT showing evidence of pancolitis highly suspicious for C. difficile colitis stool for C. difficile EIA came back negative however keeping in mind high clinical suspicion for C. difficile, patient stool for C. difficile PCR came back positive 2patient also has bilateral gluteal wound noticed to have a drainage from the right gluteal wound with recent culture positive for MSSA and Bacteroides species 3patient to continue with IV Flagyl that should help with diarrhea as well as a bacteroids to the right gluteal wound 4oral vancomycin has been added and will monitor clinical course closely Dictation was produced using [employer] dictation software. please excuse any grammatical, word or spelling errors. Time with Patient: Less than 30
--- NOTE | 2024-04-29 00:07 | P.PN ---
Subjective Progress Note Date: 04/28/24 Principal diagnosis: Reason for follow-up is bilateral gluteal pressure ulcer and C. difficile colitis Patient is a 68-year female with multiple comorbidities including chronic nonhealing wound to bilateral area presented to hospital with significant diarrhea and drainage from the wound. On today's evaluation that is 04/28/2024,the patient denies any fever or any chi lls, patient is breathing comfortably on room air, the patient denies chest pain shortness of breath and no significant cough, patient denies abdominal pain, no nausea vomiting and diarrhea has slowed down Patient white count 17.4 today, creatinine 0.59 Objective - Vital Signs Vital signs: Vital Signs Temp 97.4 F L 04/28/24 07:25 Pulse 79 04/28/24 07:25 Resp 17 04/28/24 07:25 BP 153/76 04/28/24 07:25 Pulse Ox 96 04/28/24 07:25 FiO2 Intake & Output 04/27/24 04/28/24 04/28/24 18:59 06:59 18:59 Weight 47.627 kg Other: Voiding Method Toilet # Voids 3 2 1 # Bowel Movements 1 1 - Exam Elderly female lying in bed in no distress Unlabored breathing Patient is awake and alert - Labs CBC & Chem 7: 04/28/24 06:01 04/28/24 06:01 Labs: Abnormal Lab Results - Last 24 Hours (Table) 04/28/24 04/28/24 Range/Units 06:01 06:01 WBC 17.4 H (3.8-10.6) k/uL Hgb 10.7 L (11.4-16.0) gm/dL MCV 79.5 L (80.0-100.0) fL MCH 24.3 L (25.0-35.0) pg MCHC 30.5 L (31.0-37.0) g/dL RDW 17.4 H (11.5-15.5) % Neutrophils # 13.2 H (1.3-7.7) k/uL Potassium 3.4 L (3.5-5.1) mmol/L Chloride 113 H (98-107) mmol/L Carbon Dioxide 20 L (22-30) mmol/L Assessment and Plan (1) C. difficile colitis Current Visit: Yes Status: Acute Code(s): A04.72 - ENTEROCOLITIS D/T CLOSTRIDIUM DIFFICILE, NOT SPCF RECUR SNOMED Code(s): 945033100 (2) Infected decubitus ulcer Current Visit: No Status: Acute Code(s): L89.90 - PRESSURE ULCER OF UNSPECIFIED SITE, UNSPECIFIED STAGE; L08.9 - LOCAL INFECTION OF THE SKIN AND SUBCUTANEOUS TISSUE, UNSP SNOMED Code(s): 006786411 (3) Leukocytosis Current Visit: Yes Status: Acute Code(s): D72.829 - ELEVATED WHITE BLOOD CELL COUNT, UNSPECIFIED SNOMED Code(s): 348391760 Plan: This is a telehealth visit 1patient with the significant diarrhea and this patient has been exposed to antibiotic therapy with a CT showing evidence of pancolitis highly suspicious for C. difficile colitis stool for C. difficile EIA came back negative however keeping in mind high clinical suspicion for C. difficile, patient stool for C. difficile PCR came back positive 2patient also has bilateral gluteal wound noticed to have a drainage from the right gluteal wound with recent culture positive for MSSA and Bacteroides species 3patient to continue with IV Flagyl and oral vancomycin, did have elevated white count however patient mention improvement in her symptoms we will repeat a CBC with a.m. lab Dictation was produced using [employer] dictation software. please excuse any grammatical, word or spelling errors. Time with Patient: Less than 30
[2024-04-29 06:45] LABS: Anisocytosis Slight; Basophils # (A) 0.1 k/uL (0-0.2); Basophils % (A) 1 %; Eosinophils # (A) 0.4 k/uL (0-0.7); Eosinophils % (A) 3 %; HCT 33.4 % (34.0-46.0); HGB 10.2 gm/dL (11.4-16.0); Hypochromasia Marked; Lymphocytes # (A) 2.3 k/uL (1.0-4.8); Lymphocytes % (A) 20 %; MCH 24.5 pg (25.0-35.0); MCHC 30.7 g/dL (31.0-37.0); Mean Platelet Volume 8.2; Microcytosis Slight; Monocytes # (A) 0.2 k/uL (0-1.0); Monocytes % (A) 2 %; Neutrophils # (A) 8.4 k/uL (1.3-7.7); Neutrophils % (A) 73 %; Platelet Count 367 k/uL (150-450); RBC 4.18 m/uL (3.80-5.40); RDW 17.2 % (11.5-15.5); WBC 11.5 k/uL (3.8-10.6)
[2024-04-29 07:19] LABS: African American GFR (CKD) >90 (>60 ml/min/1.73 sqM); Anion Gap 8 mmol/L; Blood Urea Nitrogen 7 mg/dL (7-17); Carbon Dioxide 19 mmol/L (22-30); Chloride 115 mmol/L (98-107); Glucose 73 mg/dL (74-99); Non-African American GFR(CKD) >90 (>60 ml/min/1.73 sqM); Potassium 3.3 mmol/L (3.5-5.1); Sodium 142 mmol/L (137-145)
--- NOTE | 2024-04-29 10:47 | P.PN ---
Subjective Progress Note Date: 04/29/24 Principal diagnosis: Reason for follow-up is bilateral gluteal pressure ulcer and C. difficile colitis Patient is a 68-year female with multiple comorbidities including chronic nonhealing wound to bilateral area presented to hospital with significant diarrhea and drainage from the wound. On today's evaluation that is 04/29/2024,the patient remains to be afebrile, pat ient is on room air not requiring supplemental oxygen and denies any shortness of breath no chest pain or cough.Patient denies having any nausea or vomiting, no abdominal pain and mention that lately has significantly improved,Patient denies any worsening pain to bilateral gluteal wound area. Patient white count is down to 11.5 Objective - Vital Signs Vital signs: Vital Signs Temp 97.8 F 04/29/24 07:00 Pulse 75 04/29/24 07:00 Resp 17 04/29/24 07:00 BP 142/85 04/29/24 07:00 Pulse Ox 94 L 04/29/24 07:00 FiO2 Intake & Output 04/28/24 04/29/24 04/29/24 18:59 06:59 18:59 Other: Voiding Method Toilet Toilet # Voids 1 2 # Bowel Movements 1 - Exam Elderly female lying in bed in no distress Unlabored breathing, clear to auscultation Abdominal soft no tenderness Patient is awake and alert Exam completed with the help of [employer] - Labs CBC & Chem 7: 04/29/24 05:53 04/29/24 05:53 Labs: Abnormal Lab Results - Last 24 Hours (Table) 04/28/24 04/29/24 04/29/24 Range/Units 06:01 05:53 05:53 WBC 17.4 H 11.5 H (3.8-10.6) k/uL Hgb 10.7 L 10.2 L (11.4-16.0) gm/dL Hct 33.4 L (34.0-46.0) % MCV 79.5 L (80.0-100.0) fL MCH 24.3 L 24.5 L (25.0-35.0) pg MCHC 30.5 L 30.7 L (31.0-37.0) g/dL RDW 17.4 H 17.2 H (11.5-15.5) % Neutrophils # 13.2 H 8.4 H (1.3-7.7) k/uL Potassium 3.3 L (3.5-5.1) mmol/L Chloride 115 H (98-107) mmol/L Carbon Dioxide 19 L (22-30) mmol/L Glucose 73 L (74-99) mg/dL Microbiology - Last 24 Hours (Table) 04/26/24 10:40 Stool Culture - Preliminary Stool Assessment and Plan (1) C. difficile colitis Current Visit: Yes Status: Acute Code(s): A04.72 - ENTEROCOLITIS D/T CLOSTRIDIUM DIFFICILE, NOT SPCF RECUR SNOMED Code(s): 181324137 (2) Infected decubitus ulcer Current Visit: No Status: Acute Code(s): L89.90 - PRESSURE ULCER OF UNSPECIFIED SITE, UNSPECIFIED STAGE; L08.9 - LOCAL INFECTION OF THE SKIN AND SUBCUTANEOUS TISSUE, UNSP SNOMED Code(s): 706630554 (3) Leukocytosis Current Visit: Yes Status: Acute Code(s): D72.829 - ELEVATED WHITE BLOOD CELL COUNT, UNSPECIFIED SNOMED Code(s): 109270491 Plan: This is a telehealth visit 1patient with the significant diarrhea and this patient has been exposed to antibiotic therapy with a CT showing evidence of pancolitis highly suspicious for C. difficile colitis stool for C. difficile EIA came back negative however keeping in mind high clinical suspicion for C. difficile, patient stool for C. difficile PCR came back positive 2patient also has bilateral gluteal wound noticed to have a drainage from the right gluteal wound with recent culture positive for MSSA and Bacteroides species 3patient to continue with IV Flagyl and oral vancomycin, patient white count is trending down, plan will be for 2-week course of oral vancomycin and Flagyl on discharge and close outpatient follow-up Dictation was produced using [employer] dictation software. please excuse any grammatical, word or spelling errors. Time with Patient: Less than 30
--- NOTE | 2024-04-29 12:10 | P.CONS ---
History of Present Illness - Reason for Consult Consult date: 04/29/24 wound care - History of Present Illness This is a 68-year-old patient known to the wound care center. . Original cause of wound was Surgical Injury. The date acquired was: 11/24/2023. The wound has been in treatment 5 weeks. The wound is currently classified as a Full Thickness With Exposed Support Structures wound with etiology of Abscess and is located on the Right Gluteus. The wound measures 1.6cm length x 1.2cm width x 4.2cm depth; 1.508cm^2 area and 6.333cm^3 volume. There is Fat Layer (Subcutaneous Tissue) and fascia exposed. There is no tunneling noted, however, there is undermining starting at 12:00 and ending at 12:00 with a maximum distance of 3.5cm. There is a large amount of purulent drainage noted. The wound margin is distinct with the outline attached to the wound base. There is medium (34-66%) red, hyper - granulation within the wound bed. There is a medium (34-66%) amount of necrotic tissue within the wound bed including Adherent Slough. The periwound skin appearance exhibited: Excoriation, Rash, Scarring, Erythema. The periwound skin appearance did not exhibit: Callus, Crepitus, Induration, Dry/Scaly, Maceration, Atrophie Nupur, Cyanosis, Ecchymosis, Hemosiderin Staining, Mottled, Pallor, R ubor. The surrounding wound skin color is noted with erythema which is circumferential. Periwound temperature was noted as No Abnormality. The periwound has tenderness on palpation. Wound #6 status is Open. Original cause of wound was Surgical Injury. The date acquired was: 11/24/2023. The wound has been in treatment 5 weeks. The wound is currently classified as a Full Thickness With Exposed Support Structures wound with etiology of Abscess and is located on the Left Gluteus. The wound measures 1.7cm length x 1.4cm width x 3cm depth; 1.869cm^2 area and 5.608cm^3 volume. There is Fat Layer (Subcutaneous Tissue) and fascia exposed. There is no tunneling noted, however, there is undermining starting at 12:00 and ending at 12:00 with a maximum distance of 2.5cm. There is a large amount of purulent drainage noted. The wound margin is distinct with the outline attached to the wound base. There is small (1-33%) red granulation within the wound bed. There is a large (67-100%) amount of necrotic tissue within the wound bed including Eschar and Adherent Slough. The periwound skin appearance exhibited: Excoriation, Rash, Scarring, Dry/Scaly, Erythema. The periwound skin appearance did not exhibit: Callus, Crepitus, Induration, Maceration, Atrophie Nupur, Cyanosis, Ecchymosis, Hemosiderin Staining, Mottled, Pallor, Rubor. The surrounding wound skin color is noted with erythema which is circumferential. Periwound temperature was noted as No Abnormality. The periwound has tenderness on palpation. Review Of Systems: Constitutional: No fever, no chills, no night sweats. No weight change. No weakness, fatigue or lethargy. No daytime sleepiness. Integumentary:reports wounds, no lesions. No rash or pruritus. No unusual bruising. No change in hair or nails. Physical exam: General Appearance: Alert, cooperative, no distress, appears stated age. Skin: See HPI all other Skin color, texture, tugor normal, no rashes or lesions. Neurologic: Alert oriented x3 Assessment: 1. Pressure ulcer right buttock stage III 2. Pressure ulcer of left buttock stage III Plan: 1. Apply zinc barrier cream to the periwound. Utilize absorptive silver rope to the site dry, may utilize bordered foam or ABD to secure.Change Monday.To the wound care center on May 07 at 9 AM Thank for the consultation any questions please contact the wound care center DNP note has been reviewed and discussed with Dr. Mojica and the impression and plan of care has been directed as dictated. Past Medical History Past Medical History: Blood Disorder, COPD, Hearing Disorder / Deafness, Hypertension, Osteoarthritis (OA) Additional Past Medical History / Comment(s): Hx HTN, Iron deficiency anemia, Occ slow heart rate, sl hearing loss Lt ear, hx low potassium, hx falls, Rt shoulder prob w/ upcoming surgery. Left foot turns dark purple, rt foot sl purple w/ occ edema. pressure sores, History of Any Multi-Drug Resistant Organisms: None Reported Past Surgical History: Back Surgery, Joint Replacement, Orthopedic Surgery Additional Past Surgical History / Comment(s): Right knee replacement, knee gave out after. Herniated discs cervical neck x 3, lower back x 2; right ankle surgery, hardware later removed; bilat wrist fx with surgical repair, removed hardware rt wrist; right knee torn meniscus repair. bone marrow bx. Total left shoulder - february 2021 Past Anesthesia/Blood Transfusion Reactions: No Reported Reaction Past Psychological History: Anxiety, Depression Smoking Status: Never smoker Past Alcohol Use History: Rare Past Drug Use History: None Reported - Past Family History Mother Additional Family Medical History / Comment(s): Mother 5 years after being struck by a vehicle of complications. Father Additional Family Medical History / Comment(s): Mother 5 yrs after being struck by a vehicle of complications. Medications and Allergies Home Medications Medication Instructions Recorded Confirmed Type Sertraline [Zoloft] 150 mg PO HS 02/01/21 04/25/24 History amLODIPine [Norvasc] 2.5 mg PO DAILY 08/24/21 04/25/24 History lamoTRIgine [LaMICtal] 25 mg PO DAILY 08/24/21 04/25/24 History Cetirizine HCl [Zyrtec] 10 mg PO DAILY 03/04/24 04/25/24 History Ergocalciferol (Vitamin D2) 1,250 mcg PO FR 03/04/24 04/25/24 History [Drisdol (50,000 Iu)] Meloxicam [Mobic] 15 mg PO DAILY 03/04/24 04/25/24 History hydrOXYzine HCL [Atarax] 25 mg PO TID 03/04/24 04/25/24 History Acetaminophen Tab [Tylenol] 500 mg PO Q6HR PRN tab 03/11/24 04/25/24 Rx Folic Acid 1 mg PO DAILY@1200 #30 tab 03/11/24 04/25/24 Rx Nystatin 100,000 Unit/gm Powd 1 applic TOPICAL QID 04/02/24 04/25/24 History [Mycostatin Powder] Ferrous Sulfate [Feosol] 325 mg PO DAILY #30 tab 04/09/24 04/25/24 Rx Gabapentin [Neurontin] 200 mg PO TID #6 cap 04/09/24 04/25/24 Rx Cholestyramine (with Sugar) 4 gm PO AC-TID 04/25/24 04/25/24 History [Questran] HYDROcodone/APAP 7.5-325MG [[place] 1 tab PO TID PRN 04/25/24 04/25/24 History 7.5-325] Hydrocortisone Cream 1 applic TOPICAL QID PRN 04/25/24 04/25/24 History [Hydrocortisone 2.5% Cream] Nystatin/Triamcin 1 applic TOPICAL BID PRN 04/25/24 04/25/24 History [Nystatin-Triamcinolone Cream] Potassium Chloride ER [K-Dur 10] 10 meq PO DAILY 04/25/24 04/25/24 History Spironolactone [Aldactone] 25 mg PO DIRECTED 04/25/24 04/25/24 History Allergies Allergy/AdvReac Type Severity Reaction Status Date / Time ibuprofen [From Motrin] Allergy Rash/Hives Verified 04/25/24 17:32 oxycodone [From Percocet] Allergy Rash/Hives Verified 04/25/24 17:32 Penicillins Allergy Rash/Hives Verified 04/25/24 17:32 ferumoxytol [From Feraheme] AdvReac Intermediate Unknown Verified 04/25/24 17:32 Physical Exam Vitals: Vital Signs Temp Pulse Resp BP BP Pulse Ox 04/29/24 07:00 97.8 F 75 17 142/85 94 L 04/29/24 01:51 97.6 F 72 16 138/73 94 L 04/28/24 20:00 72 04/28/24 19:45 97.8 F 72 18 150/83 95 04/28/24 14:35 97.6 F 68 16 110/69 96 Intake and Output 04/28/24 04/29/24 04/29/24 22:59 06:59 14:59 Other: Voiding Method Toilet # Voids 1 2 Results CBC & Chem 7: 04/29/24 05:53 04/29/24 05:53 Labs: Abnormal Lab Results - Last 24 Hours (Table) 04/29/24 04/29/24 04/29/24 Range/Units 05:53 05:53 05:53 WBC 11.5 H (3.8-10.6) k/uL Hgb 10.2 L (11.4-16.0) gm/dL Hct 33.4 L (34.0-46.0) % MCH 24.5 L (25.0-35.0) pg MCHC 30.7 L (31.0-37.0) g/dL RDW 17.2 H (11.5-15.5) % Neutrophils # 8.4 H (1.3-7.7) k/uL Potassium 3.3 L (3.5-5.1) mmol/L Chloride 115 H (98-107) mmol/L Carbon Dioxide 19 L (22-30) mmol/L Glucose 73 L (74-99) mg/dL Procalcitonin 1.45 H (0.02-0.09) ng/mL Microbiology - Last 24 Hours (Table) 04/26/24 10:40 Stool Culture - Preliminary Stool Assessment and Plan (1) Pressure ulcer of left buttock, stage 3 Current Visit: Yes Status: Acute Code(s): L89.323 - PRESSURE ULCER OF LEFT BUTTOCK, STAGE 3 SNOMED Code(s): 90063744705330 (2) Pressure ulcer of right buttock, stage 3 Current Visit: Yes Status: Acute Code(s): L89.313 - PRESSURE ULCER OF RIGHT BUTTOCK, STAGE 3 SNOMED Code(s): 23508254794296
--- NOTE | 2024-04-29 18:02 | P.PN ---
Progress Note - Text Progress Note Date: 04/29/24 Chief Complaint: Diarrhea This is a 68-year-old female, followed by Dr. Demond Chan. in the hospital from March 04 through March 13.Acute infected decubitus ulcers as well as left and right buttock abscesses with failure of outpatient treatment, present on admission with preliminary culture showing Serratia marcescens with Staph aureus and strep atelectatic group B status post incision and drainage on 03/07/2024. Also was in the hospital from April 03 through April 09. follows with the wound care center including Dr. Moe Boyer. With wound VAC. She has had a few debridements. And course of antibiotics. When patient left the hospital she was doing well. Eating fine. For about a week now patient is having anywhere from 6-10 mucousy mushy very malodorous bowel movements. C. difficile tested twice was negative. She also went to see Dr. William OLEARY in the office. We did some cultures of the wound. Appetite has been low. Chills have been present. Most of the history is obtained by the daughter at the bedside. As patient is very hard of hearing. CT scan did show colitis. For which GI was consulted. Patient denied any abdominal pain. No blood in the stool. April 27: Patient C. difficile toxin PCR came back positive. Started on oral vancomycin in addition to Flagyl. Patient remains on clear liquids. Will DC Questran. Clear liquid diet April 28: Some improvement in diarrhea. On oral vancomycin and Flagyl. Will keep on clear liquids today. Changed to full liquids tomorrow morning. Otherwise patient appears comfortable. Status stool chart at the bedside. April 29: Saw the patient this morning. Had 1 bowel movement today. Had about 3 bowel movements yesterday. Remains on vancomycin and Flagyl. Started on full liquids this morning. Spoke to the patient daughter at the bedside. Otherwise feeling better. Keen to go home. Delete that Active Medications Acetaminophen (Acetaminophen Tab 325 Mg Tab) 650 mg PO Q6HR PRN PRN Reason: Mild Pain or Fever > 100.5 Hydrocodone Bitart/Acetaminophen (Hydrocodone/Apap 7.5-325mg 1 Each Tab) 1 each PO TID PRN PRN Reason: Pain Last Admin: 04/29/24 10:11 Dose: 1 each Enoxaparin Sodium (Enoxaparin 40 Mg/0.4 Ml Syringe) 40 mg SQ DAILY [facility] Last Admin: 04/29/24 09:59 Dose: 40 mg Ergocalciferol (Ergocalciferol 1,250 Mcg (50,000 Iu) Capsule) 1,250 mcg PO Fr@0900 [facility] Last Admin: 04/26/24 13:16 Dose: 1,250 mcg Folic Acid (Folic Acid 1 Mg Tab) 1 mg PO DAILY@1200 [facility] Last Admin: 04/29/24 12:47 Dose: 1 mg Gabapentin (Gabapentin 100 Mg Cap) 200 mg PO TID [facility] Last Admin: 04/29/24 17:20 Dose: 200 mg Hydroxyzine HCl (Hydroxyzine Hcl 25 Mg Tab) 25 mg PO TID [facility] Last Admin: 04/29/24 17:20 Dose: 25 mg Sodium Chloride (Saline 0.9%) 1,000 mls @ 75 mls/hr IV .[id number] [facility] Last Admin: 04/29/24 17:19 Dose: 75 mls/hr Metronidazole 500 mg/ IV (Solution) 100 mls @ 100 mls/hr IVPB Q8HR [facility]; Protocol Last Admin: 04/29/24 17:19 Dose: 100 mls/hr Lactobacillus Acidophilus (Lactobacillus Acidophilus/Pect 1 Each Capsule) 1 each PO BID [facility] Last Admin: 04/29/24 10:01 Dose: 1 each Lamotrigine (Lamotrigine 25 Mg Tab) 25 mg PO DAILY [facility] Last Admin: 04/29/24 10:00 Dose: 25 mg Naloxone HCl (Naloxone 0.4 Mg/Ml 1 Ml Vial) 0.2 mg IV Q2M PRN PRN Reason: Opioid Reversal Nystatin (Nystatin 100,000 Unit/Gm Powd 15 Gm) 1 applic TOPICAL QID [facility]; Protocol Last Admin: 04/29/24 17:46 Dose: Not Given Nystatin (Nystatin 100,000unit/Gm Cream 30 Gm Tube) 1 applic TOPICAL DAILY [facility] Last Admin: 04/29/24 10:02 Dose: 1 applic Ondansetron HCl (Ondansetron 4 Mg/2 Ml Vial) 4 mg IVP Q8HR PRN PRN Reason: Nausea And Vomiting Sertraline HCl (Sertraline 50 Mg Tab) 150 mg PO HS [facility] Last Admin: 04/28/24 21:09 Dose: 150 mg Triamcinolone Acetonide (Triamcinolone 0.1% Cream 80 Gm Tube) 1 applic TOPICAL DAILY [facility] Last Admin: 04/29/24 10:02 Dose: 1 applic Vancomycin HCl (Vancomycin Oral Solution 250 Mg/5 Ml Bottle) 500 mg PO QID [facility]; Protocol Last Admin: 04/29/24 17:20 Dose: 500 mg Social history: Non-smoker. Alcohol rarely. Lives at home with daughter the latter which takes care of her. On examination: VITAL SIGNS: 97.8, 64, 16, 133 x 32, 95% room air GENERAL APPEARANCE: Reclining in bed, comfortable HEENT: Normal external appearance of nose and ear. Oral cavity normal EYES: Pupils equal. Conjunctiva normal. NECK: JVD not raised. Mass not palpable. RESPIRATORY: Respiratory effort normal. Lungs occasional crackles n. CARDIOVASCULAR: First and second sounds normal. No edema. ABDOMEN: Soft. Liver and spleen not palpable. Mild tenderness. No mass palpable. PSYCHIATRY: Answering simple questions MUSCULOSKELETAL: OA. Bilateral gluteal pressure ulcers INVESTIGATIONS, reviewed in the clinical context: April 29: White count 11.5 hemoglobin 10.2 potassium 3.3 creatinine 0.52 April 28: White count 7.4 hemoglobin 10.7 platelets 392 potassium 3.4 creatinine 0.59 C. difficile PCR: Positive April 25, 2024: White count 9.5 hemoglobin 10.5 platelets 347 sodium 142 potassium 4 creatinine 0.[address] abdomen pelvis: Moderate pancolitis through more severe wall thickening at the distal sigmoid and rectum. No abscess or free air. Previous labs March 13: Potassium 3.7 creatinine 0.7 Assessment and plan: -Acute on chronic left and right buttock abscesses with failure of outpatient treatment, cultures from last admission showing Serratia marcescens with Staph aureus and strep atelectatic group B status post incision and drainage on 03/07/2024. Normally follows at the wound care center with Dr. Moe Boyer.: Patient with previous debridement. And antibiotic courses. This was discussed with Dr. Dodson. Local wound care -Acute pancolitis secondary to recurrent prolonged antibiotics/acute C. difficile colitis.: Improving C. difficile PCR positive Dr. Capri Redding consulted. IV Flagyl. Oral vancomycin Clear liquid diet tolerated -Chronic obstructive pulmonary disease, not in exacerbation -Very hard of hearing -Normocytic anemia of chronic disease -Essential hypertension Amlodipine 2.5 mg a day -Primary osteoarthritis, prior history of back surgery Pain medication as needed. Meloxicam -Hyperlipidemia Lipitor 10 mg -Anxiety/depression history Zoloft -Constipation Metamucil -Full code Continue with oral Vanco Flagyl. Changed to full liquid diet. Past Medical History Past Medical History: Blood Disorder, COPD, Hearing Disorder / Deafness, Hypertension, Osteoarthritis (OA) Additional Past Medical History / Comment(s): Hx HTN, Iron deficiency anemia, Occ slow heart rate, sl hearing loss Lt ear, hx low potassium, hx falls, Rt shoulder prob w/ upcoming surgery. Left foot turns dark purple, rt foot sl purple w/ occ edema. pressure sores, History of Any Multi-Drug Resistant Organisms: None Reported Past Surgical History: Back Surgery, Joint Replacement, Orthopedic Surgery Additional Past Surgical History / Comment(s): Right knee replacement, knee gave out after. Herniated discs cervical neck x 3, lower back x 2; right ankle surgery, hardware later removed; bilat wrist fx with surgical repair, removed hardware rt wrist; right knee torn meniscus repair. bone marrow bx. Total left shoulder - february 2021 Past Anesthesia/Blood Transfusion Reactions: No Reported Reaction Past Psychological History: Anxiety, Depression Smoking Status: Never smoker Past Alcohol Use History: Rare Past Drug Use History: None Reported
[2024-04-30] MEDS: POTASSIUM CHLORIDE ER 20 MEQ TAB.ER PO STA (10:01)
--- NOTE | 2024-04-30 16:50 | P.PN ---
Progress Note - Text Progress Note Date: 04/30/24 Chief Complaint: Diarrhea This is a 68-year-old female, followed by Dr. Demond Chan. in the hospital from March 04 through March 13.Acute infected decubitus ulcers as well as left and right buttock abscesses with failure of outpatient treatment, present on admission with preliminary culture showing Serratia marcescens with Staph aureus and strep atelectatic group B status post incision and drainage on 03/07/2024. Also was in the hospital from April 03 through April 09. follows with the wound care center including Dr. Moe Boyer. With wound VAC. She has had a few debridements. And course of antibiotics. When patient left the hospital she was doing well. Eating fine. For about a week now patient is having anywhere from 6-10 mucousy mushy very malodorous bowel movements. C. difficile tested twice was negative. She also went to see Dr. William OLEARY in the office. We did some cultures of the wound. Appetite has been low. Chills have been present. Most of the history is obtained by the daughter at the bedside. As patient is very hard of hearing. CT scan did show colitis. For which GI was consulted. Patient denied any abdominal pain. No blood in the stool. April 27: Patient C. difficile toxin PCR came back positive. Started on oral vancomycin in addition to Flagyl. Patient remains on clear liquids. Will DC Questran. Clear liquid diet April 28: Some improvement in diarrhea. On oral vancomycin and Flagyl. Will keep on clear liquids today. Changed to full liquids tomorrow morning. Otherwise patient appears comfortable. Status stool chart at the bedside. April 29: Saw the patient this morning. Had 1 bowel movement today. Had about 3 bowel movements yesterday. Remains on vancomycin and Flagyl. Started on full liquids this morning. Spoke to the patient daughter at the bedside. Otherwise feeling better. Keen to go home. April 30: Diarrhea is getting better. Had about 3 BMs yesterday. Remains on vancomycin. IV Flagyl. Patient on soft diet. Scratched that Active Medications Acetaminophen (Acetaminophen Tab 325 Mg Tab) 650 mg PO Q6HR PRN PRN Reason: Mild Pain or Fever > 100.5 Hydrocodone Bitart/Acetaminophen (Hydrocodone/Apap 7.5-325mg 1 Each Tab) 1 each PO TID PRN PRN Reason: Pain Last Admin: 04/30/24 10:00 Dose: 1 each Enoxaparin Sodium (Enoxaparin 40 Mg/0.4 Ml Syringe) 40 mg SQ DAILY [facility] Last Admin: 04/30/24 10:00 Dose: 40 mg Ergocalciferol (Ergocalciferol 1,250 Mcg (50,000 Iu) Capsule) 1,250 mcg PO Fr@0900 [facility] Last Admin: 04/26/24 13:16 Dose: 1,250 mcg Folic Acid (Folic Acid 1 Mg Tab) 1 mg PO DAILY@1200 [facility] Last Admin: 04/30/24 12:13 Dose: 1 mg Gabapentin (Gabapentin 100 Mg Cap) 200 mg PO TID [facility] Last Admin: 04/30/24 15:30 Dose: 200 mg Hydroxyzine HCl (Hydroxyzine Hcl 25 Mg Tab) 25 mg PO TID [facility] Last Admin: 04/30/24 15:29 Dose: 25 mg Sodium Chloride (Saline 0.9%) 1,000 mls @ 75 mls/hr IV .[id number] [facility] Last Admin: 04/30/24 10:00 Dose: 75 mls/hr Metronidazole 500 mg/ IV (Solution) 100 mls @ 100 mls/hr IVPB Q8HR [facility]; Protocol Last Admin: 04/30/24 15:30 Dose: 100 mls/hr Lactobacillus Acidophilus (Lactobacillus Acidophilus/Pect 1 Each Capsule) 1 each PO BID [facility] Last Admin: 04/30/24 10:00 Dose: 1 each Lamotrigine (Lamotrigine 25 Mg Tab) 25 mg PO DAILY [facility] Last Admin: 04/30/24 10:01 Dose: 25 mg Naloxone HCl (Naloxone 0.4 Mg/Ml 1 Ml Vial) 0.2 mg IV Q2M PRN PRN Reason: Opioid Reversal Nystatin (Nystatin 100,000 Unit/Gm Powd 15 Gm) 1 applic TOPICAL QID [facility]; Protocol Last Admin: 04/30/24 12:13 Dose: Not Given Nystatin (Nystatin 100,000unit/Gm Cream 30 Gm Tube) 1 applic TOPICAL DAILY [facility] Last Admin: 04/30/24 10:02 Dose: 1 applic Ondansetron HCl (Ondansetron 4 Mg/2 Ml Vial) 4 mg IVP Q8HR PRN PRN Reason: Nausea And Vomiting Sertraline HCl (Sertraline 50 Mg Tab) 150 mg PO HS [facility] Last Admin: 04/29/24 20:16 Dose: 150 mg Triamcinolone Acetonide (Triamcinolone 0.1% Cream 80 Gm Tube) 1 applic TOPICAL DAILY [facility] Last Admin: 04/30/24 10:02 Dose: 1 applic Vancomycin HCl (Vancomycin Oral Solution 250 Mg/5 Ml Bottle) 500 mg PO QID [facility]; Protocol Last Admin: 04/30/24 12:13 Dose: 500 mg Social history: Non-smoker. Alcohol rarely. Lives at home with daughter the latter which takes care of her. On examination: VITAL SIGNS: 98, 67, 16, 137 x 74, 96% room air GENERAL APPEARANCE: In a recliner, comfortable HEENT: Normal external appearance of nose and ear. Oral cavity normal EYES: Pupils equal. Conjunctiva normal. NECK: JVD not raised. Mass not palpable. RESPIRATORY: Respiratory effort normal. Lungs occasional crackles n. CARDIOVASCULAR: First and second sounds normal. No edema. ABDOMEN: Soft. Liver and spleen not palpable. Mild tenderness. No mass palpable. PSYCHIATRY: Answering simple questions MUSCULOSKELETAL: OA. Bilateral gluteal pressure ulcers INVESTIGATIONS, reviewed in the clinical context: April 29: White count 11.5 hemoglobin 10.2 potassium 3.3 creatinine 0.52 April 28: White count 7.4 hemoglobin 10.7 platelets 392 potassium 3.4 creatinine 0 .59 C. difficile PCR: Positive April 25, 2024: White count 9.5 hemoglobin 10.5 platelets 347 sodium 142 potassium 4 creatinine 0.[address] abdomen pelvis: Moderate pancolitis through more severe wall thickening at the distal sigmoid and rectum. No abscess or free air. Previous labs March 13: Potassium 3.7 creatinine 0.7 Assessment and plan: -Acute on chronic left and right buttock abscesses with failure of outpatient treatment, cultures from last admission showing Serratia marcescens with Staph aureus and strep atelectatic group B status post incision and drainage on 03/07/2024. Normally follows at the wound care center with Dr. Moe Boyer.: Patient with previous debridement. And antibiotic courses. This was discussed with Dr. Dodson. Local wound care -Acute pancolitis secondary to recurrent prolonged antibiotics/acute C. difficile colitis.: Improving C. difficile PCR positive Dr. Capri Redding consulted. IV Flagyl. Oral vancomycin Chopped diet -Chronic obstructive pulmonary disease, not in exacerbation -Very hard of hearing -Normocytic anemia of chronic disease -Essential hypertension Amlodipine 2.5 mg a day -Primary osteoarthritis, prior history of back surgery Pain medication as needed. Meloxicam -Hyperlipidemia Lipitor 10 mg -Anxiety/depression history Zoloft -Constipation Metamucil -Full code Check lab in a.m. If doing well hopefully discharge tomorrow Past Medical History Past Medical History: Blood Disorder, COPD, Hearing Disorder / Deafness, Hypertension, Osteoarthritis (OA) Additional Past Medical History / Comment(s): Hx HTN, Iron deficiency anemia, Occ slow heart rate, sl hearing loss Lt ear, hx low potassium, hx falls, Rt shoulder prob w/ upcoming surgery. Left foot turns dark purple, rt foot sl purple w/ occ edema. pressure sores, History of Any Multi-Drug Resistant Organisms: None Reported Past Surgical History: Back Surgery, Joint Replacement, Orthopedic Surgery Additional Past Surgical History / Comment(s): Right knee replacement, knee gave out after. Herniated discs cervical neck x 3, lower back x 2; right ankle surgery, hardware later removed; bilat wrist fx with surgical repair, removed hardware rt wrist; right knee torn meniscus repair. bone marrow bx. Total left shoulder - february 2021 Past Anesthesia/Blood Transfusion Reactions: No Reported Reaction Past Psychological History: Anxiety, Depression Smoking Status: Never smoker Past Alcohol Use History: Rare Past Drug Use History: None Reported
[2024-05-01 02:16] VITALS: RESP 16
[2024-05-01 06:39] LABS: African American GFR (CKD) >90 (>60 ml/min/1.73 sqM); Anion Gap 4 mmol/L; Blood Urea Nitrogen 4 mg/dL (7-17); Calcium 8.7 mg/dL (8.4-10.2); Carbon Dioxide 20 mmol/L (22-30); Chloride 117 mmol/L (98-107); Glucose 74 mg/dL (74-99); Non-African American GFR(CKD) >90 (>60 ml/min/1.73 sqM); Potassium 2.8 mmol/L (3.5-5.1); Sodium 141 mmol/L (137-145)
[2024-05-01 06:55] LABS: Anisocytosis Slight; Basophils % (A) 1 %; Eosinophils # (A) 0.3 k/uL (0-0.7); Eosinophils % (A) 4 %; HCT 31.9 % (34.0-46.0); HGB 9.6 gm/dL (11.4-16.0); Hypochromasia Moderate; Lymphocytes # (A) 1.9 k/uL (1.0-4.8); Lymphocytes % (A) 27 %; MCH 23.7 pg (25.0-35.0); MCHC 30.2 g/dL (31.0-37.0); MCV 78.6 fL (80.0-100.0); Mean Platelet Volume 7.6; Microcytosis Slight; Monocytes # (A) 0.3 k/uL (0-1.0); Monocytes % (A) 4 %; Neutrophils # (A) 4.4 k/uL (1.3-7.7); Neutrophils % (A) 63 %; Platelet Count 392 k/uL (150-450); RBC 4.06 m/uL (3.80-5.40); RDW 17.8 % (11.5-15.5); WBC 6.9 k/uL (3.8-10.6)
[2024-05-01] MEDS: POTASSIUM CHLORIDE ER 20 MEQ TAB.ER PO SCH (09:00)
[2024-05-01] MEDS: amLODIPine 2.5 MG TAB PO SCH (11:42)
[2024-05-01] MEDS: FERROUS SULFATE 325 MG TAB PO SCH (11:42)
[2024-05-01 15:07] VITALS: BP 164/85; PULSE 81; TEMP 98.1
[2024-05-01] MEDS: POTASSIUM CHLORIDE ER 20 MEQ TAB.ER PO STA (15:30)
--- NOTE | 2024-05-01 16:51 | P.DS ---
Providers Date of admission: 04/26/24 21:53 Expected date of discharge: 05/01/24 Attending physician: Tone Thomas Consults: 04/25/24 19:02 Consult Physician Urgent Consulting Provider: Qing Redding Consult Reason/Comments: pancolitis Do you want consulting provider notified?: Yes 04/26/24 13:22 Consult Physician Routine Consulting Provider: Jeffrey Rainey Consult Reason/Comments: infections Do you want consulting provider notified?: Yes Primary care physician: Demond Swift [facility] Course: Chief Complaint: Diarrhea This is a 68-year-old female, followed by Dr. Demond Chan. in the hospital from March 04 through March 13.Acute infected decubitus ulcers as well as left and right buttock abscesses with failure of outpatient treatment, present on admission with preliminary culture showing Serratia marcescens with Staph aureus and strep atelectatic group B status post incision and drainage on 03/07/2024. Also was in the hospital from April 03 through April 09. follows with the wound care center including Dr. Moe Boyer. With wound VAC. She has had a few debridements. And course of antibiotics. When patient left the hospital she was doing well. Eating fine. For about a week now patient is having anywhere from 6-10 mucousy mushy very malodorous bowel movements. C. difficile tested twice was negative. She also went to see Dr. William OLEARY in the office. We did some cultures of the wound. Appetite has been low. Chills have been present. Most of the history is obtained by the daughter at the bedside. As patient is very hard of hearing. CT scan did show colitis. For which GI was consulted. Patient denied any abdominal pain. No blood in the stool. April 27: Patient C. difficile toxin PCR came back positive. Started on oral vancomycin in addition to Flagyl. Patient remains on clear liquids. Will DC Questran. Clear liquid diet April 28: Some improvement in diarrhea. On oral vancomycin and Flagyl. Will keep on clear liquids today. Changed to full liquids tomorrow morning. Otherwise patient appears comfortable. Status stool chart at the bedside. April 29: Saw the patient this morning. Had 1 bowel movement today. Had about 3 bowel movements yesterday. Remains on vancomycin and Flagyl. Started on full liquids this morning. Spoke to the patient daughter at the bedside. Otherwise feeling better. Keen to go home. April 30: Diarrhea is getting better. Had about 3 BMs yesterday. Remains on vancomycin. IV Flagyl. Patient on soft diet. May 01: Had only 1 bowel movement today. Doing well. Tolerating diet. Will be discharged on Vanco and Flagyl per ID for about 2 weeks course. Soft bland diet. Patient to continue with wound care. Given update to patient's daughter Pauline on the phone. Questions answered. Understands overall prognosis guarded. Hospice will not be unreasonable. CODE STATUS discussed. Made DNR Discussion and discharge planning more than 35 minutes Social history: Non-smoker. Alcohol rarely. Lives at home with daughter the latter which takes care of her. On examination: VITAL SIGNS: 98.1, 81, 16, 164/85, 98% room air GENERAL APPEARANCE: In a recliner, comfortable HEENT: Normal external appearance of nose and ear. Oral cavity normal EYES: Pupils equal. Conjunctiva normal. NECK: JVD not raised. Mass not palpable. RESPIRATORY: Respiratory effort normal. Lungs occasional crackles n. CARDIOVASCULAR: First and second sounds normal. No edema. ABDOMEN: Soft. Liver and spleen not palpable. Mild tenderness. No mass palpable. PSYCHIATRY: Answering simple questions MUSCULOSKELETAL: OA. Bilateral gluteal pressure ulcers INVESTIGATIONS, reviewed in the clinical context: May 01: White count 6.9 hemoglobin 9.6 potassium 3.4 creatinine 0.47 April 29: White count 11.5 hemoglobin 10.2 potassium 3.3 creatinine 0.52 April 28: White count 7.4 hemoglobin 10.7 platelets 392 potassium 3.4 creatinine 0.59 C. difficile PCR: Positive April 25, 2024: White count 9.5 hemoglobin 10.5 platelets 347 sodium 142 potassium 4 creatinine 0.[address] abdomen pelvis: Moderate pancolitis through more severe wall thickening at the distal sigmoid and rectum. No abscess or free air. Previous labs March 13: Potassium 3.7 creatinine 0.7 Assessment and plan: -Acute on chronic left and right buttock abscesses with failure of outpatient treatment, cultures from last admission showing Serratia marcescens with Staph aureus and strep atelectatic group B status post incision and drainage on 03/07/2024. Normally follows at the wound care center with Dr. Moe Boyer.: Patient with previous debridement. And antibiotic courses. This was discussed with Dr. Dodson. Local wound care -Acute pancolitis secondary to recurrent prolonged antibiotics/acute C. difficile colitis.: Improving C. difficile PCR positive Dr. Capri Redding and ID following Complete course of Flagyl and oral vancomycin Chopped diet -Chronic obstructive pulmonary disease, not in exacerbation -Very hard of hearing -Normocytic anemia of chronic disease -Essential hypertension Amlodipine 2.5 mg a day -Primary osteoarthritis, prior history of back surgery Pain medication as needed. Meloxicam -Hyperlipidemia Lipitor 10 mg -Anxiety/depression history Zoloft -Constipation Metamucil -DNR [Advance care planning: Discussed on May 01, 2024: Discussed with daughter Pauline. Full discussion. Scope of hospice/DNR different scenarios were discussed. Pauline has decided to proceed with DNR. Depending on patient's clinical course will also decide about hospice depending how things go also discussion with PCP. For now patient is currently DNR Time spent about 25 minutes] Disposition: Home Past Medical History Past Medical History: Blood Disorder, COPD, Hearing Disorder / Deafness, Hypertension, Osteoarthritis (OA) Additional Past Medical History / Comment(s): Hx HTN, Iron deficiency anemia, Occ slow heart rate, sl hearing loss Lt ear, hx low potassium, hx falls, Rt shoulder prob w/ upcoming surgery. Left foot turns dark purple, rt foot sl purple w/ occ edema. pressure sores, History of Any Multi-Drug Resistant Organisms: None Reported Past Surgical History: Back Surgery, Joint Replacement, Orthopedic Surgery Additional Past Surgical History / Comment(s): Right knee replacement, knee gave out after. Herniated discs cervical neck x 3, lower back x 2; right ankle surgery, hardware later removed; bilat wrist fx with surgical repair, removed hardware rt wrist; right knee torn meniscus repair. bone marrow bx. Total left shoulder - february 2021 Past Anesthesia/Blood Transfusion Reactions: No Reported Reaction Past Psychological History: Anxiety, Depression Smoking Status: Never smoker Past Alcohol Use History: Rare Past Drug Use History: None Reported Plan - Discharge Summary Discharge Rx Participant: No New Discharge Prescriptions: New Vancomycin HCl [Vancocin HCl] 250 mg PO Q6HR #56 cap metroNIDAZOLE [Flagyl] 500 mg PO TID #42 tab Continue Sertraline [Zoloft] 150 mg PO HS lamoTRIgine [LaMICtal] 25 mg PO DAILY hydrOXYzine HCL [Atarax] 25 mg PO TID Ergocalciferol (Vitamin D2) [Drisdol (50,000 Iu)] 1,250 mcg PO FR Folic Acid 1 mg PO DAILY@1200 #30 tab Nystatin 100,000 Unit/gm Powd [Mycostatin Powder] 1 applic TOPICAL QID Ferrous Sulfate [Feosol] 325 mg PO DAILY #30 tab HYDROcodone/APAP 7.5-325MG [[place] 7.5-325] 1 tab PO TID PRN PRN Reason: Pain amLODIPine [Norvasc] 2.5 mg PO DAILY Meloxicam [Mobic] 15 mg PO DAILY Cetirizine HCl [Zyrtec] 10 mg PO DAILY Acetaminophen Tab [Tylenol] 500 mg PO Q6HR PRN tab PRN Reason: Fever And/ Or Pain Gabapentin [Neurontin] 200 mg PO TID #6 cap Potassium Chloride ER [K-Dur 10] 10 meq PO DAILY Hydrocortisone Cream [Hydrocortisone 2.5% Cream] 1 applic TOPICAL QID PRN PRN Reason: Pain Nystatin/Triamcin [Nystatin-Triamcinolone Cream] 1 applic TOPICAL BID PRN PRN Reason: wound care Discontinued Spironolactone [Aldactone] 25 mg PO DIRECTED Cholestyramine (with Sugar) [Questran] 4 gm PO AC-TID Discharge Medication List Sertraline [Zoloft] 150 mg PO HS 02/01/21 [History] amLODIPine [Norvasc] 2.5 mg PO DAILY 08/24/21 [History] lamoTRIgine [LaMICtal] 25 mg PO DAILY 08/24/21 [History] Cetirizine HCl [Zyrtec] 10 mg PO DAILY 03/04/24 [History] Ergocalciferol (Vitamin D2) [Drisdol (50,000 Iu)] 1,250 mcg PO FR 03/04/24 [History] Meloxicam [Mobic] 15 mg PO DAILY 03/04/24 [History] hydrOXYzine HCL [Atarax] 25 mg PO TID 03/04/24 [History] Acetaminophen Tab [Tylenol] 500 mg PO Q6HR PRN tab 03/11/24 [Rx] Folic Acid 1 mg PO DAILY@1200 #30 tab 03/11/24 [Rx] Nystatin 100,000 Unit/gm Powd [Mycostatin Powder] 1 applic TOPICAL QID 04/02/24 [History] Ferrous Sulfate [Feosol] 325 mg PO DAILY #30 tab 04/09/24 [Rx] Gabapentin [Neurontin] 200 mg PO TID #6 cap 04/09/24 [Rx] HYDROcodone/APAP 7.5-325MG [[place] 7.5-325] 1 tab PO TID PRN 04/25/24 [History] Hydrocortisone Cream [Hydrocortisone 2.5% Cream] 1 applic TOPICAL QID PRN 04/25/24 [History] Nystatin/Triamcin [Nystatin-Triamcinolone Cream] 1 applic TOPICAL BID PRN 04/25/24 [History] Potassium Chloride ER [K-Dur 10] 10 meq PO DAILY 04/25/24 [History] Vancomycin HCl [Vancocin HCl] 250 mg PO Q6HR #56 cap 05/01/24 [Rx] metroNIDAZOLE [Flagyl] 500 mg PO TID #42 tab 05/01/24 [Rx] Follow up Appointment(s)/Referral(s): Demond Swift DO [Primary Care Provider] - 1-2 days Raul Mojica DO [Doctor of Osteopathic Medicine] - 1 Week (wound center) Activity/Diet/Wound Care/Special Instructions: antibiotics wound care per dr rainey/wound team
== END 2024-05-01 16:40 | disposition home or self-care (01) | DRG 371 ==
LOC: EC 13:03 → 6NMEDSUR 20:14 → OBSVTOIN 04-26 21:53
PROVIDERS: ADMIT Hospitalist; ATTEND Hospitalist
DX: A04.72 Enterocolitis due to Clostridium difficile, not specified as recurrent (principal); L89.313 Pressure ulcer of right buttock, stage 3; L89.323 Pressure ulcer of left buttock, stage 3; N17.9 Acute kidney failure, unspecified; E87.20 Acidosis, unspecified; K52.9 Noninfective gastroenteritis and colitis, unspecified; E78.5 Hyperlipidemia, unspecified; F32.A Depression, unspecified; F41.9 Anxiety disorder, unspecified; D63.8 Anemia in other chronic diseases classified elsewhere; H91.92 Unspecified hearing loss, left ear; D50.9 Iron deficiency anemia, unspecified; K44.9 Diaphragmatic hernia without obstruction or gangrene; I10 Essential (primary) hypertension; M19.91 Primary osteoarthritis, unspecified site; Z79.1 Long term (current) use of non-steroidal anti-inflammatories (NSAID); Z79.2 Long term (current) use of antibiotics; Z79.899 Other long term (current) drug therapy; Z96.651 Presence of right artificial knee joint; Z66 Do not resuscitate; Z88.6 Allergy status to analgesic agent; Z88.5 Allergy status to narcotic agent; Z88.0 Allergy status to penicillin; Z91.81 History of falling
CPT/HCPCS: 36415; 71046; 74018; 74177; 80048; 80053; 81003; 82150; 83690; 84132; 84145; 84484; 85025; 85610; 85730; 87045; 87046; 87324; 87493; 93005; 96360; 96361; 99285

== ENCOUNTER 2024-05-16 13:09 | Emergency (ER) | payer MEDICARE, BC ==
[2024-05-16 13:40] LABS: Anisocytosis Slight; Basophils # (A) 0.1 k/uL (0-0.2); Basophils % (A) 1 %; Eosinophils # (A) 0.2 k/uL (0-0.7); Eosinophils % (A) 2 %; HCT 35.9 % (34.0-46.0); HGB 11.2 gm/dL (11.4-16.0); Lymphocytes # (A) 1.9 k/uL (1.0-4.8); Lymphocytes % (A) 19 %; MCH 24.5 pg (25.0-35.0); MCHC 31.2 g/dL (31.0-37.0); MCV 78.5 fL (80.0-100.0); Mean Platelet Volume 7.6; Microcytosis Slight; Monocytes # (A) 0.4 k/uL (0-1.0); Monocytes % (A) 4 %; Neutrophils # (A) 7.2 k/uL (1.3-7.7); Neutrophils % (A) 74 %; Platelet Count 436 k/uL (150-450); RBC 4.58 m/uL (3.80-5.40); RDW 18.5 % (11.5-15.5); WBC 9.7 k/uL (3.8-10.6)
[2024-05-16 13:53] LABS: Partial Thromboplastin Time 24.9 sec (22.0-30.0); Prothrombin Time 10.7 sec (10.0-12.5)
[2024-05-16 14:05] LABS: ALT 9 U/L (4-34); AST 21 U/L (14-36); African American GFR (CKD) >90 (>60 ml/min/1.73 sqM); Albumin 3.3 g/dL (3.5-5.0); Alkaline Phosphatase 140 U/L (38-126); Anion Gap 6 mmol/L; Blood Urea Nitrogen 7 mg/dL (7-17); Calcium 9.2 mg/dL (8.4-10.2); Carbon Dioxide 25 mmol/L (22-30); Chloride 107 mmol/L (98-107); Glucose 127 mg/dL (74-99); Magnesium 1.9 mg/dL (1.6-2.3); Non-African American GFR(CKD) >90 (>60 ml/min/1.73 sqM); Sodium 138 mmol/L (137-145); Total Bilirubin 0.4 mg/dL (0.2-1.3); Total Protein 5.6 g/dL (6.3-8.2)
[2024-05-16 14:34] LABS: Potassium 2.3 mmol/L (3.5-5.1)
--- NOTE | 2024-05-16 15:13 | ED ---
General Adult HPI - General Source: patient, family Mode of arrival: wheelchair Limitations: no limitations <Salomon Dacosta - Last Filed: 05/16/24 15:36> <Garry Hicks - Last Filed: 05/16/24 17:31> - General Chief complaint: Syncope Stated complaint: Weakness Time Seen by Provider: 05/16/24 13:12 - History of Present Illness Initial comments: Dictation was produced using [employer] dictation software. please excuse any grammatical, word or spelling errors. Chief Complaint: 68-year-old female multiple comorbidities and DNR presents to the emergency department with syncopal episode and altered mental status History of Present Illness: Patient 68-year-old female with multiple comorbidities. History of present illness obtained from patient and daughters. Daughters are at the bedside. Patient seen and evaluated initially in triage carvalho. Patient yesterday had an episode where she became unresponsive foaming at the mouth and perhaps had a seizure. Family states that patient is DNR. They were concerned that patient was actively passing yesterday. Shortly after she woke up and was looking around. She seemed a little confused. All day today patient seems to be at baseline. They contacted primary care doctor about the events that happened yesterday and was instructed to bring the patient to the emergency department. Family reports that patient is DNR they do not want any aggressive treatment. They are worried that maybe patient has abnormal electrolytes. Patient denies any focal complaints. Patient allegedly has a history of chronic decubitus ulcers. The ROS documented in this emergency department record has been reviewed and confirmed by me. Those systems with pertinent positive or negative responses have been documented in the HPI. All other systems are other negative and/or noncontributory. (Salomon Dacosta) - Related Data Home Medications Medication Instructions Recorded Confirmed Sertraline [Zoloft] 150 mg PO HS 02/01/21 05/16/24 amLODIPine [Norvasc] 2.5 mg PO DAILY 08/24/21 05/16/24 lamoTRIgine [LaMICtal] 25 mg PO DAILY 08/24/21 05/16/24 Cetirizine HCl [Zyrtec] 10 mg PO DAILY 03/04/24 05/16/24 Ergocalciferol (Vitamin D2) 1,250 mcg PO FR 03/04/24 05/16/24 [Drisdol (50,000 Iu)] Meloxicam [Mobic] 15 mg PO DAILY 03/04/24 05/16/24 hydrOXYzine HCL [Atarax] 25 mg PO TID 03/04/24 05/16/24 Nystatin 100,000 Unit/gm Powd 1 applic TOPICAL QID 04/02/24 05/16/24 [Mycostatin Powder] HYDROcodone/APAP 7.5-325MG [[place] 1 tab PO TID PRN 04/25/24 05/16/24 7.5-325] Hydrocortisone Cream 1 applic TOPICAL QID PRN 04/25/24 05/16/24 [Hydrocortisone 2.5% Cream] Nystatin/Triamcin 1 applic TOPICAL BID PRN 04/25/24 05/16/24 [Nystatin-Triamcinolone Cream] Potassium Chloride ER [K-Dur 10] 10 meq PO DAILY 04/25/24 05/16/24 Previous Rx's Medication Instructions Recorded Acetaminophen Tab [Tylenol] 500 mg PO Q6HR PRN tab 03/11/24 Folic Acid 1 mg PO DAILY@1200 #30 tab 03/11/24 Ferrous Sulfate [Feosol] 325 mg PO DAILY #30 tab 04/09/24 Gabapentin [Neurontin] 200 mg PO TID #6 cap 04/09/24 Vancomycin HCl [Vancocin HCl] 250 mg PO Q6HR #56 cap 05/01/24 metroNIDAZOLE [Flagyl] 500 mg PO TID #42 tab 05/01/24 Potassium Chloride ER [K-Dur 20] 20 meq PO DAILY 14 Days #14 05/16/24 Allergies Allergy/AdvReac Type Severity Reaction Status Date / Time ibuprofen [From Motrin] Allergy Rash/Hives Verified 05/16/24 16:31 oxycodone [From Percocet] Allergy Rash/Hives Verified 05/16/24 16:31 Penicillins Allergy Rash/Hives Verified 05/16/24 16:31 ferumoxytol [From Feraheme] AdvReac Intermediate see comment Verified 05/16/24 16:31 Review of Systems ROS Other: All systems not noted in ROS Statement are negative. <Salomon Dacosta - Last Filed: 05/16/24 15:36> ROS Other: All systems not noted in ROS Statement are negative. <Garry Hicks Saqib - Last Filed: 05/16/24 17:31> ROS Statement: Those systems with pertinent positive or pertinent negative responses have been documented in the HPI. Past Medical History Past Medical History: Blood Disorder, COPD, Hearing Disorder / Deafness, Hypertension, Osteoarthritis (OA) Additional Past Medical History / Comment(s): Hx HTN, Iron deficiency anemia, Oc c slow heart rate, sl hearing loss Lt ear, hx low potassium, hx falls, Rt shoulder prob w/ upcoming surgery. Left foot turns dark purple, rt foot sl purple w/ occ edema. pressure sores, History of Any Multi-Drug Resistant Organisms: None Reported Past Surgical History: Back Surgery, Joint Replacement, Orthopedic Surgery Additional Past Surgical History / Comment(s): Right knee replacement, knee gave out after. Herniated discs cervical neck x 3, lower back x 2; right ankle surgery, hardware later removed; bilat wrist fx with surgical repair, removed hardware rt wrist; right knee torn meniscus repair. bone marrow bx. Total left shoulder - february 2021 Past Anesthesia/Blood Transfusion Reactions: No Reported Reaction Past Psychological History: Anxiety, Depression Smoking Status: Never smoker Past Alcohol Use History: Rare Past Drug Use History: None Reported - Past Family History Mother Additional Family Medical History / Comment(s): Mother 5 years after being struck by a vehicle of complications. Father Additional Family Medical History / Comment(s): Mother 5 yrs after being struck by a vehicle of complications. <Salomon Dacosta - Last Filed: 05/16/24 15:36> General Exam Limitations: no limitations <Salomon Dacosta - Last Filed: 05/16/24 15:36> - General Exam Comments Initial Comments: PHYSICAL EXAM: General Impression: Alert and oriented x3, not in acute distress HEENT: Normocephalic atraumatic, extra-ocular movements intact, pupils equal and reactive to light bilaterally, mucous membranes moist. Cardiovascular: Heart regular rate and rhythm Chest: Able to complete full sentences, no retractions, no tachypnea Abdomen: abdomen soft, non-tender, non-distended, no organomegaly Musculoskeletal: Pulses present and equal in all extremities, no peripheral edema Motor: no focal deficits noted Neurological: CN II-XII grossly intact, no focal motor or sensory deficits noted Skin: Intact with no visualized rashes Psych: Normal affect and mood (Salomon Dacosta) Course Vital Signs 05/16/24 13:14 Temperature 97.9 F Pulse Rate 70 Respiratory 20 Rate Blood Pressure 137/74 O2 Sat by Pulse 97 Oximetry EKG Findings - EKG Comments: EKG Findings:: My EKG interpretation: Ventricular rate 68, sinus rhythm,. 166, QRS 116, QTc 456. No LA prolongation, no QTC prolongation, no ST or T-wave changes noted. EKG compared to April 25, 2024 showing no changes. Overall, this EKG is unremarkable <Salomon Dacosta - Last Filed: 05/16/24 15:36> Medical Decision Making - Lab Data Result diagrams: 05/16/24 13:30 05/16/24 13:30 <Salomon Dacosta - Last Filed: 05/16/24 15:36> - Lab Data Result diagrams: 05/16/24 13:30 05/16/24 13:30 <Garry Hicks - Last Filed: 05/16/24 17:31> - Medical Decision Making 3:13 PM: Due to prolonged wait times in the emergency department patient was seen and evaluated in triage carvalho. She is well-appearing has stable vital signs. Patient has no primary complaints. Family is concerned that something severe is occurring. Was pt. sent in by a medical professional or institution ([facility], [employer], urgent care, hospital, or assisted...) When possible be specific @ -[No] Did you speak to anyone other than the patient for history (EMS, parent, family, police, friend...)? What history was obtained from this source @ -History obtained from family and patient at the bedside as described above Did you review nursing and triage notes (agree or disagree)? Why? @ -[I reviewed and agree with nursing and triage notes] Were old charts reviewed (outside hosp., previous admission, EMS record, old EKG, old radiological studies, urgent care reports/EKG's, assisted records)? Report findings @ -[No old charts were reviewed] Differential Diagnosis (chest pain, altered mental status, abdominal pain women, abdominal pain men, vaginal bleeding, musculoskeletal, weakness, fever, dyspnea, syncope, headache, dizziness, GI bleed, back pain, seizure, CVA, palpatations, mental health)? @ -Differential Syncope: Valvular disease, hypertrophic cardiomyopathy, pulmonary embolism, tamponade, tachycardia, bradycardia, CA, hypovolemia, hemorrhage, dissection, anemia, intracranial hemorrhage, seizure, hypoglycemia, carbon monoxide poisoning, this is not meant to be an all-inclusive list. EKG interpreted by me (3pts min.). @ -See above X-rays interpreted by me (1pt min.). @ -Pending CT interpreted by me (1pt min.). @ -[None done] U/S interpreted by me (1pt. min.). @ -[None done] What testing was considered but not performed or refused? (CT, X-rays, U/S, labs)? Why? @ -[None] What meds were considered but not given or refused? Why? @ -[None] Was smoking cessation discussed for >3mins.? @ -[No] Were there social determinants of health that impacted care today? How? (Homelessness, low income, unemployed, alcoholism, drug addiction, transportation, low edu. Level, literacy, decrease access to med. care, penitentiary, rehab)? @ -[No] Was there de-escalation of care discussed even if they declined (Discuss DNR or withdrawal of care, Hospice)? DNR status @ -Patient currently DNR What co-morbidities impacted this encounter? (DM, HTN, Smoking, COPD, CAD, Cancer, CVA, ARF, Chemo, Hep., AIDS, mental health diagnosis, sleep apnea, morbid obesity)? @ -[None] Was patient admitted / discharged? Hospital course, mention meds given and route, prescriptions, significant lab abnormalities, going to OR and other pertinent info. @ -68-year-old female presents to the ER after yesterday having an episode of altered mental status and allegedly foaming at the mouth. Vital signs upon arrival are within acceptable limits. Patient well-appearing at the bedside has no focal complaints. Patient care signed out to oncoming physician for follow- up of pending labs and imaging. Did you discuss the management of the patient with other professionals (professionals i.e. , PA, LINE PRODUCER, lab, RT, psych nurse, healthcare social worker, special population paraprofessional, teacher, restoration officer, supervisor case loading)? Give summary @ -[No] Was critical care preformed (if so, how long)? @ -[No] Undiagnosed new problem with uncertain prognosis? @ -[No] Drug Therapy requiring intensive monitoring for toxicity (Heparin, Nitro, Insulin, Cardizem)? @ -[No] Were any procedures done? @ -[No] Diagnosis/symptom? Acute, or Chronic, or Acute on Chronic? Uncomplicated (without systemic symptoms) or Complicated (systemic symptoms)? @ -Syncope procedure (Salomon Dacosta) 68-year-old female presenting for evaluation of syncope versus seizure which occurred yesterday. There is discussion with the family about goals of care and they would like information about hospice. Patient is adamant that she does not want to stay in the hospital. I did provide IV fluid and potassium but this patient her potassium is 2.3. Patient is alert and oriented and eager for discharge. She states she will follow-up with her primary care provider tomorrow. Hospice has been contacted regarding this patient's evaluation. (Garry Hicks) - Lab Data Lab Results 05/16/24 05/16/24 05/16/24 Range/Units 13:30 13:30 13:30 WBC 9.7 (3.8-10.6) k/uL RBC 4.58 (3.80-5.40) m/uL Hgb 11.2 L (11.4-16.0) gm/dL Hct 35.9 (34.0-46.0) % MCV 78.5 L (80.0-100.0) fL MCH 24.5 L (25.0-35.0) pg MCHC 31.2 (31.0-37.0) g/dL RDW 18.5 H (11.5-15.5) % Plt Count 436 (150-450) k/uL MPV 7.6 Neutrophils % 74 % Lymphocytes % 19 % Monocytes % 4 % Eosinophils % 2 % Basophils % 1 % Neutrophils # 7.2 (1.3-7.7) k/uL Lymphocytes # 1.9 (1.0-4.8) k/uL Monocytes # 0.4 (0-1.0) k/uL Eosinophils # 0.2 (0-0.7) k/uL Basophils # 0.1 (0-0.2) k/uL Anisocytosis Slight Microcytosis Slight PT 10.7 (10.0-12.5) sec INR 1.0 (<1.2) APTT 24.9 (22.0-30.0) sec Sodium 138 (137-145) mmol/L Potassium 2.3 L* (3.5-5.1) mmol/L Chloride 107 (98-107) mmol/L Carbon Dioxide 25 (22-30) mmol/L Anion Gap 6 mmol/L BUN 7 (7-17) mg/dL Creatinine 0.59 (0.52-1.04) mg/dL Est GFR (CKD-EPI)AfAm >90 (>60 ml/min/1.73 sqM) Est GFR (CKD-EPI)NonAf >90 (>60 ml/min/1.73 sqM) Glucose 127 H (74-99) mg/dL Calcium 9.2 (8.4-10.2) mg/dL Magnesium 1.9 (1.6-2.3) mg/dL Total Bilirubin 0.4 (0.2-1.3) mg/dL AST 21 (14-36) U/L ALT 9 (4-34) U/L Alkaline Phosphatase 140 H (38-126) U/L Troponin I (0.000-0.034) ng/mL Total Protein 5.6 L (6.3-8.2) g/dL Albumin 3.3 L (3.5-5.0) g/dL 05/16/24 Range/Units 13:30 WBC (3.8-10.6) k/uL RBC (3.80-5.40) m/uL Hgb (11.4-16.0) gm/dL Hct (34.0-46.0) % MCV (80.0-100.0) fL MCH (25.0-35.0) pg MCHC (31.0-37.0) g/dL RDW (11.5-15.5) % Plt Count (150-450) k/uL MPV Neutrophils % % Lymphocytes % % Monocytes % % Eosinophils % % Basophils % % Neutrophils # (1.3-7.7) k/uL Lymphocytes # (1.0-4.8) k/uL Monocytes # (0-1.0) k/uL Eosinophils # (0-0.7) k/uL Basophils # (0-0.2) k/uL Anisocytosis Microcytosis PT (10.0-12.5) sec INR (<1.2) APTT (22.0-30.0) sec Sodium (137-145) mmol/L Potassium (3.5-5.1) mmol/L Chloride (98-107) mmol/L Carbon Dioxide (22-30) mmol/L Anion Gap mmol/L BUN (7-17) mg/dL Creatinine (0.52-1.04) mg/dL Est GFR (CKD-EPI)AfAm (>60 ml/min/1.73 sqM) Est GFR (CKD-EPI)NonAf (>60 ml/min/1.73 sqM) Glucose (74-99) mg/dL Calcium (8.4-10.2) mg/dL Magnesium (1.6-2.3) mg/dL Total Bilirubin (0.2-1.3) mg/dL AST (14-36) U/L ALT (4-34) U/L Alkaline Phosphatase (38-126) U/L Troponin I <0.012 (0.000-0.034) ng/mL Total Protein (6.3-8.2) g/dL Albumin (3.5-5.0) g/dL Disposition <Salomon Dacosta - Last Filed: 05/16/24 15:36> Is patient prescribed a controlled substance at d/c from ED?: No Time of Disposition: 17:08 <Garry Hicks - Last Filed: 05/16/24 17:31> Clinical Impression: Hypokalemia, Syncope Disposition: HOME SELF-CARE Condition: Fair Instructions (If sedation given, give patient instructions): Hypokalemia (ED), Syncope (DC) Prescriptions: Potassium Chloride ER [K-Dur 20] 20 meq PO DAILY 14 Days #14 Referrals: Demond Swift DO [Primary Care Provider] - 1-2 days
--- NOTE | 2024-05-16 16:20 | CT ---
EXAMINATION TYPE: CT brain wo con DATE OF EXAM: 05/16/2024 COMPARISON: 04/02/2024 HISTORY: 68-year-old female with confusion, ams, seizure, syncope TECHNIQUE: Examination was done in axial plane without intravenous contrast. Coronal and sagittal r econstructions performed. CT DLP: 1138.9 mGycm Automated exposure control for dose reduction was used. FINDINGS: There is no evidence of acute intracranial hemorrhage, acute ischemic changes, mass, mass-effect, or extra-axial fluid collection. There is no effacement of cerebral sulci or basal subarachnoid cister ns. There is no hydrocephalus. There is no midline shift. Sutton-white matter distinction is preserv ed. Paranasal sinuses and mastoid air cells are well pneumatized. Bilateral nasal septal deviation. Orbit s and globes are intact. IMPRESSION: No acute intracranial abnormality seen.
--- NOTE | 2024-05-16 16:25 | XR ---
EXAMINATION TYPE: XR chest 2V DATE OF EXAM: 05/16/2024 COMPARISON: 04/27/2024 HISTORY: 68-year-old female syncope versus seizure, confusion TECHNIQUE: AP and lateral views FINDINGS: Partially visualized reverse right shoulder arthroplasty. Large surgical staple left glenoid with sev ere degenerative change left glenohumeral joint. ACDF hardware. Chronic healed fracture deformities l eft posterolateral mid ribs. Bandlike areas of opacity. Bandlike areas of opacity in the lower lungs remain unchanged, probably areas of scarring. Subtle focal density at the right mid lung. No pleural effusion. Redemonstrated multiple vertebral compression deformities. Vertebroplasty changes lower tho racic and upper lumbar spine. IMPRESSION: 1. Similar bandlike scarring in the mid and lower lungs. Chronic healed left-sided rib fracture defor mities. 2. Subtle focal density right midlung. Correlate for any symptoms of a possible early developing infi ltrate. Reassess on follow-up. 3. Multiple vertebral compression deformities redemonstrated.
[2024-05-16] MEDS ORDERED: POTASSIUM CHLORIDE ER 20 MEQ TAB.ER PO STA (16:37)
[2024-05-16 18:13] VITALS: BP 159/90; PULSE 68; RESP 18; TEMP 98
[2024-05-16] MEDS: POTASSIUM CHLORIDE 10 MEQ in WATER FOR INJECTION 1 100ML.BAG IVPB SCH (18:13)
== END 2024-05-16 18:21 | disposition home or self-care (01) ==
LOC: EC 13:09
DX: E87.6 Hypokalemia (principal); R56.9 Unspecified convulsions; Z88.0 Allergy status to penicillin; Z88.8 Allergy status to other drugs, medicaments and biological substances
CPT/HCPCS: 36415; 70450; 71046; 80053; 83735; 84484; 85025; 85610; 85730; 93005; 99285

== ENCOUNTER 2024-06-03 11:01 | Observation (INO) | payer MEDICARE, BC ==
--- NOTE | 2024-06-03 12:02 | XR ---
EXAMINATION TYPE: XR chest 2V DATE OF EXAM: 06/03/2024 COMPARISON: 05/16/2024 HISTORY: 68-year-old female with weakness TECHNIQUE: AP and lateral views FINDINGS: Vertebroplasty changes lower thoracic spine. Multiple vertebral compression deformities upper and mid thoracic spine. ACDF hardware. Surgical staple left glenoid with advanced degenerative change at the glenoid humeral joint. Reverse right shoulder plasty. Heart is mildly enlarged. Large bandlike areas of scarring or atelectasis in the mid and lower lungs. Low lung volumes. IMPRESSION: Hypoventilatory changes along with large bandlike areas of atelectasis or scarring in the mid and low er lungs. Mild cardiomegaly.
[2024-06-03 12:09] LABS: Anisocytosis Slight; Basophils % (A) 0 %; Eosinophils # (A) 0.1 k/uL (0-0.7); Eosinophils % (A) 2 %; HCT 38.1 % (34.0-46.0); HGB 11.5 gm/dL (11.4-16.0); Hypochromasia Slight; Lymphocytes # (A) 1.4 k/uL (1.0-4.8); Lymphocytes % (A) 31 %; MCH 24.9 pg (25.0-35.0); MCHC 30.3 g/dL (31.0-37.0); MCV 82.3 fL (80.0-100.0); Mean Platelet Volume 7.4; Microcytosis Slight; Monocytes # (A) 0.3 k/uL (0-1.0); Monocytes % (A) 6 %; Neutrophils # (A) 2.6 k/uL (1.3-7.7); Neutrophils % (A) 59 %; Platelet Count 339 k/uL (150-450); RBC 4.63 m/uL (3.80-5.40); RDW 17.7 % (11.5-15.5); WBC 4.4 k/uL (3.8-10.6)
[2024-06-03 12:18] LABS: INR 0.9 (<1.2); Partial Thromboplastin Time 27.9 sec (22.0-30.0); Prothrombin Time 10.1 sec (10.0-12.5)
[2024-06-03 12:22] LABS: ALT 12 U/L (4-34); AST 27 U/L (14-36); African American GFR (CKD) 69 (>60 ml/min/1.73 sqM); Albumin 3.6 g/dL (3.5-5.0); Alkaline Phosphatase 176 U/L (38-126); Anion Gap 8 mmol/L; Blood Urea Nitrogen 13 mg/dL (7-17); Calcium 9.3 mg/dL (8.4-10.2); Carbon Dioxide 21 mmol/L (22-30); Chloride 109 mmol/L (98-107); Glucose 87 mg/dL (74-99); Non-African American GFR(CKD) 60 (>60 ml/min/1.73 sqM); Potassium 4.3 mmol/L (3.5-5.1); Sodium 138 mmol/L (137-145); Total Bilirubin 0.4 mg/dL (0.2-1.3); Total Protein 6.2 g/dL (6.3-8.2)
--- NOTE | 2024-06-03 12:42 | ED ---
General Adult HPI - General Chief complaint: Altered Mental Status Stated complaint: AMS Time Seen by Provider: 06/03/24 12:00 Source: patient, family, RN notes reviewed Mode of arrival: wheelchair Limitations: no limitations - History of Present Illness Initial comments: Patient is a 68-year-old female present to the emergency department with altered mental status. Patient started developing seizures just the past few weeks. Original seizure lasted around 10 minutes. Patient has had another 1 a week ago. Patient is on Keppra for this. Patient has been more confused over the past few weeks that seems to be worsening a little bit. Patient is having problems with short-term memory. Patient is repetitive. Patient continues to think it is May 23 and that they are having a democrat. Patient is having some headaches up to 03/29. Patient is on hospice for malnutrition. Patient does have chronic sacral ulcers. Patient is having some delusions that family members are involved in inappropriate activities - Related Data Home Medications Medication Instructions Recorded Confirmed Sertraline [Zoloft] 150 mg PO HS 02/01/21 06/03/24 amLODIPine [Norvasc] 2.5 mg PO DAILY 08/24/21 06/03/24 lamoTRIgine [LaMICtal] 25 mg PO DAILY 08/24/21 06/03/24 Ergocalciferol (Vitamin D2) 1,250 mcg PO FR 03/04/24 06/03/24 [Drisdol (50,000 Iu)] Meloxicam [Mobic] 15 mg PO DAILY 03/04/24 06/03/24 hydrOXYzine HCL [Atarax] 25 mg PO TID 03/04/24 06/03/24 HYDROcodone/APAP 7.5-325MG [[place] 1 tab PO TID PRN 04/25/24 06/03/24 7.5-325] Nystatin/Triamcin 1 applic TOPICAL BID PRN 04/25/24 06/03/24 [Nystatin-Triamcinolone Cream] Potassium Chloride ER [K-Dur 10] 10 meq PO DAILY 04/25/24 06/03/24 diazePAM [Valium] 5 mg PO Q6H PRN 06/03/24 06/03/24 levETIRAcetam [Keppra Xr] 500 mg PO HS 06/03/24 06/03/24 Previous Rx's Medication Instructions Recorded Gabapentin [Neurontin] 200 mg PO TID #6 cap 04/09/24 Allergies Allergy/AdvReac Type Severity Reaction Status Date / Time ibuprofen [From Motrin] Allergy Rash/Hives Verified 06/03/24 14:16 oxycodone [From Percocet] Allergy Rash/Hives Verified 06/03/24 14:16 Penicillins Allergy Rash/Hives Verified 06/03/24 14:16 ferumoxytol [From Feraheme] AdvReac Intermediate see comment Verified 06/03/24 14:16 Review of Systems ROS Statement: Those systems with pertinent positive or pertinent negative responses have been documented in the HPI. ROS Other: All systems not noted in ROS Statement are negative. Constitutional: Denies: fever Eyes: Denies: eye pain ENT: Denies: ear pain Respiratory: Denies: dyspnea Cardiovascular: Denies: chest pain Endocrine: Reports: fatigue Gastrointestinal: Denies: abdominal pain Neurological: Reports: as per HPI, headache, confusion. Denies: weakness Past Medical History Past Medical History: Blood Disorder, COPD, Hearing Disorder / Deafness, Hypertension, Osteoarthritis (OA) Additional Past Medical History / Comment(s): Hx HTN, Iron deficiency anemia, Occ slow heart rate, sl hearing loss Lt ear, hx low potassium, hx falls, Rt shoulder prob w/ upcoming surgery. Left foot turns dark purple, rt foot sl purple w/ occ edema. pressure sores, History of Any Multi-Drug Resistant Organisms: None Reported Past Surgical History: Back Surgery, Joint Replacement, Orthopedic Surgery Additional Past Surgical History / Comment(s): Right knee replacement, knee gave out after. Herniated discs cervical neck x 3, lower back x 2; right ankle surgery, hardware later removed; bilat wrist fx with surgical repair, removed hardware rt wrist; right knee torn meniscus repair. bone marrow bx. Total left shoulder - february 2021 Past Anesthesia/Blood Transfusion Reactions: No Reported Reaction Past Psychological History: Anxiety, Depression Smoking Status: Never smoker Past Alcohol Use History: Rare Past Drug Use History: None Reported - Past Family History Mother Additional Family Medical History / Comment(s): Mother 5 years after being struck by a vehicle of complications. Father Additional Family Medical History / Comment(s): Mother 5 yrs after being struck by a vehicle of complications. General Exam Limitations: no limitations General appearance: alert, in no apparent distress Head exam: Present: atraumatic Eye exam: Present: normal appearance, PERRL, EOMI ENT exam: Present: normal oropharynx Neck exam: Present: normal inspection. Absent: tenderness, meningismus Respiratory exam: Present: normal lung sounds bilaterally Cardiovascular Exam: Present: regular rate, normal rhythm GI/Abdominal exam: Present: soft. Absent: tenderness Extremities exam: Present: normal inspection Neurological exam: Present: alert, oriented X3, CN II-XII intact. Absent: motor sensory deficit Expanded Neurological exam: Present: protecting the airway Patient oriented to: Present: person, place, time Speech: Present: fluid speech Cranial nerves: EOM's Intact: Normal Motor strength exam: RUE: 5, LUE: 5, RLE: 5, LLE: 5 Eye Response: (4) open spontaneously Motor Response: (6) obeys commands Verbal Response: (5) oriented Psychiatric exam: Present: normal affect, normal mood Skin exam: Present: normal color Course Vital Signs 06/03/24 06/03/24 11:06 14:18 Temperature 98.0 F 98.1 F Pulse Rate 79 86 Respiratory 16 18 Rate Blood Pressure 104/65 104/72 O2 Sat by Pulse 97 96 Oximetry EKG Findings - EKG Results: EKG: interpreted by ERMD (Right axis. Inverted T waves V1 V2. Inverted T waves inferior.), sinus rhythm, normal QRS Medical Decision Making - Medical Decision Making Was pt. sent in by a medical professional or institution (, PA, FLAGSETTER, urgent care, hospital, or [place] [facility] facility...) When possible be specific @ -No Did you speak to anyone other than the patient for history (EMS, parent, family, police, friend...)? What history was obtained from this source @ -Daughters are present and provide majority of history as patient does have some confusion Did you review nursing and triage notes (agree or disagree)? Why? @ -I reviewed and agree with nursing and triage notes Were old charts reviewed (outside hosp., previous admission, EMS record, old EKG, old radiological studies, urgent care reports/EKG's, [place] health care facility records)? Report findings @ -Previous admissions reviewed Differential Diagnosis (chest pain, altered mental status, abdominal pain women, abdominal pain men, vaginal bleeding, weakness, fever, dyspnea, syncope, headache, dizziness, GI bleed, back pain, seizure, CVA, palpatations, mental health, musculoskeletal)? @ -Differential Altered Mental Status: Hypoglycemia, DKA, hypercapnia, ETOH, overdose, CO poisoning, trauma, myxedema coma, HTN encephalopathy, infection, encephalitis, psychosis, intercranial hemorrhage, hepatic encephalopathy, meningitis, CVA, this is not meant to be an all-inclusive list EKG interpreted by me (3pts min.). @ -As above X-rays interpreted by me (1pt min.). @ -Chest x-ray does not reveal acute abnormality CT interpreted by me (1pt min.). @ -CT scan without obvious acute abnormality U/S interpreted by me (1pt. min.). @ -None done What testing was considered but not performed or refused? (CT, X-rays, U/S, labs)? Why? @ -None What meds were considered but not given or refused? Why? @ -None Did you discuss the management of the patient with other professionals (professionals i.e. , PA, FLAGSETTER, lab, RT, psych nurse, group social worker, metal expediter, teacher, chief human resources officer, rehabilitation case coordinator)? Give summary @ -Case was discussed with Dr. Quinones, covering Dr. Thomas, who admits for Dr. Chan and will admit. Was smoking cessation discussed for >3mins.? @ -No Was critical care preformed (if so, how long)? @ -No Were there social determinants of health that impacted care today? How? (Homelessness, low income, unemployed, alcoholism, drug addiction, transportation, low edu. Level, literacy, decrease access to med. care, fci, rehab)? @ -No Was there de-escalation of care discussed even if they declined (Discuss DNR or withdrawal of care, Hospice)? DNR status @ -No What co-morbidities impacted this encounter? (DM, HTN, Smoking, COPD, CAD, Cancer, CVA, ARF, Chemo, Hep., AIDS, mental health diagnosis, sleep apnea, morbid obesity)? @ -None Was patient admitted / discharged? Hospital course, mention meds given and route, prescriptions, significant lab abnormalities, going to OR and other pertinent info. @ -Patient presents with progressive change in mental status unclear etiology. Patient family and patient want to come off hospice for admission and neurology evaluation. Admission orders written. Undiagnosed new problem with uncertain prognosis? @ -No Drug Therapy requiring intensive monitoring for toxicity (Heparin, Nitro, Insulin, Cardizem)? @ -No Were any procedures done? @ -No Diagnosis/symptom? @ - altered mental status Acute, or Chronic, or Acute on Chronic? @ -Acute Uncomplicated (without systemic symptoms) or Complicated (systemic symptoms)? @ -Default Side effects of treatment? @ -No Exacerbation, Progression, or Severe Exacerbation? @ -No Poses a threat to life or bodily function? How? (Chest pain, USA, PA, pneumonia, PE, COPD, DKA, ARF, appy, cholecystitis, CVA, Diverticulitis, Homicidal, Suicidal, threat to staff... and all critical care pts) @ -No - Lab Data Result diagrams: 06/03/24 11:55 06/03/24 11:55 Lab Results 06/03/24 06/03/24 06/03/24 Range/Units 11:55 11:55 11:55 WBC 4.4 (3.8-10.6) k/uL RBC 4.63 (3.80-5.40) m/uL Hgb 11.5 (11.4-16.0) gm/dL Hct 38.1 (34.0-46.0) % MCV 82.3 (80.0-100.0) fL MCH 24.9 L (25.0-35.0) pg MCHC 30.3 L (31.0-37.0) g/dL RDW 17.7 H (11.5-15.5) % Plt Count 339 (150-450) k/uL MPV 7.4 Neutrophils % 59 % Lymphocytes % 31 % Monocytes % 6 % Eosinophils % 2 % Basophils % 0 % Neutrophils # 2.6 (1.3-7.7) k/uL Lymphocytes # 1.4 (1.0-4.8) k/uL Monocytes # 0.3 (0-1.0) k/uL Eosinophils # 0.1 (0-0.7) k/uL Basophils # 0.0 (0-0.2) k/uL Hypochromasia Slight Anisocytosis Slight Microcytosis Slight PT 10.1 (10.0-12.5) sec INR 0.9 (<1.2) APTT 27.9 (22.0-30.0) sec Sodium 138 (137-145) mmol/L Potassium 4.3 (3.5-5.1) mmol/L Chloride 109 H (98-107) mmol/L Carbon Dioxide 21 L (22-30) mmol/L Anion Gap 8 mmol/L BUN 13 (7-17) mg/dL Creatinine 0.97 (0.52-1.04) mg/dL Est GFR (CKD-EPI)AfAm 69 (>60 ml/min/1.73 sqM) Est GFR (CKD-EPI)NonAf 60 (>60 ml/min/1.73 sqM) Glucose 87 (74-99) mg/dL Plasma Lactic Acid Bautista (0.7-2.0) mmol/L Calcium 9.3 (8.4-10.2) mg/dL Magnesium 2.0 (1.6-2.3) mg/dL Total Bilirubin 0.4 (0.2-1.3) mg/dL AST 27 (14-36) U/L ALT 12 (4-34) U/L Alkaline Phosphatase 176 H (38-126) U/L Troponin I (0.000-0.034) ng/mL Total Protein 6.2 L (6.3-8.2) g/dL Albumin 3.6 (3.5-5.0) g/dL Urine Color Urine Appearance (Clear) Urine pH (5.0-8.0) Ur Specific [employer] (1.001-1.035) Urine Protein (Negative) Urine Glucose (UA) (Negative) Urine Ketones (Negative) Urine Blood (Negative) Urine Nitrite (Negative) Urine Bilirubin (Negative) Urine Urobilinogen (<2.0) mg/dL Ur Leukocyte Esterase (Negative) Urine RBC (0-5) /hpf Urine WBC (0-5) /hpf Ur Squamous Epith Cells (0-4) /hpf Urine Bacteria (None) /hpf Urine Mucus (None) /hpf 06/03/24 06/03/24 06/03/24 Range/Units 11:55 11:55 12:54 WBC (3.8-10.6) k/uL RBC (3.80-5.40) m/uL Hgb (11.4-16.0) gm/dL Hct (34.0-46.0) % MCV (80.0-100.0) fL MCH (25.0-35.0) pg MCHC (31.0-37.0) g/dL RDW (11.5-15.5) % Plt Count (150-450) k/uL MPV Neutrophils % % Lymphocytes % % Monocytes % % Eosinophils % % Basophils % % Neutrophils # (1.3-7.7) k/uL Lymphocytes # (1.0-4.8) k/uL Monocytes # (0-1.0) k/uL Eosinophils # (0-0.7) k/uL Basophils # (0-0.2) k/uL Hypochromasia Anisocytosis Microcytosis PT (10.0-12.5) sec INR (<1.2) APTT (22.0-30.0) sec Sodium (137-145) mmol/L Potassium (3.5-5.1) mmol/L Chloride (98-107) mmol/L Carbon Dioxide (22-30) mmol/L Anion Gap mmol/L BUN (7-17) mg/dL Creatinine (0.52-1.04) mg/dL Est GFR (CKD-EPI)AfAm (>60 ml/min/1.73 sqM) Est GFR (CKD-EPI)NonAf (>60 ml/min/1.73 sqM) Glucose (74-99) mg/dL Plasma Lactic Acid Bautista 0.8 (0.7-2.0) mmol/L Calcium (8.4-10.2) mg/dL Magnesium (1.6-2.3) mg/dL Total Bilirubin (0.2-1.3) mg/dL AST (14-36) U/L ALT (4-34) U/L Alkaline Phosphatase (38-126) U/L Troponin I 0.021 (0.000-0.034) ng/mL Total Protein (6.3-8.2) g/dL Albumin (3.5-5.0) g/dL Urine Color Light Yellow Urine Appearance Cloudy H (Clear) Urine pH 5.5 (5.0-8.0) Ur Specific [employer] 1.020 (1.001-1.035) Urine Protein Negative (Negative) Urine Glucose (UA) Negative (Negative) Urine Ketones Negative (Negative) Urine Blood Negative (Negative) Urine Nitrite Negative (Negative) Urine Bilirubin Negative (Negative) Urine Urobilinogen <2.0 (<2.0) mg/dL Ur Leukocyte Esterase Moderate H (Negative) Urine RBC 1 (0-5) /hpf Urine WBC 5 (0-5) /hpf Ur Squamous Epith Cells 11 H (0-4) /hpf Urine Bacteria Rare H (None) /hpf Urine Mucus Few H (None) /hpf Disposition Clinical Impression: Altered mental status Disposition: ADMITTED IP TO THIS HOSP Is patient prescribed a controlled substance at d/c from ED?: No Referrals: Demond Swift DO [Primary Care Provider] - 1-2 days Time of Disposition: 15:31
[2024-06-03] MEDS: ACETAMINOPHEN TAB 325 MG TAB PO STA (13:00)
--- NOTE | 2024-06-03 13:25 | CT ---
EXAMINATION TYPE: CT brain wo con DATE OF EXAM: 06/03/2024 COMPARISON: 05/16/2024 HISTORY: AMS CT DLP: 1107.[address] of the brain was performed. The ventricles, basal cisterns and sulci overlying the cerebral convexities demonstrate mild enlargem ent. There is no evidence for intracranial hemorrhage or sulcal effacement. There is decreased attenuation about the periventricular white matter and deep white matter of both c erebral hemispheres, compatible with chronic small vessel ischemia. Differential diagnosis does inclu de demyelination. No mass effects are seen.No midline shift. Osseous calvarium is intact. If symptoms persist consider MRI. IMPRESSION: 1. Age related atrophic and chronic small vessel ischemic change without acute intracranial process s een at this time.
[2024-06-03 13:43] LABS: Appearance,Urine Cloudy (Clear); Bacteria,Urine Rare /hpf; Bilirubin,Urine Negative (Negative); Blood,Urine Negative (Negative); Color,Urine Light Yellow; Glucose,Urine (UA) Negative (Negative); Ketones,Urine Negative (Negative); Leukocyte Esterase,Urine Moderate (Negative); Mucus,Urine Few /hpf; Nitrite,Urine Negative (Negative); PH, Urine 5.5 (5.0-8.0); Protein,Urine Negative (Negative); RBC,Urine 1 /hpf (0-5); Squamous Epithelial Cell,Urine 11 /hpf (0-4); Urobilinogen,Urine <2.0 mg/dL (<2.0); WBC,Urine 5 /hpf (0-5)
[2024-06-03] MEDS ORDERED: diazePAM 5 MG TAB PO PRN (15:31)
[2024-06-03] MEDS ORDERED: NALOXONE 0.4 MG/ML 1 ML VIAL IV PRN (15:32)
[2024-06-03] MEDS: GABAPENTIN 100 MG CAP PO SCH (15:51)
[2024-06-03] MEDS: HYDROcodone/APAP 7.5-325MG 1 EACH TAB PO PRN (15:51)
[2024-06-03] MEDS: hydrOXYzine HCL 25 MG TAB PO SCH (15:53)
[2024-06-03] MEDS: SERTRALINE 50 MG TAB PO SCH (21:13)
[2024-06-03] MEDS: levETIRAcetam 250 MG TAB PO SCH (21:50)
--- NOTE | 2024-06-03 23:44 | P.HPIM ---
History of Present Illness H&P Date: 06/03/24 Chief Complaint: Seizures Patient is a 67-year-old female with a past medical history of hypertension, COPD, osteoarthritis, hearing disorder/deafness, anxiety/depression and chronic sacral decub ulcers completely antibiotic course in February followed by C. difficile infection. She was treated for severe infection until 2 weeks ago. Patient presented to ER with complaints of altered mental status and seizure episodes times two 1 week apart. Patient was noticed to have generalized tonic- clonic seizures as per family at bedside and felt confused and tired. Patient was foaming through mouth, watering eyes and drooling but otherwise denies any bowel or bladder incontinence. Patient was started on Keppra by hospice care and denied any seizures for the past 1 week as per family. Patient's family was concerned about new onset seizures and was brought to the hospital. Due to chronic medical problems including sacral decub ulcers which she follows with wound care clinic patient is enrolled in home hospice care.. Patient and family wants to be evaluated for seizures and wants to be admitted to the hospital. CT head showed age-related atrophic and chronic small vessel ischemic change without acute intracranial process seen at this time. Chest x-ray showed hypoventilatory changes along the large bandlike areas of atelectasis or scarring in the mid and lower lungs. Mild cardiomegaly. EKG showed sinus rhythm. Laboratory data showed WBC 4.4 hemoglobin 11.5 and platelets 339 sodium 138 potassium 4.3 chloride 109 bicarb is 21 BUN 13 and creatinine 0.97. Urinalysis showed cloudy with moderate leukocyte esterase. RBCs 1 WBCs 5. Review of Systems Constitutional: Patient denies any fever or chills . Generalized weakness and fatigue.. Abdomen: Patient denied nausea vomiting and diarrhea and abdominal pain. Cardiovascular: Patient denies any chest pain or short of breath no palpitations. Respiratory: patient denied any cough or sputum production. No shortness of breath Neurologic: Patient denied any numbness or tingling. no headache. Episodes of seizures. Musculoskeletal: Patient denies any complaints of joint swelling or deformity. Skin: Negative Psychiatric: Negative Endocrine: No heat or cold intolerance. No recent weight gain. Genitourinary: No dysuria or hematuria. All other 14 point ROS negative except the above Past Medical History Past Medical History: Blood Disorder, COPD, Hearing Disorder / Deafness, Hypertension, Osteoarthritis (OA) Additional Past Medical History / Comment(s): Hx HTN, Iron deficiency anemia, Occ slow heart rate, sl hearing loss Lt ear, hx low potassium, hx falls, Rt shoulder prob w/ upcoming surgery. Left foot turns dark purple, rt foot sl purple w/ occ edema. pressure sores, History of Any Multi-Drug Resistant Organisms: None Reported Past Surgical History: Back Surgery, Joint Replacement, Orthopedic Surgery Additional Past Surgical History / Comment(s): Right knee replacement, knee gave out after. Herniated discs cervical neck x 3, lower back x 2; right ankle surgery, hardware later removed; bilat wrist fx with surgical repair, removed hardware rt wrist; right knee torn meniscus repair. bone marrow bx. Total left shoulder - february 2021 Past Anesthesia/Blood Transfusion Reactions: No Reported Reaction Past Psychological History: Anxiety, Depression Smoking Status: Never smoker Past Alcohol Use History: Rare Past Drug Use History: None Reported - Past Family History Mother Additional Family Medical History / Comment(s): Mother 5 years after being struck by a vehicle of complications. Father Additional Family Medical History / Comment(s): Mother 5 yrs after being struck by a vehicle of complications. Medications and Allergies Home Medications Medication Instructions Recorded Confirmed Type Sertraline [Zoloft] 150 mg PO HS 02/01/21 06/03/24 History amLODIPine [Norvasc] 2.5 mg PO DAILY 08/24/21 06/03/24 History lamoTRIgine [LaMICtal] 25 mg PO DAILY 08/24/21 06/03/24 History Ergocalciferol (Vitamin D2) 1,250 mcg PO FR 03/04/24 06/03/24 History [Drisdol (50,000 Iu)] Meloxicam [Mobic] 15 mg PO DAILY 03/04/24 06/03/24 History hydrOXYzine HCL [Atarax] 25 mg PO TID 03/04/24 06/03/24 History Gabapentin [Neurontin] 200 mg PO TID #6 cap 04/09/24 06/03/24 Rx HYDROcodone/APAP 7.5-325MG [[place] 1 tab PO TID PRN 04/25/24 06/03/24 History 7.5-325] Nystatin/Triamcin 1 applic TOPICAL BID PRN 04/25/24 06/03/24 History [Nystatin-Triamcinolone Cream] Potassium Chloride ER [K-Dur 10] 10 meq PO DAILY 04/25/24 06/03/24 History diazePAM [Valium] 5 mg PO Q6H PRN 06/03/24 06/03/24 History levETIRAcetam [Keppra Xr] 500 mg PO HS 06/03/24 06/03/24 History Allergies Allergy/AdvReac Type Severity Reaction Status Date / Time ibuprofen [From Motrin] Allergy Rash/Hives Verified 06/03/24 14:16 oxycodone [From Percocet] Allergy Rash/Hives Verified 06/03/24 14:16 Penicillins Allergy Rash/Hives Verified 06/03/24 14:16 ferumoxytol [From Feraheme] AdvReac Intermediate see comment Verified 06/03/24 14:16 Physical Exam Vitals: Vital Signs Temp Pulse Resp BP Pulse Ox 06/03/24 21:53 75 18 104/71 97 06/03/24 18:38 70 18 100/61 95 06/03/24 17:26 71 18 106/68 97 06/03/24 14:18 98.1 F 86 18 104/72 96 06/03/24 11:06 98.0 F 79 16 104/65 97 Intake and Output 06/03/24 06/03/24 06/04/24 14:59 22:59 06:59 Other: Weight 43.998 kg PHYSICAL EXAMINATION: Patient is lying in the bed comfortably, no acute distress, awake alert and oriented.. HEENT: Normocephalic. Neck is supple. Pupils reactive. Nostrils clear. Oral cavity is moist. Neck reveals no JVD, carotid bruits, or thyromegaly. CHEST EXAMINATION: Trachea is central. Symmetrical expansion. Lung sampson clear to auscultation and percussion. CARDIAC: Normal S1, S2 with no gallops. No murmurs ABDOMEN: Soft. Bowel sounds present.. No organomegaly. No abdominal bruits. Extremities: reveal no edema. No clubbing or cyanosis Neurologically awake, alert, oriented x 2-3. Able to move all extremities. No gross focal deficits noted Skin: No rash o. Patient does have sacral decub ulcers with wound dressing in place. Psychiatric: Coperative. Nonsuicidal Musculoskeletal: No joint swelling or deformity. Normal range of motion. Results CBC & Chem 7: 06/03/24 11:55 06/03/24 11:55 Labs: Abnormal Lab Results - Last 24 Hours (Table) 06/03/24 06/03/24 06/03/24 Range/Units 11:55 11:55 12:54 MCH 24.9 L (25.0-35.0) pg MCHC 30.3 L (31.0-37.0) g/dL RDW 17.7 H (11.5-15.5) % Chloride 109 H (98-107) mmol/L Carbon Dioxide 21 L (22-30) mmol/L Alkaline Phosphatase 176 H (38-126) U/L Total Protein 6.2 L (6.3-8.2) g/dL Urine Appearance Cloudy H (Clear) Ur Leukocyte Esterase Moderate H (Negative) Ur Squamous Epith Cells 11 H (0-4) /hpf Urine Bacteria Rare H (None) /hpf Urine Mucus Few H (None) /hpf Thrombosis Risk Factor Assmnt - DVT/VTE Prophylaxis DVT/VTE Prophylaxis: Pharmacologic Prophylaxis ordered Assessment and Plan Assessment: Possible new onset seizures. Patient had 2 episodes of seizures 1 week apart and was started on Keppra Chronic sacral decub ulcers and is on follow-up with wound care clinic. Patient did complete antibiotic course in February and followed by severe infection. Completed Flagyl course 2 weeks ago. Hearing disorder/deafness Hypertension currently patient's blood pressure is not elevated. History of iron deficiency anemia. Anxiety/depression COPD Osteoarthritis Medical debility Sacral decub ulcers DVT prophylaxis with heparin subcu CODE STATUS DNR/DNI Plan: Patient will be continued on seizure precautions and fall precautions. EEG was ordered. CT head is negative for any acute process. Neurology was consulted for further evaluation. Patient was started back on Lamictal and Keppra. Continue with home medications and pain management. Wound care for sacral ulcers. Follow closely. Discussed with the patient and her family at bedside in detail. Time with Patient: Greater than 30
[2024-06-04 07:55] LABS: Levetiracetam (Keppra) 22.2 ug/mL (3.0-60.0)
[2024-06-04 08:39] LABS: Anisocytosis Slight; Basophils % (A) 1 %; Eosinophils # (A) 0.1 k/uL (0-0.7); Eosinophils % (A) 1 %; HCT 36.6 % (34.0-46.0); Hypochromasia Moderate; Lymphocytes # (A) 2.1 k/uL (1.0-4.8); Lymphocytes % (A) 36 %; MCH 25.1 pg (25.0-35.0); MCV 83.5 fL (80.0-100.0); Mean Platelet Volume 7.8; Microcytosis Slight; Monocytes # (A) 0.3 k/uL (0-1.0); Monocytes % (A) 5 %; Neutrophils # (A) 3.3 k/uL (1.3-7.7); Neutrophils % (A) 55 %; Platelet Count 327 k/uL (150-450); RBC 4.38 m/uL (3.80-5.40); RDW 17.7 % (11.5-15.5); WBC 5.9 k/uL (3.8-10.6)
[2024-06-04 09:01] LABS: ALT 10 U/L (4-34); AST 26 U/L (14-36); African American GFR (CKD) 72 (>60 ml/min/1.73 sqM); Albumin/Globulin Ratio 1.3; Alkaline Phosphatase 163 U/L (38-126); Anion Gap 3 mmol/L; Blood Urea Nitrogen 13 mg/dL (7-17); Carbon Dioxide 23 mmol/L (22-30); Chloride 111 mmol/L (98-107); Globulin 2.3 g/dL; Glucose 77 mg/dL (74-99); Non-African American GFR(CKD) 62 (>60 ml/min/1.73 sqM); Potassium 5.3 mmol/L (3.5-5.1); Sodium 137 mmol/L (137-145); Total Bilirubin 0.3 mg/dL (0.2-1.3); Total Protein 5.3 g/dL (6.3-8.2)
[2024-06-04] MEDS: POTASSIUM CHLORIDE ER 10 MEQ TAB.ER.PRT PO SCH (10:25)
[2024-06-04] MEDS: MELOXICAM 7.5 MG TAB PO SCH (10:25)
[2024-06-04] MEDS: amLODIPine 2.5 MG TAB PO SCH (10:26)
[2024-06-04] MEDS: lamoTRIgine 25 MG TAB PO SCH ×2 (10:26→21:18)
--- NOTE | 2024-06-04 13:50 | P.CNNES ---
History of Present Illness Consult date: 06/04/24 Requesting physician: David Lu Reason for Consult: ams History of Present Illness: This is a 68-year-old woman with history of seizure, hypertension, chronic wound to the bilateral gluteal area/pressure ulcer depression presented emergency department because of confusion. History is obtained from the patient's daught er who is at bedside. According to the daughter the patient had a seizure-like activity and she stated it was full-blown with generalized tonic-clonic seizure- like activity about 3 weeks ago and had eye rolling drooling and had loss of consciousness. According to the daughter about 2 weeks ago she had a subtle shaken with confusion but is not as drastic as 3 weeks ago. She continues to have further episodes of confusion with myoclonic jerks as well as she is having at times abnormal movement of extremities in which she is reaching out for things with these confusion episodes. Daughter stated that she was in the hospice and the patient is on Keppra 500 mg extended release nightly for her seizure and again she stated that compared to 3 weeks ago she has not had any further drastic seizure-like activity that she had 3 weeks ago but she continues to have episode of confusion and body jerks and is concerned that the patient continues to have seizures and wants her further evaluation. As a result she placed the hospice on hold for now for further evaluation and then she will place the patient back on hospice. Patient is being cared by her 2 daughters. Patient has history of recurrent nonhealing ulcer in the gluteal region as well as history of C. difficile in the past but has not had any further issues for now. Patient is also on Lamictal 25 mg daily. Was seen by our neurology team 04/02/2024 for altered mental status was felt due to metabolic encephalopathy. She was also on a high dose of gabapentin at that time 600 mg 1 tablet 3 times a day then it was eventually cut down to 200 mg 1 tablet 3 times daily. Some of the workup during this hospital visit consisted of: White blood cell is within normal limits Plasma lactic acid venous 0.8. BUN/creatinine, sodium, magnesium and calcium AST ALT are within normal limits Initial serum glucose is 87 CT of the head is reported as age-related atrophy and chronic small vessel ischemic change without acute intracranial process seen at this time. I reviewed the CT and agree with the report. Review of Systems The positive and negative as per HPI. Past Medical History Past Medical History: Blood Disorder, COPD, Hearing Disorder / Deafness, Hypertension, Osteoarthritis (OA) Additional Past Medical History / Comment(s): Hx HTN, Iron deficiency anemia, Occ slow heart rate, sl hearing loss Lt ear, hx low potassium, hx falls, Rt shoulder prob w/ upcoming surgery. Left foot turns dark purple, rt foot sl purple w/ occ edema. pressure sores, History of Any Multi-Drug Resistant Organisms: None Reported Past Surgical History: Back Surgery, Joint Replacement, Orthopedic Surgery Additional Past Surgical History / Comment(s): Right knee replacement, knee gave out after. Herniated discs cervical neck x 3, lower back x 2; right ankle surgery, hardware later removed; bilat wrist fx with surgical repair, removed hardware rt wrist; right knee torn meniscus repair. bone marrow bx. Total left shoulder - february 2021 Past Anesthesia/Blood Transfusion Reactions: No Reported Reaction Past Psychological History: Anxiety, Depression Smoking Status: Never smoker Past Alcohol Use History: Rare Past Drug Use History: None Reported - Past Family History Mother Additional Family Medical History / Comment(s): Mother 5 years after being struck by a vehicle of complications. Father Additional Family Medical History / Comment(s): Mother 5 yrs after being struck by a vehicle of complications. Medications and Allergies Home Medications Medication Instructions Recorded Confirmed Type Sertraline [Zoloft] 150 mg PO HS 02/01/21 06/03/24 History amLODIPine [Norvasc] 2.5 mg PO DAILY 08/24/21 06/03/24 History lamoTRIgine [LaMICtal] 25 mg PO DAILY 08/24/21 06/03/24 History Ergocalciferol (Vitamin D2) 1,250 mcg PO FR 03/04/24 06/03/24 History [Drisdol (50,000 Iu)] Meloxicam [Mobic] 15 mg PO DAILY 03/04/24 06/03/24 History hydrOXYzine HCL [Atarax] 25 mg PO TID 03/04/24 06/03/24 History Gabapentin [Neurontin] 200 mg PO TID #6 cap 04/09/24 06/03/24 Rx HYDROcodone/APAP 7.5-325MG [[place] 1 tab PO TID PRN 04/25/24 06/03/24 History 7.5-325] Nystatin/Triamcin 1 applic TOPICAL BID PRN 04/25/24 06/03/24 History [Nystatin-Triamcinolone Cream] Potassium Chloride ER [K-Dur 10] 10 meq PO DAILY 04/25/24 06/03/24 History diazePAM [Valium] 5 mg PO Q6H PRN 06/03/24 06/03/24 History levETIRAcetam [Keppra Xr] 500 mg PO HS 06/03/24 06/03/24 History Allergies Allergy/AdvReac Type Severity Reaction Status Date / Time ibuprofen [From Motrin] Allergy Rash/Hives Verified 06/03/24 14:16 oxycodone [From Percocet] Allergy Rash/Hives Verified 06/03/24 14:16 Penicillins Allergy Rash/Hives Verified 06/03/24 14:16 ferumoxytol [From Feraheme] AdvReac Intermediate see comment Verified 06/03/24 14:16 Physical Examination - Vital Signs Vital Signs: Vital Signs Temp Pulse Resp BP Pulse Ox 06/04/24 11:24 82 18 117/76 96 06/04/24 10:21 82 18 137/79 96 06/04/24 08:27 94 18 107/78 96 06/04/24 06:25 72 16 101/57 95 06/03/24 21:53 75 18 104/71 97 06/03/24 18:38 70 18 100/61 95 06/03/24 17:26 71 18 106/68 97 06/03/24 14:18 98.1 F 86 18 104/72 96 GENERAL: The patient is lying in bed and is not in acute distress. NEUROLOGICAL: Higher mental function: The patient is awake, alert, oriented to self, initially stated [facility] then later stated [facility]. She correctly s tated current year but stated the month is June. She named correct current state, [place] [facility] and [place] of [place] Patient is following simple commands. No aphasia and no neglect. Cranial nerves: The pupils are round, equal and reactive to light and accommodation. Visual sampson are full to confrontation throughout. Extraocular movement is intact no nystagmus is noted. Facial sensation is normal to touch throughout. The facial strength is normal throughout. Hearing is moderately decreased bilaterally to hand rub. Tongue is midline and moved [id number] without any difficulty. No dysarthria is noted. Shoulder shrug is normal bilaterally. Motor: The strength is limited in assessment because of her overall cooperation but lifting the bilateral uppers > lowers above gravity. Normal tone and bulk. Cerebellum: Normal finger to nose bilaterally. Sensation: Sensation is normal to touch throughout. Reflexes (right/left): 2+ in uppers while lowers are 0-1. Plantars are mute bilaterally. Results - Laboratory Findings CBC and BMP: 06/04/24 08:12 06/04/24 08:12 Abnormal Lab Findings: Abnormal Labs 06/03/24 06/03/24 06/03/24 11:55 11:55 12:54 Hgb MCH 24.9 L MCHC 30.3 L RDW 17.7 H Potassium Chloride 109 H Carbon Dioxide 21 L Alkaline Phosphatase 176 H Total Protein 6.2 L Albumin Urine Appearance Cloudy H Ur Leukocyte Esterase Moderate H Ur Squamous Epith Cells 11 H Urine Bacteria Rare H Urine Mucus Few H 06/04/24 06/04/24 08:12 08:12 Hgb 11.0 L MCH MCHC 30.0 L RDW 17.7 H Potassium 5.3 H Chloride 111 H Carbon Dioxide Alkaline Phosphatase 163 H Total Protein 5.3 L Albumin 3.0 L Urine Appearance Ur Leukocyte Esterase Ur Squamous Epith Cells Urine Bacteria Urine Mucus Assessment and Plan Assessment: This is a 68-year-old woman with history of seizure that had generalized tonic- clonic activity about 3 weeks ago and a week later she had a milder seizure-like activity per the daughter and since then the patient's been having further episodes of confusion with body jerks and abnormal extremity movement is then reaching for something. Further episodes of confusion with body jerks and abnormal extremity movement is likely due to further breakthrough seizure. History of seizure and had generalized tonic-clonic seizure about 3 weeks ago. Patient is currently on Keppra extended release 500 mg nightly. She is also on gabapentin for neuropathy which is a week antiepileptic drug. She is also on the Lamictal and I am not sure if this is for her mood or was this started for her also seizure-like activity but is on a low-dose of 25 mg daily. History of recurrent chronic nonhealing bilateral gluteal ulcers History of C. difficile Wheelchair-bound History of multiple neck and lower back surgery History of depression and anxiety Plan: Is continued on her home Keppra 500 mg extended release. It seems that we do not have the extended release so if the family can bring in the medication in the meantime the patient is on 250 mg twice daily. I went up on the Lamictal from 25 mg daily to 25 mg twice daily. I highly recommend Lamictal to be titrated up slowly until goal of the 100 mg twice daily. To go up to 25 mg each week. I ordered MRI of the brain seizure protocol Ordered ammonia level. Patient had recent Vitamin B12 and TSH in 03/2024 and both are normal and no need to repeat from neurological perspective. Routine EEG is ordered by the primary team and is pending Seizure precaution Will defer the rest of the medical management the primary and other specialist After the workup the patient will be placed back on hospice according to her daughters The plan is discussed with patient and her two daughters and primary team N.P. Thank you for the consultation. Time with Patient: Greater than 30
[2024-06-04] MEDS: LORazepam 2 MG/ML INJ IV STA (16:11)
--- NOTE | 2024-06-04 19:53 | MR ---
EXAMINATION TYPE: MR brain wo/w con DATE OF EXAM: 06/04/2024 5:14 PM CLINICAL INDICATION:Female, 68 years old with history of seizure, Seizure COMPARISON: None TECHNIQUE: Multi planar, multi sequence imaging was performed through the brain including: T1, T2, In version recovery, susceptibility weighted imaging and gradient echo imaging and Diffusion weighted im aging. The patient was then given intravenous contrast and multi planar, T1 fat-saturation images wer e obtained. IV Contrast: 4.5 cc Gadavist FINDINGS: The veliz-white junctions, ventricular system, basal cisterns appear unremarkable. Diffusion-weighted imaging shows no evidence of restricted diffusion to suggest acute/subacute infarct. Intracranial ar terial flow voids are maintained. Midline structures show no abnormality. The susceptibility weighted images do not reveal any evidence for micro-hemorrhage. After administration of gadolinium, no abnor mal enhancement is seen. The bone marrow signal is within normal limits. Paranasal sinuses and mastoid air cells: No significant paranasal sinus disease. Visualized orbits: Orbital contents are intact. IMPRESSION: No evidence of intracranial mass, acute/subacute infarct, or abnormal enhancement.
--- NOTE | 2024-06-04 22:54 | EEG ---
ELECTROENCEPHALOGRAM REPORT CLINICAL HISTORY: This is a 68-year-old woman with history of seizure, who is having intermittent confusion with body jerks. The video EEG is obtained to evaluate for seizure epileptiform activity. RELEVANT MEDICATIONS: 1. Keppra. 2. Lamictal. EEG TYPE: This is a routine 21-channel EEG with video using the 10/20 electrode placement system. DESCRIPTION: Wakefulness is obtained. During awake state, the background consists of low-to- moderate voltage of 7 to 7.5 hertz activity. At times, the background consists of diffuse nonrhythmic polymorphic delta activity. There is no physiological stage 2 sleep architecture. There is no focal slowing. Interictal and ictal is none. ACTIVATION PROCEDURE: Photic stimulation did not evoke a posterior driving response. There is no abnormality during the photic stimulation. Hyperventilation is not performed. CLINICAL INTERPRETATION: This is an abnormal routine EEG. The background slowing is suggestive of mild encephalopathy. There is no focal slowing, epileptiform discharge, or seizure on the EEG. Clinical correlation is recommended. JAQUI / AYSHA: [id number] / MTDD
--- NOTE | 2024-06-05 07:03 | P.PN ---
Subjective Progress Note Date: 06/04/24 Patient is a 67-year-old female with a past medical history of hypertension, COPD, osteoarthritis, hearing disorder/deafness, anxiety/depression and chronic sacral decub ulcers completely antibiotic course in February followed by C. difficile infection. She was treated for severe infection until 2 weeks ago. Patient presented to ER with complaints of altered mental status and seizure episodes times two 1 week apart. Patient was noticed to have generalized tonic- clonic seizures as per family at bedside and felt confused and tired. Patient was foaming through mouth, watering eyes and drooling but otherwise denies any bowel or bladder incontinence. Patient was started on Keppra by hospice care and denied any seizures for the past 1 week as per family. Patient's family was concerned about new onset seizures and was brought to the hospital. Due to chronic medical problems including sacral decub ulcers which she follows with wound care clinic patient is enrolled in home hospice care.. Patient and family wants to be evaluated for seizures and wants to be admitted to the hospital. CT head showed age-related atrophic and chronic small vessel ischemic change without acute intracranial process seen at this time. Chest x-ray showed hypoventilatory changes along the large bandlike areas of atelectasis or scarring in the mid and lower lungs. Mild cardiomegaly. EKG showed sinus rhythm. Laboratory data showed WBC 4.4 hemoglobin 11.5 and platelets 339 sodium 138 potassium 4.3 chloride 109 bicarb is 21 BUN 13 and creatinine 0.97. Urinalysis showed cloudy with moderate leukocyte esterase. RBCs 1 WBCs 5. 06/04/2024 Patient is seen and evaluated in follow-up today with daughters at the bedside concerned of seizure-like activity. Patient is maintained on Keppra and discuss further with neurology undergoing further workup including MRI of the brain which is ordered and pending as well as being started on Depakote. Patient was enrolled in hospice although currently on hold for further neurological evaluation. Per daughter patient continues to have these jerking type movements. Patient appears to have Parkinson's on exam and there is a family history of this as well. Review of systems: Constitutional: No reports of fatigue, fever, or chills Cardiovascular: No reports of chest pain or palpitations Respiratory: No reports of shortness of breath or cough GI: No reports of nausea, vomiting, or diarrhea : No reports of dysuria or retention Neurovascular: reports of generalized weakness which is chronic All medications have been reviewed Physical exam: Gen: This is a 68-year-old female who is awake, alert and oriented x 2-3, baseline, well-developed, elderly appearing, thin built HEENT: Head is atraumatic, normocephalic. Pupils equal, round. Sclerae is anicteric. NECK: Supple. No JVD. No lymphadenopathy. No thyromegaly. LUNGS: Clear to auscultation. No wheezes or rhonchi. No intercostal retractions. HEART: Regular rate and rhythm. No murmur. ABDOMEN: Soft. Bowel sounds are present. No masses. No tenderness. EXTREMITIES: No pedal edema. No calf tenderness. Pill-rolling noted of the hands on exam NEUROLOGICAL: Patient is awake, alert and oriented x3. Cranial nerves 2 through 12 are grossly intact. Diffusely weak Assessment: Possible new onset seizures. Patient had 2 episodes of seizures 1 week apart and was started on Keppra Chronic sacral decub ulcers and is on follow-up with wound care clinic. Patient did complete antibiotic course in February and followed by severe infection. Completed Flagyl course 2 weeks ago. Hearing disorder/deafness Hypertension currently patient's blood pressure is not elevated. History of iron deficiency anemia. Anxiety/depression COPD, not in exacerbation Osteoarthritis Medical debility Sacral decub ulcers DVT prophylaxis with heparin subcu GI prophylaxis CODE STATUS DNR/DNI Plan: Patient will be continued on seizure precautions and fall precautions. EEG was ordered and abnormal with no epileptiform discharges noted likely encephalopathic. CT head is negative for any acute process. Neurology followin g and continuing Keppra and adding Depakote. Recommend MRI of the brain to assess for any lesions or concerns of CVA. Suspicion is extremely low of CVA Continue with home medications and pain management. Wound care for sacral ulcers. Follow closely. Discussed with the patient and her family at bedside in detail. Patient wants to go home tomorrow. Will discuss further with neurology and family Overall prognosis is guarded The impression and plan of care has been dictated by April Cook, Nurse Practitioner as directed. Dr. Stacie MD I have performed a history and examination and MDM of this patient, discussed the same with the dictator, and agree with the dictator's assessment and plan as written ,documented as a scribe. Based on total visit time, I have performed more than 50% of the visit. Objective - Vital Signs Vital signs: Vital Signs Temp 98.1 F 06/03/24 14:18 Pulse 82 06/04/24 11:24 Resp 18 06/04/24 11:24 BP 117/76 06/04/24 11:24 Pulse Ox 96 06/04/24 11:24 FiO2 Intake & Output 06/03/24 06/04/24 06/04/24 18:59 06:59 18:59 Weight 43.998 kg - Labs CBC & Chem 7: 06/04/24 08:12 06/04/24 08:12 Labs: Abnormal Lab Results - Last 24 Hours (Table) 06/04/24 06/04/24 Range/Units 08:12 08:12 Hgb 11.0 L (11.4-16.0) gm/dL MCHC 30.0 L (31.0-37.0) g/dL RDW 17.7 H (11.5-15.5) % Potassium 5.3 H (3.5-5.1) mmol/L Chloride 111 H (98-107) mmol/L Alkaline Phosphatase 163 H (38-126) U/L Total Protein 5.3 L (6.3-8.2) g/dL Albumin 3.0 L (3.5-5.0) g/dL
[2024-06-05 07:39] VITALS: PULSE 89; RESP 15
[2024-06-05 11:02] LABS: Blood Urea Nitrogen 10.6 mg/dL (9.0-27.0); Calcium 8.4 mg/dL (8.7-10.3); Carbon Dioxide 19.1 mmol/L (21.6-31.8); Chloride 108 mmol/L (96-109); Glucose 80 mg/dL (70-110); Magnesium 1.9 mg/dL (1.5-2.4); Potassium 4.9 mmol/L (3.5-5.5); Sodium 138 mmol/L (135-145)
--- NOTE | 2024-06-05 11:16 | P.PN ---
Subjective Progress Note Date: 06/05/24 I am following up with the patient and she is accompanied with her daughter. According to the daughter she has not had any further seizure-like episode. But she states her night patient had abnormal movement of the mouth with Chewing event as well as abnormal movement of her upper extremities and it seems uncontrollable at times. No body jerks. No worsening of her confusion. According to the daughter patient has been on Lamictal 25 mg daily And was used to enhance her Zoloft according the patient. Objective - Vital Signs Vital signs: Vital Signs Temp 98.4 F 06/05/24 07:06 Pulse 89 06/05/24 07:06 Resp 15 06/05/24 07:06 BP 103/69 06/05/24 07:06 Pulse Ox 94 L 06/05/24 07:06 FiO2 Intake & Output 06/04/24 06/05/24 06/05/24 18:59 06:59 18:59 Intake Total 237 Balance 237 Weight 43.998 kg Intake: Oral 237 Other: Voiding Method Toilet # Voids 1 - Exam GENERAL: The patient is lying in bed and is not in acute distress. NEUROLOGICAL: Higher mental function: The patient is awake, alert, oriented to self, place. She stated the year is 1985 but correctly stated the current month. Patient is following simple commands. No aphasia and no neglect. Cranial nerves: The pupils are round, equal and reactive to light and a ccommodation. Visual sampson are full to confrontation throughout. Extraocular movement is intact no nystagmus is noted. Facial sensation is normal to touch throughout. The facial strength is normal throughout. Hearing is moderately decreased bilaterally to hand rub. Tongue is midline and moved [id number] without any difficulty. No dysarthria is noted. Shoulder shrug is normal bilaterally. Motor: The strength is limited in assessment because of her overall cooperation but lifting the bilateral uppers > lowers above gravity. Normal tone and bulk. No body jerks noted. Cerebellum: Normal finger to nose bilaterally. Sensation: Sensation is normal to touch throughout. Some of the workup during this hospital visit consisted of: White blood cell is within normal limits Plasma lactic acid venous 0.8. BUN/creatinine, sodium, magnesium and calcium AST ALT are within normal limits Initial serum glucose is 87 Ammonia level is [address] of the head is reported as age-related atrophy and chronic small vessel ischemic change without acute intracranial process seen at this time. I review ed the CT and agree with the report. Routine EEG is abnormal. The background slowing is suggestive of mild encephalopathy. There is no focal slowing, OptiForm discharges or seizure on the EEG. MRI of the brain is reported as no evidence of intracranial mass, acute/subacute infarct or abnormal enhancement. I personally reviewed the MRI and agree with the report. - Labs CBC & Chem 7: 06/04/24 08:12 06/05/24 05:38 Labs: Abnormal Lab Results - Last 24 Hours (Table) 06/05/24 Range/Units 05:38 Carbon Dioxide 19.1 L (21.6-31.8) mmol/L BUN/Creatinine Ratio 10.60 L (12.00-20.00) Ratio Calcium 8.4 L (8.7-10.3) mg/dL Microbiology - Last 24 Hours (Table) 06/03/24 12:54 Urine Culture - Preliminary Urine,Voided Gram Neg Bacilli Assessment and Plan Assessment: This is a 68-year-old woman with history of seizure that had generalized tonic- clonic activity about 3 weeks ago and a week later she had a milder seizure-like activity per the daughter and since then the patient's been having further episodes of confusion with body jerks and abnormal extremity movement is then reaching for something. Further episodes of confusion with body jerks and abnormal extremity movement is possible due to further breakthrough seizure--I have not seen any abnormal body jerks and her confusion seems better according to the daughter in the last 2 days. Her routine EEG shows mild encephalopathy but there is no discharges or seizures. MRI brain is negative for stroke or mass. I notified the daughter that the EEG is only recording which transpiring at this current time. Possibly patient has also dyskinesia with abnormal mouth movement and extremity movement that the daughter describes and unsure if it is related to her psychi atric condition or medication induced. Possible acute UTI. History of seizure and had generalized tonic-clonic seizure about 3 weeks ago. Patient is currently on Keppra extended release 500 mg nightly. She is also on gabapentin for neuropathy which is a week antiepileptic drug. She is also on the Lamictal and I am not sure if this is for her mood or was this started for her also seizure-like activity but is on a low-dose of 25 mg daily. History of recurrent chronic nonhealing bilateral gluteal ulcers History of C. difficile Wheelchair-bound History of multiple neck and lower back surgery History of depression and anxiety Plan: Is continued on her home Keppra 500 mg extended release. It seems that we do not have the extended release so if the family can bring in the medication in the meantime the patient is on 250 mg twice daily. I went up on the Lamictal from 25 mg daily to 25 mg twice daily. I recommend Lamictal to be titrated up slowly until goal of the 100 mg twice daily. To go up to 25 mg each week. Notified the patient and daughter that there is concern for rash/Jesus Je Syndrome with Lamictal. If she develop rash to stop immediately and call for medical help. Also possibly patient has underlying dementia and recommend outpatient n europsych evaluation and recommend the patient to be followed up with a neurologist as an outpatient within 2 to 3 weeks. I spoke with the manager of case management and she stated that likely the patient is able to follow-up with outpatient team members even though she is in hospice but she will look into it and she will speak with the patient's daughters Meant psychiatry evaluation for possible dyskinesia. Patient had recent Vitamin B12 and TSH in 03/2024 and both are normal and no need to repeat from neurological perspective. Routine EEG is ordered by the primary team and is pending Seizure precaution Will defer the rest of the medical management the primary and other specialist After the workup the patient will be placed back on hospice according to her daughters The plan is discussed with patient, her daughter who is at bedside and primary team N.P. There is no further neurological work-up. Will sign off. Please reconsult if needed. Time with Patient: Less than 30
[2024-06-05 11:26] VITALS: BMI 18.3
[2024-06-05 13:13] VITALS: BP 96/68; TEMP 97.4
[2024-06-07] MEDS ORDERED: ERGOCALCIFEROL 1,250 MCG (50,000 IU) CAPSULE PO SCH (09:00)
== END 2024-06-05 17:03 | disposition hospice, home (50) ==
LOC: EC 11:01 → 5NMEDONC 15:35
PROVIDERS: ADMIT Internal Medicine; ATTEND Internal Medicine
DX: R41.0 Disorientation, unspecified (principal); G25.89 Other specified extrapyramidal and movement disorders; L89.159 Pressure ulcer of sacral region, unspecified stage; R53.81 Other malaise; M19.90 Unspecified osteoarthritis, unspecified site; J44.9 Chronic obstructive pulmonary disease, unspecified; I10 Essential (primary) hypertension; F32.A Depression, unspecified; F41.9 Anxiety disorder, unspecified; H91.92 Unspecified hearing loss, left ear; G62.9 Polyneuropathy, unspecified; R94.01 Abnormal electroencephalogram [EEG]; Z66 Do not resuscitate; Z86.19 Personal history of other infectious and parasitic diseases; Z99.3 Dependence on wheelchair; Z79.899 Other long term (current) drug therapy; Z79.1 Long term (current) use of non-steroidal anti-inflammatories (NSAID); Z88.6 Allergy status to analgesic agent; Z88.5 Allergy status to narcotic agent; Z88.0 Allergy status to penicillin
CPT/HCPCS: 96365; 96375; 99285; 36415; 95816; 93005; 80053 ×2; 80048; 80175; 80177; 82140; 83605; 83735 ×2; 84484; 85025 ×2; 85610; 85730; 81001; 87086; 87077; 87186; 71046; 70450; 70553; G0378 ×3; J2060; J0696; A9585